=== PATIENT | female | born 1940 | race Caucasian/White ===

== ENCOUNTER 2016-06-23 09:17 | Day surgery (SDC) | payer MEDICARE, BC ==
[2016-06-23 10:54] LABS: HEMATOCRIT 35.2 % (36.0-47.0); HEMOGLOBIN 11.7 g/dL (12.0-15.5); HGB HCT DIFFERENCE -0.1; MEAN CORPUSCULAR HEMOGLOBIN 33.8 pg (27.0-33.4); MEAN CORPUSCULAR HGB CONC 33.1 g/dL (32.0-36.0); MEAN CORPUSCULAR VOLUME 102 fl (80-97); RED BLOOD COUNT 3.44 10^6/uL (3.72-5.28); RED CELL DISTRIBUTION WIDTH 14.6 % (11.5-14.0); WHITE BLOOD COUNT 4.5 10^3/uL (4.0-10.5)
[2016-06-23] MEDS ORDERED: FENTANYL CITRATE INJ/PF 100 MCG/2 ML AMPUL ONE (11:02)
[2016-06-23] MEDS ORDERED: MIDAZOLAM 2 MG/2 ML INJ ONE (11:02)
[2016-06-23] MEDS ORDERED: HEPARIN SOD (PORCINE) 5,000 UNIT/ML 1 ML SYRINGE ONE (11:02)
[2016-06-23 11:14] LABS: ANION GAP 13 (5-19); BLOOD UREA NITROGEN 41 mg/dL (7-20); CALCIUM 10.4 mg/dL (8.4-10.2); CARBON DIOXIDE 29 mmol/L (22-30); CHLORIDE 96 mmol/L (98-107); CREATININE RESULT 5.13 mg/dL (0.52-1.25); GLUCOSE 105 mg/dL (75-110); POTASSIUM 4.5 mmol/L (3.6-5.0)
[2016-06-23 11:16] LABS: PROTHROMBIN TIME 12.8 SEC (11.4-15.4)
[2016-06-23] MEDS ORDERED: LIDOCAINE 0.5% INJ-PF (5 MG/ML) 50 ML SDV ONE (11:18)
[2016-06-23 11:22] LABS: BASOPHILS % (MANUAL) 2 % (0-2); EOSINOPHILS % (MANUAL) 4 % (0-6); LYMPHOCYTES % (MANUAL) 24 % (13-45); TOTAL CELLS COUNTED 100
[2016-06-23 11:24] LABS: ANISOCYTOSIS 1+; HYPOCHROMASIA SLIGHT; OVALOCYTES SLIGHT
--- NOTE | 2016-06-23 12:55 | PDOC DISCHARGE SUMMARY ---
Discharge Summary (SDC) - Discharge Final Diagnosis: #1 malfunctioning arteriovenous fistula, left brachiocephalic. #2 end-stage renal disease on hemodialysis. #3 multiple comorbidities. Date of Surgery: 06/23/16 Discharge Date: 06/23/16 Condition: Good Treatment or Instructions: #1 activities within moderation encouraged. #2 follow up in my office by appointment in about 1 week. Call for appointment. #3 the wounds covered clean and dry until dialysis. #4 hold off on school/work until evaluation in office. #5 may shower in 48 hours, keep operated area as dry as possible. #6 discharge from ambulatory when ASU criteria met. #7 medications per medication reconciliation sheet. #8 Also may have one Percocet up to every 4 hours when necessary for pain greater than 4 out of 10 while in the ASU Respiratory Treatments at Home: Deep Breathing/Coughing Discharge Activity: Activity As Tolerated Report the Following to Your Physician Immediately: Unusual Bleeding
--- NOTE | 2016-06-23 13:01 | Operative Report ---
Operative Report DATE OF SURGERY: 06/23/16 PREOPERATIVE DIAGNOSIS: #1 malfunctioning arteriovenous fistula, left brachiocephalic. #2 end-stage renal disease on hemodialysis. #3 multiple comorbidities. POSTOPERATIVE DIAGNOSIS: #1 malfunctioning arteriovenous fistula, left brachiocephalic. #2 end-stage renal disease on hemodialysis. #3 multiple comorbidities. OPERATION: #1 needle introduction of the fistula. #2 angioplasty. #3 angiogram and interpretation. SURGEON: NELIA DAUGHERTY COMPENSATION ADJUSTER: none ANESTHESIA: Moderate Sedation TISSUE REMOVED OR ALTERED: Not applicable. COMPLICATIONS: None ESTIMATED BLOOD LOSS: 2 mL. INTRAOPERATIVE FINDINGS: Of a well-founded arteriovenous fistula, left brachiocephalic. Initially. After angioplasty bit firmer suggesting improved inflow. Angiogram was pertinent for an almost absence of radial and ulnar arteries. In spite of this the patient has excellent vascularity at her hand which are nice and supple and pink and warm. No sign of steal nor does she have any pain. The fistula circuit otherwise is really quite normal, dilated in the 10 cm a frequent access and cephalad quite acceptable throughout to the heart. The jugular a little bit prominent but no obvious central stenosis. The [place] artery looks quite large that is the brachial and, as mentioned, the ulnar and radial were not seen even after obstruction of the fistula during angiography. PROCEDURE: PROCEDURE: After verifying the procedure and having obtained informed consent, the patient's left arm was prepared with Chlorhexidine and draped out with sterile linen. Local anesthesia infiltrated. Percutaneous access into the fistula ,[retrograde], obtained about [20 cm] from the arteriovenous anastomosis using a micro puncture needle followed by micro puncture wire and then a micro puncture catheter. Angiogram demonstrated the aforementioned findings. Angioplasty was elected. A 0.035 [place] wire was inserted, and over this, a 6 Setswana short introducer was placed, this was followed by a Kumpe catheter. The system was manipulated past the anastomosis and into the brachial artery. [5] angioplasty balloon . Angioplasty was Done around the bend of the connection of artery to fistula. It was difficult to ascertain an actual stenosis due to the perfusion of vascularity in this area. Nevertheless there was a distinct waist which was eliminated at 12 willis. Hardcopy documentation preserved.. Inflating for a minute at a time.]. The fistula had markedly improved flow and was somewhat firmer than initially. Completion angiogram demonstrated [satisfactory result]. The instrumentation was now withdrawn over moderate pressure for 10 minutes. Dressings applied, procedure concluded. Exposure time: 0.8 minutes Radiation: 15 sandra per centimeter squared Contrast: 25 mL of Isovue-M 300 low osmolality. DICTATING PHYSICIAN: NELIA DUNLAP M.D. cc: NELIA DUNLAP M.D. ([id number]) >>
--- NOTE | 2016-06-23 13:13 | EKG REPORT ---
SEVERITY:- ABNORMAL ECG - SINUS RHYTHM VENTRICULAR PREMATURE COMPLEX FIRST DEGREE AV BLOCK PROBABLE INFERIOR INFARCT, OLD OLD ANTEROSEPTAL MA : Confirmed by: Oskar Herzog MD 23-Jun-2016 13:12:53
[2016-06-23 13:41] VITALS: BP 138/56
== END 2016-06-23 13:50 | disposition home or self-care (01) ==
LOC: CCL 09:17
PROVIDERS: ATTEND Surgery
PROC: 057F3DZ Dilation of Left Cephalic Vein with Intraluminal Device, Percutaneous Approach (ICD-10-PCS; principal; 2016-06-23)
DX: T82.858A Stenosis of other vascular prosthetic devices, implants and grafts, initial encounter (principal); Y83.2 Surgical operation with anastomosis, bypass or graft as the cause of abnormal reaction of the patient, or of later complication, without mention of misadventure at the time of the procedure; N18.6 End stage renal disease; Z79.01 Long term (current) use of anticoagulants; Z99.2 Dependence on renal dialysis; Z88.8 Allergy status to other drugs, medicaments and biological substances
CPT/HCPCS: 36415; 85025; 85610; 85730; 80048; 36902; 71010; 93005; 93010; C1725; C1887; C1769; J2250; J1644 ×2; J3010; J3490

== ENCOUNTER 2018-04-12 06:44 | Emergency (ER) | payer MEDICARE, BC ==
--- NOTE | 2018-04-12 07:35 | ER Document Report ---
ED General - General Chief Complaint: Fall Stated Complaint: FALL Time Seen by Provider: 04/12/18 07:34 Notes: Patient is a 77 female that presents to the emergency department for chief complaint of hip pain after fall. Patient states that this morning, she made some oatmeal, and turned to throw paper towel away, and lost her balance and fell, she states that she believes she landed on her right side, she did hit her head, but denies loss of consciousness. She is currently complaining of bilateral hip pain, however and pain on her left arm where she has a skin tear. She denies having any headache or neck pain at this time. But she complains of pain in her hips as noted, which she currently rates as a 8 out of 10, describes as a constant aching sensation, she did not take any medication prior to ED arrival. Patient arrived by EMS. She denies any other complaints at this time such as chest pain, shortness of breath, nausea, vomiting. Past Medical History: End-stage renal disease on dialysis, hypothyroidism, CHF, CAD Past Surgical History: Left upper extremity AV fistula Social History: Denies current tobacco, alcohol or drug use. Family History: Reviewed and noncontributory for presenting illness Allergies: Reviewed, see documented allergy list. REVIEW OF SYSTEMS: Other than noted above, the 12 point review of systems was reviewed with the patient and were negative, all pertinent findings are included in the HPI. PHYSICAL EXAMINATION: Vital signs reviewed, nursing noted reviewed. GENERAL: Elderly female, appears uncomfortable and in pain HEAD: Atraumatic, normocephalic. EYES: Eyes appear normal, extraocular movements intact, sclera anicteric, conjunctiva are normal. ENT: nares patent, oropharynx clear without exudates. Moist mucous membranes. No midline tenderness. NECK: Normal range of motion, supple without lymphadenopathy LUNGS: Breath sounds clear to auscultation bilaterally and equal. No wheezes rales or rhonchi. HEART: Regular rate and rhythm without murmurs ABDOMEN: Soft, nontender, normoactive bowel sounds. No rebound, guarding, or rigidity. No masses appreciated. EXTREMITIES: Pelvic tenderness to palpation but stable, pain with logrolling bilaterally, worse on the right, there is tenderness to palpation over the left forearm, with the patient is noted to have a skin tear, no deep laceration. Left upper extremity AV fistula. Positive bruit, positive thrill NEUROLOGICAL: No focal neurological deficits. Moves all extremities spontaneously Motor and sensory grossly intact on exam. PSYCH: Normal mood, normal affect. SKIN: Warm, Dry, normal turgor, no rashes or lesions noted on exposed skin TRAVEL OUTSIDE OF THE [place] IN LAST 30 DAYS: No - Related Data Allergies/Adverse Reactions: metoclopramide HCl [From Reglan] Adverse Reaction (Unknown, Verified 06/23/16 09:40) leg twitching Past Medical History - Social History Smoking Status: Never Smoker Chew tobacco use (# tins/day): No Frequency of alcohol use: None Drug Abuse: None Family History: CAD, DM, Hypertension, Malignancy Patient has suicidal ideation: No Patient has homicidal ideation: No - Past Medical History Cardiac Medical History: Reports: Hx Congestive Heart Failure, Hx Coronary Artery Disease, Hx Heart Attack - 2004, QUAD BYPASS AND VALVE REPLACEMENT, Hx Hypercholesterolemia, Hx Hypertension, Hx Peripheral Vascular Disease, Hx Pulmonary Embolism, Hx Heart Murmur Denies: Hx Atrial Fibrillation Pulmonary Medical History: Reports: Hx Pneumonia - 01/2016, Hx Sleep Apnea Denies: Hx Asthma, Hx Bronchitis, Hx COPD, Hx Respiratory Failure, Hx Tuberculosis Neurological Medical History: Reports: Hx Cerebrovascular Accident - 2005. Denies: Hx Seizures Endocrine Medical History: Reports: Hx Diabetes Mellitus Type 1, Hx Diabetes Mellitus Type 2, Hx Hypothyroidism. Denies: Hx Graves' Disease, Hx Hyperthyroidism Renal/ Medical History: Reports: Hx End Stage Renal Disease - Oliguric, Hx Hemodialysis - MWF at [facility]. Denies: Hx Peritoneal Dialysis Malignancy Medical History: Denies: Hx Leukemia, Hx Lung Cancer GI Medical History: Reports: Hx Gastroesophageal Reflux Disease. Denies: Hx Crohn's Disease, Hx Hepatitis, Hx Hiatal Hernia, Hx Irritable Bowel, Hx Liver Failure, Hx Pancreatitis, Hx Ulcer Musculoskeletal Medical History: Reports Hx Arthritis - Back, Denies Hx Multiple Sclerosis Psychiatric Medical History: Reports: Hx Depression Denies: Hx Dementia Infectious Medical History: Denies: Hx Hepatitis, Hx HIV Past Surgical History: Reports: Hx Abdominal Surgery - hernia repair, Hx Cardiac Surgery, Hx Cholecystectomy, Hx Coronary Artery Bypass Graft - quadriple with mitral valve replacement, Hx Open Heart Surgery, Hx Pacemaker, Hx Tonsillectomy, Hx Tubal Ligation, Hx Valve Replacement - Patient claims to have had a valve replacement surgery by a bioprosthetic v. Denies: Hx Appendectomy, Hx Bowel Surgery, Hx Section, Hx Colostomy, Hx Gastric Bypass Surgery, Hx Herniorrhaphy, Hx Hysterectomy, Hx Mastectomy - Immunizations Hx Diphtheria, Pertussis, Tetanus Vaccination: Yes Hx Pneumococcal Vaccination: 01/04/16 Physical Exam - Vital signs Vitals: Temp Pulse Resp BP Pulse Ox 96.9 F L 69 18 118/45 L 91 L 04/12/18 06:44 04/12/18 06:44 04/12/18 06:44 04/12/18 06:44 04/12/18 06:44 Course - Re-evaluation Re-evalutation: Patient seen and examined vital signs reviewed. Laboratory data and imaging were ordered as appropriate for the patient's presenting symptoms and complaint, with consideration of any critical or life threatening conditions that may be associated with their obtained history and exam as noted above. Patient was treated with IV fentanyl for her pain Results were reviewed when available and demonstrated negative x-rays of the pelvis and hip on the right, however patient was still having pain with reexamination, therefore CT imaging of the pelvis was ordered, this was negative for occult fracture as well, her CT of her head and neck were negative. The patient was re-evaluated and was stable and improved, she did miss dialysis on Wednesday, yesterday, encouraged her to go tomorrow, she needs this, but she did not appear fluid overloaded, was not short of breath, is not particularly hypertensive. Evaluation was most consistent with fall, hip pain, skin tear Results were discussed with the patient at this point, after careful consideration I feel that that patient can be discharged from the emergency department, the patient was educated treatments and reasons to return to the emergency department based on their presumed diagnosis as noted above, they were advised to followup with a primary care physician in 2-3 days. Patient was agreeable to plan of care. *Note is created using voice recognition software and may contain spelling, syntax or grammatical errors. Hip/Pelvis X-Ray 04/12/18 07:44 IMPRESSION: NEGATIVE STUDY OF THE RIGHT HIP. NO RADIOGRAPHIC EVIDENCE OF ACUTE INJURY. Cervical Spine CT 04/12/18 07:45 IMPRESSION: CHRONIC DEGENERATIVE CHANGES. NO ACUTE FINDINGS. Head CT 04/12/18 07:45 IMPRESSION: MILD CHRONIC CHANGES OF ATROPHY AND MICROVASCULAR ISCHEMIA. NO ACUTE PROCESS. EVIDENCE OF ACUTE STROKE: NO. Pelvis CT 04/12/18 09:22 IMPRESSION: NO ACUTE OR SIGNIFICANT FINDINGS. - Vital Signs Vital signs: Temp Pulse Resp BP Pulse Ox 96.9 F L 69 16 141/58 H 96 04/12/18 06:44 04/12/18 06:44 04/12/18 11:01 04/12/18 11:00 04/12/18 11:01 Discharge - Discharge Clinical Impression: Skin tear Hip pain Qualifiers: Laterality: bilateral Qualified Code(s): M25.551 - Pain in right hip Fall Qualifiers: Encounter type: initial encounter Qualified Code(s): W19.XXXA - Unspecified fall, initial encounter Condition: Stable Disposition: HOME, SELF-CARE Instructions: Contusion ([facility]) Additional Instructions: Please follow-up with your primary care physician, and please go to dialysis tomorrow, as you would need this. You can use warm or cool compresses to help with your pain at home, and otherwise take Tylenol for pain, up to 1000 mg 3 times daily, to help alleviate some pain. Referrals: VAISHALI SMITH MD [ACTIVE STAFF] - Follow up tomorrow JOSE LUIS ROCHE PA-C [Primary Care Provider] - Follow up in 3-5 days
[2018-04-12] MEDS ORDERED: ONDANSETRON HCL INJ/PF 4 MG/2 ML SDV IV ONE (07:44)
[2018-04-12] MEDS ORDERED: FENTANYL CITRATE INJ/PF 100 MCG/2 ML AMPUL IV ONE (07:44)
[2018-04-12] MEDS ORDERED: NORMAL SALINE 500 ML IV ONE (07:45)
--- NOTE | 2018-04-12 08:48 | RADIOLOGY REPORT (SQ) ---
EXAM DESCRIPTION: CT HEAD WITHOUT COMPLETED DATE/TIME: 04/12/2018 8:37 am REASON FOR STUDY: fall, head injury COMPARISON: 05/02/2012. TECHNIQUE: Axial images acquired through the brain without intravenous contrast. Images reviewed wi th bone, brain and subdural windows. Additional sagittal and coronal reconstructions were generated. Images stored on PACS. All CT scanners at this facility use dose modulation, iterative reconstruction, and/or weight based d osing when appropriate to reduce radiation dose to as low as reasonably achievable (ALARA). [facility]: Dose Right [facility]: CareDose [facility]: Dose Right [facility]: Teradose 4D [facility]: [employer] RADIATION DOSE: CT Rad equipment meets quality standard of care and radiation dose reduction techniq ues were employed. CTDIvol: 53.2 mGy. DLP: 1044 mGy-cm. mGy. LIMITATIONS: None. FINDINGS: VENTRICLES: Prominent. CEREBRUM: No masses. No hemorrhage. No midline shift. Areas of low density in the white matter mos t likely due to chronic micro-vascular ischemic change. No evidence for acute infarction. CEREBELLUM: No masses. No hemorrhage. No alteration of density. No evidence for acute infarction. EXTRAAXIAL SPACES: Mild age-related involutional change. No fluid collections. No masses. ORBITS AND GLOBE: No intra- or extraconal masses. Normal contour of globe without masses. CALVARIUM: No fracture. PARANASAL SINUSES: No fluid or mucosal thickening. SOFT TISSUES: No mass or hematoma. OTHER: No other significant finding. IMPRESSION: MILD CHRONIC CHANGES OF ATROPHY AND MICROVASCULAR ISCHEMIA. NO ACUTE PROCESS. EVIDENCE OF ACUTE STROKE: NO. TECHNICAL DOCUMENTATION: JOB ID: [id number] Quality ID # 436: Final reports with documentation of one or more dose reduction techniques (e.g., Au tomated exposure control, adjustment of the mA and/or kV according to patient size, use of iterative reconstruction technique) 2010 [employer]- All Rights Reserved Reading location - IP/workstation name: [email or web address]
--- NOTE | 2018-04-12 08:52 | RADIOLOGY REPORT (SQ) ---
EXAM DESCRIPTION: CT CERVICAL SPINE WITHOUT COMPLETED DATE/TIME: 04/12/2018 8:37 am REASON FOR STUDY: fall, head injury COMPARISON: None. TECHNIQUE: Axial images acquired through the cervical spine without intravenous contrast. Images re viewed with lung, soft tissue and bone windows. Reconstructed coronal and sagittal MPR images review ed. Images stored on PACS. All CT scanners at this facility use dose modulation, iterative reconstruction, and/or weight based d osing when appropriate to reduce radiation dose to as low as reasonably achievable (ALARA). [facility]: Dose Right [facility]: CareDose [facility]: Dose Right [facility]: Teradose 4D [facility]: [employer] RADIATION DOSE: CT Rad equipment meets quality standard of care and radiation dose reduction techniq ues were employed. CTDIvol: 22.6 mGy. DLP: 391 mGy-cm. mGy. LIMITATIONS: None. FINDINGS: ALIGNMENT: Anatomic. MINERALIZATION: Normal. VERTEBRAL BODIES: No fractures or dislocation. DISCS: Multilevel disc space narrowing with osteophytes. FACETS, LATERAL MASSES, POSTERIOR ELEMENTS: Facet arthropathy. No fractures. No dislocation. No ac robin findings. HARDWARE: None in the spine. VISUALIZED RIBS: No fractures. LUNG APICES AND SOFT TISSUES: No significant or acute findings. OTHER: No other significant finding. IMPRESSION: CHRONIC DEGENERATIVE CHANGES. NO ACUTE FINDINGS. TECHNICAL DOCUMENTATION: JOB ID: [id number] Quality ID # 436: Final reports with documentation of one or more dose reduction techniques (e.g., Au tomated exposure control, adjustment of the mA and/or kV according to patient size, use of iterative reconstruction technique) 2010 [employer] All Rights Reserved Reading location - IP/workstation name: [email or web address]
--- NOTE | 2018-04-12 08:54 | RADIOLOGY REPORT (SQ) ---
EXAM DESCRIPTION: HIP RIGHT AP/LATERAL COMPLETED DATE/TIME: 04/12/2018 8:44 am REASON FOR STUDY: fall, right hip pain COMPARISON: 05/12/2011. NUMBER OF VIEWS: Two views. TECHNIQUE: AP pelvis and additional frog-leg view of the right hip. LIMITATIONS: None. FINDINGS: MINERALIZATION: Normal. RIGHT HIP: No fracture or dislocation. No worrisome bone lesions. LEFT HIP: No fracture or dislocation. No worrisome bone lesions. PUBIS AND ISCHIUM: No fracture. PELVIS: No fracture. SACRUM: No fracture or dislocation. No worrisome bone lesions. LOWER LUMBAR SPINE: No fracture or dislocation. No worrisome bone lesions. No significant disc disea se. SOFT TISSUES: No findings. OTHER: No other significant finding. IMPRESSION: NEGATIVE STUDY OF THE RIGHT HIP. NO RADIOGRAPHIC EVIDENCE OF ACUTE INJURY. TECHNICAL DOCUMENTATION: JOB ID: [id number] 1011 [employer]- All Rights Reserved Reading location - IP/workstation name: [email or web address]
--- NOTE | 2018-04-12 10:05 | RADIOLOGY REPORT (SQ) ---
EXAM DESCRIPTION: CT PELVIS WITHOUT COMPLETED DATE/TIME: 04/12/2018 9:52 am REASON FOR STUDY: bilateral hip pain, fall COMPARISON: None. TECHNIQUE: CT scan of the pelvis performed without intravenous or oral contrast. Images reviewed wi th soft tissue and bone windows. Reconstructed coronal and sagittal MPR images reviewed. All images stored on PACS. All CT scanners at this facility use dose modulation, iterative reconstruction, and/or weight based d osing when appropriate to reduce radiation dose to as low as reasonably achievable (ALARA). [facility]: Dose Right [facility]: CareDose [facility]: Dose Right [facility]: Teradose 4D [facility]: [employer] RADIATION DOSE: CT Rad equipment meets quality standard of care and radiation dose reduction techniq ues were employed. CTDIvol: 13.7 mGy. DLP: 450 mGy-cm. mGy. LIMITATIONS: None. FINDINGS: PELVIC BONES: No acute fracture. No worrisome bone lesions. VISUALIZED SPINE: No acute findings. HIP(S): No acute fracture or dislocation. No worrisome bone lesions. PELVIC SOFT TISSUES: No significant findings. EXTRAPELVIC SOFT TISSUES: No significant findings. OTHER: No other significant finding. IMPRESSION: NO ACUTE OR SIGNIFICANT FINDINGS. TECHNICAL DOCUMENTATION: JOB ID: [id number] Quality ID # 436: Final reports with documentation of one or more dose reduction techniques (e.g., Au tomated exposure control, adjustment of the mA and/or kV according to patient size, use of iterative reconstruction technique) 2010 [employer]- All Rights Reserved Reading location - IP/workstation name: [email or web address]
[2018-04-12] MEDS ORDERED: ZIPRASIDONE MESYLATE INJ/PF 20 MG SDV IM ONE (11:32)
[2018-04-12 11:33] VITALS: BP 141/58
== END 2018-04-12 11:33 | disposition home or self-care (01) ==
LOC: ER 06:44
DX: S41.112A Laceration without foreign body of left upper arm, initial encounter (principal); M25.551 Pain in right hip; M25.552 Pain in left hip; W19.XXXA Unspecified fall, initial encounter; I13.2 Hypertensive heart and chronic kidney disease with heart failure and with stage 5 chronic kidney disease, or end stage renal disease; E11.22 Type 2 diabetes mellitus with diabetic chronic kidney disease; N18.6 End stage renal disease; I50.9 Heart failure, unspecified; Z99.2 Dependence on renal dialysis; I25.10 Atherosclerotic heart disease of native coronary artery without angina pectoris
CPT/HCPCS: 99284; 96361; 96374; 96375; 73502; 70450; 72125; 72192; J3010; J2405; J7040

== ENCOUNTER 2018-05-14 19:38 | Inpatient (IN) | payer MEDICARE, BC ==
[2018-05-14] MEDS ORDERED: PANTOPRAZOLE SODIUM 40 MG VIAL IV ONE (20:06)
[2018-05-14 20:18] LABS: ABSOLUTE LYMPHOCYTES (AUTO) 0.9 10^3/uL (0.5-4.7); ABSOLUTE MONOCYTES (AUTO) 0.6 10^3/uL (0.1-1.4); ABSOLUTE NEUT (AUTO) 6.2 10^3/uL (1.7-8.2); BASOPHILS % (AUTO) 0.3 % (0-2); EOSINOPHILS % (AUTO) 0.1 % (0-6); INTERNATIONAL RATION (INR) 1.25; LYMPHOCYTES % (AUTO) 11.7 % (13-45); MEAN CORPUSCULAR HEMOGLOBIN 32.7 pg (27.0-33.4); MEAN CORPUSCULAR HGB CONC 32.6 g/dL (32.0-36.0); MEAN CORPUSCULAR VOLUME 100 fl (80-97); MONOCYTES % (AUTO) 8.2 % (3-13); PLATELET COUNT 193 10^3/uL (150-450); PROTHROMBIN TIME 16.3 SEC (11.4-15.4); RED CELL DISTRIBUTION WIDTH 18.2 % (11.5-14.0); SEGMENTED NEUTROPHILS % (AUTO) 79.7 % (42-78); TOTAL CELLS COUNTED % (AUTO) 100 %; WHITE BLOOD COUNT 7.8 10^3/uL (4.0-10.5)
[2018-05-14 20:19] LABS: PARTIAL THROMBOPLASTIN TIME 30.2 SEC (23.5-35.8)
[2018-05-14 20:23] LABS: BLOOD UREA NITROGEN 101 mg/dL (7-20); CALCIUM 8.2 mg/dL (8.4-10.2); GLUCOSE 122 mg/dL (75-110)
[2018-05-14 20:24] LABS: ALANINE AMINOTRANSFERASE 21 U/L (9-52); ALBUMIN 2.7 g/dL (3.5-5.0); ALKALINE PHOSPHATASE 139 U/L (38-126); ANION GAP 12 (5-19); ASPARTATE AMINO TRANSFERASE 28 U/L (14-36); BILIRUBIN,DIRECT 0.5 mg/dL (0.0-0.4); BILIRUBIN,TOTAL 0.5 mg/dL (0.2-1.3); CARBON DIOXIDE 29 mmol/L (22-30); CHLORIDE 95 mmol/L (98-107); POTASSIUM 4.7 mmol/L (3.6-5.0); SODIUM 135.9 mmol/L (137-145); TOTAL PROTEIN 4.5 g/dL (6.3-8.2)
[2018-05-14] MEDS ORDERED: NORMAL SALINE 250 ML IV PRN (20:32)
[2018-05-14 20:33] LABS: HEMOGLOBIN 5.5 g/dL (12.0-15.5)
[2018-05-14] MEDS: PANTOPRAZOLE SODIUM 40 MG VIAL IV PRN (21:31)
--- NOTE | 2018-05-14 22:03 | RADIOLOGY REPORT (SQ) ---
EXAM DESCRIPTION: CT ABDOMEN PELVIS WITHOUT IV CONTRAST COMPLETED DATE/TME: 05/14/2018 20:06 CLINICAL HISTORY: 77 years, Female, GI bleed and low abd pain COMPARISON: 10/30/2014 CT. TECHNIQUE: 270 Images stored on PACS. All CT scanners at this facility use dose modulation, iterative reconstruction, and/or weight based dosing when appropriate to reduce radiation dose to as low as reasonably achievable (ALARA). [facility]: Dose Right [facility]: CareDose [facility]: Dose Right [facility]: Teradose 4D [facility]: [employer] LIMITATIONS: None. FINDINGS: Limited evaluation of the lung bases is unremarkable. Cardiomegaly is noted. Diffuse anasarca. Osseous structures of the abdomen/pelvis demonstrate endplate degenerative changes throughout the thoracic and lumbar spines. Mild compression deformities of the lower thoracic spine. Severe atheromatous change. Small hiatal hernia. Status post cholecystectomy. The liver, spleen, adrenal glands, pancreas are grossly unremarkable. Calcifications associated with each kidney are likely vascular in nature. Severe calcifications of the proximal abdominal aorta with near complete occlusion. Similar findings were present previously. No free air or free fluid. Moderate stool throughout colon. No gross evidence for bowel obstruction. Subcutaneous inflammatory change and soft tissue induration superficial to the sacrum. A linear tract which appears to extend to the cutaneous surface of the right gluteal fold and extends to the perianal region could reflect fistula formation. Correlate with physical exam.. IMPRESSION: Possible fistula associated with the medial right gluteal fold cutaneous surface extending to the perianal region. Correlate with physical exam. Severe atheromatous changes, as before. Moderate stool throughout colon. Diffuse anasarca TECHNICAL DOCUMENTATION: Quality ID # 436: Final reports with documentation of one or more dose reduction techniques (e.g., Automated exposure control, adjustment of the mA and/or kV according to patient size, use of iterative reconstruction technique) copyright 2010 [employer]- All Rights Reserved
--- NOTE | 2018-05-14 22:54 | ER Document Report ---
Entered by PITO TYLER SCRIBE 05/14/182032 Acting as scribe for:LULU RUSS DO ED GI Bleed / Rectal Pain - General Stated Complaint: BLOOD IN STOOL Time Seen by Provider: 05/14/18 19:46 Mode of Arrival: Ambulatory Information source: Patient Notes: Patient is a 77-year-old blind female with CHF, CAD, hypercholesterolemia, hypertension, ESRD(on dialysis) presents the emergency department via EMS due to rectal bleeding. Family reports the patient had a stool softener with stimulant around 1800 yesterday due to constipation. Family states when changing the patient today, they noticed dark red stool. Patient also complains of some abdominal pain. Patient does not have a history of prior GI bleed. Patient takes a daily aspirin, otherwise is not anticoagulated. Patient's PCP is Dr. Bray. Her automatic operator is Dr. Raygoza. Patient is on oxygen at home PRN. TRAVEL OUTSIDE OF THE [place] IN LAST 30 DAYS: No - HPI Patient complains to provider of: Dark red bld from rectum - Related Data Allergies/Adverse Reactions: metoclopramide HCl [From Reglan] Adverse Reaction (Unknown, Verified 06/23/16 09:40) leg twitching Past Medical History - General Information source: Patient, Emergency Med Personnel - Social History Smoking Status: Never Smoker Cigarette use (# per day): No Chew tobacco use (# tins/day): No Smoking Education Provided: No Frequency of alcohol use: None Family History: CAD, DM, Hypertension, Malignancy - Past Medical History Cardiac Medical History: Reports: Hx Congestive Heart Failure, Hx Coronary Artery Disease, Hx Heart Attack - 2004, QUAD BYPASS AND VALVE REPLACEMENT, Hx Hypercholesterolemia, Hx Hypertension, Hx Peripheral Vascular Disease, Hx Pulmonary Embolism, Hx Heart Murmur Pulmonary Medical History: Reports: Hx Pneumonia - 01/2016, Hx Sleep Apnea Neurological Medical History: Reports: Hx Cerebrovascular Accident - 2005 Endocrine Medical History: Reports: Hx Diabetes Mellitus Type 1, Hx Diabetes Mellitus Type 2, Hx Hypothyroidism Renal/ Medical History: Reports: Hx End Stage Renal Disease - Oliguric, Hx Hemodialysis - MWF at [facility] GI Medical History: Reports: Hx Gastroesophageal Reflux Disease Musculoskeletal Medical History: Reports Hx Arthritis - Back Psychiatric Medical History: Reports: Hx Depression Past Surgical History: Reports: Hx Abdominal Surgery - hernia repair, Hx Cardiac Surgery, Hx Cholecystectomy, Hx Coronary Artery Bypass Graft - quadriple with mitral valve replacement, Hx Open Heart Surgery, Hx Pacemaker, Hx Tonsillectomy, Hx Tubal Ligation, Hx Valve Replacement - Patient claims to have had a valve replacement surgery by a bioprosthetic v - Immunizations Hx Diphtheria, Pertussis, Tetanus Vaccination: Yes Hx Pneumococcal Vaccination: 01/04/16 Review of Systems - Review of Systems Constitutional: No symptoms reported EENT: No symptoms reported - Blind at baseline Cardiovascular: No symptoms reported Respiratory: No symptoms reported Gastrointestinal: See HPI, Abdominal pain, Black stools Genitourinary: No symptoms reported Female Genitourinary: No symptoms reported Musculoskeletal: No symptoms reported Skin: No symptoms reported Hematologic/Lymphatic: No symptoms reported Neurological/Psychological: No symptoms reported -: Yes All other systems reviewed and negative Physical Exam - Vital signs Vitals: Resp BP 20 80/41 L 05/14/18 19:45 05/14/18 19:45 Interpretation: Hypotensive - Notes Notes: GENERAL: Alert, hard of hearing. Keeps eyes closed during examination, blind at baseline. Confused, able to answer very few questions. Anxious. Hypotensive. HEAD: Normocephalic, atraumatic. EYES:Does not open eyes during examination. ENT: Oral mucosa moist, tongue midline. NECK: Full range of motion. Supple. Trachea midline. LUNGS: Clear to auscultation bilaterally, no wheezes, rales, or rhonchi. No respiratory distress. HEART: Regular rate and rhythm. 2/6 systolic murmur. No gallops or rubs. Hypotensive. ABDOMEN: Soft, RLQ and suprapubic tenderness to palpation. Non-distended. Bowel sounds present in all 4 quadrants. EXTREMITIES: Moves all 4 extremities spontaneously. Dialysis fistula in LUE, palpable thrill. NEUROLOGICAL: Alert. Confused, answers few questions. PSYCH: Anxious. SKIN: Warm, dry, pale. RECTAL: 2 external non thrombosed hemorrhoids. Melanotic stool, with positive heme occult at bedside. There is a superficial abrasion left of the sacrum above the gluteal cleft on the left side. No fistula palpated. No discharge from the abrasion, dense of infection. No fistula palpated from inside the rectal vault either. Course - Re-evaluation Re-evalutation: 05/14/18 22:51 Patient started on Protonix bolus and drip, limited amount of IV fluids were given, hemoglobin due to active bleeding and dialysis, CBC shows anemia with hemoglobin of 5.5, no leukocytosis, platelets normal, INR is prolonged at 1.25, patient only takes aspirin for anticoagulation, chemistries show slightly low sodium 135.9, acute renal failure end-stage renal disease with a BUN elevated at 101 consistent with GI bleeding and a creatinine of 3.86, patient is Ar on dialysis, calcium low at 8.2, Hemoccult is positive, CT scan of the abdomen pelvis shows positive post possible fistula associated with the right medial gluteal fold cutaneous surface extending in the perianal region but recommends correlation with physical examination. Repeat physical examination reveals slight abrasion to the left side of the sacrum, no surrounding erythema, no crepitus, no drainage, rectal examination does not show any evidence of fistula simply more dark black stool. Patient's blood pressures are corresponding quite well to a unit of blood but it continues to infuse, pressure is currently 121/46, she is not tachycardic. She has had several more melanotic bowel movements. I did discuss the case with Dr. Rutherford who states that should she not respond well to blood transfusions and to develop more rapid bleeding that he would either do an EGD himself to look for a bleeding ulcer or have Dr. Nicole perform an EGD. He is available for consultation. I also discussed the case with Dr. Ramirez who agreed to admit the patient to his service in admission status to the [facility]. - Vital Signs Vital signs: Temp Pulse Resp BP Pulse Ox 97.4 F 81 18 115/47 L 99 05/14/18 23:48 05/14/18 21:40 05/14/18 22:40 05/14/18 22:30 05/14/18 22:40 - Laboratory Result Diagrams: 05/14/18 19:40 05/14/18 19:40 Laboratory results interpreted by me: 05/14/18 05/14/18 05/14/18 19:40 19:40 19:40 RBC 1.70 L Hgb 5.5 L Hct 17.0 L MCV 100 H RDW 18.2 H Seg Neutrophils % 79.7 H Lymphocytes % 11.7 L PT 16.3 H Sodium 135.9 L Chloride 95 L BUN 101 H Creatinine 3.86 H Est GFR ( Amer) 14 L Est GFR (Non-Af Amer) 11 L Glucose 122 H Calcium 8.2 L Direct Bilirubin 0.5 H Alkaline Phosphatase 139 H Total Protein 4.5 L Albumin 2.7 L Crossmatch 05/14/18 19:40 RBC Hgb Hct MCV RDW Seg Neutrophils % Lymphocytes % PT Sodium Chloride BUN Creatinine Est GFR ( Amer) Est GFR (Non-Af Amer) Glucose Calcium Direct Bilirubin Alkaline Phosphatase Total Protein Albumin Crossmatch See Detail - EKG Interpretation by Me Additional EKG results interpreted by me: 05/14/18 22:54 EKG shows sinus rhythm rate of 86, first-degree AV block, slight ST segment depressions in 1 and aVL, no ST segment elevations, borderline prolonged QT interval, QT corrected is 493, per my interpretation. Critical Care Note - Critical Care Note Total time excluding time spent on procedures (mins): 55 Discharge - Discharge Clinical Impression: ESRD (end stage renal disease) on dialysis, Upper GI bleed Anemia Qualifiers: Anemia type: other cause Other causes of anemia: acute posthemorrhagic Qualified Code(s): D62 - Acute posthemorrhagic anemia Condition: Serious Disposition: ADMITTED INPATIENT [facility] Admitted: [facility] Scribe Attestation: 05/14/18 23:56 I personally performed the services described in the documentation, reviewed and edited the documentation which was dictated to the scribe in my presence, and it accurately records my words and actions. I personally performed the services described in the documentation, reviewed and edited the documentation which was dictated to the scribe in my presence, and it accurately records my words and actions.
[2018-05-14] MEDS ORDERED: MAGNESIUM HYDROXIDE SUSP 30 ML UDCUP PO PRN (23:07)
[2018-05-14] MEDS ORDERED: ONDANSETRON HCL INJ/PF 4 MG/2 ML SDV IV PRN (23:13)
[2018-05-14] MEDS ORDERED: ONDANSETRON 4 MG TAB.RAPDIS PO PRN (23:13)
[2018-05-14] MEDS ORDERED: MAG HYDROX/AL HYDROX/SIMETH SUSP 30 ML UDCUP PO PRN (23:13)
[2018-05-14] MEDS ORDERED: IPRATROPIUM/ALBUTEROL 0.5-2.5 MG/3 ML AMPUL NEB PRN (23:15)
[2018-05-15 00:27] LABS: HEMATOCRIT 20.2 % (36.0-47.0); MEAN CORPUSCULAR HEMOGLOBIN 31.4 pg (27.0-33.4); MEAN CORPUSCULAR HGB CONC 34.1 g/dL (32.0-36.0); PLATELET COUNT 168 10^3/uL (150-450); RED BLOOD COUNT 2.19 10^6/uL (3.72-5.28); RED CELL DISTRIBUTION WIDTH 20.6 % (11.5-14.0); WHITE BLOOD COUNT 8.5 10^3/uL (4.0-10.5)
[2018-05-15 00:28] LABS: HEMOGLOBIN 6.9 g/dL (12.0-15.5)
[2018-05-15 00:29] LABS: MEAN CORPUSCULAR VOLUME 92 fl (80-97)
[2018-05-15 00:31] LABS: INTERNATIONAL RATION (INR) 1.26; PROTHROMBIN TIME 16.4 SEC (11.4-15.4)
--- NOTE | 2018-05-15 02:15 | PDOC H&P ---
History of Present Illness Admission Date/PCP: JOSE LUIS ROCHE PA-C Patient complains of: Melena History of Present Illness: SINAN EASLEY is a 77 year old female who presented to the emergency room via EMS with acute rectal bleeding. Her family provides her care and support and noted that she passed melanotic stool today just prior to calling the EMS to bring the patient to hospital. Her family notes that they provide all of her care due to her blindness and that she had been constipated last night and had been given a stool softener and a stimulant laxative. Patient states that she had some mild abdominal cramping before her bowel movement but has had no pain since then. Family indicates she has had no vomiting and the patient states that she has not been nauseated. The patient denies prior similar episodes and has not identified any aggravating or ameliorating factors for her upper GI bleeding. In the emergency room she was found to have nick melena with additional melenic stools being passed during her course in the emergency room. Her hemoglobin was stable at 5.5 but she was mildly hypotensive and responded well to a 1 unit transfusion of packed red blood cells. She is noted to be a stage V renal failure on dialysis patient who sees Dr. Raygoza for dialysis on Wednesday and Wednesday. She was subsequently admitted to the hospital for further evaluation and treatment after Dr. Rutherford agreed to provide surgical assistance as needed for evaluation and/or treatment of her upper GI bleeding. 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 Denies: Nose - Epistaxis Neurological Medical History: Denies: Hemorrhagic CVA, Ischemic CVA, Seizures Endocrine Medical History: Reports: Diabetes Mellitus Type 2, Hypothyroidism Denies: Diabetes Mellitus Type 1, Hyperthyroidism Renal/ Medical History: Reports: End Stage Renal Disease - Oliguric Denies: Nephrolithiasis Malignancy Medical History: Reports: None GI Medical History: Reports: Gastroesophageal Reflux Disease Denies: Cirrhosis, Crohn's Disease, Diverticulitis, Hepatitis, Peptic Ulcer Disease, Ulcerative Colitis Musculoskeltal Medical History: Reports: Arthritis - Back Denies: Gout Skin Medical History: Denies: Eczema, Psoriasis Psychiatric Medical History: Reports: Depression Denies: Alcohol Dependency, Dementia, Substance Abuse, Tobacco Dependency Traumatic Medical History: Reports: None Hematology: Reports: Anemia Denies: Bleeding Tendencies Infectious Medical History: Reports: None Past Surgical History Past Surgical History: Reports: Cardiac Catheterization, Cholecystectomy, Coronary Artery Bypass Graft, Herniorrhaphy, Pacemaker, Tonsillectomy, Tubal Ligation, Valve Replacement - Bioprosthetic valve replacement surgery, Vascular Surgery - Left antecubital tunnel/graft for dialysis Social History Information Source: Patient Lives with: Family Smoking Status: Never Smoker Frequency of Alcohol Use: None Hx Recreational Drug Use: No Drugs: None Hx Prescription Drug Abuse: No - Advance Directive Resuscitation Status: Full Code Surrogate healthcare decision maker:: Her daughter Nette Family History Family History: CAD, DM, Hypertension, Malignancy Parental Family History Reviewed: Yes Children Family History Reviewed: No Sibling(s) Family History Reviewed.: Yes Medication/Allergy Home Medications: Alprazolam [Xanax 0.5 mg Tablet] 0.5 mg PO TID 06/20/12 Amlodipine Besylate 1 tab PO QHS 06/20/12 Carvedilol [Coreg] 12.5 mg PO Q12 06/20/12 Hydralazine HCl [Apresoline 25 mg Tablet] 25 mg PO BID 06/20/12 Isosorbide Mononitrate [Isosorbide Mononitrate ER] 30 mg PO DAILY 06/20/12 Lisinopril 10 mg PO DAILY 07/14/12 Aspirin [Aspirin EC] 81 mg PO QAM 08/24/13 Calcium Acetate 667 mg PO TID 08/24/13 Levothyroxine Sodium 25 mcg PO DAILY 08/24/13 Tramadol HCl [Ultram 50 mg Tablet] 25 mg PO DAILY PRN 08/24/13 Diphenoxylate HCl/Atropine [Diphenoxylate-Atrop 2.5-0.025] 1 each PO Q6H PRN 10/30/14 Ipratropium/Albuterol Sulfate [Duoneb 3 ml Ampul] 3 ml NEB RTQ6 PRN 10/30/14 Lidocaine/Prilocaine [Lidocaine-Prilocaine Cream] 1 applic TP PRN PRN 10/30/14 Fluticasone Propionate [Flonase Allergy Relief] 1 spray NASL DAILY 06/23/16 Furosemide [Lasix] 20 mg PO 06/23/16 Gabapentin 100 tab PO DAILY 06/23/16 Promethazine HCl 25 mg PO PRN PRN 06/23/16 Allergies/Adverse Reactions: metoclopramide HCl [From Reglan] Adverse Reaction (Unknown, Verified 06/23/16 09:40) leg twitching Review of Systems Constitutional: ABSENT: chills, fever(s) Eyes: PRESENT: visual disturbances - Chronic blindness. ABSENT: other - Eye pain Ears: ABSENT: hearing changes, other - Ear pain Nose, Mouth, and Throat: ABSENT: mouth pain, sore throat Cardiovascular: ABSENT: chest pain, palpitations Respiratory: ABSENT: cough, dyspnea Gastrointestinal: PRESENT: as per HPI, abdominal pain, constipation, melena. ABSENT: diarrhea, nausea, vomiting Genitourinary: ABSENT: dysuria, hematuria Musculoskeletal: PRESENT: back pain - Chronic, other - Hip pain secondary to a fall 2 weeks ago with a pelvic fracture?? Integumentary: ABSENT: pruritus, rash Neurological: ABSENT: confusion, convulsions, memory loss Psychiatric: ABSENT: anxiety, depression Endocrine: ABSENT: cold intolerance, heat intolerance Hematologic/Lymphatic: ABSENT: easy bleeding, easy bruising Physical Exam Vital Signs: Temp Pulse Resp BP Pulse Ox 97.5 F 18 115/47 L 99 05/14/18 22:43 05/14/18 22:40 05/14/18 22:30 05/14/18 22:40 Intake & Output 05/12/18 05/13/18 05/14/18 23:59 23:59 23:59 Intake Total 0 Balance 0 General appearance: PRESENT: no acute distress, cooperative, other - Tearful due to worry about this bleeding Head exam: PRESENT: atraumatic, normocephalic Eye exam: PRESENT: conjunctiva pink, other - Gross bilateral blindness Ear exam: PRESENT: normal external ear exam. ABSENT: bleeding, drainage Mouth exam: PRESENT: dry mucosa, neck supple Neck exam: ABSENT: thyromegaly, tracheal deviation Respiratory exam: PRESENT: clear to auscultation drake, symmetrical, unlabored Cardiovascular exam: PRESENT: RRR. ABSENT: clicks, gallop, rubs Pulses: PRESENT: normal radial pulses, normal dorsalis pedis pul Vascular exam: PRESENT: normal capillary refill, pallor - Mild generalized pallor noted GI/Abdominal exam: PRESENT: normal bowel sounds, soft. ABSENT: tenderness Rectal exam: PRESENT: deferred Extremities exam: ABSENT: joint swelling, pedal edema Musculoskeletal exam: ABSENT: deformity, dislocation Neurological exam: PRESENT: alert, oriented to person, oriented to place, oriented to time, oriented to situation, other - Bilateral blindness Psychiatric exam: PRESENT: appropriate affect, normal mood Skin exam: PRESENT: dry, intact, warm. ABSENT: jaundice, rash, urticaria Results Laboratory Results: 05/14/18 19:40 05/14/18 19:40 05/14/18 05/14/18 05/14/18 19:40 19:40 19:40 WBC 7.8 RBC 1.70 L Hgb 5.5 L Hct 17.0 L MCV 100 H MCH 32.7 MCHC 32.6 RDW 18.2 H Plt Count 193 Seg Neutrophils % 79.7 H Lymphocytes % 11.7 L Monocytes % 8.2 Eosinophils % 0.1 Basophils % 0.3 Absolute Neutrophils 6.2 Absolute Lymphocytes 0.9 Absolute Monocytes 0.6 Absolute Eosinophils 0.0 Absolute Basophils 0.0 Sodium 135.9 L Potassium 4.7 Chloride 95 L Carbon Dioxide 29 Anion Gap 12 BUN 101 H Creatinine 3.86 H Est GFR ( Amer) 14 L Est GFR (Non-Af Amer) 11 L Glucose 122 H Calcium 8.2 L Total Bilirubin 0.5 AST 28 ALT 21 Alkaline Phosphatase 139 H Total Protein 4.5 L Albumin 2.7 L Blood Type O POSITIVE Antibody Screen NEGATIVE Impressions: Abdomen/Pelvis CT 05/14/18 20:06 IMPRESSION: Possible fistula associated with the medial right gluteal fold cutaneous surface extending to the perianal region. Correlate with physical exam. Severe atheromatous changes, as before. Moderate stool throughout colon. Diffuse anasarca TECHNICAL DOCUMENTATION: Quality ID # [id number]: Final reports with documentation of one or more dose reduction techniques (e.g., Automated exposure control, adjustment of the mA and/or kV according to patient size, use of iterative reconstruction technique) copyright 2011 [employer]- All Rights Reserved Assessment & Plan - Diagnosis (1) Acute on chronic anemia Is this a current diagnosis for this admission?: Yes Plan: Patient has acute blood loss anemia on chronic anemia secondary to renal disease. Her blood loss anemia will be corrected with transfusion as required to maintain adequate blood pressure and adequate perfusion without tachycardia. No attempts at increasing her hemoglobin past the necessary level to sustain her will be undertaken as this would probably lead to intravascular volume overload and cause worsening of her chronic symptoms such as congestive heart failure. (2) ESRD (end stage renal disease) on dialysis Is this a current diagnosis for this admission?: Yes Plan: The patient will be treated with supportive care and efforts to avoid volume overload will be undertaken. She will be seen by Dr. Raygoza if necessary on Wednesday to arrange for evaluation and inpatient dialysis. (3) DNR (do not resuscitate) Is this a current diagnosis for this admission?: Yes Plan: The patient and her family have confirmed with a wish to have DNR status. (4) Upper GI bleed Is this a current diagnosis for this admission?: Yes Plan: The source of the patient's upper GI bleeding will be evaluated via surgical con sultation with Dr. Rutherford and the surgicalist team. If bleeding increases or persists the surgical team is willing to step in over the weekend. Serial hemoglobins will be obtained to evaluate the extent of the patient's bleeding and to determine if the bleeding is worsening or resolving. (5) Diabetes mellitus type 2 in nonobese Is this a current diagnosis for this admission?: Yes Plan: Patient's diabetic care will be managed by utilizing a sliding scale insulin until such time as she is able to begin an oral diet and then her usual medical regimen can be resumed. - Time Time Spent: 30 to 50 Minutes Critical Time spent with patient: Less than 15 minutes Medications reviewed and adjusted accordingly: Yes Anticipated discharge: Home - Inpatient Certification Based on my medical assessment, after consideration of the patient's comorbidities, presenting symptoms, or acuity I expect that the services needed warrant INPATIENT care.: Yes I certify that my determination is in accordance with my understanding of Medicare's requirements for reasonable and necessary INPATIENT services [42 CFR 412.3e].: Yes Medical Necessity: Significant Comorbidiites Make Outpatient Treatment Too Risky, Need Close Monitoring Due to Risk of Patient Decompensation, Need For IV Fluids, Need for Surgery
[2018-05-15] MEDS: PANTOPRAZOLE SODIUM 40 MG VIAL IV PRN (07:59)
[2018-05-15 08:07] LABS: HEMATOCRIT 19.8 % (36.0-47.0); MEAN CORPUSCULAR VOLUME 91 fl (80-97); PLATELET COUNT 165 10^3/uL (150-450); RED BLOOD COUNT 2.18 10^6/uL (3.72-5.28); RED CELL DISTRIBUTION WIDTH 20.8 % (11.5-14.0); WHITE BLOOD COUNT 7.5 10^3/uL (4.0-10.5)
[2018-05-15 08:09] LABS: HEMOGLOBIN 6.7 g/dL (12.0-15.5)
[2018-05-15 08:18] LABS: ANION GAP 9 (5-19); BLOOD UREA NITROGEN 106 mg/dL (7-20); CALCIUM 8.2 mg/dL (8.4-10.2); CARBON DIOXIDE 30 mmol/L (22-30); CHLORIDE 98 mmol/L (98-107); GLUCOSE 93 mg/dL (75-110); POTASSIUM 4.5 mmol/L (3.6-5.0); SODIUM 137.3 mmol/L (137-145)
[2018-05-15] MEDS: DOCUSATE SODIUM 100 MG CAPSULE PO SCH ×2 (09:51→18:24)
[2018-05-15] MEDS: PANTOPRAZOLE SODIUM 40 MG VIAL IV SCH ×2 (09:51→21:48)
[2018-05-15 12:27] LABS: HEMATOCRIT 16.7 % (36.0-47.0); MEAN CORPUSCULAR HEMOGLOBIN 31.4 pg (27.0-33.4); MEAN CORPUSCULAR HGB CONC 34.3 g/dL (32.0-36.0); MEAN CORPUSCULAR VOLUME 91 fl (80-97); PLATELET COUNT 154 10^3/uL (150-450); RED BLOOD COUNT 1.83 10^6/uL (3.72-5.28); RED CELL DISTRIBUTION WIDTH 20.8 % (11.5-14.0); WHITE BLOOD COUNT 9.6 10^3/uL (4.0-10.5)
[2018-05-15 12:31] LABS: HEMOGLOBIN 5.7 g/dL (12.0-15.5)
[2018-05-15] MEDS: ALPRAZOLAM 0.5 MG TABLET PO PRN ×2 (13:42→21:49)
--- NOTE | 2018-05-15 17:27 | PDOC PROGRESS REPORT ---
Subjective Progress Note for:: 05/15/18 Subjective:: Admitted overnight. Patient was boarded in ER for most of the day. Recheck of Hg showed downtrend and was given an additional 1u pRBC. Upon questioning patient this evening, states that she continues to have abdominal pain. Unsure if she is having any more blooding BMs. Has mild right shoulder pain from recent fall. No other complaints. Reason For Visit: ACUTE UPPER GI BLEED Physical Exam Vital Signs: Temp Pulse Resp BP Pulse Ox 97.7 F 90 16 108/29 L 95 05/15/18 17:07 05/15/18 17:07 05/15/18 17:07 05/15/18 17:07 05/15/18 17:07 Intake & Output 05/14/18 05/15/18 05/16/18 06:59 06:59 06:59 Intake Total 800 300 Balance 800 300 Weight 49.2 kg General appearance: PRESENT: no acute distress, cooperative, other - Blind in left eye and difficult to see with right eye Mouth exam: PRESENT: dry mucosa Teeth exam: PRESENT: edentulous Respiratory exam: PRESENT: unlabored. ABSENT: tachypnea Cardiovascular exam: PRESENT: +S1, +S2. ABSENT: tachycardia GI/Abdominal exam: PRESENT: soft, tenderness - EPigastric tender to pain Extremities exam: ABSENT: +1 edema Neurological exam: PRESENT: alert, awake, CN II-XII grossly intact. ABSENT: aphasic Psychiatric exam: PRESENT: appropriate affect, normal mood Skin exam: PRESENT: dry, jaundice Results Laboratory Results: 05/15/18 12:00 05/15/18 07:57 05/14/18 05/14/18 05/14/18 19:40 19:40 19:40 WBC 7.8 RBC 1.70 L Hgb 5.5 L Hct 17.0 L MCV 100 H MCH 32.7 MCHC 32.6 RDW 18.2 H Plt Count 193 Seg Neutrophils % 79.7 H Lymphocytes % 11.7 L Monocytes % 8.2 Eosinophils % 0.1 Basophils % 0.3 Absolute Neutrophils 6.2 Absolute Lymphocytes 0.9 Absolute Monocytes 0.6 Absolute Eosinophils 0.0 Absolute Basophils 0.0 Sodium 135.9 L Potassium 4.7 Chloride 95 L Carbon Dioxide 29 Anion Gap 12 BUN 101 H Creatinine 3.86 H Est GFR ( Amer) 14 L Est GFR (Non-Af Amer) 11 L Glucose 122 H Calcium 8.2 L Magnesium Total Bilirubin 0.5 AST 28 ALT 21 Alkaline Phosphatase 139 H Total Protein 4.5 L Albumin 2.7 L Blood Type O POSITIVE Antibody Screen NEGATIVE 05/15/18 05/15/18 05/15/18 00:15 07:57 07:57 WBC 8.5 7.5 RBC 2.19 L 2.18 L Hgb 6.9 L 6.7 L Hct 20.2 L 19.8 L MCV 92 D 91 MCH 31.4 31.0 MCHC 34.1 34.0 RDW 20.6 H 20.8 H Plt Count 168 165 Seg Neutrophils % Lymphocytes % Monocytes % Eosinophils % Basophils % Absolute Neutrophils Absolute Lymphocytes Absolute Monocytes Absolute Eosinophils Absolute Basophils Sodium 137.3 Potassium 4.5 Chloride 98 Carbon Dioxide 30 Anion Gap 9 BUN 106 H Creatinine 4.44 H Est GFR ( Amer) 12 L Est GFR (Non-Af Amer) 10 L Glucose 93 Calcium 8.2 L Magnesium 1.8 Total Bilirubin AST ALT Alkaline Phosphatase Total Protein Albumin Blood Type Antibody Screen 05/15/18 12:00 WBC 9.6 RBC 1.83 L Hgb 5.7 L Hct 16.7 L MCV 91 MCH 31.4 MCHC 34.3 RDW 20.8 H Plt Count 154 Seg Neutrophils % Lymphocytes % Monocytes % Eosinophils % Basophils % Absolute Neutrophils Absolute Lymphocytes Absolute Monocytes Absolute Eosinophils Absolute Basophils Sodium Potassium Chloride Carbon Dioxide Anion Gap BUN Creatinine Est GFR ( Amer) Est GFR (Non-Af Amer) Glucose Calcium Magnesium Total Bilirubin AST ALT Alkaline Phosphatase Total Protein Albumin Blood Type Antibody Screen Impressions: Abdomen/Pelvis CT 05/14/18 20:06 IMPRESSION: Possible fistula associated with the medial right gluteal fold cutaneous surface extending to the perianal region. Correlate with physical exam. Severe atheromatous changes, as before. Moderate stool throughout colon. Diffuse anasarca TECHNICAL DOCUMENTATION: Quality ID # 436: Final reports with documentation of one or more dose reduction techniques (e.g., Automated exposure control, adjustment of the mA and/or kV according to patient size, use of iterative reconstruction technique) copyright 2011 [employer]- All Rights Reserved Assessment & Plan - Diagnosis (1) Upper GI bleed Is this a current diagnosis for this admission?: Yes Plan: upper GI bleeding will be evaluated via surgical consultation with Dr. Rutherford and the surgicalist team. - Continue Serial hemoglobins - Protonix IV 40mg BID ordered - Transfusion as indicated - EGD likely on 05/16 (2) Acute on chronic anemia Is this a current diagnosis for this admission?: Yes Plan: Chronic anemia due to renal disease. Her blood loss anemia will be corrected with transfusion - Surgery consulted to potential EGD on 05/16 - REceived 2nd unit pRBC this afternoon - Repeat H&H tonight and again in AM - Patient is HDS at this point and urgent intervention is not warranted at this time (3) DNR (do not resuscitate) Is this a current diagnosis for this admission?: Yes Plan: patient and her family have confirmed with a wish to have DNR status. (4) Diabetes mellitus type II, controlled Qualifiers: Diabetes mellitus complication detail: with chronic kidney disease Chronic kidney disease stage: on chronic dialysis Is this a current diagnosis for this admission?: Yes Plan: Continue SSI for now (5) ESRD (end stage renal disease) on dialysis Is this a current diagnosis for this admission?: Yes Plan: Receives iHD on /Wed - Spoke with Dr. Fuentes today and will plan to dialyze her on Wednesday, 05/16 - Time Time Spent with patient: Less than 15 minutes
[2018-05-15 19:24] LABS: HEMATOCRIT 18.6 % (36.0-47.0); MEAN CORPUSCULAR HEMOGLOBIN 31.4 pg (27.0-33.4); MEAN CORPUSCULAR HGB CONC 34.9 g/dL (32.0-36.0); MEAN CORPUSCULAR VOLUME 90 fl (80-97); PLATELET COUNT 145 10^3/uL (150-450); RED BLOOD COUNT 2.07 10^6/uL (3.72-5.28); RED CELL DISTRIBUTION WIDTH 17.8 % (11.5-14.0); WHITE BLOOD COUNT 9.1 10^3/uL (4.0-10.5)
[2018-05-15 19:27] LABS: HEMOGLOBIN 6.5 g/dL (12.0-15.5)
--- NOTE | 2018-05-15 20:26 | PDOC CONSULTATION ---
Consultation Consult Date: 05/15/18 Consult reason:: GI bleed History of Present Illness Admission Date/PCP: 05/14/18 23:43 JOSE LUIS ROCHE PA-C History of Present Illness: SINAN EASLEY is a 77 year old female dialysis patient suddenly noted melena a few days ago. [facility] ED by EMS and noted HgB of 5.5. Given a unit of PRBCs withimprovement in HB. Today apparently had another episode of melena with Hb again noted 5.5 andgiven a unit of PRBC s with HB afterwards at 6.4. Just talked to one of her daughters and obtained consent for EGD. They want her Full Code status. 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 Denies: Nose - Epistaxis Neurological Medical History: Denies: Hemorrhagic CVA, Ischemic CVA, Seizures Endocrine Medical History: Reports: Diabetes Mellitus Type 2, Hypothyroidism Denies: Diabetes Mellitus Type 1, Hyperthyroidism Renal/ Medical History: Reports: End Stage Renal Disease - Oliguric Denies: Nephrolithiasis Malignancy Medical History: Reports: None Denies: Leukemia, Lung Cancer GI Medical History: Reports: Gastroesophageal Reflux Disease Denies: Cirrhosis, Crohn's Disease, Diverticulitis, Hepatitis, Hiatal Hernia, Peptic Ulcer Disease, Ulcerative Colitis Musculoskeltal Medical History: Reports: Arthritis - Back Denies: Gout Skin Medical History: Denies: Eczema, Psoriasis Psychiatric Medical History: Reports: Depression Denies: Alcohol Dependency, Dementia, Substance Abuse, Tobacco Dependency Traumatic Medical History: Reports: None Hematology: Reports: Anemia Denies: Hemophilia, Sickle Cell Disease, Bleeding Tendencies Infectious Medical History: Reports: None Denies: HIV Past Surgical History Past Surgical History: Reports: Cardiac Catheterization, Cholecystectomy, Coronary Artery Bypass Graft, Herniorrhaphy, Pacemaker, Tonsillectomy, Tubal Ligation, Valve Replacement - Bioprosthetic valve replacement surgery, Vascular Surgery - Left antecubital tunnel/graft for dialysis Denies: Amputation, Appendectomy, Section, Colostomy, Gastric Bypass Surgery, Hysterectomy, Mastectomy Social History Lives with: Family Smoking Status: Never Smoker Frequency of Alcohol Use: None Hx Recreational Drug Use: No Drugs: None Hx Prescription Drug Abuse: No - Advance Directive Resuscitation Status: Full Code Family History Family History: CAD, DM, Hypertension, Malignancy Parental Family History Reviewed: Yes Children Family History Reviewed: No Sibling(s) Family History Reviewed.: No Medication/Allergy Home Medications: Alprazolam [Xanax 0.5 mg Tablet] 0.5 mg PO TID PRN 06/20/12 Amlodipine Besylate 5 mg PO QHS 06/20/12 Carvedilol [Coreg] 12.5 mg PO Q12 06/20/12 Hydralazine HCl [Apresoline 25 mg Tablet] 25 mg PO BID 06/20/12 Isosorbide Mononitrate [Isosorbide Mononitrate ER] 30 mg PO DAILY 06/20/12 Lisinopril 10 mg PO DAILY 07/14/12 Aspirin [Aspirin EC] 81 mg PO QAM 08/24/13 Calcium Acetate 2 cap PO TID 08/24/13 Levothyroxine Sodium 25 mcg PO DAILY 08/24/13 Diphenoxylate HCl/Atropine [Diphenoxylate-Atrop 2.5-0.025] 1 each PO Q6H PRN 10/30/14 Ipratropium/Albuterol Sulfate [Duoneb 3 ml Ampul] 3 ml NEB RTQ6 PRN 10/30/14 Lidocaine/Prilocaine [Lidocaine-Prilocaine Cream] 1 applic TP PRN PRN 10/30/14 Fluticasone Propionate [Flonase Allergy Relief] 1 spray NASL DAILY 06/23/16 Gabapentin 100 tab PO DAILY 06/23/16 Promethazine HCl 12.5 mg PO Q4HP PRN 06/23/16 Ascorbic Acid [Vitamin C] 1,000 mg PO DAILY 05/15/18 L.acidoph,Paracasei, B.lactis [Probiotic] 1 each PO DAILY 05/15/18 Loratadine [Claritin 10 mg Tablet] 10 mg PO DAILY 05/15/18 Ondansetron HCl [Zofran 4 mg Tablet] 1 tab PO PRN PRN 05/15/18 Ranitidine HCl 75 mg PO DAILYP PRN 05/15/18 Allergies/Adverse Reactions: metoclopramide HCl [From Reglan] Adverse Reaction (Unknown, Verified 06/23/16 09:40) leg twitching Review of Systems Eyes: PRESENT: other - blind due to Diabetes Ears: PRESENT: other - decreased hearing Cardiovascular: PRESENT: other - no chest pains/cough Gastrointestinal: PRESENT: melena Physical Exam Vital Signs: Temp Pulse Resp BP Pulse Ox 97.5 F 84 16 87/58 L 95 05/15/18 19:27 05/15/18 19:27 05/15/18 19:27 05/15/18 19:27 05/15/18 17:07 Intake & Output 05/14/18 05/15/18 05/16/18 06:59 06:59 06:59 Intake Total 800 300 Balance 800 300 Weight 49.2 kg General appearance: PRESENT: no acute distress Head exam: PRESENT: atraumatic Eye exam: PRESENT: conjunctiva pale Mouth exam: PRESENT: dry mucosa Neck exam: PRESENT: full ROM Respiratory exam: PRESENT: clear to auscultation drake Cardiovascular exam: PRESENT: RRR Pulses: PRESENT: normal radial pulses Vascular exam: PRESENT: normal capillary refill GI/Abdominal exam: PRESENT: soft - non tender Rectal exam: PRESENT: deferred Neurological exam: PRESENT: alert, oriented to person, oriented to place, oriented to time, oriented to situation Psychiatric exam: PRESENT: appropriate affect Skin exam: PRESENT: warm Results Laboratory Results: 05/15/18 19:06 05/15/18 07:57 05/14/18 05/14/18 05/14/18 19:40 19:40 19:40 WBC 7.8 RBC 1.70 L Hgb 5.5 L Hct 17.0 L MCV 100 H MCH 32.7 MCHC 32.6 RDW 18.2 H Plt Count 193 Seg Neutrophils % 79.7 H Lymphocytes % 11.7 L Monocytes % 8.2 Eosinophils % 0.1 Basophils % 0.3 Absolute Neutrophils 6.2 Absolute Lymphocytes 0.9 Absolute Monocytes 0.6 Absolute Eosinophils 0.0 Absolute Basophils 0.0 Sodium 135.9 L Potassium 4.7 Chloride 95 L Carbon Dioxide 29 Anion Gap 12 BUN 101 H Creatinine 3.86 H Est GFR ( Amer) 14 L Est GFR (Non-Af Amer) 11 L Glucose 122 H Calcium 8.2 L Magnesium Total Bilirubin 0.5 AST 28 ALT 21 Alkaline Phosphatase 139 H Total Protein 4.5 L Albumin 2.7 L Blood Type O POSITIVE Antibody Screen NEGATIVE 05/15/18 05/15/18 05/15/18 00:15 07:57 07:57 WBC 8.5 7.5 RBC 2.19 L 2.18 L Hgb 6.9 L 6.7 L Hct 20.2 L 19.8 L MCV 92 D 91 MCH 31.4 31.0 MCHC 34.1 34.0 RDW 20.6 H 20.8 H Plt Count 168 165 Seg Neutrophils % Lymphocytes % Monocytes % Eosinophils % Basophils % Absolute Neutrophils Absolute Lymphocytes Absolute Monocytes Absolute Eosinophils Absolute Basophils Sodium 137.3 Potassium 4.5 Chloride 98 Carbon Dioxide 30 Anion Gap 9 BUN 106 H Creatinine 4.44 H Est GFR ( Amer) 12 L Est GFR (Non-Af Amer) 10 L Glucose 93 Calcium 8.2 L Magnesium 1.8 Total Bilirubin AST ALT Alkaline Phosphatase Total Protein Albumin Blood Type Antibody Screen 05/15/18 05/15/18 05/15/18 12:00 17:30 19:06 WBC 9.6 Cancelled 9.1 RBC 1.83 L Cancelled 2.07 L Hgb 5.7 L Cancelled 6.5 L Hct 16.7 L Cancelled 18.6 L MCV 91 Cancelled 90 MCH 31.4 Cancelled 31.4 MCHC 34.3 Cancelled 34.9 RDW 20.8 H Cancelled 17.8 H Plt Count 154 Cancelled 145 L Seg Neutrophils % Lymphocytes % Monocytes % Eosinophils % Basophils % Absolute Neutrophils Absolute Lymphocytes Absolute Monocytes Absolute Eosinophils Absolute Basophils Sodium Potassium Chloride Carbon Dioxide Anion Gap BUN Creatinine Est GFR ( Amer) Est GFR (Non-Af Amer) Glucose Calcium Magnesium Total Bilirubin AST ALT Alkaline Phosphatase Total Protein Albumin Blood Type Antibody Screen Impressions: Abdomen/Pelvis CT 05/14/18 20:06 IMPRESSION: Possible fistula associated with the medial right gluteal fold cutaneous surface extending to the perianal region. Correlate with physical exam. Severe atheromatous changes, as before. Moderate stool throughout colon. Diffuse anasarca TECHNICAL DOCUMENTATION: Quality ID # 436: Final reports with documentation of one or more dose reduction techniques (e.g., Automated exposure control, adjustment of the mA and/or kV according to patient size, use of iterative reconstruction technique) copyright 2011 [employer]- All Rights Reserved Assessment & Plan - Diagnosis (1) Upper GI bleed Is this a current diagnosis for this admission?: Yes - Time Time Spent: 30 to 50 Minutes - Plan Summary Plan Summary: For EGD tomorrow
--- NOTE | 2018-05-16 00:09 | EKG REPORT ---
SEVERITY:- ABNORMAL ECG - SINUS RHYTHM FIRST DEGREE AV BLOCK BORDERLINE PROLONGED QT INTERVAL NON SPECIFIC IVCD : Confirmed by: David Jordan 16-May-2018 00:09:12
[2018-05-16 00:55] LABS: HEMATOCRIT 16.8 % (36.0-47.0); MEAN CORPUSCULAR HEMOGLOBIN 30.9 pg (27.0-33.4); MEAN CORPUSCULAR HGB CONC 34.3 g/dL (32.0-36.0); MEAN CORPUSCULAR VOLUME 90 fl (80-97); PLATELET COUNT 141 10^3/uL (150-450); RED BLOOD COUNT 1.87 10^6/uL (3.72-5.28); RED CELL DISTRIBUTION WIDTH 17.5 % (11.5-14.0); WHITE BLOOD COUNT 7.7 10^3/uL (4.0-10.5)
[2018-05-16 01:00] LABS: HEMOGLOBIN 5.8 g/dL (12.0-15.5)
[2018-05-16 06:47] LABS: HEMATOCRIT 15.6 % (36.0-47.0); MEAN CORPUSCULAR HEMOGLOBIN 32.2 pg (27.0-33.4); MEAN CORPUSCULAR HGB CONC 35.7 g/dL (32.0-36.0); MEAN CORPUSCULAR VOLUME 90 fl (80-97); PLATELET COUNT 140 10^3/uL (150-450); RED BLOOD COUNT 1.72 10^6/uL (3.72-5.28); RED CELL DISTRIBUTION WIDTH 17.7 % (11.5-14.0); WHITE BLOOD COUNT 7.7 10^3/uL (4.0-10.5)
[2018-05-16 06:58] LABS: HEMOGLOBIN 5.6 g/dL (12.0-15.5)
[2018-05-16 07:10] LABS: ANION GAP 10 (5-19); CALCIUM 7.8 mg/dL (8.4-10.2); CARBON DIOXIDE 27 mmol/L (22-30); CHLORIDE 98 mmol/L (98-107); GLUCOSE 113 mg/dL (75-110); POTASSIUM 5.4 mmol/L (3.6-5.0); SODIUM 135.3 mmol/L (137-145)
[2018-05-16 07:42] LABS: BLOOD UREA NITROGEN 150 mg/dL (7-20)
[2018-05-16] MEDS: DOCUSATE SODIUM 100 MG CAPSULE PO SCH ×2 (09:08→19:10)
[2018-05-16] MEDS ORDERED: NORMAL SALINE 250 ML IV PRN ×2 (10:00)
[2018-05-16] MEDS: PANTOPRAZOLE SODIUM 40 MG VIAL IV SCH ×2 (10:42→21:25)
[2018-05-16] MEDS ORDERED: EPOETIN ALFA INJ 40000 UNIT/1 ML (RENAL) IV PRN (13:08)
[2018-05-16] MEDS ORDERED: DEXTROSE 50%-WATER 25 GM/50 ML DISP.SYRIN IV ONE ×2 (13:51→14:30)
[2018-05-16 15:15] LABS: ARTERIAL BLOOD BASE EXCESS 7.5 mmol/L; ARTERIAL BLOOD H2CO3 0.97 mmol/L (1.05-1.35); ARTERIAL BLOOD HCO3 29.8 mmol/L (20-24); ARTERIAL BLOOD O2 SATURATION 99.3 % (94-98); ARTERIAL BLOOD PCO2 32.3 mmHg (35-45); ARTERIAL BLOOD PH 7.58 (7.35-7.45); ARTERIAL BLOOD PO2 153.9 mmHg (80-100); ARTERIAL BLOOD TOTAL CO2 30.8 mmol/L (21-25)
[2018-05-16 15:16] LABS: ARTERIAL BLOOD FIO2 2L
--- NOTE | 2018-05-16 15:31 | RADIOLOGY REPORT (SQ) ---
EXAM DESCRIPTION: CT HEAD WITHOUT COMPLETED DATE/TIME: 05/16/2018 3:23 pm REASON FOR STUDY: AMS COMPARISON: None. TECHNIQUE: Axial images acquired through the brain without intravenous contrast. Images reviewed wi th bone, brain and subdural windows. Additional sagittal and coronal reconstructions were generated. Images stored on PACS. All CT scanners at this facility use dose modulation, iterative reconstruction, and/or weight based d osing when appropriate to reduce radiation dose to as low as reasonably achievable (ALARA). [facility]: Dose Right [facility]: CareDose [facility]: Dose Right [facility]: Teradose 4D [facility]: Materialise RADIATION DOSE: CT Rad equipment meets quality standard of care and radiation dose reduction techniq ues were employed. CTDIvol: 48.6 mGy. DLP: 856 mGy-cm. mGy. LIMITATIONS: None. FINDINGS: VENTRICLES: Prominent. CEREBRUM: No masses. No hemorrhage. No midline shift. Areas of low density in the white matter mos t likely due to chronic micro-vascular ischemic change. No evidence for acute infarction. CEREBELLUM: No masses. No hemorrhage. No alteration of density. No evidence for acute infarction. EXTRAAXIAL SPACES: Mild age-related involutional change. No fluid collections. No masses. ORBITS AND GLOBE: No intra- or extraconal masses. Normal contour of globe without masses. CALVARIUM: No fracture. PARANASAL SINUSES: No fluid or mucosal thickening. SOFT TISSUES: No mass or hematoma. OTHER: No other significant finding. IMPRESSION: MILD CHRONIC CHANGES OF ATROPHY AND MICROVASCULAR ISCHEMIA. NO ACUTE PROCESS. EVIDENCE OF ACUTE STROKE: NO. TECHNICAL DOCUMENTATION: JOB ID: [id number] Quality ID # 436: Final reports with documentation of one or more dose reduction techniques (e.g., Au tomated exposure control, adjustment of the mA and/or kV according to patient size, use of iterative reconstruction technique) 2010 [employer]- All Rights Reserved Reading location - IP/workstation name: [email or web address]
[2018-05-16 16:11] LABS: HEMATOCRIT 20.1 % (36.0-47.0); MEAN CORPUSCULAR HGB CONC 35.2 g/dL (32.0-36.0); MEAN CORPUSCULAR VOLUME 88 fl (80-97); PLATELET COUNT 130 10^3/uL (150-450); RED BLOOD COUNT 2.28 10^6/uL (3.72-5.28); RED CELL DISTRIBUTION WIDTH 15.5 % (11.5-14.0); WHITE BLOOD COUNT 8.1 10^3/uL (4.0-10.5)
[2018-05-16 16:13] LABS: HEMOGLOBIN 7.1 g/dL (12.0-15.5)
--- NOTE | 2018-05-16 16:34 | RADIOLOGY REPORT (SQ) ---
EXAM DESCRIPTION: CHEST SINGLE VIEW COMPLETED DATE/TIME: 05/16/2018 4:19 pm REASON FOR STUDY: UNRESPONSIVE COMPARISON: 11/04/2014 EXAM PARAMETERS: NUMBER OF VIEWS: One view. TECHNIQUE: Single frontal radiographic view of the chest acquired. RADIATION DOSE: NA LIMITATIONS: None. FINDINGS: LUNGS AND PLEURA: Low lung volumes. Left pleuroparenchymal changes with effusion suggest ed. Vague focal opacity suggested in the right upper lung zone. MEDIASTINUM AND HILAR STRUCTURES: No masses. Contour normal. HEART AND VASCULAR STRUCTURES: Heart normal in size. Normal vasculature. BONES: No acute findings. HARDWARE: Prior anterior median sternotomy. OTHER: No other significant finding. IMPRESSION: 1. A vague focal opacity is suggested in the right upper lung zone. 2. Left lower lung pleuroparenchymal changes-effusion suggested. TECHNICAL DOCUMENTATION: JOB ID: [id number] [employer]- All Rights Reserved Reading location - IP/workstation name: [email or web address]
[2018-05-16] MEDS: DEXTROSE 5%-1/2 NORMAL SALINE 1,000 ML IV PRN (16:43)
[2018-05-16 18:37] LABS: HEMATOCRIT 21.2 % (36.0-47.0); MEAN CORPUSCULAR HEMOGLOBIN 30.9 pg (27.0-33.4); MEAN CORPUSCULAR HGB CONC 35.1 g/dL (32.0-36.0); MEAN CORPUSCULAR VOLUME 88 fl (80-97); PLATELET COUNT 137 10^3/uL (150-450); RED BLOOD COUNT 2.41 10^6/uL (3.72-5.28); RED CELL DISTRIBUTION WIDTH 15.7 % (11.5-14.0); WHITE BLOOD COUNT 9.3 10^3/uL (4.0-10.5)
[2018-05-16 18:42] LABS: HEMOGLOBIN 7.4 g/dL (12.0-15.5)
[2018-05-16] MEDS ORDERED: ALPRAZOLAM 0.5 MG TABLET PO PRN (18:54)
--- NOTE | 2018-05-16 18:54 | PDOC PROGRESS REPORT ---
Subjective Progress Note for:: 05/16/18 Subjective:: Patient presented with GI bleed and unfortunately received 2 PRBC on admissionhas been n.p.o. since admission still waiting for an EGD. On my encounter in the morning patient was alert oriented x3 very pleasant and cooperative with physical examination is complaining of being hungry and thirsty. I started her on D5 NS at 40 and also noted that patient had an hemog lobin of 5.6. 1 PRBC stat was given to her before being taken to hemodialysis for her scheduled HD. Unfortunately during hemodialysis patient became more somnolent and lethargic. A CT head was done which was negative for any acute stroke, repeat H&H showed hemoglobin of 7.1, ABG showed normal pH with metabolic acidosis with respiratory compensation with normal PO2. Surgery was called and EGD was canceled due to her mental status. Was started on clear liquid diet and thankfully her mental status recover. Patient will be placed n.p.o. tonight on D5W at 56 and EGD by surgery tomorrow. Due to patient being end-stage renal disease on volume status should be monitored. Reason For Visit: ACUTE UPPER GI BLEED Physical Exam Vital Signs: Temp Pulse Resp BP Pulse Ox 98.4 F 91 16 141/41 H 99 05/16/18 17:14 05/16/18 17:14 05/16/18 17:14 05/16/18 17:14 05/16/18 17:14 Intake & Output 05/15/18 05/16/18 05/17/18 06:59 06:59 06:59 Intake Total 800 300 300 Balance 800 300 300 Weight 49.2 kg 49.2 kg General appearance: PRESENT: no acute distress, well-developed, well-nourished Head exam: PRESENT: atraumatic, normocephalic Respiratory exam: PRESENT: clear to auscultation drake. ABSENT: rales, rhonchi, wheezes Cardiovascular exam: PRESENT: RRR. ABSENT: diastolic murmur, rubs, systolic murmur GI/Abdominal exam: PRESENT: normal bowel sounds, soft. ABSENT: distended, guarding, mass, organolmegaly, rebound, tenderness Neurological exam: PRESENT: alert, awake, oriented to person, oriented to place, oriented to time, oriented to situation, CN II-XII grossly intact. ABSENT: motor sensory deficit Results Laboratory Results: 05/16/18 06:27 05/14/18 05/15/18 05/16/18 19:40 19:06 00:46 WBC 9.1 7.7 RBC 2.07 L 1.87 L Hgb 6.5 L 5.8 L Hct 18.6 L 16.8 L MCV 90 90 MCH 31.4 30.9 MCHC 34.9 34.3 RDW 17.8 H 17.5 H Plt Count 145 L 141 L Carbonic Acid HCO3/H2CO3 Ratio ABG pH ABG pCO2 ABG pO2 ABG HCO3 ABG O2 Saturation ABG Base Excess FiO2 Sodium Potassium Chloride Carbon Dioxide Anion Gap BUN Creatinine Est GFR ( Amer) Est GFR (Non-Af Amer) Glucose Lactic Acid Calcium Magnesium Ammonia Blood Type O POSITIVE Antibody Screen NEGATIVE 05/16/18 05/16/18 05/16/18 06:27 06:27 14:55 WBC 7.7 RBC 1.72 L Hgb 5.6 L Hct 15.6 L MCV 90 MCH 32.2 MCHC 35.7 RDW 17.7 H Plt Count 140 L Carbonic Acid 0.97 L HCO3/H2CO3 Ratio 30:1 ABG pH 7.58 H ABG pCO2 32.3 L ABG pO2 153.9 H ABG HCO3 29.8 H ABG O2 Saturation 99.3 H ABG Base Excess 7.5 FiO2 2L Sodium 135.3 L Potassium 5.4 H Chloride 98 Carbon Dioxide 27 Anion Gap 10 BUN 150 H D Creatinine 5.06 H Est GFR ( Amer) 10 L Est GFR (Non-Af Amer) 8 L Glucose 113 H Lactic Acid Calcium 7.8 L Magnesium 1.7 Ammonia Blood Type Antibody Screen 05/16/18 05/16/18 05/16/18 15:47 15:47 15:47 WBC 8.1 RBC 2.28 L Hgb 7.1 L Hct 20.1 L MCV 88 MCH 31.0 MCHC 35.2 RDW 15.5 H Plt Count 130 L Carbonic Acid HCO3/H2CO3 Ratio ABG pH ABG pCO2 ABG pO2 ABG HCO3 ABG O2 Saturation ABG Base Excess FiO2 Sodium Potassium Chloride Carbon Dioxide Anion Gap BUN Creatinine Est GFR ( Amer) Est GFR (Non-Af Amer) Glucose Lactic Acid 1.0 Calcium Magnesium Ammonia < 8.7 L Blood Type Antibody Screen Impressions: Abdomen/Pelvis CT 05/14/18 20:06 IMPRESSION: Possible fistula associated with the medial right gluteal fold cutaneous surface extending to the perianal region. Correlate with physical exam. Severe atheromatous changes, as before. Moderate stool throughout colon. Diffuse anasarca TECHNICAL DOCUMENTATION: Quality ID # 436: Final reports with documentation of one or more dose reduction techniques (e.g., Automated exposure control, adjustment of the mA and/or kV according to patient size, use of iterative reconstruction technique) copyright 2011 [employer]- All Rights Reserved Head CT 05/16/18 00:00 IMPRESSION: MILD CHRONIC CHANGES OF ATROPHY AND MICROVASCULAR ISCHEMIA. NO ACUTE PROCESS. EVIDENCE OF ACUTE STROKE: NO. Chest X-Ray 05/16/18 14:00 IMPRESSION: 1. A vague focal opacity is suggested in the right upper lung zone. 2. Left lower lung pleuroparenchymal changes-effusion suggested. Assessment & Plan - Diagnosis (1) Upper GI bleed Is this a current diagnosis for this admission?: Yes Plan: Likely upper GI bleed. EGD tomorrow. N.p.o. after midnight. Patient is to be on D5W at 52 guided by her volume status. H&H tomorrow if under 7 will transfuse. Avoid aggressive PRBC transfusion due to her end-stage renal disease and volume status. (2) ESRD (end stage renal disease) on dialysis Is this a current diagnosis for this admission?: Yes Plan: On hemodialysis Wednesday. Neurology on board. Monitor volume status. Monitor electrolytes. (3) Diabetes mellitus type II, controlled Qualifiers: Diabetes mellitus complication detail: with chronic kidney disease Chronic kidney disease stage: on chronic dialysis Is this a current diagnosis for this admission?: Yes Plan: Patient has history of diabetes but normoglycemic is going into end-stage renal disease. She has not been on insulin or any antidiabetic for the last 5 years. Continue Accu-Chek (4) Hypertension Qualifiers: Hypertension type: essential hypertension Qualified Code(s): I10 - Essential (primary) hypertension Is this a current diagnosis for this admission?: No Plan: Currently normotensive. BP meds on hold. Restart meds as appropriate. (5) Hypothyroidism Qualifiers: Hypothyroidism type: unspecified Qualified Code(s): E03.9 - Hypothyroidism, unspecified Is this a current diagnosis for this admission?: No Plan: Restart home meds. (6) Anxiety Is this a current diagnosis for this admission?: No Plan: Restart home meds. Hold benzos if patient is altered.
[2018-05-16] MEDS: ALPRAZOLAM 0.5 MG TABLET PO PRN (21:25)
[2018-05-16] MEDS: ACETAMINOPHEN 325 MG TABLET PO PRN (21:25)
--- NOTE | 2018-05-16 21:37 | PDOC CONSULTATION ---
Consultation Consult Date: 05/16/18 Attending physician:: GERALD STEARNS Consult reason:: I was asked to see the patient to supervise hemodialysis while here in the hospital. History of Present Illness Admission Date/PCP: 05/14/18 23:43 JOSE LUIS ROCHE PA-C History of Present Illness: SINAN EASLEY is a 77 year old female with history of end-stage renal disease secondary to diabetic nephropathy on hemodialysis on Mondays, Wednesdays and Fridays, history of coronary artery disease, diabetes mellitus, hypertension who was admitted over the weekend on May 14 due to acute onset of melena. Patient was found to have a very low hemoglobin of 5.5. Patient did have a few more episodes of passing melanotic stools for the last couple of days. Patient was transfused a total of 2 units of packed RBC. Surgery was consulted and patient was supposed to have EGD done today. I saw the patient during dialysis treatment today. Patient was somewhat lethargic and was not really answering much questions. Initially she was able to tell me what her name is but other than that she just quietly groan and moan during dialysis treatment. Her blood pressure was pretty decent except for one episode of a blood pressure of 94/46. Towards the end of hemodialysis patient's mental status seems to have gotten worse and has become almost unresponsive although she is awake. Her blood sugar was 90s. I gave her half an amp of D50/50. ABG was also obtained post hemodialysis. CT scan of the head was also ordered which came out to be negative. Apparently after a while while the patient was back in the floor her mental status started to get slightly but slowly better. Her EGD scheduled today was then canceled. 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 Endocrine Medical History: Reports: Diabetes Mellitus Type 2, Hypothyroidism Complications of Diabetes: Reports: Nephropathy, Retinopathy Renal/ Medical History: Reports: End Stage Renal Disease - Oliguric, Secondary Hyperparathyroidism GI Medical History: Reports: Gastroesophageal Reflux Disease Musculoskeltal Medical History: Reports: Arthritis - Back Psychiatric Medical History: Reports: Depression Hematology Medical History: Reports Anemia of Chronic Kidney Disease Past Surgical History Past Surgical History: Reports: Cardiac Catheterization, Cholecystectomy, Coronary Artery Bypass Graft - X4, Dialysis Access Surgery AVF, Herniorrhaphy, Pacemaker, Tonsillectomy, Tubal Ligation, Valve Replacement - Bioprosthetic valve replacement surgery, Vascular Surgery - Left antecubital tunnel/graft for dialysis Social History Information Source: [facility] Records Lives with: Alone Smoking Status: Never Smoker Frequency of Alcohol Use: None Hx Recreational Drug Use: No Drugs: None Hx Prescription Drug Abuse: No - Advance Directive Resuscitation Status: Full Code Family History Family History: CAD - Mother, father and maternal grandfather, Chronic Kidney Disease - Maternal grandmother and grandfather, DM - Mother and sister, Malignancy - Colon cancer in her father Parental Family History Reviewed: Yes Children Family History Reviewed: Yes Sibling(s) Family History Reviewed.: Yes Medication/Allergy Home Medications: Alprazolam [Xanax 0.5 mg Tablet] 0.5 mg PO TID PRN 06/20/12 Amlodipine Besylate 5 mg PO QHS 06/20/12 Carvedilol [Coreg] 12.5 mg PO Q12 06/20/12 Hydralazine HCl [Apresoline 25 mg Tablet] 25 mg PO BID 06/20/12 Isosorbide Mononitrate [Isosorbide Mononitrate ER] 30 mg PO DAILY 06/20/12 Lisinopril 10 mg PO DAILY 07/14/12 Aspirin [Aspirin EC] 81 mg PO QAM 08/24/13 Calcium Acetate 2 cap PO TID 08/24/13 Levothyroxine Sodium 25 mcg PO DAILY 08/24/13 Diphenoxylate HCl/Atropine [Diphenoxylate-Atrop 2.5-0.025] 1 each PO Q6H PRN 10/30/14 Ipratropium/Albuterol Sulfate [Duoneb 3 ml Ampul] 3 ml NEB RTQ6 PRN 10/30/14 Lidocaine/Prilocaine [Lidocaine-Prilocaine Cream] 1 applic TP PRN PRN 10/30/14 Fluticasone Propionate [Flonase Allergy Relief] 1 spray NASL DAILY 06/23/16 Gabapentin 100 tab PO DAILY 06/23/16 Promethazine HCl 12.5 mg PO Q4HP PRN 06/23/16 Ascorbic Acid [Vitamin C] 1,000 mg PO DAILY 05/15/18 L.acidoph,Paracasei, B.lactis [Probiotic] 1 each PO DAILY 05/15/18 Loratadine [Claritin 10 mg Tablet] 10 mg PO DAILY 05/15/18 Ondansetron HCl [Zofran 4 mg Tablet] 1 tab PO PRN PRN 05/15/18 Ranitidine HCl 75 mg PO DAILYP PRN 05/15/18 Allergies/Adverse Reactions: metoclopramide HCl [From Reglan] Adverse Reaction (Unknown, Verified 06/23/16 09:40) leg twitching Review of Systems ROS unobtainable: Due to mental status Physical Exam Vital Signs: Temp Pulse Resp BP Pulse Ox 97.7 F 91 14 148/49 H 100 05/16/18 18:07 05/16/18 18:07 05/16/18 18:07 05/16/18 18:07 05/16/18 18:07 Intake & Output 05/15/18 05/16/18 05/17/18 06:59 06:59 06:59 Intake Total 800 300 800 Balance 800 300 800 Weight 49.2 kg 49.2 kg Vitals during dialysis: Blood pressure 94/246 and at the end of treatment 137/35, heart rate of 83, blood flow rate 350 mL/min, dialysate flow rate of 601/min. Exam: General appearance: No acute distress, obtunded almost Head exam: PRESENT: atraumatic, normocephalic Eye exam: PRESENT: Conjunctiva pale, EOMI, PERRLA. ABSENT: conjunctival injection, scleral icterus Mouth exam: PRESENT: moist, neck supple, tongue midline Neck exam: PRESENT: full ROM. ABSENT: carotid bruit, JVD, lymphadenopathy, thyromegaly Respiratory exam: PRESENT: Diminished to auscultation bilaterally. ABSENT: rales, rhonchi, stridor, wheezes Cardiovascular exam: PRESENT: RRR, +S1, +S2. Grade 3/6 systolic murmur Pulses: PRESENT: normal radial pulses, normal dorsalis pedis pulses GI/Abdominal exam: PRESENT: normal bowel sounds, soft. ABSENT: guarding, mass, tenderness Rectal exam: Deferred Extremities exam: PRESENT: full ROM. ABSENT: calf tenderness, pedal edema Musculoskeletal: PRESENT: full ROM. ABSENT: deformity Neurological exam: PRESENT: alert, Awake, Oriented to person, Oriented to place, Oriented to time, reflexes normal, CN II-XII grossly intact. ABSENT: motor sensory deficit Psychiatric exam: PRESENT: appropriate affect, normal mood. ABSENT: homicidal ideation, suicidal ideation Skin exam: PRESENT: intact, dry, warm. ABSENT: rash Results Laboratory Results: 05/16/18 18:15 05/16/18 06:27 05/14/18 05/16/18 05/16/18 19:40 00:46 06:27 WBC 7.7 7.7 RBC 1.87 L 1.72 L Hgb 5.8 L 5.6 L Hct 16.8 L 15.6 L MCV 90 90 MCH 30.9 32.2 MCHC 34.3 35.7 RDW 17.5 H 17.7 H Plt Count 141 L 140 L Carbonic Acid HCO3/H2CO3 Ratio ABG pH ABG pCO2 ABG pO2 ABG HCO3 ABG O2 Saturation ABG Base Excess FiO2 Sodium Potassium Chloride Carbon Dioxide Anion Gap BUN Creatinine Est GFR ( Amer) Est GFR (Non-Af Amer) Glucose Lactic Acid Calcium Magnesium Ammonia Blood Type O POSITIVE Antibody Screen NEGATIVE 05/16/18 05/16/18 05/16/18 06:27 14:55 15:47 WBC 8.1 RBC 2.28 L Hgb 7.1 L Hct 20.1 L MCV 88 MCH 31.0 MCHC 35.2 RDW 15.5 H Plt Count 130 L Carbonic Acid 0.97 L HCO3/H2CO3 Ratio 30:1 ABG pH 7.58 H ABG pCO2 32.3 L ABG pO2 153.9 H ABG HCO3 29.8 H ABG O2 Saturation 99.3 H ABG Base Excess 7.5 FiO2 2L Sodium 135.3 L Potassium 5.4 H Chloride 98 Carbon Dioxide 27 Anion Gap 10 BUN 150 H D Creatinine 5.06 H Est GFR ( Amer) 10 L Est GFR (Non-Af Amer) 8 L Glucose 113 H Lactic Acid Calcium 7.8 L Magnesium 1.7 Ammonia Blood Type Antibody Screen 05/16/18 05/16/18 05/16/18 15:47 15:47 18:15 WBC 9.3 RBC 2.41 L Hgb 7.4 L Hct 21.2 L MCV 88 MCH 30.9 MCHC 35.1 RDW 15.7 H Plt Count 137 L Carbonic Acid HCO3/H2CO3 Ratio ABG pH ABG pCO2 ABG pO2 ABG HCO3 ABG O2 Saturation ABG Base Excess FiO2 Sodium Potassium Chloride Carbon Dioxide Anion Gap BUN Creatinine Est GFR ( Amer) Est GFR (Non-Af Amer) Glucose Lactic Acid 1.0 Calcium Magnesium Ammonia < 8.7 L Blood Type Antibody Screen Impressions: Abdomen/Pelvis CT 05/14/18 20:06 IMPRESSION: Possible fistula associated with the medial right gluteal fold cutaneous surface extending to the perianal region. Correlate with physical exam. Severe atheromatous changes, as before. Moderate stool throughout colon. Diffuse anasarca TECHNICAL DOCUMENTATION: Quality ID # 436: Final reports with documentation of one or more dose reduction techniques (e.g., Automated exposure control, adjustment of the mA and/or kV according to patient size, use of iterative reconstruction technique) copyright 2011 [employer]- All Rights Reserved Head CT 05/16/18 00:00 IMPRESSION: MILD CHRONIC CHANGES OF ATROPHY AND MICROVASCULAR ISCHEMIA. NO ACUTE PROCESS. EVIDENCE OF ACUTE STROKE: NO. Chest X-Ray 05/16/18 14:00 IMPRESSION: 1. A vague focal opacity is suggested in the right upper lung zone . 2. Left lower lung pleuroparenchymal changes-effusion suggested. Assessment & Plan - Diagnosis (1) Upper GI bleed Is this a current diagnosis for this admission?: Yes Plan: Patient had episodes of melena. Status post blood transfusions. Patient was evaluated by surgery and is scheduled for EGD which was canceled today and rescheduled for tomorrow. (2) ESRD (end stage renal disease) on dialysis Is this a current diagnosis for this admission?: Yes Plan: We did dialysis today for 3 hours, using the patient's AV fistula, with 2 potassium bath, blood flow rate of 350 mL per minute, dialysate flow rate of 600 mL per minute, ultrafiltration none, no heparin and Procrit with 40,000 units during dialysis intravenously. As mentioned above the patient had some mental status changes and acute encephalopathy at the end of dialysis treatment. Patient has recovered though after a while post dialysis. (3) Acute blood loss anemia Is this a current diagnosis for this admission?: Yes Plan: Patient got transfused 2 units of packed RBC over the weekend. Patient was transfused another unit during dialysis treatment today. (4) Anemia of chronic disease Is this a current diagnosis for this admission?: Yes Plan: Procrit given today and will be given as needed on dialysis (5) Hyperkalemia Is this a current diagnosis for this admission?: Yes (6) Acute encephalopathy Is this a current diagnosis for this admission?: Yes Plan: Could be due to relative hypotension at one point during dialysis treatment. Patient has subsequently recovered. (7) Hypertension Qualifiers: Hypertension type: essential hypertension Qualified Code(s): I10 - Essential (primary) hypertension Is this a current diagnosis for this admission?: Yes (8) Diabetes mellitus type 2 in nonobese Is this a current diagnosis for this admission?: Yes - Notes Notes: Thank you very much for this consultation. - Time Time Spent: 50 to 70 Minutes
[2018-05-17 06:55] LABS: ANION GAP 5 (5-19); CALCIUM 7.5 mg/dL (8.4-10.2); CARBON DIOXIDE 30 mmol/L (22-30); CHLORIDE 102 mmol/L (98-107); GLUCOSE 126 mg/dL (75-110); SODIUM 136.6 mmol/L (137-145)
[2018-05-17 07:11] LABS: BLOOD UREA NITROGEN 58 mg/dL (7-20); POTASSIUM 3.7 mmol/L (3.6-5.0)
[2018-05-17] MEDS: PANTOPRAZOLE SODIUM 40 MG VIAL IV SCH ×2 (09:55→21:05)
[2018-05-17] MEDS: DOCUSATE SODIUM 100 MG CAPSULE PO SCH ×2 (09:56→17:53)
[2018-05-17] MEDS ORDERED: LEVOTHYROXINE SODIUM 0.025 MG TABLET PO SCH (10:00)
[2018-05-17] MEDS ORDERED: PROPOFOL INJ 200 MG/20 ML VIAL IV ONE (12:01)
[2018-05-17 12:52] LABS: HEMATOCRIT 19.5 % (36.0-47.0); MEAN CORPUSCULAR HEMOGLOBIN 31.2 pg (27.0-33.4); MEAN CORPUSCULAR HGB CONC 34.4 g/dL (32.0-36.0); MEAN CORPUSCULAR VOLUME 91 fl (80-97); PLATELET COUNT 137 10^3/uL (150-450); RED BLOOD COUNT 2.15 10^6/uL (3.72-5.28); RED CELL DISTRIBUTION WIDTH 16.6 % (11.5-14.0); WHITE BLOOD COUNT 7.2 10^3/uL (4.0-10.5)
[2018-05-17 12:57] LABS: HEMOGLOBIN 6.7 g/dL (12.0-15.5)
--- NOTE | 2018-05-17 12:59 | PDOC PROGRESS REPORT ---
Subjective Progress Note for:: 05/17/18 Subjective:: This is a pleasant 77-year-old female with acute on chronic anemia. She has melanotic stools. She reports epigastric abdominal pain. Her mentation is much better today. She appears alert and conversive. She denies chest pain, shortness of breath, fevers, chills, dizziness, headache. She does report that she has difficulty seeing and hearing. Reason For Visit: ACUTE UPPER GI BLEED Physical Exam Vital Signs: Temp Pulse Resp BP Pulse Ox 98.1 F 90 16 129/46 H 100 05/17/18 11:35 05/17/18 11:35 05/17/18 11:35 05/17/18 11:35 05/17/18 11:35 Intake & Output 05/16/18 05/17/18 05/18/18 06:59 06:59 06:59 Intake Total 300 800 Balance 300 800 Weight 49.2 kg 51.5 kg General appearance: PRESENT: no acute distress Head exam: PRESENT: atraumatic, normocephalic Eye exam: PRESENT: EOMI, PERRLA. ABSENT: scleral icterus Mouth exam: PRESENT: neck supple Neck exam: ABSENT: meningismus, tenderness, thyromegaly, tracheal deviation Respiratory exam: PRESENT: clear to auscultation drake. ABSENT: chest wall tenderness Cardiovascular exam: PRESENT: RRR Vascular exam: PRESENT: pallor GI/Abdominal exam: PRESENT: soft. ABSENT: distended, firm, guarding, tenderness Rectal exam: PRESENT: deferred Extremities exam: ABSENT: clubbing Musculoskeletal exam: ABSENT: deformity Neurological exam: PRESENT: alert, awake, oriented to person, oriented to place, oriented to time, oriented to situation, CN II-XII grossly intact Psychiatric exam: ABSENT: agitated, anxious Focused psych exam: ABSENT: delusional Skin exam: ABSENT: cyanosis, erythema, jaundice Results Laboratory Results: 05/17/18 06:15 05/16/18 05/16/18 05/16/18 14:55 15:47 15:47 WBC 8.1 RBC 2.28 L Hgb 7.1 L Hct 20.1 L MCV 88 MCH 31.0 MCHC 35.2 RDW 15.5 H Plt Count 130 L Carbonic Acid 0.97 L HCO3/H2CO3 Ratio 30:1 ABG pH 7.58 H ABG pCO2 32.3 L ABG pO2 153.9 H ABG HCO3 29.8 H ABG O2 Saturation 99.3 H ABG Base Excess 7.5 FiO2 2L Sodium Potassium Chloride Carbon Dioxide Anion Gap BUN Creatinine Est GFR ( Amer) Est GFR (Non-Af Amer) Glucose Lactic Acid Calcium Magnesium Ammonia < 8.7 L 05/16/18 05/16/18 05/17/18 15:47 18:15 06:15 WBC 9.3 RBC 2.41 L Hgb 7.4 L Hct 21.2 L MCV 88 MCH 30.9 MCHC 35.1 RDW 15.7 H Plt Count 137 L Carbonic Acid HCO3/H2CO3 Ratio ABG pH ABG pCO2 ABG pO2 ABG HCO3 ABG O2 Saturation ABG Base Excess FiO2 Sodium 136.6 L Potassium 3.7 D Chloride 102 Carbon Dioxide 30 Anion Gap 5 BUN 58 H D Creatinine 2.86 H Est GFR ( Amer) 19 L Est GFR (Non-Af Amer) 16 L Glucose 126 H Lactic Acid 1.0 Calcium 7.5 L Magnesium 1.8 Ammonia Impressions: Abdomen/Pelvis CT 05/14/18 20:06 IMPRESSION: Possible fistula associated with the medial right gluteal fold cutaneous surface extending to the perianal region. Correlate with physical exam. Severe atheromatous changes, as before. Moderate stool throughout colon. Diffuse anasarca TECHNICAL DOCUMENTATION: Quality ID # 436: Final reports with documentation of one or more dose reduction techniques (e.g., Automated exposure control, adjustment of the mA and/or kV according to patient size, use of iterative reconstruction technique) copyright 2011 [employer]- All Rights Reserved Head CT 05/16/18 00:00 IMPRESSION: MILD CHRONIC CHANGES OF ATROPHY AND MICROVASCULAR ISCHEMIA. NO ACUTE PROCESS. EVIDENCE OF ACUTE STROKE: NO. Chest X-Ray 05/16/18 14:00 IMPRESSION: 1. A vague focal opacity is suggested in the right upper lung zone. 2. Left lower lung pleuroparenchymal changes-effusion suggested. Assessment & Plan - Diagnosis (1) Acute on chronic anemia Is this a current diagnosis for this admission?: Yes - Plan Summary Plan Summary: This is a 77-year-old female with acute on chronic anemia. Her hemoglobin was as low as 5 on this hospitalization. The medical team has requested an EGD to rule out upper GI bleeding and gastric ulcers. I have discussed this with the family, and they are in agreement. The patient's medical status has improved significantly since yesterday. Plan for EGD today. Risks/benefits discussed, informed consent obtained, and all questions answered.
[2018-05-17 13:12] LABS: INTERNATIONAL RATION (INR) 1.11; PARTIAL THROMBOPLASTIN TIME 28.5 SEC (23.5-35.8); PROTHROMBIN TIME 14.9 SEC (11.4-15.4)
[2018-05-17] MEDS ORDERED: DIPHENHYDRAMINE HCL 50 MG/ML VIAL IV PRN (13:30)
[2018-05-17] MEDS ORDERED: ONDANSETRON HCL INJ/PF 4 MG/2 ML SDV IV PRN (13:30)
--- NOTE | 2018-05-17 14:03 | Operative Report ---
Nonrecallable Operative Report DATE OF SURGERY: 05/17/18 PREOPERATIVE DIAGNOSIS: Melena, GI bleeding POSTOPERATIVE DIAGNOSIS: 1. Severe gastritis with shallow gastric ulcers. 2. Duodenal ulcers with multiple large duodenal ulcers. 3. No active bleeding. 4. Sliding hiatal hernia. 5. Reflux esophagitis OPERATION: EGD with biopsy SURGEON: KARI STUBBS ANESTHESIA: LMAC TISSUE REMOVED OR ALTERED: 1. Antral biopsy. 2. Duodenal ulcer biopsy, margin of ulcer. COMPLICATIONS: None apparent ESTIMATED BLOOD LOSS: Minimal PROCEDURE: Drains/implants: None. Procedure in detail: After informed consent was obtained, the patient was brought into the operating room and laid in the left lateral decubitus position. The endoscope was passed down the oropharynx, down the esophagus, and into the stomach. The stomach was insufflated with air. Immediately there is noted to be diffuse gastritis throughout the stomach. There were shallow gastric ulcerations throughout the body and antrum of the stomach. A biopsy was taken in the antrum of the stomach to rule out H. pylori. The scope was pushed through the pylorus. The first portion of the duodenum was acutely inflamed with circumferential duodenitis. It was severe. There were several moderate size duodenal ulcers. There was no active bleeding noted. Biopsy was taken at the margin of 1 of the ulcers. The second portion of the duodenum appeared normal. The scope was withdrawn back into the stomach, where a retroflexion maneuver was performed. A sliding hiatal hernia was identified. The scope was straightened, and pulled up into the distal esophagus. There was circumferential reflux esophagitis noted. Scope was then withdrawn up the gary ngoc of the esophagus. The remainder of the esophagus was smooth in contour without masses, lesions, or other abnormalities. The scope was removed from the patient's oropharynx, and the procedure was concluded. All sponge, instrument, and needle counts were correct. Condition: Fair.
--- NOTE | 2018-05-17 14:04 | Progress Note ---
Provider Note Provider Note: Patient was found to have gastritis and severe duodenitis. There is no active bleeding noted. I have started the patient on Zantac and Carafate. This is in addition to her PPI. These medications should be continued. Biopsy for H. pylori was performed. If H. pylori is present, she will need a Prevpac. She may follow-up with [facility] in 1-2 weeks. Please renotify with any questions or concerns. Surgery will sign off at this time.
--- NOTE | 2018-05-17 14:30 | PDOC PROGRESS REPORT ---
Subjective Progress Note for:: 05/17/18 Subjective:: This is a 77 yr old female with a PMH of HTN, DM 2 and ESRD on dialysis who was admitted for upper GI bleed. She has received 3 u of pRBCs. No acute event overnight. Per RN, she had a small, slightly tarry stool last night. She appears comfortable this morning. She is oriented x 3 on encounter. No vomiting or hematemesis. She is scheduled for an EGD this afternoon. Reason For Visit: ACUTE UPPER GI BLEED Physical Exam Vital Signs: Temp Pulse Resp BP Pulse Ox 98.6 F 80 20 101/27 L 100 05/17/18 13:34 05/17/18 14:04 05/17/18 14:04 05/17/18 14:04 05/17/18 14:04 Intake & Output 05/16/18 05/17/18 05/18/18 06:59 06:59 06:59 Intake Total 300 800 0 Balance 300 800 0 Weight 108 lb 7.479 oz 113 lb 8.609 oz General appearance: PRESENT: no acute distress, well-developed, well-nourished Head exam: PRESENT: atraumatic, normocephalic Eye exam: PRESENT: conjunctiva pink, EOMI, PERRLA. ABSENT: scleral icterus Ear exam: PRESENT: normal external ear exam Mouth exam: PRESENT: moist, tongue midline Neck exam: ABSENT: carotid bruit, JVD, lymphadenopathy, thyromegaly Respiratory exam: PRESENT: clear to auscultation drake. ABSENT: rales, rhonchi, wheezes Cardiovascular exam: PRESENT: RRR. ABSENT: diastolic murmur, rubs, systolic murmur Pulses: PRESENT: normal dorsalis pedis pul GI/Abdominal exam: PRESENT: normal bowel sounds, soft. ABSENT: distended, guarding, mass, organolmegaly, rebound, tenderness Rectal exam: PRESENT: deferred Neurological exam: PRESENT: alert, awake, oriented to person, oriented to place, oriented to time, CN II-XII grossly intact. ABSENT: motor sensory deficit Results Laboratory Results: 05/17/18 12:32 05/17/18 06:15 05/16/18 05/16/18 05/16/18 14:55 15:47 15:47 WBC 8.1 RBC 2.28 L Hgb 7.1 L Hct 20.1 L MCV 88 MCH 31.0 MCHC 35.2 RDW 15.5 H Plt Count 130 L Carbonic Acid 0.97 L HCO3/H2CO3 Ratio 30:1 ABG pH 7.58 H ABG pCO2 32.3 L ABG pO2 153.9 H ABG HCO3 29.8 H ABG O2 Saturation 99.3 H ABG Base Excess 7.5 FiO2 2L Sodium Potassium Chloride Carbon Dioxide Anion Gap BUN Creatinine Est GFR ( Amer) Est GFR (Non-Af Amer) Glucose Lactic Acid Calcium Magnesium Ammonia < 8.7 L 05/16/18 05/16/18 05/17/18 15:47 18:15 06:15 WBC 9.3 RBC 2.41 L Hgb 7.4 L Hct 21.2 L MCV 88 MCH 30.9 MCHC 35.1 RDW 15.7 H Plt Count 137 L Carbonic Acid HCO3/H2CO3 Ratio ABG pH ABG pCO2 ABG pO2 ABG HCO3 ABG O2 Saturation ABG Base Excess FiO2 Sodium 136.6 L Potassium 3.7 D Chloride 102 Carbon Dioxide 30 Anion Gap 5 BUN 58 H D Creatinine 2.86 H Est GFR ( Amer) 19 L Est GFR (Non-Af Amer) 16 L Glucose 126 H Lactic Acid 1.0 Calcium 7.5 L Magnesium 1.8 Ammonia 05/17/18 12:32 WBC 7.2 RBC 2.15 L Hgb 6.7 L Hct 19.5 L MCV 91 MCH 31.2 MCHC 34.4 RDW 16.6 H Plt Count 137 L Carbonic Acid HCO3/H2CO3 Ratio ABG pH ABG pCO2 ABG pO2 ABG HCO3 ABG O2 Saturation ABG Base Excess FiO2 Sodium Potassium Chloride Carbon Dioxide Anion Gap BUN Creatinine Est GFR ( Amer) Est GFR (Non-Af Amer) Glucose Lactic Acid Calcium Magnesium Ammonia Impressions: Abdomen/Pelvis CT 05/14/18 20:06 IMPRESSION: Possible fistula associated with the medial right gluteal fold cutaneous surface extending to the perianal region. Correlate with physical exam. Severe atheromatous changes, as before. Moderate stool throughout colon. Diffuse anasarca TECHNICAL DOCUMENTATION: Quality ID # 436: Final reports with documentation of one or more dose reduction techniques (e.g., Automated exposure control, adjustment of the mA and/or kV according to patient size, use of iterative reconstruction technique) copyright 2011 [employer]- All Rights Reserved Head CT 05/16/18 00:00 IMPRESSION: MILD CHRONIC CHANGES OF ATROPHY AND MICROVASCULAR ISCHEMIA. NO ACUTE PROCESS. EVIDENCE OF ACUTE STROKE: NO. Chest X-Ray 05/16/18 14:00 IMPRESSION: 1. A vague focal opacity is suggested in the right upper lung zone. 2. Left lower lung pleuroparenchymal changes-effusion suggested. Assessment & Plan - Diagnosis (1) Acute blood loss anemia Is this a current diagnosis for this admission?: Yes Plan: Secondary to GI bleed. S/P 3 u of pRBCs. Repeat Hb is 6.7. Will order for another (4th unit) of pRBC. (2) Acute GI bleeding Is this a current diagnosis for this admission?: Yes Plan: Patient is going for EGD this afternoon by surgery. (3) ESRD (end stage renal disease) on dialysis Is this a current diagnosis for this admission?: Yes Plan: Nephrology following. She is getting dialyzed here. - Time Time Spent with patient: 25-34 minutes
[2018-05-17] MEDS: SUCRALFATE SUSP 1 GM/10 ML UDCUP PO SCH ×2 (17:53→21:04)
[2018-05-17] MEDS: DEXTROSE 5%-1/2 NORMAL SALINE 1,000 ML IV PRN (17:53)
[2018-05-17] MEDS: ALPRAZOLAM 0.5 MG TABLET PO PRN (17:53)
[2018-05-17] MEDS: FAMOTIDINE 20 MG TABLET PO SCH (21:05)
[2018-05-17] MEDS: ACETAMINOPHEN 325 MG TABLET PO PRN (21:06)
[2018-05-18] MEDS ORDERED: NORMAL SALINE 1000 ML 1,000 ML IV PRN (05:00)
[2018-05-18] MEDS ORDERED: EPOETIN ALFA INJ 40000 UNIT/1 ML (RENAL) IV PRN (05:00)
[2018-05-18] MEDS: LEVOTHYROXINE SODIUM 0.025 MG TABLET PO SCH (05:19)
[2018-05-18 06:11] LABS: HEMATOCRIT 22.9 % (36.0-47.0); MEAN CORPUSCULAR HGB CONC 34.1 g/dL (32.0-36.0); MEAN CORPUSCULAR VOLUME 91 fl (80-97); PLATELET COUNT 136 10^3/uL (150-450); RED BLOOD COUNT 2.52 10^6/uL (3.72-5.28); RED CELL DISTRIBUTION WIDTH 16.2 % (11.5-14.0); WHITE BLOOD COUNT 6.8 10^3/uL (4.0-10.5)
[2018-05-18 06:26] LABS: ANION GAP 9 (5-19); BLOOD UREA NITROGEN 66 mg/dL (7-20); CALCIUM 7.7 mg/dL (8.4-10.2); CARBON DIOXIDE 29 mmol/L (22-30); CHLORIDE 98 mmol/L (98-107); GLUCOSE 150 mg/dL (75-110); POTASSIUM 3.7 mmol/L (3.6-5.0); SODIUM 136.1 mmol/L (137-145)
[2018-05-18 06:34] LABS: ABSOLUTE MONOCYTES # (MANUAL) 0.7 10^3/uL (0.1-1.4); ABSOLUTE NEUTROPHILS# (MANUAL) 4.5 10^3/uL (1.7-8.2); BAND NEUTROPHILS % (MANUAL) 3 % (3-5); BASOPHILS % (MANUAL) 0 % (0-2); EOSINOPHILS % (MANUAL) 8 % (0-6); LYMPHOCYTES % (MANUAL) 15 % (13-45); MONOCYTES % (MANUAL) 11 % (3-13); SEGMENTED NEUTROPHILS % (MAN) 63 % (42-78); TOTAL CELLS COUNTED 100
[2018-05-18 06:35] LABS: ANISOCYTOSIS 1+; PLATELET COMMENT DECREASED; POLYCHROMASIA SLIGHT
[2018-05-18 06:36] LABS: HEMOGLOBIN 7.8 g/dL (12.0-15.5)
[2018-05-18] MEDS: FAMOTIDINE 20 MG TABLET PO SCH ×2 (13:35→21:23)
[2018-05-18] MEDS: DOCUSATE SODIUM 100 MG CAPSULE PO SCH ×2 (13:35→17:15)
[2018-05-18] MEDS: SUCRALFATE SUSP 1 GM/10 ML UDCUP PO SCH ×4 (13:36→21:23)
[2018-05-18] MEDS: ALPRAZOLAM 0.5 MG TABLET PO PRN (16:05)
--- NOTE | 2018-05-18 18:36 | PDOC PROGRESS REPORT ---
Subjective Progress Note for:: 05/18/18 Subjective:: This is a 77 yr old female with a PMH of HTN, DM 2 and ESRD on dialysis who was admitted for upper GI bleed. She has received 3 u of pRBCs. 05/17: She had an EGD 05/17/18 which showed severe gastritis, gastric ulcers and multiple duodenal ulcers. She appears comfortable this morning. She is oriented x 3 on encounter. No vomiting or hematemesis. 05/18: She got a 4th unit of pRBC yesterday afternoon after her Hb trended down to 6.7 from 7.4. No acute event overnight. No recurrence of bleeding so far. No melena or hematemesis. She is comfortable in bed. She is going for dialysis today. Reason For Visit: ACUTE UPPER GI BLEED Physical Exam Vital Signs: Temp Pulse Resp BP Pulse Ox 97.9 F 78 16 163/47 H 98 05/18/18 07:54 05/18/18 07:54 05/18/18 07:54 05/18/18 07:54 05/18/18 07:54 Intake & Output 05/17/18 05/18/18 05/19/18 06:59 06:59 06:59 Intake Total 800 1788 Output Total 0 Balance 800 1788 Weight 113 lb 8.609 oz 114 lb 13.773 oz General appearance: PRESENT: no acute distress, well-developed, well-nourished Head exam: PRESENT: atraumatic, normocephalic Eye exam: PRESENT: conjunctiva pink, EOMI, PERRLA. ABSENT: scleral icterus Ear exam: PRESENT: normal external ear exam Neck exam: ABSENT: carotid bruit, JVD, lymphadenopathy, thyromegaly Respiratory exam: PRESENT: clear to auscultation drake. ABSENT: rales, rhonchi, wheezes Cardiovascular exam: PRESENT: RRR. ABSENT: diastolic murmur, rubs, systolic murmur Pulses: PRESENT: normal dorsalis pedis pul GI/Abdominal exam: PRESENT: normal bowel sounds, soft. ABSENT: distended, guarding, mass, organolmegaly, rebound, tenderness Rectal exam: PRESENT: deferred Neurological exam: PRESENT: alert, awake, oriented to person, oriented to place, CN II-XII grossly intact. ABSENT: motor sensory deficit Results Laboratory Results: 05/18/18 05:56 05/18/18 05:56 05/17/18 05/18/18 05/18/18 15:03 05:56 05:56 WBC 6.8 RBC 2.52 L Hgb 7.8 L Hct 22.9 L MCV 91 MCH 31.0 MCHC 34.1 RDW 16.2 H Plt Count 136 L Seg Neutrophils % Not Reportable Lymphocytes % Not Reportable Monocytes % Not Reportable Eosinophils % Not Reportable Basophils % Not Reportable Absolute Neutrophils Not Reportable Absolute Lymphocytes Not Reportable Absolute Monocytes Not Reportable Absolute Eosinophils Not Reportable Absolute Basophils Not Reportable Sodium 136.1 L Potassium 3.7 Chloride 98 Carbon Dioxide 29 Anion Gap 9 BUN 66 H Creatinine 4.00 H Est GFR ( Amer) 13 L Est GFR (Non-Af Amer) 11 L Glucose 150 H Calcium 7.7 L Blood Type O POSITIVE Antibody Screen NEGATIVE Impressions: Abdomen/Pelvis CT 05/14/18 20:06 IMPRESSION: Possible fistula associated with the medial right gluteal fold cutaneous surface extending to the perianal region. Correlate with physical exam. Severe atheromatous changes, as before. Moderate stool throughout colon. Diffuse anasarca TECHNICAL DOCUMENTATION: Quality ID # 436: Final reports with documentation of one or more dose reduction techniques (e.g., Automated exposure control, adjustment of the mA and/or kV according to patient size, use of iterative reconstruction technique) copyright 2011 [employer]- All Rights Reserved Head CT 05/16/18 00:00 IMPRESSION: MILD CHRONIC CHANGES OF ATROPHY AND MICROVASCULAR ISCHEMIA. NO ACUTE PROCESS. EVIDENCE OF ACUTE STROKE: NO. Chest X-Ray 05/16/18 14:00 IMPRESSION: 1. A vague focal opacity is suggested in the right upper lung zone. 2. Left lower lung pleuroparenchymal changes-effusion suggested. Assessment & Plan - Diagnosis (1) Acute blood loss anemia Is this a current diagnosis for this admission?: Yes Plan: Secondary to GI bleed. S/P 4 u of pRBCs. Repeat Hb this morning is 7.8. (2) Acute GI bleeding Is this a current diagnosis for this admission?: Yes Plan: S/P EGD on 05/17 which showed severe gastritis, gastric ulcers and multiple duodenal ulcers. Continue PPI. On carafate as well. (3) ESRD (end stage renal disease) on dialysis Is this a current diagnosis for this admission?: Yes Plan: Nephrology following. She is getting dialyzed here.
[2018-05-18] MEDS: CALCIUM ACETATE 667 MG CAPSULE PO SCH (18:55)
[2018-05-18] MEDS: PANTOPRAZOLE SODIUM 40 MG VIAL IV SCH (19:13)
--- NOTE | 2018-05-18 20:07 | PDOC PROGRESS REPORT ---
Subjective Progress Note for:: 05/18/18 Subjective:: I saw the patient on dialysis this morning. She is doing well and looks much better. She was awake and communicating. She is legally blind and hard of hearing though. She admits that she feels much better. She tolerates dialysis very well. She did not have any issues during dialysis treatment. Her EGD yesterday showed gastritis with shallow gastric ulcers and multiple duodenal ulcers with reflux esophagitis. She is currently now on pantoprazole and sucralfate. Reason For Visit: ACUTE UPPER GI BLEED Physical Exam Vital Signs: Temp Pulse Resp BP Pulse Ox 97.9 F 91 16 156/42 H 100 05/18/18 15:35 05/18/18 15:35 05/18/18 15:35 05/18/18 15:35 05/18/18 15:35 Intake & Output 05/17/18 05/18/18 05/19/18 06:59 06:59 06:59 Intake Total 800 1788 470 Output Total 0 Balance 800 1788 470 Weight 51.5 kg 52.1 kg Vitals during dialysis: Blood pressure 149/65, heart rate of 79, blood flow rate of 350 mL/min and dialysate flow rate of 600 mL/min. Exam: General appearance: PRESENT: no acute distress, cooperative, well-developed, well-nourished Head exam: PRESENT: atraumatic, normocephalic Eye exam: PRESENT: conjunctiva slightly pale but better, PERRLA. ABSENT: scleral icterus Neck exam: ABSENT: JVD Respiratory exam: PRESENT: Normal breath sounds. ABSENT: crackles, rales, rhonchi, unlabored, wheezes Cardiovascular exam: PRESENT: Regular rate rhythm -+S1, +S2. Grade 3/6 systolic murmur GI/Abdominal exam: PRESENT: normal bowel sounds, soft. ABSENT: guarding, mass, tenderness Extremities exam: ABSENT: No edema Neurological exam: PRESENT: alert, awake, oriented to person, place and time. Skin exam: PRESENT: dry, warm, Results Laboratory Results: 05/18/18 05:56 05/18/18 05:56 05/18/18 05/18/18 05:56 05:56 WBC 6.8 RBC 2.52 L Hgb 7.8 L Hct 22.9 L MCV 91 MCH 31.0 MCHC 34.1 RDW 16.2 H Plt Count 136 L Seg Neutrophils % Not Reportable Lymphocytes % Not Reportable Monocytes % Not Reportable Eosinophils % Not Reportable Basophils % Not Reportable Absolute Neutrophils Not Reportable Absolute Lymphocytes Not Reportable Absolute Monocytes Not Reportable Absolute Eosinophils Not Reportable Absolute Basophils Not Reportable Sodium 136.1 L Potassium 3.7 Chloride 98 Carbon Dioxide 29 Anion Gap 9 BUN 66 H Creatinine 4.00 H Est GFR ( Amer) 13 L Est GFR (Non-Af Amer) 11 L Glucose 150 H Calcium 7.7 L Impressions: Abdomen/Pelvis CT 05/14/18 20:06 IMPRESSION: Possible fistula associated with the medial right gluteal fold cutaneous surface extending to the perianal region. Correlate with physical exam. Severe atheromatous changes, as before. Moderate stool throughout colon. Diffuse anasarca TECHNICAL DOCUMENTATION: Quality ID # 436: Final reports with documentation of one or more dose reduction techniques (e.g., Automated exposure control, adjustment of the mA and/or kV according to patient size, use of iterative reconstruction technique) copyright 2011 [employer]- All Rights Reserved Head CT 05/16/18 00:00 IMPRESSION: MILD CHRONIC CHANGES OF ATROPHY AND MICROVASCULAR ISCHEMIA. NO ACUTE PROCESS. EVIDENCE OF ACUTE STROKE: NO. Chest X-Ray 05/16/18 14:00 IMPRESSION: 1. A vague focal opacity is suggested in the right upper lung zone. 2. Left lower lung pleuroparenchymal changes-effusion suggested. Assessment & Plan - Diagnosis (1) Upper GI bleed Is this a current diagnosis for this admission?: Yes Plan: Status post EGD, 05/17/2018. This is secondary to gastritis with shallow gastric ulcers and multiple duodenal ulcers. Continue pantoprazole and sucralfate. (2) ESRD (end stage renal disease) on dialysis Is this a current diagnosis for this admission?: Yes Plan: We did dialysis today for 3 hours, using the patient's left AV fistula, with 3 potassium bath, blood flow rate of 350 mL per minute, dialysate flow rate of 600 mL per minute, ultrafiltration 1-1.5 L as tolerated, no heparin and Procrit with 40,000 units during dialysis intravenously. Patient tolerated dialysis well without any problems. (3) Acute blood loss anemia Is this a current diagnosis for this admission?: Yes Plan: Status post blood transfusions. (4) Anemia of chronic disease Is this a current diagnosis for this admission?: Yes Plan: Procrit given today. (5) Hyperkalemia Is this a current diagnosis for this admission?: Yes Plan: Resolved with dialysis. (6) Acute encephalopathy Is this a current diagnosis for this admission?: Yes Plan: Likely secondary to an episode of hypoglycemia. Resolved. (7) Hypertension Qualifiers: Hypertension type: essential hypertension Qualified Code(s): I10 - Essential (primary) hypertension Is this a current diagnosis for this admission?: Yes (8) Diabetes mellitus type 2 in nonobese Is this a current diagnosis for this admission?: Yes - Notes Notes: From nephrology standpoint patient can be discharged home anytime as long as she is hemodynamically stable. - Time Time with patient: 15-25 minutes
[2018-05-19] MEDS: ALPRAZOLAM 0.5 MG TABLET PO PRN ×3 (00:12→21:11)
[2018-05-19] MEDS: LEVOTHYROXINE SODIUM 0.025 MG TABLET PO SCH (05:07)
[2018-05-19] MEDS: CALCIUM ACETATE 667 MG CAPSULE PO SCH ×3 (08:03→16:38)
[2018-05-19] MEDS: SUCRALFATE SUSP 1 GM/10 ML UDCUP PO SCH ×4 (08:03→21:11)
[2018-05-19 08:34] LABS: ABSOLUTE EOSINOPHILS # (AUTO) 0.2 10^3/uL (0.0-0.6); ABSOLUTE MONOCYTES (AUTO) 0.6 10^3/uL (0.1-1.4); ABSOLUTE NEUT (AUTO) 5.6 10^3/uL (1.7-8.2); BASOPHILS % (AUTO) 0.6 % (0-2); EOSINOPHILS % (AUTO) 2.1 % (0-6); HEMATOCRIT 24.8 % (36.0-47.0); HEMOGLOBIN 8.5 g/dL (12.0-15.5); LYMPHOCYTES % (AUTO) 13.3 % (13-45); MEAN CORPUSCULAR HEMOGLOBIN 31.7 pg (27.0-33.4); MEAN CORPUSCULAR HGB CONC 34.2 g/dL (32.0-36.0); MEAN CORPUSCULAR VOLUME 93 fl (80-97); MONOCYTES % (AUTO) 8.5 % (3-13); PLATELET COUNT 152 10^3/uL (150-450); RED BLOOD COUNT 2.68 10^6/uL (3.72-5.28); RED CELL DISTRIBUTION WIDTH 16.8 % (11.5-14.0); SEGMENTED NEUTROPHILS % (AUTO) 75.5 % (42-78); TOTAL CELLS COUNTED % (AUTO) 100 %; WHITE BLOOD COUNT 7.4 10^3/uL (4.0-10.5)
[2018-05-19] MEDS ORDERED: BISACODYL 10 MG SUPP.RECT PR PRN (09:05)
[2018-05-19] MEDS ORDERED: SENNOSIDES/DOCUSATE 8.6-50 MG 1 EACH TABLET PO ONE (09:30)
[2018-05-19] MEDS: DOCUSATE SODIUM 100 MG CAPSULE PO SCH ×2 (11:08→17:01)
[2018-05-19] MEDS: FAMOTIDINE 20 MG TABLET PO SCH ×2 (11:08→21:11)
[2018-05-19] MEDS: PANTOPRAZOLE SODIUM 40 MG VIAL IV SCH (11:08)
--- NOTE | 2018-05-19 14:48 | PDOC DISCHARGE SUMMARY ---
General - Admit/Disc Date/PCP Admission Date/Primary Care Provider: 05/14/18 23:43 JOSE LUIS ROCHE PA-C Discharge Date: 05/19/18 - Discharge Diagnosis (1) Acute blood loss anemia Is this a current diagnosis for this admission?: Yes (2) Acute GI bleeding Is this a current diagnosis for this admission?: Yes (3) ESRD (end stage renal disease) on dialysis Is this a current diagnosis for this admission?: Yes (4) Duodenal ulcer disease Is this a current diagnosis for this admission?: Yes (5) Gastric ulcer Is this a current diagnosis for this admission?: Yes - Additional Information Resuscitation Status: Full Code Prescriptions: Carvedilol [Coreg 12.5 mg Tablet] 12.5 mg PO Q12 #60 tablet Pantoprazole Sodium [Protonix] 40 mg PO QAM #30 tablet. Ranitidine HCl 75 mg PO DAILY #30 tablet Sucralfate [Carafate Susp 1 gm/10 ml Udcup] 1 gm PO ACHS #140 udc Home Medications: Alprazolam [Xanax 0.5 mg Tablet] 0.5 mg PO TID PRN 06/20/12 Amlodipine Besylate 5 mg PO QHS 06/20/12 Hydralazine HCl [Apresoline 25 mg Tablet] 25 mg PO BID 06/20/12 Isosorbide Mononitrate [Isosorbide Mononitrate ER] 30 mg PO DAILY 06/20/12 Lisinopril 10 mg PO DAILY 07/14/12 Aspirin [Aspirin EC] 81 mg PO QAM 08/24/13 Calcium Acetate 2 cap PO TID 08/24/13 Levothyroxine Sodium 25 mcg PO DAILY 08/24/13 Diphenoxylate HCl/Atropine [Diphenoxylate-Atrop 2.5-0.025] 1 each PO Q6H PRN 10/30/14 Ipratropium/Albuterol Sulfate [Duoneb 3 ml Ampul] 3 ml NEB RTQ6 PRN 10/30/14 Lidocaine/Prilocaine [Lidocaine-Prilocaine Cream] 1 applic TP PRN PRN 10/30/14 Fluticasone Propionate [Flonase Allergy Relief] 1 spray NASL DAILY 06/23/16 Gabapentin 100 tab PO DAILY 06/23/16 Promethazine HCl 12.5 mg PO Q4HP PRN 06/23/16 L.acidoph,Paracasei, B.lactis [Probiotic] 1 each PO DAILY 05/15/18 Loratadine [Claritin 10 mg Tablet] 10 mg PO DAILY 05/15/18 Ondansetron HCl [Zofran 4 mg Tablet] 1 tab PO PRN PRN 05/15/18 Pantoprazole Sodium [Protonix] 40 mg PO QAM #30 tablet. 05/19/18 Ranitidine HCl 75 mg PO DAILY #30 tablet 05/19/18 Sucralfate [Carafate Susp 1 gm/10 ml Udcup] 1 gm PO ACHS #140 udc 05/19/18 Carvedilol [Coreg 12.5 mg Tablet] 12.5 mg PO Q12 #60 tablet 05/21/18 History of Present Illness History of Present Illness: Admitting hospitalist's H&P: SINAN EASLEY is a 77 year old female who presented to the emergency room via EMS with acute rectal bleeding. Her family provides her care and support and noted that she passed melanotic stool today just prior to calling the EMS to bring the patient to hospital. Patient states that she had some mild abdominal cramping before her bowel movement but has had no pain since then. Family indicates she has had no vomiting and the patient states that she has not been nauseated. The patient denies prior similar episodes and has not identified any aggravating or ameliorating factors for her upper GI bleeding. In the emergency room she was found to have nick melena with additional melenic stools being passed during her course in the emergency room. Her hemoglobin was stable at 5.5 but she was mildly hypotensive and responded well to a 1 unit transfusion of packed red blood cells. She is noted to be a stage V renal failure on dialysis patient who sees Dr. Raygoza for dialysis on Wednesday and Wednesday. She was subsequently admitted to the hospital for further evaluation and treatment after Dr. Rutherford agreed to provide surgical assistance as needed for evaluation and/or treatment of her upper GI bleeding. Hospital Course Hospital Course: This is a 77 yr old female with a PMH of HTN, DM 2 and ESRD on dialysis who was admitted for upper GI bleed. She has received 3 u of pRBCs. 05/17: She got a 4th unit of pRBC after her Hb trended down to 6.7 from 7.4. She had an EGD on 05/17/18 which showed severe gastritis, gastric ulcers and multiple duodenal ulcers with no active bleeding. She appears comfortable this morning. She is oriented x 3 on encounter. No vomiting or hematemesis. 05/18: No recurrence of bleeding so far. No melena or hematemesis. She is comfortable in bed. She is going for dialysis today. Hemoglobin has been stable. She did not have recurrence of bleeding. She is on Protonix. Surgery also added Zantac and sucralfate. She is on dialysis. Dosing of medications were discussed and approved by nephrology. 05/20: She was discharged but just prior to discharge, she had a tarry BM hence DC was deferred. 05/21: No recurrence of melena. Patient's hemoglobin has been stable, trending up slightly in fact. Her tarry stool was likely more from old blood rather than from another acute or recurrence of GI bleed. Discussed with daughter on bedside who prefers to restart the aspirin after a repeat CBC with her PCP next week. Will proceed with discharge today. Physical Exam Vital Signs: Temp Pulse Resp BP Pulse Ox 98.4 F 91 16 144/50 H 95 05/19/18 11:51 05/19/18 14:00 05/19/18 11:51 05/19/18 11:51 05/19/18 11:51 Intake & Output 05/18/18 05/19/18 05/20/18 06:59 06:59 06:59 Intake Total 1788 470 Output Total 0 1300 Balance 1788 -830 Weight 114 lb 13.773 oz 109 lb 2.061 oz General appearance: PRESENT: no acute distress, well-developed, well-nourished Head exam: PRESENT: atraumatic, normocephalic Eye exam: PRESENT: conjunctiva pink, EOMI, PERRLA. ABSENT: scleral icterus Ear exam: PRESENT: normal external ear exam Neck exam: ABSENT: carotid bruit, JVD, lymphadenopathy, thyromegaly Respiratory exam: PRESENT: clear to auscultation drake. ABSENT: rales, rhonchi, wheezes Cardiovascular exam: PRESENT: RRR. ABSENT: diastolic murmur, rubs, systolic murmur Pulses: PRESENT: normal dorsalis pedis pul GI/Abdominal exam: PRESENT: normal bowel sounds, soft. ABSENT: distended, guarding, mass, organolmegaly, rebound, tenderness Rectal exam: PRESENT: deferred Neurological exam: PRESENT: alert, awake, oriented to person, oriented to place, CN II-XII grossly intact. ABSENT: motor sensory deficit Results Laboratory Results: 05/19/18 08:12 05/18/18 05:56 05/19/18 08:12 WBC 7.4 RBC 2.68 L Hgb 8.5 L Hct 24.8 L MCV 93 MCH 31.7 MCHC 34.2 RDW 16.8 H Plt Count 152 Seg Neutrophils % 75.5 Lymphocytes % 13.3 Monocytes % 8.5 Eosinophils % 2.1 Basophils % 0.6 Absolute Neutrophils 5.6 Absolute Lymphocytes 1.0 Absolute Monocytes 0.6 Absolute Eosinophils 0.2 Absolute Basophils 0.0 Impressions: Abdomen/Pelvis CT 05/14/18 20:06 IMPRESSION: Possible fistula associated with the medial right gluteal fold cutaneous surface extending to the perianal region. Correlate with physical exam. Severe atheromatous changes, as before. Moderate stool throughout colon. Diffuse anasarca TECHNICAL DOCUMENTATION: Quality ID # 436: Final reports with documentation of one or more dose reduction techniques (e.g., Automated exposure control, adjustment of the mA and/or kV according to patient size, use of iterative reconstruction technique) copyright 2011 [employer]- All Rights Reserved Head CT 05/16/18 00:00 IMPRESSION: MILD CHRONIC CHANGES OF ATROPHY AND MICROVASCULAR ISCHEMIA. NO ACUTE PROCESS. EVIDENCE OF ACUTE STROKE: NO. Chest X-Ray 05/16/18 14:00 IMPRESSION: 1. A vague focal opacity is suggested in the right upper lung zone. 2. Left lower lung pleuroparenchymal changes-effusion suggested. Qualifiers - * PATIENT BEING DISCHARGED WITH ANY OF THE FOLLOWING DIAGNOSIS: No
[2018-05-19 16:19] LABS: HEMATOCRIT 25.8 % (36.0-47.0); HEMOGLOBIN 8.6 g/dL (12.0-15.5); MEAN CORPUSCULAR HEMOGLOBIN 31.4 pg (27.0-33.4); MEAN CORPUSCULAR HGB CONC 33.6 g/dL (32.0-36.0); MEAN CORPUSCULAR VOLUME 94 fl (80-97); PLATELET COUNT 166 10^3/uL (150-450); RED BLOOD COUNT 2.75 10^6/uL (3.72-5.28); RED CELL DISTRIBUTION WIDTH 17.3 % (11.5-14.0); WHITE BLOOD COUNT 7.6 10^3/uL (4.0-10.5)
[2018-05-19 17:12] LABS: ABSOLUTE LYMPHOCYTES# (MANUAL) 1.4 10^3/uL (0.5-4.7); ABSOLUTE MONOCYTES # (MANUAL) 0.2 10^3/uL (0.1-1.4); ABSOLUTE NEUTROPHILS# (MANUAL) 5.9 10^3/uL (1.7-8.2); BASOPHILS % (MANUAL) 0 % (0-2); EOSINOPHILS % (MANUAL) 2 % (0-6); LYMPHOCYTES % (MANUAL) 18 % (13-45); METAMYELOCYTES % (MANUAL) 1 % (0); MONOCYTES % (MANUAL) 2 % (3-13); MYELOCYTES % (MANUAL) 1 % (0); NUCLEATED RED BLOOD CELLS 3 /100 WBC (0); SEGMENTED NEUTROPHILS % (MAN) 76 % (42-78); TOTAL CELLS COUNTED 100
[2018-05-19 17:19] LABS: ANISOCYTOSIS 2+; HYPOCHROMASIA 2+; OVALOCYTES 2+; POIKILOCYTOSIS 2+; POLYCHROMASIA 2+; SCHISTOCYTES SLIGHT; TOXIC GRANULATION 2+; TOXIC VACUOLATION PRESENT
[2018-05-19 17:20] LABS: PLATELET CLUMPS PRESENT; PLATELET COMMENT ADEQUATE; PLATELET LARGE PRESENT
[2018-05-20 04:56] LABS: HEMATOCRIT 23.7 % (36.0-47.0); HEMOGLOBIN 8.1 g/dL (12.0-15.5); MEAN CORPUSCULAR VOLUME 94 fl (80-97); PLATELET COUNT 156 10^3/uL (150-450); RED BLOOD COUNT 2.52 10^6/uL (3.72-5.28); RED CELL DISTRIBUTION WIDTH 16.6 % (11.5-14.0); WHITE BLOOD COUNT 7.2 10^3/uL (4.0-10.5)
[2018-05-20] MEDS: LEVOTHYROXINE SODIUM 0.025 MG TABLET PO SCH (05:02)
[2018-05-20] MEDS: CALCIUM ACETATE 667 MG CAPSULE PO SCH ×3 (08:19→16:49)
[2018-05-20] MEDS: SUCRALFATE SUSP 1 GM/10 ML UDCUP PO SCH ×4 (08:19→21:16)
[2018-05-20 10:40] LABS: PATH REVIEW PATHOLOGIST REVIEWED
[2018-05-20] MEDS: PANTOPRAZOLE SODIUM 40 MG VIAL IV SCH (12:05)
[2018-05-20] MEDS: ALPRAZOLAM 0.5 MG TABLET PO PRN ×2 (12:05→23:44)
[2018-05-20] MEDS: FAMOTIDINE 20 MG TABLET PO SCH ×2 (12:05→21:16)
[2018-05-20] MEDS: DOCUSATE SODIUM 100 MG CAPSULE PO SCH ×2 (12:05→17:01)
--- NOTE | 2018-05-20 15:20 | Progress Note ---
Provider Note Provider Note: Patient was discharged yesterday. However, prior to discharge, she had a large bowel movement that was black and tarry hence discharge was held. Hemoglobin this morning was 8.1 from 8.6. No recurrence of melena so far. Will continue to monitor H&H and monitor for recurrence of melena. Surgery will also be updated.
[2018-05-20 16:13] LABS: HEMOGLOBIN 8.8 g/dL (12.0-15.5); MEAN CORPUSCULAR HEMOGLOBIN 31.8 pg (27.0-33.4); MEAN CORPUSCULAR HGB CONC 33.6 g/dL (32.0-36.0); MEAN CORPUSCULAR VOLUME 95 fl (80-97); PLATELET COUNT 173 10^3/uL (150-450); RED BLOOD COUNT 2.76 10^6/uL (3.72-5.28); RED CELL DISTRIBUTION WIDTH 16.7 % (11.5-14.0); WHITE BLOOD COUNT 7.2 10^3/uL (4.0-10.5)
[2018-05-20] MEDS ORDERED: SENNOSIDES/DOCUSATE 8.6-50 MG 1 EACH TABLET PO ONE (17:00)
--- NOTE | 2018-05-20 18:04 | PDOC PROGRESS REPORT ---
Subjective Progress Note for:: 05/20/18 Subjective:: I saw the patient this morning in preparation for her hemodialysis. Her discharge yesterday was held because she had a large black and tarry stool. However there is not any active bleeding otherwise. She was brought onto dialysis and had her usual dialysis manage which she tolerated well without any problems. Reason For Visit: ACUTE UPPER GI BLEED Physical Exam Vital Signs: Temp Pulse Resp BP Pulse Ox 97.8 F 87 16 161/47 H 96 05/20/18 03:10 05/20/18 14:00 05/20/18 03:10 05/20/18 03:10 05/20/18 03:10 Intake & Output 05/19/18 05/20/18 05/21/18 06:59 06:59 06:59 Intake Total 470 651 Output Total 1300 1000 Balance -830 651 -1000 Weight 49.5 kg 52.5 kg Vitals during dialysis treatment: Blood pressure 156/65, heart rate of 84, temperature 97.3, blood flow rate of 400 mL/min, dialysate flow rate of 800 mL/min. Exam: General appearance: PRESENT: no acute distress, cooperative, well-developed, w ell-nourished Head exam: PRESENT: atraumatic, normocephalic; patient is very hard of hearing Eye exam: PRESENT: conjunctiva pale, PERRLA. She is legally blind ABSENT: scleral icterus Neck exam: ABSENT: JVD Respiratory exam: PRESENT: Diminished breath sounds. ABSENT: crackles, rales, rhonchi, unlabored, wheezes Cardiovascular exam: PRESENT: Regular rate rhythm -+S1, +S2. Grade 2/6 systolic murmur GI/Abdominal exam: PRESENT: normal bowel sounds, soft. ABSENT: guarding, mass, tenderness Extremities exam: ABSENT: No edema Neurological exam: PRESENT: alert, awake, oriented to person, place and time. Skin exam: PRESENT: dry, warm, Results Laboratory Results: 05/20/18 16:00 05/18/18 05:56 05/20/18 05/20/18 04:15 16:00 WBC 7.2 7.2 RBC 2.52 L 2.76 L Hgb 8.1 L 8.8 L Hct 23.7 L 26.0 L MCV 94 95 MCH 32.0 31.8 MCHC 34.0 33.6 RDW 16.6 H 16.7 H Plt Count 156 173 Impressions: Abdomen/Pelvis CT 05/14/18 20:06 IMPRESSION: Possible fistula associated with the medial right gluteal fold cutaneous surface extending to the perianal region. Correlate with physical exam. Severe atheromatous changes, as before. Moderate stool throughout colon. Diffuse anasarca TECHNICAL DOCUMENTATION: Quality ID # 436: Final reports with documentation of one or more dose reduction techniques (e.g., Automated exposure control, adjustment of the mA and/or kV according to patient size, use of iterative reconstruction technique) copyright 2010 [employer]- All Rights Reserved Head CT 05/16/18 00:00 IMPRESSION: MILD CHRONIC CHANGES OF ATROPHY AND MICROVASCULAR ISCHEMIA. NO ACUTE PROCESS. EVIDENCE OF ACUTE STROKE: NO. Chest X-Ray 05/16/18 14:00 IMPRESSION: 1. A vague focal opacity is suggested in the right upper lung zone. 2. Left lower lung pleuroparenchymal changes-effusion suggested. Assessment & Plan - Diagnosis (1) ESRD (end stage renal disease) on dialysis Is this a current diagnosis for this admission?: Yes Plan: We did dialysis today for 3 hours, using the patient's left AV fistula, with 3 potassium bath, blood flow rate of 400 mL per minute, dialysate flow rate of 800 mL per minute, ultrafiltration 1 L as tolerated, no heparin and Procrit with 40,000 units during dialysis intravenously. Patient tolerated dialysis well without any problems. We will continue to support dialysis was last the patient is here in the hospital. Actual ultrafiltration obtained was 700 mL at the end of dialysis (2) Upper GI bleed Is this a current diagnosis for this admission?: Yes Plan: Status post EGD, 05/17/2018. This is secondary to gastritis with shallow gastric ulcers and multiple duodenal ulcers. Continue pantoprazole and sucralfate. (3) Acute blood loss anemia Is this a current diagnosis for this admission?: Yes Plan: Status post blood transfusions. Hemoglobin stable and improved. (4) Anemia of chronic disease Is this a current diagnosis for this admission?: Yes Plan: Procrit given today. (5) Hypertension Qualifiers: Hypertension type: essential hypertension Qualified Code(s): I10 - Essential (primary) hypertension Is this a current diagnosis for this admission?: Yes (6) Diabetes mellitus type 2 in nonobese Is this a current diagnosis for this admission?: Yes - Time Time with patient: 15-25 minutes
[2018-05-21] MEDS: HYDRALAZINE HCL INJ/PF 20 MG/1 ML SDV IV PRN ×2 (01:34→07:44)
[2018-05-21] MEDS: LEVOTHYROXINE SODIUM 0.025 MG TABLET PO SCH (05:30)
[2018-05-21] MEDS: CALCIUM ACETATE 667 MG CAPSULE PO SCH (07:43)
[2018-05-21] MEDS: SUCRALFATE SUSP 1 GM/10 ML UDCUP PO SCH (07:44)
[2018-05-21 09:07] VITALS: BP 115/47
[2018-05-21] MEDS: DOCUSATE SODIUM 100 MG CAPSULE PO SCH (09:31)
[2018-05-21] MEDS: FAMOTIDINE 20 MG TABLET PO SCH (09:31)
[2018-05-21] MEDS: ALPRAZOLAM 0.5 MG TABLET PO PRN (09:31)
[2018-05-21] MEDS: PANTOPRAZOLE SODIUM 40 MG VIAL IV SCH (09:31)
--- NOTE | 2018-05-21 13:40 | Progress Note ---
Provider Note Provider Note: No recurrence of melena. Patient's hemoglobin has been stable, trending up slightly in fact. Discussed with daughter on bedside who prefers to restart the aspirin after a repeat CBC with her PCP next week. Will proceed with discharge today.
== END 2018-05-21 10:36 | disposition home health service (06) | DRG 377 ==
LOC: ER 19:38 → EH 23:43 → 4S 05-15 16:11 → 3N 05-16 17:49
PROVIDERS: ADMIT Emergency Medicine; ATTEND Emergency Medicine
PROC: 30233N1 Transfusion of Nonautologous Red Blood Cells into Peripheral Vein, Percutaneous Approach (ICD-10-PCS; principal; 2018-05-14)
PROC: 30233N1 Transfusion of Nonautologous Red Blood Cells into Peripheral Vein, Percutaneous Approach (ICD-10-PCS; 2018-05-16)
PROC: 5A1D70Z Performance of Urinary Filtration, Intermittent, Less than 6 Hours Per Day (ICD-10-PCS; 2018-05-16)
PROC: 30233N1 Transfusion of Nonautologous Red Blood Cells into Peripheral Vein, Percutaneous Approach (ICD-10-PCS; 2018-05-17)
PROC: 0DD98ZX Extraction of Duodenum, Via Natural or Artificial Opening Endoscopic, Diagnostic (ICD-10-PCS; 2018-05-17)
PROC: 0DD78ZX Extraction of Stomach, Pylorus, Via Natural or Artificial Opening Endoscopic, Diagnostic (ICD-10-PCS; 2018-05-17)
DX: K92.2 Gastrointestinal hemorrhage, unspecified (principal); N18.6 End stage renal disease; D62 Acute posthemorrhagic anemia; I13.2 Hypertensive heart and chronic kidney disease with heart failure and with stage 5 chronic kidney disease, or end stage renal disease; G93.40 Encephalopathy, unspecified; K62.5 Hemorrhage of anus and rectum; Z66 Do not resuscitate; K26.9 Duodenal ulcer, unspecified as acute or chronic, without hemorrhage or perforation; K29.70 Gastritis, unspecified, without bleeding; K29.80 Duodenitis without bleeding; E11.22 Type 2 diabetes mellitus with diabetic chronic kidney disease; D63.1 Anemia in chronic kidney disease; I50.9 Heart failure, unspecified; E78.00 Pure hypercholesterolemia, unspecified; E87.5 Hyperkalemia; K21.9 Gastro-esophageal reflux disease without esophagitis; H54.7 Unspecified visual loss; Z99.2 Dependence on renal dialysis; Z95.5 Presence of coronary angioplasty implant and graft; Z95.2 Presence of prosthetic heart valve; Z79.82 Long term (current) use of aspirin; Z79.899 Other long term (current) drug therapy
CPT/HCPCS: 00731; 36415; 36430; 36600; 43239; 70450; 71045; 74176; 80048; 80053; 82140; 82803; 82962; 83605; 83735; 85025; 85027; 85610; 85730; 86850; 86900; 86901; 86920; 88305; 88342; 93005; 93010; 99291; J0360; J2405; J2704; J3490; P9016; Q4081; S0119; S0164

== ENCOUNTER 2018-10-01 15:33 | Inpatient (IN) | payer MEDICARE, BC ==
--- NOTE | 2018-10-01 15:46 | ER Document Report ---
ED General - General Stated Complaint: ABDOMINAL PAIN Time Seen by Provider: 10/01/18 15:45 TRAVEL OUTSIDE OF THE [place] IN LAST 30 DAYS: No - HPI Notes: 77-year-old female with history of end-stage renal disease, upper GI bleed, high blood pressure, congestive heart failure to the emergency room with daughter with complaints of diarrhea, abdominal pain, and possible GI bleeding. Daughter states that patient called her this morning and asked for some help as she was not feeling well. When daughter got to her house patient had had diarrhea all over the house and stated that she felt weak. Patient's daughter then gave her 1 dose of Immodium but when that did not work saw a couple episodes of blood in the diarrhea, she decided to the patient to the emergency department. Daughter also reports couple episodes of patient vomiting while she was at the patient's house. Denies any blood in the emesis. Patient is a ESRD patient on hemodialysis every Wednesday. She has had her regularly scheduled dialysis this past week. She is followed by Dr. Raygoza for nephrology. Daughter does report that when she got to her mom's house this morning there was a container of room temperature coleslaw from [employer] out on the counter and she is unsure if the patient was eating that. Patient has not had any recent antibiotics, recent travel, change in diet. - Related Data Allergies/Adverse Reactions: metoclopramide HCl [From Reglan] Adverse Reaction (Unknown, Verified 06/23/16 09:40) leg twitching Past Medical History - General Information source: Patient, Relative - Social History Smoking Status: Former Smoker Frequency of alcohol use: None Drug Abuse: None Family History: CAD, DM, Hypertension, Malignancy - Past Medical History Cardiac Medical History: Reports: Hx Congestive Heart Failure, Hx Coronary Artery Disease, Hx Heart Attack - 2004, QUAD BYPASS AND VALVE REPLACEMENT, Hx Hypercholesterolemia, Hx Hypertension, Hx Peripheral Vascular Disease, Hx Pulmonary Embolism, Hx Heart Murmur Denies: Hx Atrial Fibrillation Pulmonary Medical History: Reports: Hx COPD, Hx Pneumonia - 01/2016, Hx Sleep Apnea Denies: Hx Asthma, Hx Bronchitis, Hx Respiratory Failure, Hx Tuberculosis Neurological Medical History: Reports: Hx Cerebrovascular Accident - 2005. Denies: Hx Seizures Endocrine Medical History: Reports: Hx Diabetes Mellitus Type 2, Hx Hypothyroidism. Denies: Hx Diabetes Mellitus Type 1, Hx Graves' Disease, Hx Hyperthyroidism Renal/ Medical History: Reports: Hx End Stage Renal Disease - Oliguric, Hx Hemodialysis - MWF at [facility]. Denies: Hx Peritoneal Dialysis Malignancy Medical History: Denies: Hx Leukemia, Hx Lung Cancer GI Medical History: Reports: Hx Gastroesophageal Reflux Disease. Denies: Hx Cirrhosis, Hx Crohn's Disease, Hx Diverticulitis, Hx Hepatitis, Hx Hiatal Hernia, Hx Irritable Bowel, Hx Liver Failure, Hx Pancreatitis, Hx Ulcer, Hx Ulcerative Colitis Musculoskeletal Medical History: Reports Hx Arthritis - Back, Denies Hx Gout, Denies Hx Multiple Sclerosis, Denies Hx Systemic Lupus Erythematosus Skin Medical History: Denies Hx Eczema, Denies Hx Psoriasis Psychiatric Medical History: Reports: Hx Depression Denies: Hx Dementia Infectious Medical History: Denies: Hx Hepatitis, Hx HIV Past Surgical History: Reports: Hx Abdominal Surgery - hernia repair, Hx Cardiac Catheterization, Hx Cardiac Surgery, Hx Cholecystectomy, Hx Coronary Artery Bypass Graft - X4, Hx Herniorrhaphy, Hx Open Heart Surgery, Hx Pacemaker, Hx Ton sillectomy, Hx Tubal Ligation, Hx Valve Replacement - Bioprosthetic valve replacement surgery, Hx Vascular Surgery - Left antecubital tunnel/graft for dialysis. Denies: Hx Appendectomy, Hx Bowel Surgery, Hx Section, Hx Colostomy, Hx Gastric Bypass Surgery, Hx Hysterectomy, Hx Mastectomy - Immunizations Hx Diphtheria, Pertussis, Tetanus Vaccination: Yes Hx Pneumococcal Vaccination: 01/04/16 Review of Systems - Review of Systems Constitutional: Malaise, Weakness. denies: Chills, Fever EENT: No symptoms reported Cardiovascular: denies: Chest pain, Palpitations, Dyspnea, Syncope, Dizziness Respiratory: denies: Cough, Short of breath Gastrointestinal: Abdominal pain, Diarrhea, Blood streaked bowels, Rectal bleeding. denies: Vomiting, Constipation, Black stools Genitourinary: No symptoms reported Musculoskeletal: No symptoms reported Skin: No symptoms reported Hematologic/Lymphatic: No symptoms reported Neurological/Psychological: No symptoms reported -: Yes All other systems reviewed and negative Physical Exam - Vital signs Vitals: Pulse Ox 90 L 10/01/18 15:42 Selected Entries 10/01/18 10/01/18 15:44 18:01 Temperature 98 F Heart Rate ( 62 Monitors) Respiratory 13 Rate Blood Pressure 128/37 H O2 Sat by Pulse 99 Oximetry Interpretation: Normal - General General appearance: Appears well, Alert - HEENT Head: Normocephalic, Atraumatic Eyes: Normal Pupils: PERRL - Respiratory Respiratory status: No respiratory distress Chest status: Nontender Breath sounds: Normal Chest palpation: Normal - Cardiovascular Rhythm: Regular Heart sounds: Normal auscultation Murmur: No - Abdominal Inspection: Normal Distension: No distension Bowel sounds: Normal Tenderness: Tender - diffusely TTP. No: McBurney's point, Travis's sign, Guarding, Rebound Organomegaly: No organomegaly - Rectal Stool: Heme positive, Other - bright red blood in diarrhea - Back Back: Normal, Nontender - Extremities General upper extremity: Normal inspection, Nontender, Normal color, Normal ROM, Normal temperature General lower extremity: Normal inspection, Nontender, Normal color, Normal ROM, Normal temperature, Normal weight bearing. No: Adrienne's sign - Neurological Neuro grossly intact: Yes Cognition: Normal Orientation: AAOx4 Mely Coma Scale Eye Opening: Spontaneous Mely Coma Scale Verbal: Oriented [place] Coma Scale Motor: Obeys Commands [place] Coma Scale Total: 15 Speech: Normal Motor strength normal: LUE, RUE, LLE, RLE Sensory: Normal - Psychological Associated symptoms: Normal affect, Normal mood - Skin Skin Temperature: Warm Skin Moisture: Dry Skin Color: Normal Course - Vital Signs Vital signs: Temp Pulse Resp BP Pulse Ox 98 F 17 130/40 H 99 10/01/18 15:44 10/01/18 18:03 10/01/18 18:03 10/01/18 18:03 - Laboratory Result Diagrams: 10/01/18 15:51 10/01/18 15:51 Laboratory results interpreted by me: 10/01/18 10/01/18 10/01/18 15:51 15:51 15:51 Hgb 11.4 L Hct 35.5 L RDW 17.8 H Plt Count 117 L Seg Neutrophils % 86.9 H Lymphocytes % 6.1 L APTT 38.3 H BUN 43 H Creatinine 4.02 H Est GFR ( Amer) 13 L Est GFR (Non-Af Amer) 11 L Glucose 128 H Direct Bilirubin 0.6 H Alkaline Phosphatase 425 H Total Protein 5.6 L Albumin 3.2 L - Transfer of Care Notes: 10/01/[address] Sullivan. H and h are stable and better from prior but still anemic. Will obtain CT to eval for any sort of diverticular disease. Stool cultures, ova/parasite, as well as c diff obtained. Family agrees with the plan. Noted CT with no acute diverticular disease or colitis. Discussed further with Dr. Sullivan. Will discuss possible admission with family. Rounded with patient and family. They would like for admission for this patient as she lives by herself and they are concerned she will not do well. I agree with this sentiment, especially given the story the daughter gave initially. Will call hospitalist for admission for lower GI bleed, diarrhea so patient can be monitored for further bleeding, have trending H and H. Spoke with Dr. Ramirez, hospitalist. He agrees with the plan for admission. He is aware of imaging, labs, stool cultures obtained. He would like for me to consult Dr. Rutherford in case patient may need scope if she continues to bleed. He accepts admission. Spoke with Dr. Rutherford, surgeon oriental medicine practitioner. He will come see the patient. Dr. Rutherford rounded on patient. He will hold right now on scope per patient and family's request. He would like for her to be NPO after midnight. Impression: Lower Gi bleeding, diarrhea, ESRD on HD. Will admit to hospitalist team and Dr. Rutherford will consult. Patient and family agree with the plan. Discharge - Discharge Clinical Impression: Lower GI bleed, Diarrhea, ESRD (end stage renal disease) on dialysis Condition: Stable Disposition: ADMITTED INPATIENT Admitting Provider: Ashley (Hospitalist) Unit Admitted: [facility]
[2018-10-01 16:10] LABS: ABSOLUTE LYMPHOCYTES (AUTO) 0.5 10^3/uL (0.5-4.7); ABSOLUTE MONOCYTES (AUTO) 0.5 10^3/uL (0.1-1.4); ABSOLUTE NEUT (AUTO) 7.7 10^3/uL (1.7-8.2); BASOPHILS % (AUTO) 0.3 % (0-2); EOSINOPHILS % (AUTO) 0.5 % (0-6); HEMATOCRIT 35.5 % (36.0-47.0); HEMOGLOBIN 11.4 g/dL (12.0-15.5); LYMPHOCYTES % (AUTO) 6.1 % (13-45); MEAN CORPUSCULAR HGB CONC 32.1 g/dL (32.0-36.0); MEAN CORPUSCULAR VOLUME 93 fl (80-97); MONOCYTES % (AUTO) 6.2 % (3-13); PLATELET COUNT 117 10^3/uL (150-450); RED CELL DISTRIBUTION WIDTH 17.8 % (11.5-14.0); SEGMENTED NEUTROPHILS % (AUTO) 86.9 % (42-78); TOTAL CELLS COUNTED % (AUTO) 100 %; WHITE BLOOD COUNT 8.8 10^3/uL (4.0-10.5)
[2018-10-01 16:25] LABS: ALANINE AMINOTRANSFERASE 27 U/L (9-52); ALBUMIN 3.2 g/dL (3.5-5.0); ALKALINE PHOSPHATASE 425 U/L (38-126); ANION GAP 9 (5-19); ASPARTATE AMINO TRANSFERASE 21 U/L (14-36); BILIRUBIN,DIRECT 0.6 mg/dL (0.0-0.4); BILIRUBIN,TOTAL 0.7 mg/dL (0.2-1.3); BLOOD UREA NITROGEN 43 mg/dL (7-20); CALCIUM 9.5 mg/dL (8.4-10.2); CARBON DIOXIDE 29 mmol/L (22-30); CHLORIDE 99 mmol/L (98-107); GLUCOSE 128 mg/dL (75-110); POTASSIUM 4.5 mmol/L (3.6-5.0); SODIUM 137.2 mmol/L (137-145); TOTAL PROTEIN 5.6 g/dL (6.3-8.2)
[2018-10-01] MEDS ORDERED: PANTOPRAZOLE SODIUM 40 MG VIAL IV ONE (16:49)
[2018-10-01 17:05] LABS: PROTHROMBIN TIME 14.2 SEC (11.4-15.4)
[2018-10-01 17:06] LABS: PARTIAL THROMBOPLASTIN TIME 38.3 SEC (23.5-35.8)
--- NOTE | 2018-10-01 18:00 | RADIOLOGY REPORT (SQ) ---
EXAM DESCRIPTION: CT ABD/PELVIS NO ORAL OR IV COMPLETED DATE/TIME: 10/01/2018 5:30 pm REASON FOR STUDY: abd pain, diarrhea COMPARISON: 05/14/2018 TECHNIQUE: CT scan of the abdomen and pelvis performed without intravenous or oral contrast. Images reviewed with lung, soft tissue, and bone windows. Reconstructed coronal and sagittal MPR images revi ewed. All images stored on PACS. All CT scanners at this facility use dose modulation, iterative reconstruction, and/or weight based d osing when appropriate to reduce radiation dose to as low as reasonably achievable (ALARA). [facility]: Dose Right [facility]: CareDose [facility]: Dose Right [facility]: Teradose 4D [facility]: Smart [employer] RADIATION DOSE: CT Rad equipment meets quality standard of care and radiation dose reduction techniq ues were employed. CTDIvol: 4.8 mGy. DLP: 227 mGy-cm.mGy. LIMITATIONS: None. FINDINGS: LOWER CHEST: Cardiomegaly and coronary artery calcifications. Bibasilar scarring or atele ctasis. Trace pleural effusions. NON-CONTRASTED LIVER, SPLEEN, ADRENALS: Evaluation limited by lack of IV contrast. No identified sign ificant masses. PANCREAS: No masses. No peripancreatic inflammatory changes. GALLBLADDER: Surgically absent. RIGHT KIDNEY AND URETER: No suspicious masses. Assessment limited by lack of IV contrast. Nonobstru ctive calculi. No hydronephrosis or hydroureter. LEFT KIDNEY AND URETER: No suspicious masses. Assessment limited by lack of IV contrast. Nonobstruc tive calculi. No hydronephrosis or hydroureter. AORTA AND RETROPERITONEUM: No aneurysm. No retroperitoneal masses or adenopathy. Unusually severe, p ipe like aortic atherosclerosis and extensive abdominal of vascular calcinosis. BOWEL AND PERITONEAL CAVITY: No obvious masses or inflammatory changes. The colon is fluid-filled to the rectum. No free fluid. APPENDIX: Not clearly visualized. PELVIS, BLADDER, AND ABDOMINAL WALL:No abnormal masses. No free fluid. Bladder normal. BONES: Renal osteodystrophy. OTHER: Anasarca. IMPRESSION: 1. There are no definite noncontrast CT findings to explain acute abdominal pain. The colon is fluid-filled to the rectum, in keeping with diarrheal illness. 2. Small pleural effusions and anasarca. 3. Atherosclerosis, of vascular calcinosis, and renal osteodystrophy. 4. Nonobstructive bilateral nephrolithiasis. COMMENT: Quality ID # [id number]: Final reports with documentation of one or more dose reduction techniques (e.g., Automated exposure control, adjustment of the mA and/or kV according to patient size, use of iterative reconstruction technique) TECHNICAL DOCUMENTATION: JOB ID: [id number] [employer]- All Rights Reserved Reading location - IP/workstation name: [email or web address]
[2018-10-01] MEDS ORDERED: ONDANSETRON HCL INJ/PF 4 MG/2 ML SDV IV PRN (21:09)
[2018-10-01] MEDS ORDERED: METOPROLOL TARTRATE PF/INJ 5 MG/5 ML SDV IV PRN (21:11)
[2018-10-01] MEDS ORDERED: HYDRALAZINE HCL INJ/PF 20 MG/1 ML SDV IV PRN (21:11)
[2018-10-01] MEDS ORDERED: DEXTROSE 50%-WATER 25 GM/50 ML DISP.SYRIN IV PRN ×2 (21:12)
[2018-10-01] MEDS ORDERED: GLUCAGON,HUMAN RECOMB 1 MG INJ IM PRN (21:12)
[2018-10-01] MEDS ORDERED: DEXTROSE 40% GEL 15 GM TUBE PO PRN ×2 (21:12)
--- NOTE | 2018-10-01 21:48 | PDOC CONSULTATION ---
Consultation Consult Date: 10/01/18 Provider Consulted: OPAL GUZMAN Consult reason:: possible colonoscopy History of Present Illness Admission Date/PCP: 10/01/18 20:45 JOVANA MOELLER MD History of Present Illness: SINAN EASLEY is a 77 year old female diabetic on Hemodialysis noted bloody diarrhea this morning associated with abdominal cramps. Had Upper GI bleeding last May and was scope by Dr Agudelo. She was found to have duodenal ulcers with severe gastritis. She was placed on Ranitidine which she is still taking at this time. Her Hb is 11 and denies any lightheadedness. CT scan showed no acute pathology. Claims she is always warm and then cold but no definite fever. Dialysis is MWF. 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 Denies: Cataracts, Ears - Hearing aids Neurological Medical History: Denies: Hemorrhagic CVA, Ischemic CVA, Multiple Sclerosis, Seizures Endocrine Medical History: Reports: Diabetes Mellitus Type 2, Hypothyroidism Denies: Diabetes Mellitus Type 1, Hyperthyroidism Renal/ Medical History: Reports: End Stage Renal Disease - Oliguric Denies: Nephrolithiasis Malignancy Medical History: Reports: None Denies: Leukemia, Lung Cancer GI Medical History: Reports: Gastroesophageal Reflux Disease, Other - Upper GI bleed Denies: Cirrhosis, Crohn's Disease, Diverticulitis, Hepatitis, Hiatal Hernia, Ulcerative Colitis Musculoskeltal Medical History: Reports: Arthritis - Back Denies: Gout Skin Medical History: Denies: Eczema, Psoriasis Psychiatric Medical History: Reports: Depression Denies: Alcohol Dependency, Dementia, Substance Abuse, Tobacco Dependency Traumatic Medical History: Reports: None Hematology: Reports: Anemia Denies: Hemophilia, Sickle Cell Disease, Bleeding Tendencies Infectious Medical History: Reports: None Denies: HIV Past Surgical History Past Surgical History: Reports: Cardiac Catheterization, Cholecystectomy, Coronary Artery Bypass Graft - X4, Herniorrhaphy, Pacemaker, Tonsillectomy, Tubal Ligation, Valve Replacement - Bioprosthetic valve replacement surgery, Vascular Surgery - Left antecubital tunnel/graft for dialysis Denies: Appendectomy, Section, Colostomy, Gastric Bypass Surgery, Hysterectomy, Mastectomy Social History Lives with: Alone - Daughters check on her at home frequently Smoking Status: Never Smoker Frequency of Alcohol Use: None Hx Recreational Drug Use: No Drugs: None Hx Prescription Drug Abuse: No - Advance Directive Resuscitation Status: Full Code Family History Family History: CAD, DM, Hypertension, Malignancy Parental Family History Reviewed: Yes Children Family History Reviewed: No Sibling(s) Family History Reviewed.: No Medication/Allergy Home Medications: Alprazolam [Xanax 0.5 mg Tablet] 0.5 mg PO TID PRN 06/20/12 Amlodipine Besylate 5 mg PO QHS 06/20/12 Hydralazine HCl [Apresoline 25 mg Tablet] 25 mg PO BID 06/20/12 Isosorbide Mononitrate [Isosorbide Mononitrate ER] 30 mg PO DAILY 06/20/12 Lisinopril 10 mg PO DAILY 07/14/12 Aspirin [Aspirin EC] 81 mg PO QAM 08/24/13 Calcium Acetate 2 cap PO TID 08/24/13 Levothyroxine Sodium 25 mcg PO DAILY 08/24/13 Diphenoxylate HCl/Atropine [Diphenoxylate-Atrop 2.5-0.025] 1 each PO Q6H PRN 10/30/14 Ipratropium/Albuterol Sulfate [Duoneb 3 ml Ampul] 3 ml NEB RTQ6 PRN 10/30/14 Lidocaine/Prilocaine [Lidocaine-Prilocaine Cream] 1 applic TP PRN PRN 10/30/14 Fluticasone Propionate [Flonase Allergy Relief] 1 spray NASL DAILY 06/23/16 Gabapentin 100 tab PO DAILY 06/23/16 Promethazine HCl 12.5 mg PO Q4HP PRN 06/23/16 L.acidoph,Paracasei, B.lactis [Probiotic] 1 each PO DAILY 05/15/18 Loratadine [Claritin 10 mg Tablet] 10 mg PO DAILY 05/15/18 Ondansetron HCl [Zofran 4 mg Tablet] 1 tab PO PRN PRN 05/15/18 Pantoprazole Sodium [Protonix] 40 mg PO QAM #30 tablet. 05/19/18 Ranitidine HCl 75 mg PO DAILY #30 tablet 05/19/18 Sucralfate [Carafate Susp 1 gm/10 ml Udcup] 1 gm PO ACHS #140 udc 05/19/18 Carvedilol [Coreg 12.5 mg Tablet] 12.5 mg PO Q12 #60 tablet 05/21/18 Allergies/Adverse Reactions: metoclopramide HCl [From Reglan] Adverse Reaction (Unknown, Verified 06/23/16 09:40) leg twitching Review of Systems Constitutional: PRESENT: as per HPI Eyes: PRESENT: other - decreased vision and hearing Cardiovascular: PRESENT: other - no chest pains/cough Gastrointestinal: PRESENT: abdominal pain - cramping in lower abdomen Neurological: PRESENT: restless legs, weakness, other - not have good balance Physical Exam Vital Signs: Temp Pulse Resp BP Pulse Ox 98 F 17 130/40 H 99 10/01/18 15:44 10/01/18 18:03 10/01/18 18:03 10/01/18 18:03 General appearance: PRESENT: mild distress Head exam: PRESENT: atraumatic Eye exam: PRESENT: conjunctiva pink Mouth exam: PRESENT: dry mucosa Neck exam: PRESENT: full ROM Respiratory exam: PRESENT: clear to auscultation drake Cardiovascular exam: PRESENT: RRR Pulses: PRESENT: normal radial pulses Vascular exam: PRESENT: normal capillary refill GI/Abdominal exam: PRESENT: soft, tenderness - mild at lower abdomen Rectal exam: PRESENT: deferred Extremities exam: PRESENT: full ROM Musculoskeletal exam: PRESENT: ambulatory - with walker Neurological exam: PRESENT: alert, oriented to person, oriented to place, oriented to time, oriented to situation Psychiatric exam: PRESENT: appropriate affect Skin exam: PRESENT: normal color, warm Results Laboratory Results: 10/01/18 15:51 10/01/18 15:51 10/01/18 10/01/18 10/01/18 15:51 15:51 15:51 WBC 8.8 RBC 3.80 Hgb 11.4 L Hct 35.5 L MCV 93 MCH 30.0 MCHC 32.1 RDW 17.8 H Plt Count 117 L Seg Neutrophils % 86.9 H Lymphocytes % 6.1 L Monocytes % 6.2 Eosinophils % 0.5 Basophils % 0.3 Absolute Neutrophils 7.7 Absolute Lymphocytes 0.5 Absolute Monocytes 0.5 Absolute Eosinophils 0.0 Absolute Basophils 0.0 Sodium 137.2 Potassium 4.5 Chloride 99 Carbon Dioxide 29 Anion Gap 9 BUN 43 H Creatinine 4.02 H Est GFR ( Amer) 13 L Est GFR (Non-Af Amer) 11 L Glucose 128 H Lactic Acid Calcium 9.5 Total Bilirubin 0.7 AST 21 ALT 27 Alkaline Phosphatase 425 H Total Protein 5.6 L Albumin 3.2 L Blood Type O POSITIVE Antibody Screen NEGATIVE 10/01/18 16:54 WBC RBC Hgb Hct MCV MCH MCHC RDW Plt Count Seg Neutrophils % Lymphocytes % Monocytes % Eosinophils % Basophils % Absolute Neutrophils Absolute Lymphocytes Absolute Monocytes Absolute Eosinophils Absolute Basophils Sodium Potassium Chloride Carbon Dioxide Anion Gap BUN Creatinine Est GFR ( Amer) Est GFR (Non-Af Amer) Glucose Lactic Acid 0.8 Calcium Total Bilirubin AST ALT Alkaline Phosphatase Total Protein Albumin Blood Type Antibody Screen Impressions: Abdomen/Pelvis CT 10/01/18 17:01 IMPRESSION: 1. There are no definite noncontrast CT findings to explain acute abdominal pain. The colon is fluid-filled to the rectum, in keeping with diarrheal illness. 2. Small pleural effusions and anasarca. 3. Atherosclerosis, of vascular calcinosis, and renal osteodystrophy. 4. Nonobstructive bilateral nephrolithiasis. Assessment & Plan - Diagnosis (1) Diarrhea Is this a current diagnosis for this admission?: Yes (2) Lower GI bleed Is this a current diagnosis for this admission?: Yes (3) ESRD (end stage renal disease) on dialysis Is this a current diagnosis for this admission?: Yes (4) Diabetes mellitus type 2 in nonobese Is this a current diagnosis for this admission?: Yes - Time Time Spent: 30 to 50 Minutes - Inpatient Certification Medical Necessity: Need Close Monitoring Due to Risk of Patient Decompensation, Need For IV Fluids, Risk of Complication if Not Cared For in Hospital - Plan Summary Plan Summary: Will be available to do endoscopy if needed NPO from midnight Monitor CBC in am
[2018-10-01] MEDS ORDERED: INSULIN LISPRO 100 UNIT/ML 3 ML VIAL SUBCUT SCH (22:00)
[2018-10-01] MEDS: PANTOPRAZOLE SODIUM 40 MG VIAL IV SCH (22:53)
--- NOTE | 2018-10-01 23:37 | ADVANCED CARE ---
- Diagnosis (1) Lower GI bleed Diagnosis Current: Yes (2) Diarrhea Diagnosis Current: Yes (3) ESRD (end stage renal disease) on dialysis Diagnosis Current: Yes (4) Anemia in chronic kidney disease, on chronic dialysis Diagnosis Current: Yes (5) Coronary artery disease Diagnosis Current: Yes (6) Hypertension Diagnosis Current: Yes (7) Hyperlipidemia Diagnosis Current: Yes (8) Diabetes mellitus type 2 in nonobese Diagnosis Current: Yes (9) Hypothyroidism Diagnosis Current: Yes (10) GERD (gastroesophageal reflux disease) Diagnosis Current: Yes (11) Peripheral vascular disease Diagnosis Current: Yes Attendance: The patient, her daughter Nette Gaspar and myself Resuscitation Status: Full Code Discussion: After discussion the patient wishes to be a full code for resuscitation status during this hospital stay in the event of a cardiac or respiratory arrest. Additionally she has named Nette Gaspar as her designated surrogate medical decision maker. Patient was not up to discussing a living will at this time. Care Planning Goals: 1. Patient will be a full CODE STATUS for this hospitalization. 2. Nette Gaspar will be the patient's designated surrogate medical decision- maker. Document(s) Completed: The following entries will be made into the patient's permanent medical record and medical orders for this admission via EMR entry: 1. Patient will be a full CODE STATUS for this hospitalization. 2. Nette Gaspar will be the patient's designated surrogate medical decision- maker. Time Spent: 11 minutes
--- NOTE | 2018-10-01 23:38 | PDOC H&P ---
History of Present Illness Admission Date/PCP: 10/01/2018 20:38 JOVANA MOELLER MD Patient complains of: Rectal bleeding History of Present Illness: SINAN EASLEY is a 77 year old female 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 Denies: Cataracts, Ears - Hearing aids Neurological Medical History: Denies: Hemorrhagic CVA, Ischemic CVA, Multiple Sclerosis, Seizures Endocrine Medical History: Reports: Diabetes Mellitus Type 2 - Off medications for 6+ years, Hypothyroidism Denies: Diabetes Mellitus Type 1, Hyperthyroidism Renal/ Medical History: Reports: End Stage Renal Disease - Oliguric, on dialysis Wednesday, Wednesday and Wednesday with Dr. Raygoza Denies: Nephrolithiasis Malignancy Medical History: Reports: None GI Medical History: Reports: Gastroesophageal Reflux Disease, Other - Upper GI bleed Denies: Cirrhosis, Crohn's Disease, Diverticulitis, Hepatitis, Hiatal Hernia, Ulcerative Colitis Musculoskeltal Medical History: Reports: Arthritis - Primarily affecting her back Denies: Gout Skin Medical History: Denies: Eczema, Psoriasis Psychiatric Medical History: Reports: Depression Denies: Alcohol Dependency, Substance Abuse, Tobacco Dependency Traumatic Medical History: Reports: None Hematology: Reports: Anemia Denies: Hemophilia, Sickle Cell Disease, Bleeding Tendencies Infectious Medical History: Reports: None Past Surgical History Past Surgical History: Reports: Cardiac Catheterization, Cholecystectomy, Coronary Artery Bypass Graft - X4, Herniorrhaphy, Pacemaker, Tonsillectomy, Tubal Ligation, Valve Replacement - Bioprosthetic valve replacement surgery, Vascular Surgery - Left antecubital tunnel/graft for dialysis Social History Information Source: Patient, Relative - Daughters Lives with: Alone - Daughters check on her at home frequently Smoking Status: Never Smoker Frequency of Alcohol Use: None Hx Recreational Drug Use: No Drugs: None Hx Prescription Drug Abuse: No - Advance Directive Resuscitation Status: Full Code Surrogate healthcare decision maker:: Nette Gaspar her daughter Family History Family History: CAD, DM, Hypertension, Malignancy Parental Family History Reviewed: Yes Children Family History Reviewed: No Sibling(s) Family History Reviewed.: Yes Medication/Allergy Home Medications: Alprazolam [Xanax 0.5 mg Tablet] 0.5 mg PO TID PRN 06/20/12 Amlodipine Besylate 5 mg PO QHS 06/20/12 Hydralazine HCl [Apresoline 25 mg Tablet] 25 mg PO BID 06/20/12 Isosorbide Mononitrate [Isosorbide Mononitrate ER] 30 mg PO DAILY 06/20/12 Lisinopril 10 mg PO DAILY 07/14/12 Aspirin [Aspirin EC] 81 mg PO QAM 08/24/13 Calcium Acetate 2 cap PO TID 08/24/13 Levothyroxine Sodium 25 mcg PO DAILY 08/24/13 Diphenoxylate HCl/Atropine [Diphenoxylate-Atrop 2.5-0.025] 1 each PO Q6H PRN 10/30/14 Ipratropium/Albuterol Sulfate [Duoneb 3 ml Ampul] 3 ml NEB RTQ6 PRN 10/30/14 Lidocaine/Prilocaine [Lidocaine-Prilocaine Cream] 1 applic TP PRN PRN 10/30/14 Fluticasone Propionate [Flonase Allergy Relief] 1 spray NASL DAILY 06/23/16 Gabapentin 100 tab PO DAILY 06/23/16 Promethazine HCl 12.5 mg PO Q4HP PRN 06/23/16 L.acidoph,Paracasei, B.lactis [Probiotic] 1 each PO DAILY 05/15/18 Loratadine [Claritin 10 mg Tablet] 10 mg PO DAILY 05/15/18 Ondansetron HCl [Zofran 4 mg Tablet] 1 tab PO PRN PRN 05/15/18 Pantoprazole Sodium [Protonix] 40 mg PO QAM #30 tablet. 05/19/18 Ranitidine HCl 75 mg PO DAILY #30 tablet 05/19/18 Sucralfate [Carafate Susp 1 gm/10 ml Udcup] 1 gm PO ACHS #140 udc 05/19/18 Carvedilol [Coreg 12.5 mg Tablet] 12.5 mg PO Q12 #60 tablet 05/21/18 Allergies/Adverse Reactions: metoclopramide HCl [From Reglan] Adverse Reaction (Unknown, Verified 06/23/16 09:40) leg twitching Review of Systems Constitutional: ABSENT: chills, fever(s) Eyes: PRESENT: visual disturbances - Chronic blindness, bilateral. ABSENT: other - Eye pain Ears: ABSENT: hearing changes, other - Ear pain Nose, Mouth, and Throat: ABSENT: mouth pain, sore throat Cardiovascular: ABSENT: chest pain, palpitations Respiratory: ABSENT: cough, dyspnea Gastrointestinal: PRESENT: as per HPI, diarrhea, hematochezia. ABSENT: abdominal pain, constipation, dysphagia, nausea, vomiting Genitourinary: ABSENT: dysuria, hematuria Musculoskeletal: ABSENT: back pain, joint swelling, muscle weakness Integumentary: ABSENT: pruritus, rash Neurological: ABSENT: confusion, convulsions, focal weakness, memory loss, syncope Psychiatric: ABSENT: anxiety, depression Endocrine: ABSENT: cold intolerance, heat intolerance Hematologic/Lymphatic: ABSENT: easy bleeding, easy bruising Physical Exam Vital Signs: Temp Pulse Resp BP Pulse Ox 98 F 17 130/40 H 99 10/01/18 15:44 10/01/18 18:03 10/01/18 18:03 10/01/18 18:03 General appearance: PRESENT: no acute distress, cooperative Head exam: PRESENT: atraumatic, normocephalic Eye exam: PRESENT: conjunctiva pink, other - Bilateral blindness. ABSENT: conjunctival injection, scleral icterus Ear exam: PRESENT: normal external ear exam. ABSENT: bleeding, drainage Mouth exam: PRESENT: dry mucosa, neck supple Neck exam: ABSENT: JVD, thyromegaly, tracheal deviation Respiratory exam: PRESENT: clear to auscultation drake, symmetrical, unlabored Cardiovascular exam: PRESENT: RRR, systolic murmur - 4-6 systolic murmur heard across the entire precordium. ABSENT: clicks, gallop, rubs Pulses: PRESENT: normal radial pulses, normal dorsalis pedis pul Vascular exam: PRESENT: normal capillary refill. ABSENT: pallor GI/Abdominal exam: PRESENT: normal bowel sounds, soft. ABSENT: tenderness Rectal exam: PRESENT: deferred Extremities exam: ABSENT: joint swelling, pedal edema Musculoskeletal exam: PRESENT: full ROM, normal inspection Neurological exam: PRESENT: alert, oriented to person, oriented to place, oriented to time, oriented to situation. ABSENT: CN II-XII grossly intact - Bilateral blindness Psychiatric exam: PRESENT: appropriate affect, normal mood Skin exam: PRESENT: dry, intact, warm. ABSENT: jaundice, rash, urticaria Results Laboratory Results: 10/01/18 15:51 10/01/18 15:51 10/01/18 10/01/18 10/01/18 15:51 15:51 15:51 WBC 8.8 RBC 3.80 Hgb 11.4 L Hct 35.5 L MCV 93 MCH 30.0 MCHC 32.1 RDW 17.8 H Plt Count 117 L Seg Neutrophils % 86.9 H Lymphocytes % 6.1 L Monocytes % 6.2 Eosinophils % 0.5 Basophils % 0.3 Absolute Neutrophils 7.7 Absolute Lymphocytes 0.5 Absolute Monocytes 0.5 Absolute Eosinophils 0.0 Absolute Basophils 0.0 Sodium 137.2 Potassium 4.5 Chloride 99 Carbon Dioxide 29 Anion Gap 9 BUN 43 H Creatinine 4.02 H Est GFR ( Amer) 13 L Est GFR (Non-Af Amer) 11 L Glucose 128 H Lactic Acid Calcium 9.5 Total Bilirubin 0.7 AST 21 ALT 27 Alkaline Phosphatase 425 H Total Protein 5.6 L Albumin 3.2 L Blood Type O POSITIVE Antibody Screen NEGATIVE 10/01/18 16:54 WBC RBC Hgb Hct MCV MCH MCHC RDW Plt Count Seg Neutrophils % Lymphocytes % Monocytes % Eosinophils % Basophils % Absolute Neutrophils Absolute Lymphocytes Absolute Monocytes Absolute Eosinophils Absolute Basophils Sodium Potassium Chloride Carbon Dioxide Anion Gap BUN Creatinine Est GFR ( Amer) Est GFR (Non-Af Amer) Glucose Lactic Acid 0.8 Calcium Total Bilirubin AST ALT Alkaline Phosphatase Total Protein Albumin Blood Type Antibody Screen Impressions: Abdomen/Pelvis CT 10/01/18 17:01 IMPRESSION: 1. There are no definite noncontrast CT findings to explain acute abdominal pain. The colon is fluid-filled to the rectum, in keeping with diarrheal illness. 2. Small pleural effusions and anasarca. 3. Atherosclerosis, of vascular calcinosis, and renal osteodystrophy. 4. Nonobstructive bilateral nephrolithiasis. Assessment and Plan - Diagnosis (3) ESRD (end stage renal disease) on dialysis Is this a current diagnosis for this admission?: Yes (4) Anemia in chronic kidney disease, on chronic dialysis Is this a current diagnosis for this admission?: Yes (5) Coronary artery disease Qualifiers: Coronary Disease-Associated Artery/Lesion type: unspecified vessel or lesion type [place] vs. transplanted heart: resighini heart Associated angina: angina presence unspecified Qualified Code(s): I25.10 - Atherosclerotic heart disease of resighini coronary artery without angina pectoris Is this a current diagnosis for this admission?: Yes (6) Hypertension Qualifiers: Hypertension type: essential hypertension Qualified Code(s): I10 - Essential (primary) hypertension Is this a current diagnosis for this admission?: Yes (7) Hyperlipidemia Qualifiers: Hyperlipidemia type: unspecified Qualified Code(s): E78.5 - Hyperlipidemia, unspecified Is this a current diagnosis for this admission?: Yes (8) Hypothyroidism Qualifiers: Hypothyroidism type: unspecified Qualified Code(s): E03.9 - Hypothyroidism, unspecified Is this a current diagnosis for this admission?: Yes (9) GERD (gastroesophageal reflux disease) Qualifiers: Esophagitis presence: without esophagitis Qualified Code(s): K21.9 - Gastro-esophageal reflux disease without esophagitis Is this a current diagnosis for this admission?: Yes (10) Peripheral vascular disease Is this a current diagnosis for this admission?: Yes - Time Time Spent with patient: 25-34 minutes Medications reviewed and adjusted accordingly: Yes Anticipated discharge: Home - Inpatient Certification Based on my medical assessment, after consideration of the patient's comorbidities, presenting symptoms, or acuity I expect that the services needed warrant INPATIENT care.: Yes I certify that my determination is in accordance with my understanding of Medicare's requirements for reasonable and necessary INPATIENT services [42 CFR 412.3e].: Yes Medical Necessity: Significant Comorbidiites Make Outpatient Treatment Too Risky, Need Close Monitoring Due to Risk of Patient Decompensation, Need For Continuous Telemetry Monitoring, Need for Surgery, Risk of Complication if Not Cared For in Hospital, Risk of Diagnosis Which Will Require Inpatient Ev al/Care/Monitoring
[2018-10-02 00:49] LABS: HEMATOCRIT 32.5 % (36.0-47.0); HEMOGLOBIN 10.5 g/dL (12.0-15.5); MEAN CORPUSCULAR HEMOGLOBIN 30.1 pg (27.0-33.4); MEAN CORPUSCULAR HGB CONC 32.4 g/dL (32.0-36.0); MEAN CORPUSCULAR VOLUME 93 fl (80-97); PLATELET COUNT 112 10^3/uL (150-450); RED CELL DISTRIBUTION WIDTH 17.6 % (11.5-14.0); WHITE BLOOD COUNT 7.7 10^3/uL (4.0-10.5)
[2018-10-02] MEDS: ACETAMINOPHEN 325 MG TABLET PO PRN ×2 (03:36→15:14)
[2018-10-02 06:59] LABS: HEMATOCRIT 29.8 % (36.0-47.0); HEMOGLOBIN 9.9 g/dL (12.0-15.5); MEAN CORPUSCULAR HEMOGLOBIN 30.6 pg (27.0-33.4); MEAN CORPUSCULAR HGB CONC 33.2 g/dL (32.0-36.0); MEAN CORPUSCULAR VOLUME 92 fl (80-97); PLATELET COUNT 113 10^3/uL (150-450); RED BLOOD COUNT 3.23 10^6/uL (3.72-5.28); RED CELL DISTRIBUTION WIDTH 17.8 % (11.5-14.0); WHITE BLOOD COUNT 7.4 10^3/uL (4.0-10.5)
[2018-10-02 07:17] LABS: ANION GAP 8 (5-19); BLOOD UREA NITROGEN 55 mg/dL (7-20); CALCIUM 8.6 mg/dL (8.4-10.2); CARBON DIOXIDE 26 mmol/L (22-30); CHLORIDE 100 mmol/L (98-107); GLUCOSE 74 mg/dL (75-110); POTASSIUM 4.5 mmol/L (3.6-5.0); SODIUM 133.5 mmol/L (137-145)
[2018-10-02] MEDS ORDERED: DEXTROSE 5%-WATER 1000 ML 1,000 ML IV PRN (08:24)
--- NOTE | 2018-10-02 08:42 | PDOC PROGRESS REPORT ---
Subjective Progress Note for:: 10/02/18 Subjective:: 77-year-old female with history of end-stage renal disease, upper GI bleed, high blood pressure, congestive heart failure to the emergency room with daughter with complaints of diarrhea, abdominal pain, and possible GI bleeding. Daughter states that patient called her this morning and asked for some help as she was not feeling well. When daughter got to her house patient had had diarrhea all over the house and stated that she felt weak. Patient's daughter then gave her 1 dose of Immodium but when that did not work saw a couple episodes of blood in the diarrhea, she decided to the patient to the emergency department. Daughter also reports couple episodes of patient vomiting while she was at the patient's house. Denies any blood in the emesis. Patient is a ESRD patient on hemodialysis every Wednesday. She has had her regularly scheduled dialysis this past week. She is followed by Dr. Raygoza for nephrology. Daughter does report that when she got to her mom's house this morning there was a container of room temperature coleslaw from [employer] out on the counter and she is unsure if the patient was eating that. Patient has not had any recent antibiotics, recent travel, change in diet. 10/[id number]-jeyd-old female with multiple medical problems including ESRD on hemodialysis last hemodialysis on Wednesday hypertension diabetes controlled by diet congestive heart failure came to the emergency room with complaints of diarrhea and abdominal pain and a rectal bleed. The rectal bleed was noticed by family members. Patient was evaluated by Dr. Joshi for possible colonoscopy. Should hemoglobin this morning is 9.9. Still complaining of soreness or discomfort in the abdomen. No acute events since the admission. Patient is n.p.o. Blood sugar is 74 to prevent further drop in blood sugars are started on D5 at 30 cc/h. to Watch for fluid overload because of the history of congestive heart failure. Reason For Visit: LOWER GI BLEEDING,DIARRHEA,ESRD ON DIALYSIS Physical Exam Vital Signs: Temp Pulse Resp BP Pulse Ox 98.5 F 76 20 121/35 L 94 10/02/18 06:24 10/02/18 03:29 10/02/18 03:29 10/02/18 06:24 10/02/18 03:29 Intake & Output 10/01/18 10/02/18 10/03/18 06:59 06:59 06:59 Weight 46.1 kg General appearance: PRESENT: no acute distress, disheveled, thin Head exam: PRESENT: atraumatic Eye exam: PRESENT: PERRLA Mouth exam: PRESENT: moist, tongue midline Teeth exam: PRESENT: poor dentation Neck exam: ABSENT: carotid bruit, JVD, lymphadenopathy, thyromegaly Respiratory exam: PRESENT: decreased breath sounds Cardiovascular exam: PRESENT: systolic murmur, tachycardia GI/Abdominal exam: PRESENT: normal bowel sounds, other - Complaining of discomf ort and tenderness on gentle palpation of the abdomen. Rectal exam: PRESENT: deferred Extremities exam: PRESENT: other - Patient has a dialysis access AV fistula on the left upper arm functioning well. Neurological exam: PRESENT: alert, awake, oriented to person, oriented to place, oriented to time, oriented to situation, CN II-XII grossly intact, other - pt is legally blind. She has difficulty in hearing.. ABSENT: motor sensory deficit Results Laboratory Results: 10/02/18 06:19 10/02/18 06:19 10/01/18 10/01/18 10/01/18 15:51 15:51 15:51 WBC 8.8 RBC 3.80 Hgb 11.4 L Hct 35.5 L MCV 93 MCH 30.0 MCHC 32.1 RDW 17.8 H Plt Count 117 L Seg Neutrophils % 86.9 H Lymphocytes % 6.1 L Monocytes % 6.2 Eosinophils % 0.5 Basophils % 0.3 Absolute Neutrophils 7.7 Absolute Lymphocytes 0.5 Absolute Monocytes 0.5 Absolute Eosinophils 0.0 Absolute Basophils 0.0 Sodium 137.2 Potassium 4.5 Chloride 99 Carbon Dioxide 29 Anion Gap 9 BUN 43 H Creatinine 4.02 H Est GFR ( Amer) 13 L Est GFR (Non-Af Amer) 11 L Glucose 128 H Lactic Acid Calcium 9.5 Magnesium Total Bilirubin 0.7 AST 21 ALT 27 Alkaline Phosphatase 425 H Total Protein 5.6 L Albumin 3.2 L Blood Type O POSITIVE Antibody Screen NEGATIVE 10/01/18 10/02/18 10/02/18 16:54 00:32 06:19 WBC 7.7 7.4 RBC 3.50 L 3.23 L Hgb 10.5 L 9.9 L Hct 32.5 L 29.8 L MCV 93 92 MCH 30.1 30.6 MCHC 32.4 33.2 RDW 17.6 H 17.8 H Plt Count 112 L 113 L Seg Neutrophils % Lymphocytes % Monocytes % Eosinophils % Basophils % Absolute Neutrophils Absolute Lymphocytes Absolute Monocytes Absolute Eosinophils Absolute Basophils Sodium Potassium Chloride Carbon Dioxide Anion Gap BUN Creatinine Est GFR ( Amer) Est GFR (Non-Af Amer) Glucose Lactic Acid 0.8 Calcium Magnesium Total Bilirubin AST ALT Alkaline Phosphatase Total Protein Albumin Blood Type Antibody Screen 10/02/18 06:19 WBC RBC Hgb Hct MCV MCH MCHC RDW Plt Count Seg Neutrophils % Lymphocytes % Monocytes % Eosinophils % Basophils % Absolute Neutrophils Absolute Lymphocytes Absolute Monocytes Absolute Eosinophils Absolute Basophils Sodium 133.5 L Potassium 4.5 Chloride 100 Carbon Dioxide 26 Anion Gap 8 BUN 55 H Creatinine 4.72 H Est GFR ( Amer) 11 L Est GFR (Non-Af Amer) 9 L Glucose 74 L Lactic Acid Calcium 8.6 Magnesium 1.7 Total Bilirubin AST ALT Alkaline Phosphatase Total Protein Albumin Blood Type Antibody Screen Impressions: Abdomen/Pelvis CT 10/01/18 17:01 IMPRESSION: 1. There are no definite noncontrast CT findings to explain acute abdominal pain. The colon is fluid-filled to the rectum, in keeping with diarrheal illness. 2. Small pleural effusions and anasarca. 3. Atherosclerosis, of vascular calcinosis, and renal osteodystrophy. 4. Nonobstructive bilateral nephrolithiasis. Assessment and Plan - Diagnosis (1) Lower GI bleed Is this a current diagnosis for this admission?: Yes Plan: 10/02/[id number]-vfxv-old female ESRD on hemodialysis came in with complaints of lower GI bleed. Hemoglobin is 9.9. Plan is to closely monitor the CBC. Surgic al consult was requested for possible colonoscopy. presently patient is n.p.o. CT scan of the abdomen was done no acute pathology was noticed. (2) ESRD (end stage renal disease) on dialysis Is this a current diagnosis for this admission?: Yes Plan: 10/02/2018-patient has history of end-stage renal disease on hemodialysis Wednesday. Last dialysis Wednesday. Next dialysis Wednesday. Consultation with Dr. Fuentes is going to be requested. (3) Anemia in chronic kidney disease, on chronic dialysis Is this a current diagnosis for this admission?: Yes Plan: 10/02/2018-patient has history of anemia of chronic disease most likely secondary to end-stage renal disease. (4) Anasarca Is this a current diagnosis for this admission?: No Plan: 10/02/2018-patient BMI is 22 very thin cachectic female. Anasarca may be secondary to end-stage renal disease congestive heart failure. (5) Diabetes mellitus type 2 in nonobese Is this a current diagnosis for this admission?: No Plan: 10/02/2018-patient has history of type 2 diabetes mellitus diet controlled blood sugars now blood sugar is a 75 to prevent hypoglycemia started on D5 30 cc/h patient is presently n.p.o. for rectal bleed. (6) Hypertension Qualifiers: Hypertension type: essential hypertension Qualified Code(s): I10 - Essential (primary) hypertension Is this a current diagnosis for this admission?: No Plan: 10/02/2018-patient has a history of hypertension latest blood pressure is 121/40. Plan is to continue her home medications. (7) Fever Is this a current diagnosis for this admission?: Yes Plan: 10/02/2018-she came in with fever of 102.3 last night. Blood cultures are pending. Source of infection is unknown at this time. To start on IV cefepime and vancomycin. (8) CHF (congestive heart failure) Is this a current diagnosis for this admission?: No Plan: 10/02/2018-patient has history of chronic systolic congestive heart failure. Patient is euvolemic at this time. - Time Time Spent with patient: 25-34 minutes Medications reviewed and adjusted accordingly: Yes Anticipated discharge: Home
[2018-10-02] MEDS ORDERED: VANCOMYCIN HCL INJ 1000 MG VIAL IV SCH (10:00)
[2018-10-02] MEDS: PANTOPRAZOLE SODIUM 40 MG VIAL IV SCH ×2 (11:10→22:21)
--- NOTE | 2018-10-02 11:38 | Progress Note ---
Provider Note Provider Note: long discussion with pts daughter about colonoscopy pt does not want to be npo for prolonged period of time for the bowel prep currently pt had episode of bright blood per rectum and currently is not bleeding hct has remained stable overnight currently on heparin due for dialysis in am after discussion with daughter it is felt better to observe the hct today if she conts to drop, will need colo in hospital (Dr Agudelo did a upper endo back in . showing duodenal ulcers) however currently she has noted bright blood with clots suggesting lower bleed recommend- if hct remains stable, and no further bleed could have elective colo. however if she continues to drop hct needs a bowel prep for colonoscopy.
[2018-10-02] MEDS ORDERED: PIPERACILLIN/TAZOBACTAM 3.375 GM VIAL IV SCH (12:00)
[2018-10-02] MEDS ORDERED: PIPERACILLIN SODIUM/TAZOBACTAM 3.375 GM in NORMAL SALINE 100 ML IV SCH (15:00)
[2018-10-02] MEDS: PIPERACILLIN SODIUM/TAZOBACTAM 2.25 GM in NORMAL SALINE 50 ML IV SCH (15:48)
[2018-10-02] MEDS ORDERED: VANCOMYCIN HCL 1,000 MG in DEXTROSE 5%-WATER 250 ML IV ONE (18:00)
[2018-10-02] MEDS ORDERED: DIPHENOXYLATE HCL/ATROP SULF 2.5-0.025 MG TABLET PO PRN (18:47)
[2018-10-02] MEDS ORDERED: GABAPENTIN 100 MG CAPSULE PO PRN (18:47)
[2018-10-02] MEDS ORDERED: IPRATROPIUM/ALBUTEROL 0.5-2.5 MG/3 ML AMPUL NEB PRN (18:47)
[2018-10-02] MEDS ORDERED: CALCIUM ACETATE 667 MG CAPSULE PO ONE (19:15)
[2018-10-02] MEDS ORDERED: FAMOTIDINE 20 MG TABLET PO PRN (19:15)
[2018-10-02] MEDS ORDERED: FLUOXETINE HCL 20 MG/5 ML UDCUP PO ONE (19:15)
[2018-10-02] MEDS ORDERED: ONDANSETRON 4 MG TAB.RAPDIS PO PRN (19:15)
[2018-10-02] MEDS ORDERED: AMLODIPINE BESYLATE 5 MG TABLET PO ONE (19:15)
[2018-10-02] MEDS ORDERED: LIDOCAINE 4% TRANSPARENT DRESSING 5 GM KIT TP SCH (20:00)
[2018-10-02] MEDS: ALPRAZOLAM 0.5 MG TABLET PO PRN (20:15)
[2018-10-02 22:18] LABS: HEMATOCRIT 28.5 % (36.0-47.0); HEMOGLOBIN 9.4 g/dL (12.0-15.5); MEAN CORPUSCULAR HEMOGLOBIN 30.5 pg (27.0-33.4); MEAN CORPUSCULAR HGB CONC 32.9 g/dL (32.0-36.0); MEAN CORPUSCULAR VOLUME 93 fl (80-97); PLATELET COUNT 104 10^3/uL (150-450); RED BLOOD COUNT 3.08 10^6/uL (3.72-5.28); RED CELL DISTRIBUTION WIDTH 17.9 % (11.5-14.0)
[2018-10-03 04:24] LABS: HEMATOCRIT 28.3 % (36.0-47.0); HEMOGLOBIN 9.3 g/dL (12.0-15.5); MEAN CORPUSCULAR HEMOGLOBIN 30.5 pg (27.0-33.4); MEAN CORPUSCULAR HGB CONC 32.9 g/dL (32.0-36.0); MEAN CORPUSCULAR VOLUME 93 fl (80-97); PLATELET COUNT 106 10^3/uL (150-450); RED BLOOD COUNT 3.05 10^6/uL (3.72-5.28); RED CELL DISTRIBUTION WIDTH 17.4 % (11.5-14.0); WHITE BLOOD COUNT 9.8 10^3/uL (4.0-10.5)
[2018-10-03 04:46] LABS: ALANINE AMINOTRANSFERASE 15 U/L (9-52); ALBUMIN 2.5 g/dL (3.5-5.0); ALKALINE PHOSPHATASE 254 U/L (38-126); ANION GAP 10 (5-19); ASPARTATE AMINO TRANSFERASE 12 U/L (14-36); BILIRUBIN,DIRECT 0.7 mg/dL (0.0-0.4); BILIRUBIN,TOTAL 0.7 mg/dL (0.2-1.3); BLOOD UREA NITROGEN 69 mg/dL (7-20); CALCIUM 8.7 mg/dL (8.4-10.2); CARBON DIOXIDE 23 mmol/L (22-30); CHLORIDE 96 mmol/L (98-107); GLUCOSE 102 mg/dL (75-110); POTASSIUM 5.1 mmol/L (3.6-5.0); SODIUM 128.6 mmol/L (137-145); TOTAL PROTEIN 4.7 g/dL (6.3-8.2)
[2018-10-03] MEDS ORDERED: EPOETIN ALFA INJ 20000 UNIT/1 ML VIAL (RENAL) IV PRN (05:00)
[2018-10-03] MEDS: PIPERACILLIN SODIUM/TAZOBACTAM 2.25 GM in NORMAL SALINE 50 ML IV SCH ×2 (05:39→17:04)
[2018-10-03] MEDS: LEVOTHYROXINE SODIUM 0.025 MG TABLET PO SCH (05:40)
[2018-10-03] MEDS ORDERED: EPOETIN ALFA-EPBX 10,000 UNIT/ML VIAL (RENAL) IV PRN (07:37)
[2018-10-03] MEDS: CALCIUM ACETATE 667 MG CAPSULE PO SCH ×3 (07:55→17:04)
[2018-10-03] MEDS: LACTOBACILLUS ACIDOPHILUS 250 MG TAB PO SCH (07:55)
--- NOTE | 2018-10-03 08:15 | PDOC PROGRESS REPORT ---
Subjective Progress Note for:: 10/03/18 Subjective:: 77-year-old female with history of end-stage renal disease, upper GI bleed, high blood pressure, congestive heart failure to the emergency room with daughter with complaints of diarrhea, abdominal pain, and possible GI bleeding. Daughter states that patient called her this morning and asked for some help as she was not feeling well. When daughter got to her house patient had had diarrhea all over the house and stated that she felt weak. Patient's daughter then gave her 1 dose of Immodium but when that did not work saw a couple episodes of blood in the diarrhea, she decided to the patient to the emergency department. Daughter also reports couple episodes of patient vomiting while she was at the patient's house. Denies any blood in the emesis. Patient is a ESRD patient on hemodialysis every Wednesday. She has had her regularly scheduled dialysis this past week. She is followed by Dr. Raygoza for nephrology. Daughter does report that when she got to her mom's house this morning there was a container of room temperature coleslaw from [employer] out on the counter and she is unsure if the patient was eating that. Patient has not had any recent antibiotics, recent travel, change in diet. 10/[id number]-[id number]-old female with multiple medical problems including ESRD on hemodialysis last hemodialysis on Wednesday hypertension diabetes controlled by diet congestive heart failure came to the emergency room with complaints of diarrhea and abdominal pain and a rectal bleed. The rectal bleed was noticed by family members. Patient was evaluated by Dr. Joshi for possible colonoscopy. Should hemoglobin this morning is 9.9. Still complaining of soreness or discomfort in the abdomen. No acute events since the admission. Patient is n.p.o. Blood sugar is 74 to prevent further drop in blood sugars are started on D5 at 30 cc/h. to Watch for fluid overload because of the history of congestive heart failure. 10/[id number]-hbep-old female with end-stage renal disease on dialysis admitted with rectal bleed. She refused bowel prep yesterday. pt wants to eat. pt was started on clear liquid diet Dr. Brown came on to evaluate the patient yesterday's and he spoke to the daughter they agreed with the plan of clear liquid diet , to monitor the hemoglobin ...if there is a further drop in the hemoglobin plan is to reconsider colonoscopy otherwise pt can follow-up with GI as an outpatient for colonoscopy. No acute events in the last 24 hours. Afebrile. Patient is taking clear liquid diets this morning. Due for dialysis today. 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 ABSENT: diastolic murmur, rubs, systolic murmur GI/Abdominal exam: PRESENT: normal bowel sounds, soft. ABSENT: distended, guarding, mass, organolmegaly, rebound, tenderness Rectal exam: PRESENT: deferred Extremities exam: PRESENT: full ROM. ABSENT: calf tenderness, clubbing, pedal edema Neurological exam: PRESENT: alert, awake, oriented to person, oriented to place, oriented to time, oriented to situation, CN II-XII grossly intact. ABSENT: motor sensory deficit Psychiatric exam: PRESENT: appropriate affect, normal mood. ABSENT: homicidal ideation, suicidal ideation Results Laboratory Results: 10/03/18 03:59 10/03/18 03:59 10/02/18 10/03/18 10/03/18 22:00 03:59 03:59 WBC 9.0 9.8 RBC 3.08 L 3.05 L Hgb 9.4 L 9.3 L Hct 28.5 L 28.3 L MCV 93 93 MCH 30.5 30.5 MCHC 32.9 32.9 RDW 17.9 H 17.4 H Plt Count 104 L 106 L Sodium Cancelled Potassium Cancelled Chloride Cancelled Carbon Dioxide Cancelled Anion Gap Cancelled BUN Cancelled Creatinine Cancelled Est GFR ( Amer) Cancelled Est GFR (Non-Af Amer) Cancelled Glucose Cancelled Calcium Cancelled Magnesium 1.6 Total Bilirubin AST ALT Alkaline Phosphatase Total Protein Albumin 10/03/18 03:59 WBC RBC Hgb Hct MCV MCH MCHC RDW Plt Count Sodium 128.6 L Potassium 5.1 H Chloride 96 L Carbon Dioxide 23 Anion Gap 10 BUN 69 H Creatinine 5.76 H Est GFR ( Amer) 9 L Est GFR (Non-Af Amer) 7 L Glucose 102 Calcium 8.7 Magnesium Total Bilirubin 0.7 AST 12 L ALT 15 Alkaline Phosphatase 254 H Total Protein 4.7 L Albumin 2.5 L Impressions: Abdomen/Pelvis CT 10/01/18 17:01 IMPRESSION: 1. There are no definite noncontrast CT findings to explain acute abdominal pain. The colon is fluid-filled to the rectum, in keeping with diarrheal illness. 2. Small pleural effusions and anasarca. 3. Atherosclerosis, of vascular calcinosis, and renal osteodystrophy. 4. Nonobstructive bilateral nephrolithiasis. Assessment and Plan - Diagnosis (1) Lower GI bleed Is this a current diagnosis for this admission?: Yes Plan: 10/02/[id number]-kqqh-old female ESRD on hemodialysis came in with complaints of low er GI bleed. Hemoglobin is 9.9. Plan is to closely monitor the CBC. Surgical consult was requested for possible colonoscopy. presently patient is n.p.o. CT scan of the abdomen was done no acute pathology was noticed. 10/03/[id number]-svax-old female admitted with rectal bleed she also history of he morrhoids she came in with bright rectal bleed most likely it is hemorrhoidal ..bleed hemoglobin stable around 9.3. Surgical consult was done by Dr. Brown. pt refused to bowel prep yesterday and wants to eat she is presently on clear liquid diet. (2) ESRD (end stage renal disease) on dialysis Is this a current diagnosis for this admission?: Yes Plan: 10/02/2018-patient has history of end-stage renal disease on hemodialysis Wednesday. Last dialysis Wednesday. Next dialysis Wednesday. Consultation with Dr. Fuentes is going to be requested. 2018-patient has end-stage renal disease on hemodialysis Wednesday she is going to have her dialysis today. She has AV fistula on the left arm functioning well. (3) Anemia in chronic kidney disease, on chronic dialysis Is this a current diagnosis for this admission?: Yes Plan: 10/02/2018-patient has history of anemia of chronic disease most likely secondary to end-stage renal disease. 10/03/2018-patient has history of anemia of chronic disease most likely secondary to end-stage renal disease. Came in with rectal bleed most likely hemorrhoidal bleed. Hemoglobin stable at this point. (4) Anasarca Is this a current diagnosis for this admission?: No Plan: 10/02/2018-patient BMI is 22 very thin cachectic female. Anasarca may be secondary to end-stage renal disease congestive heart failure. 10/03/2018-patient is 10 looks to shelved BMI is around 25. I am not sure if it is accurate measurement. I am going to request the nurse to check BMI again dietary consult was requested. (5) Diabetes mellitus type 2 in nonobese Is this a current diagnosis for this admission?: No Plan: 10/02/2018-patient has history of type 2 diabetes mellitus diet controlled blood sugars now blood sugar is a 75 to prevent hypoglycemia started on D5 30 cc/h patient is presently n.p.o. for rectal bleed. 10/03/2018-patient has history of type 2 diabetes mellitus controlled on diet blood sugar this morning is 102 stable. (6) Hypertension Qualifiers: Hypertension type: essential hypertension Qualified Code(s): I10 - Essential (primary) hypertension Is this a current diagnosis for this admission?: No Plan: 10/02/2018-patient has a history of hypertension latest blood pressure is 121/40. Plan is to continue her home medications. 10/03/2018-patient blood pressure today is 123/52 stable. Plan is to continue the present management. (7) Fever Is this a current diagnosis for this admission?: Yes Plan: 10/02/2018-she came in with fever of 102.3 last night. Blood cultures are pending. Source of infection is unknown at this time. To start on IV cefepime and vancomycin. 10/03/2018-patient T-max is 98.1, blood cultures are pending , she was started on IV cefepime and vancomycin yesterday. (8) CHF (congestive heart failure) Is this a current diagnosis for this admission?: No Plan: 10/02/2018-patient has history of chronic systolic congestive heart failure. Patient is euvolemic at this time. 10/03/2018-patient has history of chronic systolic congestive heart failure not in fluid overload at this point. - Time Time Spent with patient: 25-34 minutes Medications reviewed and adjusted accordingly: Yes Anticipated discharge: Home
[2018-10-03] MEDS: ASPIRIN 81 MG TABLET, ENT COATED PO SCH (11:54)
[2018-10-03] MEDS: ISOSORBIDE MONONITRATE 30 MG TAB.ER.24H PO SCH (11:54)
[2018-10-03] MEDS: LORATADINE 10 MG TABLET PO SCH (11:54)
[2018-10-03] MEDS: ASCORBIC ACID 500 MG TABLET PO SCH (11:55)
[2018-10-03] MEDS: PANTOPRAZOLE SODIUM 40 MG VIAL IV SCH ×2 (11:55→21:08)
[2018-10-03] MEDS: FLUTICASONE NASAL SPRAY 50 MCG/SPRY 120 SPRAY/16 GM NASL SCH (11:55)
--- NOTE | 2018-10-03 12:16 | PDOC PROGRESS REPORT ---
Subjective Progress Note for:: 10/03/18 Subjective:: Claims she is still having diarrhea with bloody stools. Her H/H fairly stable since yesterday. Still with some cramps lower abdomen Reason For Visit: LOWER GI BLEEDING,DIARRHEA,ESRD ON DIALYSIS Physical Exam Vital Signs: Temp Pulse Resp BP Pulse Ox 98.1 F 71 22 H 121/31 L 96 10/03/18 07:33 10/03/18 07:33 10/03/18 07:33 10/03/18 07:33 10/03/18 07:33 Intake & Output 10/02/18 10/03/18 10/04/18 06:59 06:59 06:59 Intake Total 1167 1000 Balance 1167 1000 Weight 46.1 kg 52.9 kg Exam: Having Dialysis at this time. Abdomen is soft with minimal Lower abdominal tenderness Results Laboratory Results: 10/03/18 03:59 10/03/18 03:59 10/02/18 10/03/18 10/03/18 22:00 03:59 03:59 WBC 9.0 9.8 RBC 3.08 L 3.05 L Hgb 9.4 L 9.3 L Hct 28.5 L 28.3 L MCV 93 93 MCH 30.5 30.5 MCHC 32.9 32.9 RDW 17.9 H 17.4 H Plt Count 104 L 106 L Sodium Cancelled Potassium Cancelled Chloride Cancelled Carbon Dioxide Cancelled Anion Gap Cancelled BUN Cancelled Creatinine Cancelled Est GFR ( Amer) Cancelled Est GFR (Non-Af Amer) Cancelled Glucose Cancelled Calcium Cancelled Magnesium 1.6 Total Bilirubin AST ALT Alkaline Phosphatase Total Protein Albumin 10/03/18 03:59 WBC RBC Hgb Hct MCV MCH MCHC RDW Plt Count Sodium 128.6 L Potassium 5.1 H Chloride 96 L Carbon Dioxide 23 Anion Gap 10 BUN 69 H Creatinine 5.76 H Est GFR ( Amer) 9 L Est GFR (Non-Af Amer) 7 L Glucose 102 Calcium 8.7 Magnesium Total Bilirubin 0.7 AST 12 L ALT 15 Alkaline Phosphatase 254 H Total Protein 4.7 L Albumin 2.5 L Impressions: Abdomen/Pelvis CT 10/01/18 17:01 IMPRESSION: 1. There are no definite noncontrast CT findings to explain acute abdominal pain. The colon is fluid-filled to the rectum, in keeping with helio rrheal illness. 2. Small pleural effusions and anasarca. 3. Atherosclerosis, of vascular calcinosis, and renal osteodystrophy. 4. Nonobstructive bilateral nephrolithiasis. Assessment & Plan - Diagnosis (1) Diarrhea Is this a current diagnosis for this admission?: Yes (2) Lower GI bleed Is this a current diagnosis for this admission?: Yes (3) ESRD (end stage renal disease) on dialysis Is this a current diagnosis for this admission?: Yes (4) Diabetes mellitus type 2 in nonobese Is this a current diagnosis for this admission?: No - Time Time Spent with patient: 15-24 minutes - Plan Summary Plan Summary: Continue monitor H/H Family apparently hesitant to have procedure than. Also if found to have some surgical condition such as cancer, they don't want to have surgery. Will be available to do colonoscopy if needed and family consenting
--- NOTE | 2018-10-03 12:58 | PDOC CONSULTATION ---
Consultation Consult Date: 10/03/18 Provider Consulted: Ophelia WIGGINS Consult reason:: ESRD for dialysis. History of Present Illness Admission Date/PCP: 10/01/18 20:45 JOVANA MOELLER MD History of Present Illness: SINAN EASLEY is a 77 year old female with a history of end-stage renal disease in the background of hypertension/congestive heart failure with previous history of GI bleeds was brought to the emergency room by daughter with complaints of diarrhea, abdominal pain, and possible GI bleeding. Patient was noticed by her daughter to have nausea vomiting diarrhea and later apparently turned out to have rectal bleed along with orthostasis and was brought to the ER. She also has got a history of hemorrhoids. No apparent history of an abdominal pains, fever or chills. She is been undergoing dialysis on a regular basis at [facility]. Evaluations in the ER revealed that she was normotensive. Hemoglobin at the time of admission was 11.4 and has dropped to 9.3 as of this morning.Yesterday she was found to become febrile and after cultures were drawn she was started on IV antibiotics as well. She was seen by the surgeons and planned to do a colonoscopy given her hematochezia. However patient refused any bowel prep and wanted to eat and was started on clear liquid diet by surgeons after nick discussions was done with her family. She is being managed conservatively/symptomatically. She is being seen by me today while undergoing dialysis. She is quite comfortable and in no distress. She has been on clear liquid diet. She complains of no abdominal pains, chest pain or shortness of breath. Labs and medications were reviewed. Dialysis orders were reviewed with the treating dialysis nurse.She is on a no heparin dialysis. Past Medical History Cardiac Medical History: Reports: CHF-Systolic, Coronary Artery Disease, Heart Murmur, Hyperlipidemia, Hypertension-primary, Myocardial Infarction - 2004, QUAD BYPASS AND VALVE REPLACEMENT, Peripheral Vascular Disease, Pulmonary Embolism, Pulmonary Hypertension Denies: Atrial Fibrillation Pulmonary Medical History: Reports: Chronic Obstructive Pulmonary Disease (COPD), Pneumonia - 01/2016, Sleep Apnea Denies: Asthma, Bronchitis, Respiratory Failure, Tuberculosis EENT Medical History: Reports: Eyes - Blindness Denies: Cataracts, Ears - Hearing aids Neurological Medical History: Denies: Hemorrhagic CVA, Ischemic CVA, Multiple Sclerosis, Seizures Endocrine Medical History: Reports: Diabetes Mellitus Type 2 - Off medications for 6+ years, Hypothyroidism Denies: Diabetes Mellitus Type 1, Hyperthyroidism Complications of Diabetes: Reports: None, Nephropathy, Retinopathy Renal/ Medical History: Reports: End Stage Renal Disease - Oliguric, on dialysis Wednesday, Wednesday and Wednesday with Dr. Raygoza, Secondary Hyperparathy roidism Denies: Nephrolithiasis Malignancy Medical History: Reports: None Denies: Leukemia, Lung Cancer GI Medical History: Reports: Gastroesophageal Reflux Disease, Other - Upper GI bleed Denies: Cirrhosis, Crohn's Disease, Diverticulitis, Hepatitis, Hiatal Hernia, Ulcerative Colitis Musculoskeltal Medical History: Reports: Arthritis - Primarily affecting her back Denies: Gout, Systemic Lupus Erythematosus Skin Medical History: Denies: Eczema, Psoriasis Psychiatric Medical History: Reports: Depression Denies: Alcohol Dependency, Dementia, Substance Abuse, Tobacco Dependency Traumatic Medical History: Reports: None Infectious Medical History: Reports: None Denies: HIV Hematology Medical History: Reports Anemia of Chronic Kidney Disease Past Surgical History Past Surgical History: Reports: Cardiac Catheterization, Cholecystectomy, Coronary Artery Bypass Graft - X4, Dialysis Access Surgery AVF, Herniorrhaphy, Pacemaker, Tonsillectomy, Tubal Ligation, Valve Replacement - Bioprosthetic valve replacement surgery, Vascular Surgery - Left antecubital tunnel/graft for dialysis Denies: Appendectomy, Section, Colostomy, Gastric Bypass Surgery, Hysterectomy, Mastectomy Social History Lives with: Alone - Daughters check on her at home frequently Smoking Status: Former Smoker Last Time Smoked: 40 years ago Frequency of Alcohol Use: None Hx Recreational Drug Use: No Drugs: None Hx Prescription Drug Abuse: No - Advance Directive Resuscitation Status: Full Code Family History Parental Family History Reviewed: Yes - Negative for ESRD. Children Family History Reviewed: No Sibling(s) Family History Reviewed.: No Medication/Allergy Home Medications: Alprazolam [Xanax] 0.5 mg PO TIDP PRN 10/02/18 Amlodipine Besylate [Norvasc 5 mg Tablet] 5 mg PO QPM 10/02/18 Ascorbic Acid [Vitamin C] 1,000 mg PO DAILY 10/02/18 Aspirin [Adult Low Dose Aspirin EC] 81 mg PO QAM 10/02/18 Calcium Acetate [Phoslo 667 mg Capsule] 667 mg PO MEALS 10/02/18 Carvedilol [Coreg 12.5 mg Tablet] 12.5 mg PO Q12 10/02/18 Diphenoxylate HCl/Atropine [Lomotil 2.5-0.025 mg Tablet] 1 tab PO Q6HP PRN 10/02/18 Fluoxetine HCl [Prozac] 10 mg PO QPM 10/02/18 Fluticasone Propionate [Flonase Nasal Duarte 50 Mcg/Duarte 16 gm] 1 spray NASL DAILY 10/02/18 Gabapentin [Neurontin 100 mg Capsule] 100 mg PO DAILYP PRN 10/02/18 Hydralazine HCl [Apresoline 25 mg Tablet] 25 mg PO BID 10/02/18 Ipratropium/Albuterol Sulfate [Duoneb 3 ml Ampul] 3 ml NEB RTQ6HP PRN 10/02/18 Isosorbide Mononitrate [Imdur 30 mg Tablet.er] 30 mg PO QAM 10/02/18 L. Acidophilus/L.bulgaricus [Lactobacillus Tablet] 1 tab PO QAM 10/02/18 Levothyroxine Sodium 25 mcg PO Q6AM 10/02/18 Lidocaine/Prilocaine [Emla Cream] 1 applic TP .PRIORTODIALYSIS 10/02/18 Lisinopril [Zestril] 10 mg PO SUTUTHSA 10/02/18 Loratadine [Claritin 10 mg Tablet] 10 mg PO DAILY 10/02/18 Ondansetron HCl [Zofran 4 mg Tablet] 4 mg PO Q6HP PRN 10/02/18 Ranitidine HCl [Zantac 75 mg Tablet] 75 mg PO DAILYP PRN 10/02/18 Allergies/Adverse Reactions: [facility] Adverse Reaction (Unknown, Verified 06/23/16 09:40) leg twitching Review of Systems Constitutional: PRESENT: anorexia, fatigue, weakness, weight loss. ABSENT: chills, headache(s), night sweats Ears: PRESENT: hearing changes Nose, Mouth, and Throat: ABSENT: mouth pain, sore throat Cardiovascular: PRESENT: dyspnea on exertion. ABSENT: chest pain, edema, orthropnea, palpitations Respiratory: ABSENT: cough, dyspnea, hemoptysis Gastrointestinal: PRESENT: diarrhea, hematochezia, vomiting. ABSENT: abdominal pain, bloating, coffee ground emesis, constipation, heartburn, hematemesis, melena Musculoskeletal: ABSENT: deformity, joint swelling Integumentary: ABSENT: erythema, lesions, pruritus, rash Neurological: PRESENT: memory loss. ABSENT: abnormal movements, abnormal speech, confusion, convulsions, focal weakness, frequent falls, lack of coordination Hematologic/Lymphatic: ABSENT: easy bleeding, easy bruising, lymphadenopathy Physical Exam Vital Signs: Temp Pulse Resp BP Pulse Ox 97.9 F 71 18 152/38 H 99 10/03/18 11:51 10/03/18 11:51 10/03/18 11:51 10/03/18 11:51 10/03/18 11:51 Intake & Output 10/02/18 10/03/18 10/04/18 06:59 06:59 06:59 Intake Total 1167 1000 Balance 1167 1000 Weight 46.1 kg 52.9 kg General appearance: PRESENT: no acute distress Eye exam: PRESENT: EOMI, PERRLA Ear exam: PRESENT: normal external ear exam Mouth exam: PRESENT: neck supple. ABSENT: moist Neck exam: ABSENT: lymphadenopathy, meningismus, tenderness, thyromegaly, tracheal deviation Respiratory exam: PRESENT: clear to auscultation drake, decreased breath sounds Cardiovascular exam: PRESENT: +S1, +S2, systolic murmur GI/Abdominal exam: PRESENT: normal bowel sounds, soft. ABSENT: organomegaly, tenderness Extremities exam: ABSENT: pedal edema Neurological exam: PRESENT: alert, awake, oriented to person, oriented to place Skin exam: ABSENT: cyanosis, erythema, normal color, petechiae, rash Results Laboratory Results: 10/03/18 03:59 10/03/18 03:59 10/02/18 10/03/18 10/03/18 22:00 03:59 03:59 WBC 9.0 9.8 RBC 3.08 L 3.05 L Hgb 9.4 L 9.3 L Hct 28.5 L 28.3 L MCV 93 93 MCH 30.5 30.5 MCHC 32.9 32.9 RDW 17.9 H 17.4 H Plt Count 104 L 106 L Sodium Cancelled Potassium Cancelled Chloride Cancelled Carbon Dioxide Cancelled Anion Gap Cancelled BUN Cancelled Creatinine Cancelled Est GFR ( Amer) Cancelled Est GFR (Non-Af Amer) Cancelled Glucose Cancelled Calcium Cancelled Magnesium 1.6 Total Bilirubin AST ALT Alkaline Phosphatase Total Protein Albumin 10/03/18 03:59 WBC RBC Hgb Hct MCV MCH MCHC RDW Plt Count Sodium 128.6 L Potassium 5.1 H Chloride 96 L Carbon Dioxide 23 Anion Gap 10 BUN 69 H Creatinine 5.76 H Est GFR ( Amer) 9 L Est GFR (Non-Af Amer) 7 L Glucose 102 Calcium 8.7 Magnesium Total Bilirubin 0.7 AST 12 L ALT 15 Alkaline Phosphatase 254 H Total Protein 4.7 L Albumin 2.5 L Impressions: Abdomen/Pelvis CT 10/01/18 17:01 IMPRESSION: 1. There are no definite noncontrast CT findings to explain acute abdominal pain. The colon is fluid-filled to the rectum, in keeping with diarrheal illness. 2. Small pleural effusions and anasarca. 3. Atherosclerosis, of vascular calcinosis, and renal osteodystrophy. 4. Nonobstructive bilateral nephrolithiasis. Assessment & Plan - Diagnosis (1) Lower GI bleed Is this a current diagnosis for this admission?: Yes Plan: She has had a drop in hemoglobin from 11.4-9.3 over the last 3 days. She has been hemodynamically stable. Apparently after the discussions with the surgeon is planned for conservative/symptomatic treatment as patient refused to undergo a colonoscopy. Continue on erythropoietin while she is on dialysis. Monitor. No heparin dialysis. (2) ESRD (end stage renal disease) on dialysis Is this a current diagnosis for this admission?: Yes Plan: Patient currently seen undergoing dialysis. Dialysis is being supervised to ensure safe and smooth procedure. Vital signs are stable. Plan to remove approximately 1 to 2 L as tolerated. She is on no heparin dialysis. Dialysis orders were reviewed with the treating dialysis nurse. (3) Acute blood loss anemia Plan: Has got hematochezia. Most likely from hemorrhoids given her hemodynamic stability. Apparently now planned for conservative/symptomatic management. (4) Hyperkalemia Plan: Should respond to dialysis. Monitor. (5) Hypertension Qualifiers: Hypertension type: essential hypertension Qualified Code(s): I10 - Essential (primary) hypertension Is this a current diagnosis for this admission?: No Plan: Controlled. Monitor. (6) Nausea & vomiting Plan: This could all be a constellation of gastroenteritis apparently from eating bad coleslaw. Monitor. (7) Hyponatremia Plan: Tends to run on the low normal side anyway chronic. Should respond to dialysis. Monitor. (8) Diarrhea Is this a current diagnosis for this admission?: Yes Plan: As per hospitalist. Currently apparently better. (9) Anemia in chronic kidney disease, on chronic dialysis Is this a current diagnosis for this admission?: Yes Plan: Plan for erythropoietin.
[2018-10-03] MEDS: FLUOXETINE HCL 20 MG/5 ML UDCUP PO SCH (17:04)
[2018-10-03] MEDS: AMLODIPINE BESYLATE 5 MG TABLET PO SCH (17:04)
[2018-10-03] MEDS ORDERED: VANCOMYCIN HCL 750 MG in DEXTROSE 5%-WATER 250 ML IV SCH (18:00)
[2018-10-03] MEDS: ALPRAZOLAM 0.5 MG TABLET PO PRN (21:08)
[2018-10-04 04:12] LABS: ABSOLUTE EOSINOPHILS # (AUTO) 0.3 10^3/uL (0.0-0.6); ABSOLUTE LYMPHOCYTES (AUTO) 0.7 10^3/uL (0.5-4.7); ABSOLUTE MONOCYTES (AUTO) 0.6 10^3/uL (0.1-1.4); ABSOLUTE NEUT (AUTO) 6.7 10^3/uL (1.7-8.2); BASOPHILS % (AUTO) 0.3 % (0-2); EOSINOPHILS % (AUTO) 3.1 % (0-6); HEMATOCRIT 26.5 % (36.0-47.0); HEMOGLOBIN 8.7 g/dL (12.0-15.5); MEAN CORPUSCULAR HEMOGLOBIN 30.6 pg (27.0-33.4); MEAN CORPUSCULAR VOLUME 93 fl (80-97); MONOCYTES % (AUTO) 6.8 % (3-13); PLATELET COUNT 106 10^3/uL (150-450); RED BLOOD COUNT 2.86 10^6/uL (3.72-5.28); RED CELL DISTRIBUTION WIDTH 17.6 % (11.5-14.0); SEGMENTED NEUTROPHILS % (AUTO) 81.8 % (42-78); TOTAL CELLS COUNTED % (AUTO) 100 %; WHITE BLOOD COUNT 8.2 10^3/uL (4.0-10.5)
[2018-10-04 04:40] LABS: ALANINE AMINOTRANSFERASE 20 U/L (9-52); ALBUMIN 2.4 g/dL (3.5-5.0); ALKALINE PHOSPHATASE 224 U/L (38-126); ANION GAP 9 (5-19); ASPARTATE AMINO TRANSFERASE 13 U/L (14-36); BILIRUBIN,DIRECT 0.5 mg/dL (0.0-0.4); BILIRUBIN,TOTAL 0.6 mg/dL (0.2-1.3); BLOOD UREA NITROGEN 33 mg/dL (7-20); CALCIUM 8.4 mg/dL (8.4-10.2); CARBON DIOXIDE 28 mmol/L (22-30); CHLORIDE 94 mmol/L (98-107); POTASSIUM 3.8 mmol/L (3.6-5.0); SODIUM 131.1 mmol/L (137-145); TOTAL PROTEIN 4.6 g/dL (6.3-8.2)
[2018-10-04 04:44] LABS: GLUCOSE 64 mg/dL (75-110)
[2018-10-04] MEDS: LEVOTHYROXINE SODIUM 0.025 MG TABLET PO SCH (05:09)
[2018-10-04] MEDS: PIPERACILLIN SODIUM/TAZOBACTAM 2.25 GM in NORMAL SALINE 50 ML IV SCH ×2 (05:09→17:36)
[2018-10-04] MEDS: ASPIRIN 81 MG TABLET, ENT COATED PO SCH (09:08)
[2018-10-04] MEDS: ALPRAZOLAM 0.5 MG TABLET PO PRN (09:08)
[2018-10-04] MEDS: CALCIUM ACETATE 667 MG CAPSULE PO SCH ×3 (09:08→16:44)
[2018-10-04] MEDS: ISOSORBIDE MONONITRATE 30 MG TAB.ER.24H PO SCH (09:08)
[2018-10-04] MEDS: LACTOBACILLUS ACIDOPHILUS 250 MG TAB PO SCH (09:08)
[2018-10-04] MEDS: PANTOPRAZOLE SODIUM 40 MG VIAL IV SCH (09:09)
[2018-10-04] MEDS: FLUTICASONE NASAL SPRAY 50 MCG/SPRY 120 SPRAY/16 GM NASL SCH (09:09)
[2018-10-04] MEDS: ASCORBIC ACID 500 MG TABLET PO SCH (09:09)
[2018-10-04] MEDS: LORATADINE 10 MG TABLET PO SCH (09:09)
--- NOTE | 2018-10-04 12:48 | PDOC PROGRESS REPORT ---
Subjective Progress Note for:: 10/04/18 Subjective:: 10/04: Assumed care today. Chart and course reviewed. This is a 77-year-old female with a PMH of end-stage renal disease, history of GI bleed, HTN, hearing difficulty, and CHF who presented with diarrhea with some bloody stools. Her hemoglobin did gradually drop. She was evaluated by surgery. Appears plan for initial colonoscopy was initially deferred as patient refused a colon prep initially. During rounds this morning, was informed that patient and daughter insisted on getting the colonoscopy here and she has been scheduled by surgery for a colonoscopy tomorrow morning. Her hemoglobin did slightly trend down from 9.3 to 8.7. No recurrence of diarrhea or bloody stools so far. Appears comfortable and denies abdominal pain, nausea or vomiting. Reason For Visit: LOWER GI BLEEDING,DIARRHEA,ESRD ON DIALYSIS Physical Exam Vital Signs: Temp Pulse Resp BP Pulse Ox 97.5 F 66 18 118/38 L 90 L 10/04/18 11:20 10/04/18 11:20 10/04/18 11:20 10/04/18 11:20 10/04/18 11:20 Intake & Output 10/03/18 10/04/18 10/05/18 06:59 06:59 06:59 Intake Total 1167 2970 Output Total 100 Balance 1167 2870 Weight 116 lb 9.992 oz 119 lb 14.903 oz General appearance: PRESENT: no acute distress, well-developed, well-nourished Head exam: PRESENT: atraumatic, normocephalic Eye exam: PRESENT: conjunctiva pink, EOMI, PERRLA. ABSENT: scleral icterus Ear exam: PRESENT: normal external ear exam Mouth exam: PRESENT: moist, tongue midline Neck exam: ABSENT: carotid bruit, JVD, lymphadenopathy, thyromegaly Respiratory exam: PRESENT: clear to auscultation drake. ABSENT: rales, rhonchi, wheezes Cardiovascular exam: PRESENT: RRR. ABSENT: diastolic murmur, rubs, systolic murmur Pulses: PRESENT: normal dorsalis pedis pul GI/Abdominal exam: PRESENT: normal bowel sounds, soft. ABSENT: distended, guarding, mass, organolmegaly, rebound, tenderness Rectal exam: PRESENT: deferred Neurological exam: PRESENT: alert, awake, oriented to person, oriented to place, oriented to time, oriented to situation, CN II-XII grossly intact. ABSENT: motor sensory deficit Results Laboratory Results: 10/04/18 04:00 10/04/18 04:00 10/04/18 10/04/18 10/04/18 04:00 04:00 04:00 WBC 8.2 RBC 2.86 L Hgb 8.7 L Hct 26.5 L MCV 93 MCH 30.6 MCHC 33.0 RDW 17.6 H Plt Count 106 L Seg Neutrophils % 81.8 H Lymphocytes % 8.0 L Monocytes % 6.8 Eosinophils % 3.1 Basophils % 0.3 Absolute Neutrophils 6.7 Absolute Lymphocytes 0.7 Absolute Monocytes 0.6 Absolute Eosinophils 0.3 Absolute Basophils 0.0 Sodium 131.1 L Potassium 3.8 Chloride 94 L Carbon Dioxide 28 Anion Gap 9 BUN 33 H Creatinine 3.41 H Est GFR ( Amer) 16 L Est GFR (Non-Af Amer) 13 L Glucose 64 L Calcium 8.4 Magnesium 1.7 Total Bilirubin 0.6 AST 13 L ALT 20 Alkaline Phosphatase 224 H Total Protein 4.6 L Albumin 2.4 L 10/01/18 20:30 Stool - Stool - Final 10/01/18 20:30 Stool - Stool Stool Culture - Final NO SALMONELLA, SHIGELLA, CAMPYLOBACTER, OR E.COLI 0157 RECOVERED. NEGATIVE FOR SHIGA TOXINS 1&2. Impressions: Abdomen/Pelvis CT 10/01/18 17:01 IMPRESSION: 1. There are no definite noncontrast CT findings to explain acute abdominal pain. The colon is fluid-filled to the rectum, in keeping with diarrheal illness. 2. Small pleural effusions and anasarca. 3. Atherosclerosis, of vascular calcinosis, and renal osteodystrophy. 4. Nonobstructive bilateral nephrolithiasis. Assessment and Plan - Diagnosis (1) Lower GI bleed Is this a current diagnosis for this admission?: Yes Plan: 10/04: Scheduled for colonoscopy tomorrow by surgery. (2) Acute on chronic anemia Is this a current diagnosis for this admission?: Yes Plan: 10/04: Hb slightly trended down from 9.3 to 8.7. She does have chronic anemia on review of previous records. As mentioned, she has been scheduled for colonoscopy tomorrow by surgery. (3) CHF (congestive heart failure) Qualifiers: Heart failure type: systolic Heart failure chronicity: chronic Qualified Code(s): I50.22 - Chronic systolic (congestive) heart failure Is this a current diagnosis for this admission?: Yes Plan: Not in exacerbation at the moment. She has chronic systolic heart failure. Last known EF of 40%. (4) Hypothyroidism Qualifiers: Hypothyroidism type: unspecified Qualified Code(s): E03.9 - Hypothyroidism, unspecified Is this a current diagnosis for this admission?: Yes Plan: Stable. Continue Synthroid. (5) ESRD (end stage renal disease) on dialysis Is this a current diagnosis for this admission?: Yes Plan: Nephrology following. She is on dialysis MW. - Time Time Spent with patient: 25-34 minutes
[2018-10-04] MEDS ORDERED: PEG 3350/NA SULF,BICARB,CL/KCL 4000 ML PO ONE (14:00)
[2018-10-04] MEDS: FLUOXETINE HCL 20 MG/5 ML UDCUP PO SCH (17:36)
[2018-10-04] MEDS: AMLODIPINE BESYLATE 5 MG TABLET PO SCH (17:36)
--- NOTE | 2018-10-04 20:12 | PDOC PROGRESS REPORT ---
Subjective Progress Note for:: 10/04/18 Subjective:: Patient was seen laying in her bed. The patient is drinking the bowel prep for the colonoscopy tomorrow. She has no major complaints at this time. Reason For Visit: LOWER GI BLEEDING,DIARRHEA,ESRD ON DIALYSIS Physical Exam Vital Signs: Temp Pulse Resp BP Pulse Ox 98.1 F 69 18 140/44 H 97 10/04/18 15:30 10/04/18 15:30 10/04/18 15:30 10/04/18 15:30 10/04/18 15:30 Intake & Output 10/03/18 10/04/18 10/05/18 06:59 06:59 06:59 Intake Total 1167 2970 1850 Output Total 100 Balance 1167 2870 1850 Weight 52.9 kg 54.4 kg General appearance: PRESENT: no acute distress, well-developed, well-nourished, other - Hard of hearing Mouth exam: PRESENT: moist, neck supple Neck exam: ABSENT: JVD, tracheal deviation Respiratory exam: PRESENT: clear to auscultation drake. ABSENT: accessory muscle use, crackles, rales, rhonchi, wheezes Cardiovascular exam: PRESENT: +S1, +S2, systolic murmur GI/Abdominal exam: PRESENT: normal bowel sounds, soft. ABSENT: organomegaly, tenderness Extremities exam: ABSENT: pedal edema, tenderness, +1 edema, +2 edema Musculoskeletal exam: PRESENT: normal inspection. ABSENT: tenderness Neurological exam: PRESENT: alert, awake, oriented to person, oriented to place, oriented to time, oriented to situation Skin exam: PRESENT: dry, intact, warm Results Laboratory Results: 10/04/18 04:00 10/04/18 04:00 10/04/18 10/04/18 10/04/18 04:00 04:00 04:00 WBC 8.2 RBC 2.86 L Hgb 8.7 L Hct 26.5 L MCV 93 MCH 30.6 MCHC 33.0 RDW 17.6 H Plt Count 106 L Seg Neutrophils % 81.8 H Lymphocytes % 8.0 L Monocytes % 6.8 Eosinophils % 3.1 Basophils % 0.3 Absolute Neutrophils 6.7 Absolute Lymphocytes 0.7 Absolute Monocytes 0.6 Absolute Eosinophils 0.3 Absolute Basophils 0.0 Sodium 131.1 L Potassium 3.8 Chloride 94 L Carbon Dioxide 28 Anion Gap 9 BUN 33 H Creatinine 3.41 H Est GFR ( Amer) 16 L Est GFR (Non-Af Amer) 13 L Glucose 64 L Calcium 8.4 Magnesium 1.7 Total Bilirubin 0.6 AST 13 L ALT 20 Alkaline Phosphatase 224 H Total Protein 4.6 L Albumin 2.4 L Impressions: Abdomen/Pelvis CT 10/01/18 17:01 IMPRESSION: 1. There are no definite noncontrast CT findings to explain acute abdominal pain. The colon is fluid-filled to the rectum, in keeping with diarrheal illness. 2. Small pleural effusions and anasarca. 3. Atherosclerosis, of vascular calcinosis, and renal osteodystrophy. 4. Nonobstructive bilateral nephrolithiasis. Assessment & Plan - Diagnosis (1) ESRD (end stage renal disease) on dialysis Is this a current diagnosis for this admission?: Yes Plan: will put orders in for dialysis tomorrow afternoon (2) Lower GI bleed Is this a current diagnosis for this admission?: Yes Plan: Scheduled for colonoscopy tomorrow (3) Anemia in chronic kidney disease, on chronic dialysis Is this a current diagnosis for this admission?: Yes Plan: Will look to give Procrit tomorrow with dialysis (4) Hyponatremia Plan: Slightly improved after dialysis. We will see if it improves more after dialysis tomorrow (5) Nausea & vomiting Plan: Improved (6) CHF (congestive heart failure) Qualifiers: Heart failure type: systolic Heart failure chronicity: chronic Qualified Code(s): I50.22 - Chronic systolic (congestive) heart failure Is this a current diagnosis for this admission?: Yes Plan: Stable - Notes Notes: Patient was discussed with Dr. Fuentes
--- NOTE | 2018-10-04 21:41 | PDOC PROGRESS REPORT ---
Subjective Progress Note for:: 10/04/18 Subjective:: Still with bloody diarrhea with Hb 8.7 from 9.3 yesterday Reason For Visit: LOWER GI BLEEDING,DIARRHEA,ESRD ON DIALYSIS Physical Exam Vital Signs: Temp Pulse Resp BP Pulse Ox 97.9 F 73 20 117/38 L 89 L 10/04/18 19:59 10/04/18 19:59 10/04/18 19:59 10/04/18 19:59 10/04/18 19:59 Intake & Output 10/03/18 10/04/18 10/05/18 06:59 06:59 06:59 Intake Total 1167 2970 1850 Output Total 100 Balance 1167 2870 1850 Weight 52.9 kg 54.4 kg Exam: abdomen is soft with mild lower abdominal tenderness Results Laboratory Results: 10/04/18 04:00 10/04/18 04:00 10/04/18 10/04/18 10/04/18 04:00 04:00 04:00 WBC 8.2 RBC 2.86 L Hgb 8.7 L Hct 26.5 L MCV 93 MCH 30.6 MCHC 33.0 RDW 17.6 H Plt Count 106 L Seg Neutrophils % 81.8 H Lymphocytes % 8.0 L Monocytes % 6.8 Eosinophils % 3.1 Basophils % 0.3 Absolute Neutrophils 6.7 Absolute Lymphocytes 0.7 Absolute Monocytes 0.6 Absolute Eosinophils 0.3 Absolute Basophils 0.0 Sodium 131.1 L Potassium 3.8 Chloride 94 L Carbon Dioxide 28 Anion Gap 9 BUN 33 H Creatinine 3.41 H Est GFR ( Amer) 16 L Est GFR (Non-Af Amer) 13 L Glucose 64 L Calcium 8.4 Magnesium 1.7 Total Bilirubin 0.6 AST 13 L ALT 20 Alkaline Phosphatase 224 H Total Protein 4.6 L Albumin 2.4 L Impressions: Abdomen/Pelvis CT 10/01/18 17:01 IMPRESSION: 1. There are no definite noncontrast CT findings to explain acute abdominal pain. The colon is fluid-filled to the rectum, in keeping with diarrheal illness. 2. Small pleural effusions and anasarca. 3. Atherosclerosis, of vascular calcinosis, and renal osteodystrophy. 4. Nonobstructive bilateral nephrolithiasis. Assessment & Plan - Diagnosis (1) Diarrhea Is this a current diagnosis for this admission?: Yes (2) Lower GI bleed Is this a current diagnosis for this admission?: Yes (3) ESRD (end stage renal disease) on dialysis Is this a current diagnosis for this admission?: Yes (4) Diabetes mellitus type 2 in nonobese Is this a current diagnosis for this admission?: No - Time Time Spent with patient: 15-24 minutes - Plan Summary Plan Summary: Family finally request colonoscopy. Colonoscopy Will place on bowel prep To have colonoscopy by Dr Agudelo tomorrow
[2018-10-05] MEDS ORDERED: EPOETIN ALFA EPBX IV PRN (05:00)
[2018-10-05] MEDS ORDERED: EPOETIN ALFA INJ 20000 UNIT/1 ML VIAL (RENAL) IV PRN (05:00)
[2018-10-05] MEDS: LEVOTHYROXINE SODIUM 0.025 MG TABLET PO SCH (06:13)
[2018-10-05] MEDS: PIPERACILLIN SODIUM/TAZOBACTAM 2.25 GM in NORMAL SALINE 50 ML IV SCH (06:13)
[2018-10-05 06:39] LABS: HEMATOCRIT 27.5 % (36.0-47.0); MEAN CORPUSCULAR HEMOGLOBIN 30.1 pg (27.0-33.4); MEAN CORPUSCULAR HGB CONC 32.6 g/dL (32.0-36.0); MEAN CORPUSCULAR VOLUME 92 fl (80-97); PLATELET COUNT 129 10^3/uL (150-450); RED BLOOD COUNT 2.98 10^6/uL (3.72-5.28); RED CELL DISTRIBUTION WIDTH 17.3 % (11.5-14.0)
[2018-10-05 06:51] LABS: ANION GAP 12 (5-19); BLOOD UREA NITROGEN 37 mg/dL (7-20); CALCIUM 8.6 mg/dL (8.4-10.2); CARBON DIOXIDE 27 mmol/L (22-30); CHLORIDE 90 mmol/L (98-107); GLUCOSE 70 mg/dL (75-110); POTASSIUM 3.9 mmol/L (3.6-5.0)
[2018-10-05 06:53] LABS: VANCOMYCIN,TROUGH 19.3 ug/mL (5.0-20.0)
[2018-10-05] MEDS: ISOSORBIDE MONONITRATE 30 MG TAB.ER.24H PO SCH (09:04)
[2018-10-05] MEDS: CALCIUM ACETATE 667 MG CAPSULE PO SCH ×3 (09:04→18:30)
[2018-10-05] MEDS: ASPIRIN 81 MG TABLET, ENT COATED PO SCH (09:04)
[2018-10-05] MEDS: LACTOBACILLUS ACIDOPHILUS 250 MG TAB PO SCH (09:04)
[2018-10-05] MEDS: FLUTICASONE NASAL SPRAY 50 MCG/SPRY 120 SPRAY/16 GM NASL SCH (09:38)
[2018-10-05] MEDS: ASCORBIC ACID 500 MG TABLET PO SCH (09:43)
[2018-10-05] MEDS: LORATADINE 10 MG TABLET PO SCH (09:43)
[2018-10-05] MEDS ORDERED: PROPOFOL INJ 200 MG/20 ML VIAL IV ONE (12:53)
[2018-10-05] MEDS ORDERED: DIPHENHYDRAMINE HCL 50 MG/ML VIAL IV PRN (14:27)
--- NOTE | 2018-10-05 18:02 | PDOC PROGRESS REPORT ---
Subjective Progress Note for:: 10/05/18 Reason For Visit: Patient being seen on HD . She is s/p Colonoscopy earlier today.VS are stable. Hb remaining stable. She denies any abdominal pains. Labs and medications were reviewed. Physical Exam Vital Signs: Temp Pulse Resp BP Pulse Ox 98 F 70 19 145/50 H 92 10/05/18 14:41 10/05/18 14:41 10/05/18 14:41 10/05/18 14:41 10/05/18 14:41 Intake & Output 10/04/18 10/05/18 10/06/18 06:59 06:59 06:59 Intake Total 2970 1900 250 Output Total 100 0 0 Balance 2870 1900 250 Weight 54.4 kg 57.9 kg General appearance: PRESENT: no acute distress Respiratory exam: PRESENT: clear to auscultation drake. ABSENT: crackles Cardiovascular exam: PRESENT: +S1, +S2, systolic murmur GI/Abdominal exam: PRESENT: normal bowel sounds, soft. ABSENT: organomegaly, tenderness Extremities exam: ABSENT: pedal edema Neurological exam: PRESENT: alert, awake, oriented to person, oriented to place Psychiatric exam: PRESENT: appropriate affect Results Laboratory Results: 10/05/18 06:20 10/05/18 06:20 10/05/18 10/05/18 06:20 06:20 WBC 6.0 RBC 2.98 L Hgb 9.0 L Hct 27.5 L MCV 92 MCH 30.1 MCHC 32.6 RDW 17.3 H Plt Count 129 L Sodium 129.0 L Potassium 3.9 Chloride 90 L Carbon Dioxide 27 Anion Gap 12 BUN 37 H Creatinine 4.30 H Est GFR ( Amer) 12 L Est GFR (Non-Af Amer) 10 L Glucose 70 L Calcium 8.6 Impressions: Abdomen/Pelvis CT 10/01/18 17:01 IMPRESSION: 1. There are no definite noncontrast CT findings to explain acute abdominal pain. The colon is fluid-filled to the rectum, in keeping with diarrheal illness. 2. Small pleural effusions and anasarca. 3. Atherosclerosis, of vascular calcinosis, and renal osteodystrophy. 4. Nonobstructive bilateral nephrolithiasis. Assessment & Plan - Diagnosis (1) Lower GI bleed Is this a current diagnosis for this admission?: Yes Plan: As per surgery and hospitalist. (2) ESRD (end stage renal disease) on dialysis Is this a current diagnosis for this admission?: Yes Plan: Undergoing HD without any issues. VS are stable. Dialysis is being supervised to ensure a safe and smooth procedure. Plan to remove 1-2 L as tolerated. Labs and medications were reviewed. Dialysis orders were reviewed with the treating renal dialysis technician. (3) Acute blood loss anemia Plan: stable. (4) Hypertension Qualifiers: Hypertension type: essential hypertension Qualified Code(s): I10 - Essential (primary) hypertension Is this a current diagnosis for this admission?: No (5) Nausea & vomiting Plan: resolved. (6) Hyponatremia Plan: Na is 129. See response to Dialysis.Monitor. (7) Diarrhea Is this a current diagnosis for this admission?: Yes Plan: improving. (8) Anemia in chronic kidney disease, on chronic dialysis Is this a current diagnosis for this admission?: Yes Plan: Acute on chronic.Acute GI loss. EPO being given.Monitor.
[2018-10-05] MEDS: FLUOXETINE HCL 20 MG/5 ML UDCUP PO SCH (18:30)
[2018-10-05] MEDS: AMLODIPINE BESYLATE 5 MG TABLET PO SCH (18:31)
--- NOTE | 2018-10-05 18:59 | PDOC PROGRESS REPORT ---
Subjective Progress Note for:: 10/05/18 Subjective:: There is a 77-year-old female with anemia and GI bleeding. The patient has finally finished her bowel prep. She reports having clear, liquid stools. The patient denies chest pain, shortness of breath, nausea, vomiting, hematemesis, dizziness. She is very hard of hearing. Reason For Visit: LOWER GI BLEEDING,DIARRHEA,ESRD ON DIALYSIS Physical Exam Vital Signs: Temp Pulse Resp BP Pulse Ox 98 F 70 19 145/50 H 92 10/05/18 14:41 10/05/18 14:41 10/05/18 14:41 10/05/18 14:41 10/05/18 14:41 Intake & Output 10/04/18 10/05/18 10/06/18 06:59 06:59 06:59 Intake Total 2970 1900 250 Output Total 100 0 1900 Balance 2870 1900 -1650 Weight 54.4 kg 57.9 kg General appearance: PRESENT: no acute distress, cooperative Head exam: PRESENT: atraumatic, normocephalic Eye exam: PRESENT: EOMI, PERRLA Mouth exam: PRESENT: moist, neck supple Neck exam: ABSENT: meningismus, tenderness, thyromegaly, tracheal deviation Respiratory exam: ABSENT: chest wall tenderness Cardiovascular exam: PRESENT: RRR Pulses: PRESENT: normal radial pulses Vascular exam: PRESENT: pallor GI/Abdominal exam: PRESENT: soft. ABSENT: distended, firm, tenderness Rectal exam: PRESENT: deferred Neurological exam: PRESENT: alert, awake, oriented to person, oriented to place, oriented to time, oriented to situation Psychiatric exam: PRESENT: anxious Focused psych exam: ABSENT: delusional Skin exam: ABSENT: cyanosis, erythema, jaundice Results Laboratory Results: 10/05/18 06:20 10/05/18 06:20 10/05/18 10/05/18 06:20 06:20 WBC 6.0 RBC 2.98 L Hgb 9.0 L Hct 27.5 L MCV 92 MCH 30.1 MCHC 32.6 RDW 17.3 H Plt Count 129 L Sodium 129.0 L Potassium 3.9 Chloride 90 L Carbon Dioxide 27 Anion Gap 12 BUN 37 H Creatinine 4.30 H Est GFR ( Amer) 12 L Est GFR (Non-Af Amer) 10 L Glucose 70 L Calcium 8.6 Impressions: Abdomen/Pelvis CT 10/01/18 17:01 IMPRESSION: 1. There are no definite noncontrast CT findings to explain acute abdominal pain. The colon is fluid-filled to the rectum, in keeping with diarrheal illness. 2. Small pleural effusions and anasarca. 3. Atherosclerosis, of vascular calcinosis, and renal osteodystrophy. 4. Nonobstructive bilateral nephrolithiasis. Assessment & Plan - Diagnosis (1) Lower GI bleed Is this a current diagnosis for this admission?: Yes - Plan Summary Plan Summary: This is a 77-year-old female with lower GI bleeding. She has finally finished her bowel prep. Plan for colonoscopy today. Risks/benefits discussed, informed consent obtained, and all questions answered.
--- NOTE | 2018-10-05 19:03 | Operative Report ---
Nonrecallable Operative Report DATE OF SURGERY: 10/05/18 PREOPERATIVE DIAGNOSIS: Lower GI bleeding POSTOPERATIVE DIAGNOSIS: Colitis of the descending and sigmoid colon, likely ischemic. No evidence of full-thickness necrosis or bowel wall compromise. OPERATION: Colonoscopy to the cecum. SURGEON: KARI STUBBS ANESTHESIA: LMAC TISSUE REMOVED OR ALTERED: Biopsies at the descending colon COMPLICATIONS: None apparent ESTIMATED BLOOD LOSS: Minimal PROCEDURE: Drains/implants: None. Procedure in detail: After informed consent was obtained, the patient was brought into the operating room and laid in the left lateral decubitus position. The colonoscope was inserted into the rectum. It was passed up the rectum, s igmoid colon, descending colon, across the transverse colon, down the ascending colon, and into the cecum. The ileocecal valve and appendiceal orifice were identified. The scope was then withdrawn, circumferentially noting the mucosa. The prep was good. The scope was withdrawn past the ascending and transverse colon. At approximately the splenic flexure there was noted to be inflamed mucosa circumferentially, consistent with colitis. This extended all the way down the descending colon to the sigmoid colon. Multiple biopsies were taken throughout the descending colon. There were areas of mild mucosal sloughing, however there were no areas of full-thickness necrosis. There was no active bleeding. The scope was pulled down into the rectum. There were no obvious internal hemorrhoids identified inside the rectum. After this was confirmed, the scope was removed, and the procedure was concluded. All sponge, instrument, and needle counts were correct. Condition: Stable.
--- NOTE | 2018-10-05 19:04 | Progress Note ---
Provider Note Provider Note: This is a 77-year-old female with colitis of the sigmoid, descending colon, and splenic flexure. I suspect this may be ischemic in nature. I recommend continuation of her antibiotics, and close attention to her hydration. Extensive dehydration may contribute to her symptoms. Supportive measures are appropriate at this time. Surgery will be signing off. Please renotify with any questions or concerns.
[2018-10-05 19:14] VITALS: BP 166/59
--- NOTE | 2018-10-06 16:17 | PDOC DISCHARGE SUMMARY ---
General - Admit/Disc Date/PCP Admission Date/Primary Care Provider: 10/01/18 20:45 JOVANA MOELLER MD Discharge Date: 10/05/18 - Discharge Diagnosis (1) Lower GI bleed Is this a current diagnosis for this admission?: Yes (2) Acute on chronic anemia Is this a current diagnosis for this admission?: Yes (3) CHF (congestive heart failure) Is this a current diagnosis for this admission?: Yes (4) Hypothyroidism Is this a current diagnosis for this admission?: Yes (5) ESRD (end stage renal disease) on dialysis Is this a current diagnosis for this admission?: Yes - Additional Information Resuscitation Status: Full Code Discharge Diet: Cardiac Discharge Activity: Activity As Tolerated Home Medications: Alprazolam [Xanax] 0.5 mg PO TIDP PRN 10/02/18 Amlodipine Besylate [Norvasc 5 mg Tablet] 5 mg PO QPM 10/02/18 Ascorbic Acid [Vitamin C] 1,000 mg PO DAILY 10/02/18 Aspirin [Adult Low Dose Aspirin EC] 81 mg PO QAM 10/02/18 Calcium Acetate [Phoslo 667 mg Capsule] 667 mg PO MEALS 10/02/18 Carvedilol [Coreg 12.5 mg Tablet] 12.5 mg PO Q12 10/02/18 Diphenoxylate HCl/Atropine [Lomotil 2.5-0.025 mg Tablet] 1 tab PO Q6HP PRN Fluoxetine HCl [Prozac] 10 mg PO QPM 10/02/18 Fluticasone Propionate [Flonase Nasal [place] 50 Mcg/[place] 16 gm] 1 spray NASL DAILY 10/02/18 Gabapentin [Neurontin 100 mg Capsule] 100 mg PO DAILYP PRN 10/02/18 Hydralazine HCl [Apresoline 25 mg Tablet] 25 mg PO BID 10/02/18 Ipratropium/Albuterol Sulfate [Duoneb 3 ml Ampul] 3 ml NEB RTQ6HP PRN 10/02/18 Isosorbide Mononitrate [Imdur 30 mg Tablet.er] 30 mg PO QAM 10/02/18 L. Acidophilus/L.bulgaricus [Lactobacillus Tablet] 1 tab PO QAM 10/02/18 Levothyroxine Sodium 25 mcg PO Q6AM 10/02/18 Lidocaine/Prilocaine [Emla Cream] 1 applic TP .PRIORTODIALYSIS 10/02/18 Lisinopril [Zestril] 10 mg PO SUTUTHSA 10/02/18 Loratadine [Claritin 10 mg Tablet] 10 mg PO DAILY 10/02/18 Ondansetron HCl [Zofran 4 mg Tablet] 4 mg PO Q6HP PRN 10/02/18 Ranitidine HCl [Zantac 75 mg Tablet] 75 mg PO DAILYP PRN 10/02/18 History of Present Illness History of Present Illness: SINAN EASLEY is a 78 year old female with a PMH of ESRd on hemodialysis, HTN, chronic anemia, hypothyroidism, hearing difficulty, and CHF who presented with diarrhea and a few blood-streaked stools. She was admitted for acute diarr hea and possible lower GI bleed. Hospital Course Hospital Course: Patient had CT of the abdomen/pelvis which was unremarkable. Her hemoglobin did slightly trend down since admission although downtrends were not significantly far from her previous Hb levels. She was evaluated by surgery and did undergo colonoscopy which showed some colitis. Her diarrhea already completely resolved prior to colonoscopy. She has no abdominal pain and was tolerating a full diet well prior to colonoscopy. She did not require any blood transfusion. She also got dialyzed for her ESRD during this course. Physical Exam Vital Signs: Temp Pulse Resp BP Pulse Ox 98 F 70 19 166/59 H 92 10/05/18 19:12 10/05/18 19:12 10/05/18 19:12 10/05/18 19:12 10/05/18 19:12 Intake & Output 10/05/18 10/06/18 10/07/18 06:59 06:59 06:59 Intake Total 1900 250 Output Total 0 1900 Balance 1900 -1650 Weight 127 lb 10.362 oz General appearance: PRESENT: no acute distress, well-developed, well-nourished Head exam: PRESENT: atraumatic, normocephalic Eye exam: PRESENT: conjunctiva pink, EOMI, PERRLA. ABSENT: scleral icterus Ear exam: PRESENT: normal external ear exam Mouth exam: PRESENT: moist, tongue midline Neck exam: ABSENT: carotid bruit, JVD, lymphadenopathy, thyromegaly Respiratory exam: PRESENT: clear to auscultation drake. ABSENT: rales, rhonchi, wheezes Cardiovascular exam: PRESENT: RRR. ABSENT: diastolic murmur, rubs, systolic murmur Pulses: PRESENT: normal dorsalis pedis pul GI/Abdominal exam: PRESENT: normal bowel sounds, soft. ABSENT: distended, guarding, mass, organolmegaly, rebound, tenderness Rectal exam: PRESENT: deferred Extremities exam: PRESENT: full ROM. ABSENT: calf tenderness, clubbing, pedal edema Neurological exam: PRESENT: alert, awake, oriented to person, oriented to place, oriented to time, oriented to situation, CN II-XII grossly intact. ABSENT: motor sensory deficit Results Laboratory Results: 10/05/18 06:20 10/05/18 06:20 10/01/18 15:51 Blood Blood Culture - Final NO GROWTH IN 5 DAYS Impressions: Abdomen/Pelvis CT 10/01/18 17:01 IMPRESSION: 1. There are no definite noncontrast CT findings to explain acute abdominal pain. The colon is fluid-filled to the rectum, in keeping with diarrheal illness. 2. Small pleural effusions and anasarca. 3. Atherosclerosis, of vascular calcinosis, and renal osteodystrophy. 4. Nonobstructive bilateral nephrolithiasis. Qualifiers - * PATIENT BEING DISCHARGED WITH ANY OF THE FOLLOWING DIAGNOSIS: No Acute Heart Failure - Is this a Heart Failure Patient?: No
== END 2018-10-05 20:20 | disposition home or self-care (01) | DRG 377 ==
LOC: ER 15:33 → EH 20:45 → 3N 23:38
PROVIDERS: ADMIT Emergency Medicine; ATTEND Emergency Medicine
PROC: 5A1D70Z Performance of Urinary Filtration, Intermittent, Less than 6 Hours Per Day (ICD-10-PCS; principal; 2018-10-03)
PROC: 0DDM8ZX Extraction of Descending Colon, Via Natural or Artificial Opening Endoscopic, Diagnostic (ICD-10-PCS; 2018-10-05)
DX: K92.2 Gastrointestinal hemorrhage, unspecified (principal); N18.6 End stage renal disease; K55.9 Vascular disorder of intestine, unspecified; I13.2 Hypertensive heart and chronic kidney disease with heart failure and with stage 5 chronic kidney disease, or end stage renal disease; N04.9 Nephrotic syndrome with unspecified morphologic changes; I50.22 Chronic systolic (congestive) heart failure; D62 Acute posthemorrhagic anemia; E87.1 Hypo-osmolality and hyponatremia; E87.5 Hyperkalemia; D63.1 Anemia in chronic kidney disease; E03.9 Hypothyroidism, unspecified; E11.8 Type 2 diabetes mellitus with unspecified complications; E78.5 Hyperlipidemia, unspecified; J44.9 Chronic obstructive pulmonary disease, unspecified; I73.9 Peripheral vascular disease, unspecified; R19.7 Diarrhea, unspecified; R10.9 Unspecified abdominal pain; Z60.2 Problems related to living alone; I25.2 Old myocardial infarction; Z99.2 Dependence on renal dialysis; Z95.1 Presence of aortocoronary bypass graft; Z95.2 Presence of prosthetic heart valve; Z86.711 Personal history of pulmonary embolism; Z79.82 Long term (current) use of aspirin; Z79.51 Long term (current) use of inhaled steroids; Z79.899 Other long term (current) drug therapy
CPT/HCPCS: 00811; 36415; 45380; 74176; 80048; 80053; 80202; 82962; 83036; 83605; 83735; 85025; 85027; 85610; 85730; 86850; 86900; 86901; 87040; 87045; 87177; 87205; 87493; 88305; 96374; 99285; J2543; J2704; J3370; J3490; J7060; Q5105; S0164

== ENCOUNTER 2018-12-28 12:49 | Inpatient (IN) | payer MEDICARE, BC ==
[2018-12-28 13:39] LABS: HEMATOCRIT 42.4 % (36.0-47.0); HEMOGLOBIN 13.8 g/dL (12.0-15.5); MEAN CORPUSCULAR HEMOGLOBIN 33.1 pg (27.0-33.4); MEAN CORPUSCULAR HGB CONC 32.5 g/dL (32.0-36.0); MEAN CORPUSCULAR VOLUME 102 fl (80-97); PLATELET COUNT 163 10^3/uL (150-450); RED BLOOD COUNT 4.17 10^6/uL (3.72-5.28); RED CELL DISTRIBUTION WIDTH 19.5 % (11.5-14.0); WHITE BLOOD COUNT 3.8 10^3/uL (4.0-10.5)
[2018-12-28 14:05] LABS: ABSOLUTE LYMPHOCYTES# (MANUAL) 0.4 10^3/uL (0.5-4.7); BASOPHILS % (MANUAL) 0 % (0-2); EOSINOPHILS % (MANUAL) 1 % (0-6); LYMPHOCYTES % (MANUAL) 11 % (13-45); MONOCYTES % (MANUAL) 0 % (3-13); SEGMENTED NEUTROPHILS % (MAN) 88 % (42-78); TOTAL CELLS COUNTED 100
--- NOTE | 2018-12-28 14:06 | ER Document Report ---
ED General - General Chief Complaint: Low Blood Sugar Stated Complaint: DIABETES Time Seen by Provider: 12/28/18 13:15 Primary Care Provider: JOVANA MOELLER MD [Primary Care Provider] - Follow up as needed Information source: Patient Notes: HPI: 78-year-old female with past medical history that is extensive as recorded below who missed her last dialysis session and comes here from dialysis seco ndary to some change in mental status with an Accu-Chek x2 in the 20s. She was given an amp of D50 as well as an infusion of D10 according to EMS. Repeat Accu-Chek as recorded. Patient herself denies any and all symptoms. She does not remember the event. She does not have a headache, neck pain, chest pain, abdominal pain, weakness or numbness. I was able to call her daughter who is her social services director who states that the patient missed her dialysis 2 days ago because she had some diarrhea. No diarrhea since Wednesday. Patient denies any abdominal pain at this time. There is been no recent fevers, runny nose, congestion, or vomiting. Daughter states the patient used to be a diabetic. She states she has not eaten in the last 2 days but does not take insulin. The patient does not make urine. ROS: See HPI All other review of systems reviewed and otherwise negative Reviewed vital signs and nursing note as charted by RN. PHYSICAL EXAM: CONSTITUTIONAL: Alert and oriented and responds appropriately to questions. Well-appearing; well-nourished HEAD: Normocephalic; atraumatic EYES: Full extraocular range of motion ENT: Normal nose; no rhinorrhea; moist mucous membranes; pharynx without lesions noted NECK: Supple without meningismus; non-tender; no carotid bruit; no cervical l ymphadenopathy, no masses CARD: Regular rate and rhythm; no murmurs; symmetric distal pulses RESP: Normal chest excursion without splinting or tachypnea; breath sounds clear and equal bilaterally ABD/GI: Normal bowel sounds; non-distended; soft, non-tender; no abdominal bruits or palpable masses BACK: The back appears normal and is non-tender to palpation EXT: Normal ROM in all joints; non-tender to palpation; no edema SKIN: No acute lesions noted NEURO: CN 2-12 intact; 5/5 bilateral upper and lower extremity strength with sensation intact to light touch TRAVEL OUTSIDE OF THE [place] IN LAST 30 DAYS: No - Related Data Allergies/Adverse Reactions: metoclopramide HCl [From Reglan] Adverse Reaction (Unknown, Verified 06/23/16 09:40) leg twitching Past Medical History - Social History Smoking Status: Unknown if Ever Smoked Family History: CAD, DM, Hypertension, Malignancy Patient has suicidal ideation: No Patient has homicidal ideation: No - Past Medical History Cardiac Medical History: Reports: Hx Congestive Heart Failure, Hx Coronary Artery Disease, Hx Heart Attack - 2004, QUAD BYPASS AND VALVE REPLACEMENT, Hx Hypercholesterolemia, Hx Hypertension, Hx Peripheral Vascular Disease, Hx Pulmonary Embolism, Hx Heart Murmur Denies: Hx Atrial Fibrillation Pulmonary Medical History: Reports: Hx COPD, Hx Pneumonia - 01/2016, Hx Sleep Apnea Denies: Hx Asthma, Hx Bronchitis, Hx Respiratory Failure, Hx Tuberculosis Neurological Medical History: Reports: Hx Cerebrovascular Accident - 2005. Denies: Hx Seizures, Hx Parkinson's Disease Endocrine Medical History: Reports: Hx Diabetes Mellitus Type 2 - Off medications for 6+ years, Hx Hypothyroidism. Denies: Hx Diabetes Mellitus Type 1, Hx Graves' Disease, Hx Hyperthyroidism Renal/ Medical History: Reports: Hx End Stage Renal Disease - Oliguric, on dialysis Wednesday, Wednesday and Wednesday with Dr. Raygoza, Hx Hemodialysis - MWF at [facility]. Denies: Hx Peritoneal Dialysis Malignancy Medical History: Denies: Hx Leukemia, Hx Lung Cancer GI Medical History: Reports: Hx Gastroesophageal Reflux Disease. Denies: Hx Cirrhosis, Hx Crohn's Disease, Hx Diverticulitis, Hx Hepatitis, Hx Hiatal Hernia, Hx Irritable Bowel, Hx Liver Failure, Hx Pancreatitis, Hx Ulcer, Hx Ulcerative Colitis Musculoskeletal Medical History: Reports Hx Arthritis - Primarily affecting her back, Denies Hx Gout, Denies Hx Multiple Sclerosis, Denies Hx Systemic Lupus Erythematosus Skin Medical History: Denies Hx Eczema, Denies Hx Psoriasis Psychiatric Medical History: Reports: Hx Depression Denies: Hx Dementia Infectious Medical History: Denies: Hx Hepatitis, Hx HIV Past Surgical History: Reports: Hx Abdominal Surgery - hernia repair, Hx Cardiac Catheterization, Hx Cardiac Surgery, Hx Cholecystectomy, Hx Coronary Artery Bypa ss Graft - X4, Hx Herniorrhaphy, Hx Open Heart Surgery, Hx Pacemaker, Hx Tonsillectomy, Hx Tubal Ligation, Hx Valve Replacement - Bioprosthetic valve replacement surgery, Hx Vascular Surgery - Left antecubital tunnel/graft for dialysis. Denies: Hx Appendectomy, Hx Bowel Surgery, Hx Section, Hx Colostomy, Hx Gastric Bypass Surgery, Hx Hysterectomy, Hx Mastectomy - Immunizations Hx Diphtheria, Pertussis, Tetanus Vaccination: Yes Hx Pneumococcal Vaccination: 01/04/16 Physical Exam - Vital signs Vitals: Resp Pulse Ox 17 97 12/28/18 12:59 12/28/18 12:59 Course - Re-evaluation Re-evalutation: Given the history and physical examination, we will order an EKG, basic labs, c ardiac labs, electrolytes, repeat Accu-Cheks, and reassess. Dr. Fuentes the contact lens curve grinder called me and states that he would like to do in the emergency department in-house dialysis. Patient denies any and all pain. No abdominal tenderness. EKG as recorded. Repeat Accu-Chek as recorded. 12/28/18 14:05 EKG shows a heart of 76, normal sinus rhythm, first-degree AV block, poor R wave progression, no ST elevation or depression. 12/28/18 18:45 Patient has been his dialysis. CT scan of the head is pending. The contact lens curve grinder came and saw the patient directly. He is unsure what is caused the dropping in glucose but believes that the patient requires admission for stabilization after the CT scan of the head shows no obvious bleed or subdural. - Vital Signs Vital signs: Temp Pulse Resp BP Pulse Ox 98.1 F 20 192/65 H 96 12/28/18 15:35 12/28/18 16:17 12/28/18 16:17 12/28/18 16:17 - Laboratory Result Diagrams: 12/28/18 13:00 12/28/18 15:15 Laboratory results interpreted by me: 12/28/18 12/28/18 12/28/18 13:00 13:07 15:15 WBC 3.8 L MCV 102 H RDW 19.5 H Seg Neuts % (Manual) 88 H Lymphocytes % (Manual) 11 L Monocytes % (Manual) 0 L Abs Lymphs (Manual) 0.4 L Abs Monocytes (Manual) 0.0 L Sodium 135.1 L Potassium 6.0 H* Carbon Dioxide 19 L BUN 75 H Creatinine 8.09 H Est GFR ( Amer) 6 L Est GFR (MDRD) Non-Af 5 L POC Glucose 132 H Discharge - Discharge Clinical Impression: Hypoglycemia Altered mental status Qualifiers: Altered mental status type: unspecified Qualified Code(s): R41.82 - Altered mental status, unspecified Disposition: ADMITTED INPATIENT Referrals: JOVANA MOELLER MD [Primary Care Provider] - Follow up as needed
[2018-12-28 14:09] LABS: ANISOCYTOSIS 1+; OVALOCYTES SLIGHT; POIKILOCYTOSIS 1+; TEAR DROP CELLS SLIGHT
[2018-12-28 14:12] LABS: PLATELET COMMENT ADEQUATE
[2018-12-28 15:59] LABS: ANION GAP 16 (5-19); BLOOD UREA NITROGEN 75 mg/dL (7-20); CALCIUM 9.4 mg/dL (8.4-10.2); CARBON DIOXIDE 19 mmol/L (22-30); CHLORIDE 100 mmol/L (98-107); GLUCOSE 95 mg/dL (75-110)
[2018-12-28] MEDS ORDERED: DEXTROSE 50%-WATER 25 GM/50 ML DISP.SYRIN IV ONE ×2 (16:50→17:15)
--- NOTE | 2018-12-28 18:02 | PDOC CONSULTATION ---
Consultation Consult Date: 12/28/18 Provider Consulted: Ophelia WIGGINS Consult reason:: ESRD for dialysis. History of Present Illness Admission Date/PCP: JOVANA MOELLER MD History of Present Illness: SINAN EASLEY is a 78 year old female with the background history of ESRD in the face of long-standing chronic hypertension, congestive heart failure, intermittent chronic diarrhea with history of intermittent GI bleeds was admitted with some change in mental status. I am told that patient went to [facility] outpatient where she was found to be altered and Accu-Chek x2 in the 20s. She was given an amp of D50 as well as an infusion of D10 according to EMS. The daughter and son-in-law patient is at the bedside in the ER where she is currently being seen by me while undergoing dialysis. Patient herself denies any and all symptoms. She does not remember the event. She does not have a h eadache, neck pain, chest pain, abdominal pain, weakness or numbness. Patient denies any abdominal pain at this time. There is been no recent fevers, runny nose, congestion, or vomiting.Though there was mention of diarrhea by the patient earlier to the ER physician according to the daughter she does not believe that has happened. No apparent history of any falls or orthostasis according to both patient and the daughter who keeps a close eye on her mother who lives by herself. Patient currently undergoing dialysis without any issues. Labs and medications were reviewed. According to the daughter there is a question whether she might have taken too many of her medications including the Xanax which is clearly laid out for a week at that time by her daughter. According to the daughter the the patient is rambling and has got some personality changes which is not her usual self. However patient is able to answer appropriately to most of the questions. She is not lethargic. Past Medical History Cardiac Medical History: Reports: CHF-Systolic, Coronary Artery Disease, Heart Murmur, Hyperlipidemia, Hypertension-primary, Myocardial Infarction - 2004, QUAD BYPASS AND VALVE REPLACEMENT, Peripheral Vascular Disease, Pulmonary Embolism, Pulmonary Hypertension Denies: Atrial Fibrillation Pulmonary Medical History: Reports: Chronic Obstructive Pulmonary Disease (COPD), Pneumonia - 01/2016, Sleep Apnea Denies: Asthma, Bronchitis, Respiratory Failure, Tuberculosis Neurological Medical History: Denies: Seizures Endocrine Medical History: Reports: Diabetes Mellitus Type 2 - Off medications for 6+ years, Hypothyroidism Denies: Diabetes Mellitus Type 1, Hyperthyroidism Complications of Diabetes: Reports: Nephropathy, Retinopathy Renal/ Medical History: Reports: End Stage Renal Disease - Oliguric, on dialysis Wednesday, Wednesday and Wednesday with Dr. Raygoza, Secondary Hyperparathyroidism Malignancy Medical History: Denies: Leukemia, Lung Cancer GI Medical History: Reports: Gastroesophageal Reflux Disease Denies: Cirrhosis, Crohn's Disease, Diverticulitis, Hepatitis, Hiatal Hernia, Ulcerative Colitis Musculoskeltal Medical History: Reports: Arthritis - Primarily affecting her back Denies: Gout, Systemic Lupus Erythematosus Skin Medical History: Denies: Eczema, Psoriasis Psychiatric Medical History: Reports: Depression Denies: Dementia Infectious Medical History: Denies: HIV Past Surgical History Past Surgical History: Reports: Cardiac Catheterization, Cholecystectomy, Coronary Artery Bypass Graft - X4, Dialysis Access Surgery AVF, Herniorrhaphy, Pacemaker, Tonsillectomy, Tubal Ligation, Valve Replacement - Bioprosthetic valve replacement surgery, Vascular Surgery - Left antecubital tunnel/graft for dialysis Denies: Appendectomy, Section, Colostomy, Gastric Bypass Surgery, Hysterectomy, Mastectomy Social History Smoking Status: Unknown if Ever Smoked Frequency of Alcohol Use: None Hx Recreational Drug Use: No Drugs: None Hx Prescription Drug Abuse: No Family History Parental Family History Reviewed: Yes - Negative for ESRD. Children Family History Reviewed: No Sibling(s) Family History Reviewed.: No Medication/Allergy Home Medications: Alprazolam [Xanax 0.5 mg Tablet] 0.5 mg PO Q8HP PRN 12/28/18 Amlodipine Besylate [Norvasc 5 mg Tablet] 5 mg PO QPM 12/28/18 Ascorbic Acid [C-1000] 1,000 mg PO DAILY 12/28/18 Aspirin [Ecotrin 81 mg EC Tablet] 81 mg PO QAM 12/28/18 Calcium Acetate [Phoslo 667 mg Capsule] 1,334 mg PO MEALS 12/28/18 Carvedilol [Coreg 12.5 mg Tablet] 12.5 mg PO Q12 12/28/18 Fluoxetine HCl [Prozac] 10 mg PO QPM 12/28/18 Fluticasone Propionate [Flonase Nasal [place] 50 Mcg/[place] 16 gm] 2 spray NASL DAILY 12/28/18 Hydralazine HCl [Apresoline 25 mg Tablet] 25 mg PO Q12 12/28/18 Isosorbide Mononitrate [Imdur 30 mg Tablet.er] 30 mg PO DAILY 12/28/18 Levothyroxine Sodium [Synthroid 0.025 mg Tablet] 0.025 mg PO Q6AM 12/28/18 Lisinopril [Prinivil 10 mg Tablet] 10 mg PO DAILY 12/28/18 Tramadol HCl/Acetaminophen [Tramadol-Acetaminophn 37.5-325] 1 tab PO Q6HP PRN 12/28/18 Allergies/Adverse Reactions: metoclopramide HCl [From Reglan] Adverse Reaction (Unknown, Verified 06/23/16 09:40) leg twitching Review of Systems Constitutional: PRESENT: anorexia, fatigue, weakness. ABSENT: chills, fever(s), headache(s), night sweats Nose, Mouth, and Throat: ABSENT: mouth pain, sore throat Cardiovascular: ABSENT: chest pain, dyspnea on exertion, edema, orthropnea, palpitations Respiratory: ABSENT: dyspnea, hemoptysis Gastrointestinal: ABSENT: abdominal pain, bloating, coffee ground emesis, diarrhea, dysphagia, heartburn, hematemesis, hematochezia, nausea, vomiting Musculoskeletal: ABSENT: deformity, joint swelling Integumentary: ABSENT: erythema, lesions, pruritus, rash Neurological: PRESENT: confusion, memory loss. ABSENT: abnormal movements, abnormal speech, convulsions, focal weakness, frequent falls, lack of coordination, numbness, restless legs Hematologic/Lymphatic: ABSENT: easy bleeding, easy bruising, lymphadenopathy Physical Exam Vital Signs: Temp Pulse Resp BP Pulse Ox 98.1 F 20 192/65 H 96 12/28/18 15:35 12/28/18 16:17 12/28/18 16:17 12/28/18 16:17 Intake & Output 12/27/18 12/28/18 12/29/18 06:59 06:59 06:59 Weight 49.5 kg General appearance: PRESENT: no acute distress, disheveled Eye exam: PRESENT: PERRLA - The pupils are myotic and the right one was slightly smaller than the other. Ear exam: PRESENT: normal external ear exam Mouth exam: PRESENT: neck supple. ABSENT: moist Neck exam: ABSENT: lymphadenopathy, meningismus, tenderness, thyromegaly, tracheal deviation Respiratory exam: PRESENT: clear to auscultation drake, decreased breath sounds. ABSENT: crackles Cardiovascular exam: PRESENT: +S1, +S2, systolic murmur GI/Abdominal exam: PRESENT: normal bowel sounds, soft. ABSENT: organomegaly, tenderness Extremities exam: ABSENT: pedal edema Neurological exam: PRESENT: alert, awake, oriented to person, oriented to place. ABSENT: oriented to time Skin exam: ABSENT: cyanosis, erythema, mottled, rash Results Laboratory Results: 12/28/18 13:00 12/28/18 15:15 12/28/18 12/28/18 12/28/18 13:00 13:00 15:15 WBC 3.8 L RBC 4.17 Hgb 13.8 Hct 42.4 MCV 102 H MCH 33.1 MCHC 32.5 RDW 19.5 H Plt Count 163 Seg Neutrophils % Not Reportable Sodium Cancelled Potassium Cancelled Chloride Cancelled Carbon Dioxide Cancelled Anion Gap Cancelled BUN Cancelled Creatinine Cancelled Est GFR ( Amer) Cancelled Est GFR (Non-Af Amer) Cancelled Glucose Cancelled Calcium Cancelled Ammonia 17.0 12/28/18 15:15 WBC RBC Hgb Hct MCV MCH MCHC RDW Plt Count Seg Neutrophils % Sodium 135.1 L Potassium 6.0 H* Chloride 100 Carbon Dioxide 19 L Anion Gap 16 BUN 75 H Creatinine 8.09 H Est GFR ( Amer) 6 L Est GFR (Non-Af Amer) Glucose 95 Calcium 9.4 Ammonia 12/28/18 15:15 Troponin I 0.053 Assessment & Plan - Diagnosis (1) Altered mental status Qualifiers: Altered mental status type: unspecified Qualified Code(s): R41.82 - Altered mental status, unspecified Plan: History of spontaneous hypoglycemia has been corrected by the EMS en route to the ER. Currently blood sugars further dropped into the upper 90s and I have administered on the amp of D50. Discussed with Dr. Fontenot/ER physician about various differential diagnosis for the hypoglycemia. She has no apparent liver disease. Ammonia levels were normal. Further management as per hospitalist. CT scan was requested and reviewed which was unremarkable for any acute changes. (2) ESRD (end stage renal disease) on dialysis Is this a current diagnosis for this admission?: Yes Plan: Patient currently undergoing dialysis without any issues. Vital signs are stable. Dialysis is being supervised to ensure safe and smooth procedure. Plan to remove between 1 to 1.5 L as tolerated. Dialysis orders were reviewed with the treating dialysis nurse. (3) Hyperkalemia Is this a current diagnosis for this admission?: Yes Plan: Should respond to dialysis. Monitor. (4) Hypoglycemia Is this a current diagnosis for this admission?: Yes Plan: As mentioned earlier. Further episode during dialysis but asymptomatic but and was corrected before she had any issues with that. (5) Anemia in chronic kidney disease, on chronic dialysis Plan: Currently stable. (6) Diabetes mellitus type 2 in nonobese Plan: Monitor closely. Avoid hypoglycemia. (7) Hypertension Qualifiers: Hypertension type: essential hypertension Qualified Code(s): I10 - Essential (primary) hypertension Plan: Uncontrolled. Titrate medications.See response to dialysis.
--- NOTE | 2018-12-28 19:42 | RADIOLOGY REPORT (SQ) ---
EXAM DESCRIPTION: CT HEAD WITHOUT COMPLETED DATE/TIME: 12/28/2018 7:33 pm REASON FOR STUDY: 20; ams COMPARISON: 05/16/2018. TECHNIQUE: Axial images acquired through the brain without intravenous contrast. Images reviewed wi th bone, brain and subdural windows. Additional sagittal and coronal reconstructions were generated. Images stored on PACS. All CT scanners at this facility use dose modulation, iterative reconstruction, and/or weight based d osing when appropriate to reduce radiation dose to as low as reasonably achievable (ALARA). [facility]: Dose Right [facility]: CareDose [facility]: Dose Right [facility]: Teradose 4D [facility]: Smart Wiren Board RADIATION DOSE: CT Rad equipment meets quality standard of care and radiation dose reduction techniq ues were employed. CTDIvol: 53.2 mGy. DLP: 1044 mGy-cm. mGy. LIMITATIONS: None. FINDINGS: VENTRICLES: Prominent. CEREBRUM: No masses. No hemorrhage. No midline shift. Areas of low density in the white matter mos t likely due to chronic micro-vascular ischemic change. No evidence for acute infarction. CEREBELLUM: No masses. No hemorrhage. No alteration of density. No evidence for acute infarction. EXTRAAXIAL SPACES: Mild age-related involutional change. No fluid collections. No masses. ORBITS AND GLOBE: No intra- or extraconal masses. Normal contour of globe without masses. CALVARIUM: No fracture. PARANASAL SINUSES: No fluid or mucosal thickening. SOFT TISSUES: No mass or hematoma. OTHER: No other significant finding. IMPRESSION: MILD CHRONIC CHANGES OF ATROPHY AND MICROVASCULAR ISCHEMIA. NO ACUTE PROCESS. EVIDENCE OF ACUTE STROKE: NO. TECHNICAL DOCUMENTATION: JOB ID: [id number] Quality ID # [id number]: Final reports with documentation of one or more dose reduction techniques (e.g., Au tomated exposure control, adjustment of the mA and/or kV according to patient size, use of iterative reconstruction technique) 2010 [employer]- All Rights Reserved Reading location - IP/workstation name: [email or web address]
[2018-12-28] MEDS ORDERED: DEXTROSE 40% GEL 15 GM TUBE PO PRN ×2 (19:49)
[2018-12-28] MEDS ORDERED: MAG HYDROX/AL HYDROX/SIMETH SUSP 30 ML UDCUP PO PRN (19:49)
[2018-12-28] MEDS ORDERED: DEXTROSE 50%-WATER 25 GM/50 ML DISP.SYRIN IV PRN ×2 (19:49)
[2018-12-28] MEDS ORDERED: IPRATROPIUM/ALBUTEROL 0.5-2.5 MG/3 ML AMPUL NEB PRN (19:49)
[2018-12-28] MEDS ORDERED: GLUCAGON,HUMAN RECOMB 1 MG INJ IM PRN (19:49)
[2018-12-28] MEDS ORDERED: ACETAMINOPHEN 325 MG TABLET PO PRN (19:49)
[2018-12-28] MEDS ORDERED: DEXTROSE 5%-NORMAL SALINE 1,000 ML IV ONE (19:51)
[2018-12-28 20:24] LABS: ABSOLUTE RETICS # 0.034 10^6/uL (0.028-0.122)
[2018-12-28 20:29] LABS: IRON(TIBC) 45.4 ug/dL (37-170)
--- NOTE | 2018-12-28 21:06 | RADIOLOGY REPORT (SQ) ---
EXAM DESCRIPTION: XR ABDOMEN 2 VIEWS SUPINE ERECT COMPLETED DATE/TME: 12/28/2018 00:00 CLINICAL HISTORY: 78 years, Female, impaction? COMPARISON: CT performed on 10/01/2018 NUMBER OF VIEWS: Two TECHNIQUE: Two frontal radiographs of the abdomen were obtained LIMITATIONS: None. FINDINGS: Gas and a large amount of stool are noted throughout the large bowel. Scattered nondilated loops of small bowel are also visible throughout the abdomen. No subdiaphragmatic free air. Surgical clips project over the right upper quadrant as well as along the gastroesophageal junction. There is diffuse arterial calcinosis. Osteopenia is also evident. Limited visualization of the chest reveals cardiomegaly, similar to the previous exams. Strandy opacity is evident about the left mid to lower lung zones, likely atelectasis/scar. There may be a tiny left pleural effusion. IMPRESSION: Nonobstructive bowel gas pattern. However, there is a large colonic stool load. copyright 2010 [employer]- All Rights Reserved
[2018-12-28] MEDS ORDERED: ONDANSETRON HCL INJ/PF 4 MG/2 ML SDV IV ONE (21:28)
[2018-12-28] MEDS ORDERED: LACTULOSE SYRUP 20 GM/30 ML UDCUP PR ONE (21:29)
[2018-12-28] MEDS ORDERED: HYDRALAZINE HCL INJ/PF 20 MG/1 ML SDV ONE (21:31)
[2018-12-28 21:39] LABS: FOLATE > 20.00 ng/mL (>2.76)
[2018-12-28] MEDS: HYDRALAZINE HCL INJ/PF 20 MG/1 ML SDV IV PRN (21:40)
[2018-12-28] MEDS ORDERED: LACTULOSE SYRUP 20 GM/30 ML UDCUP PO ONE (22:00)
[2018-12-28] MEDS: LACTULOSE SYRUP 20 GM/30 ML UDCUP PR SCH (23:05)
[2018-12-28] MEDS: HEPARIN SOD (PORCINE) 5,000 UNIT/ML 1 ML VIAL SUBCUT SCH (23:56)
--- NOTE | 2018-12-29 05:19 | PDOC H&P ---
History of Present Illness Admission Date/PCP: 12/28/18 19:54 JOVANA MOELLER MD Patient complains of: Hypoglycemia History of Present Illness: SINAN EASLEY is a 78 year old female with a past medical history of blindness, end-stage renal failure on hemodialysis, hypertension, congestive heart failure and chronic diarrhea. She presents with altered mental status and is found to have a blood sugar of 20. She receives D50 and a D10 infusion followed by hemodialysis in the emergency room. She admits to poor appetite secondary to nausea, patient has had several episodes of emesis of dark brown material in addition to chronic diarrhea she cannot recall her last normal bowel movement. Abdominal series reveals severe fecal impaction. She denies recent change in medication regiment. Past Medical History Cardiac Medical History: Reports: Congestive Heart Failure, Coronary Artery Disease, Myocardial Infarction - 2004, QUAD BYPASS AND VALVE REPLACEMENT, Hyperlipidema, Hypertension, Peripheral Vascular Disease, Pulmonary Embolism, Heart Murmur Denies: Atrial Fibrillation Pulmonary Medical History: Reports: Chronic Obstructive Pulmonary Disease (COPD), Pneumonia - 01/2016, Sleep Apnea Denies: Asthma, Bronchitis, Respiratory Failure, Tuberculosis Neurological Medical History: Denies: Seizures Endocrine Medical History: Reports: Diabetes Mellitus Type 2 - Off medications for 6+ years, Hypothyroidism Denies: Diabetes Mellitus Type 1, Hyperthyroidism Renal/ Medical History: Reports: End Stage Renal Disease - Oliguric, on dialysis Wednesday, Wednesday and Wednesday with Dr. Raygoza Malignancy Medical History: Denies: Leukemia, Lung Cancer GI Medical History: Reports: Gastroesophageal Reflux Disease Denies: Cirrhosis, Crohn's Disease, Diverticulitis, Hepatitis, Hiatal Hernia, Ulcerative Colitis Musculoskeltal Medical History: Reports: Arthritis - Primarily affecting her back Denies: Gout Skin Medical History: Denies: Eczema, Psoriasis Psychiatric Medical History: Reports: Depression Denies: Dementia Hematology: Reports: Anemia Denies: Hemophilia, Sickle Cell Disease, Bleeding Tendencies Infectious Medical History: Denies: HIV Past Surgical History Past Surgical History: Reports: Cardiac Catheterization, Cholecystectomy, Coronary Artery Bypass Graft - X4, Herniorrhaphy, Pacemaker, Tonsillectomy, Tubal Ligation, Valve Replacement - Bioprosthetic valve replacement surgery, Vascular Surgery - Left antecubital tunnel/graft for dialysis Denies: Appendectomy, Section, Colostomy, Gastric Bypass Surgery, Hysterectomy, Mastectomy Social History Information Source: Patient Smoking Status: Never Smoker Last Time Smoked: 24 years ago Frequency of Alcohol Use: None Hx Recreational Drug Use: No Drugs: None Hx Prescription Drug Abuse: Yes - xanax - Advance Directive Resuscitation Status: Full Code Family History Family History: CAD, DM, Hypertension, Malignancy Parental Family History Reviewed: Yes Children Family History Reviewed: Yes Sibling(s) Family History Reviewed.: Yes Medication/Allergy Home Medications: Alprazolam [Xanax 0.5 mg Tablet] 0.5 mg PO Q8HP PRN 12/28/18 Amlodipine Besylate [Norvasc 5 mg Tablet] 5 mg PO QPM 12/28/18 Ascorbic Acid [C-1000] 1,000 mg PO DAILY 12/28/18 Aspirin [Ecotrin 81 mg EC Tablet] 81 mg PO QAM 12/28/18 Calcium Acetate [Phoslo 667 mg Capsule] 1,334 mg PO MEALS 12/28/18 Carvedilol [Coreg 12.5 mg Tablet] 12.5 mg PO Q12 12/28/18 Fluoxetine HCl [Prozac] 10 mg PO QPM 12/28/18 Fluticasone Propionate [Flonase Nasal [place] 50 Mcg/[place] 16 gm] 2 spray NASL DAILY 12/28/18 Hydralazine HCl [Apresoline 25 mg Tablet] 25 mg PO Q12 12/28/18 Isosorbide Mononitrate [Imdur 30 mg Tablet.er] 30 mg PO DAILY 12/28/18 Levothyroxine Sodium [Synthroid 0.025 mg Tablet] 0.025 mg PO Q6AM 12/28/18 Lisinopril [Prinivil 10 mg Tablet] 10 mg PO DAILY 12/28/18 Tramadol HCl/Acetaminophen [Tramadol-Acetaminophn 37.5-325] 1 tab PO Q6HP PRN 12/28/18 Allergies/Adverse Reactions: metoclopramide HCl [From Reglan] Adverse Reaction (Unknown, Verified 06/23/16 09:40) leg twitching Review of Systems ROS unobtainable: Due to mental status Physical Exam Vital Signs: Temp Pulse Resp BP Pulse Ox 98.4 F 52 L 24 H 166/49 H 96 12/29/18 03:53 12/29/18 03:53 12/29/18 03:53 12/29/18 03:53 12/29/18 04:05 Intake & Output 12/27/18 12/28/18 12/29/18 11:59 11:59 11:59 Output Total 3500 Balance -3500 Weight 49.5 kg General appearance: PRESENT: cooperative, mild distress, well-developed, other - Blind. ABSENT: hard of hearing, severe distress, well-nourished Head exam: PRESENT: atraumatic, normocephalic Eye exam: PRESENT: conjunctiva pink, EOMI, PERRLA. ABSENT: scleral icterus Ear exam: PRESENT: normal external ear exam Mouth exam: PRESENT: dry mucosa, tongue midline Neck exam: ABSENT: carotid bruit, JVD, lymphadenopathy, thyromegaly Respiratory exam: PRESENT: clear to auscultation drake. ABSENT: rales, rhonchi, wheezes Cardiovascular exam: PRESENT: RRR. ABSENT: diastolic murmur, rubs, systolic murmur Pulses: PRESENT: normal dorsalis pedis pul Vascular exam: PRESENT: normal capillary refill GI/Abdominal exam: PRESENT: diminished bowel sounds, distended, hypoactive bowel sounds, soft, tenderness. ABSENT: guarding Rectal exam: PRESENT: deferred Extremities exam: PRESENT: full ROM. ABSENT: calf tenderness, clubbing, pedal edema Neurological exam: PRESENT: alert, awake, oriented to person, oriented to place, oriented to time, oriented to situation, CN II-XII grossly intact. ABSENT: motor sensory deficit Psychiatric exam: PRESENT: appropriate affect, normal mood. ABSENT: homicidal ideation, suicidal ideation Skin exam: PRESENT: dry, intact, warm. ABSENT: cyanosis, rash Results Laboratory Results: 12/28/18 13:00 12/28/18 15:15 12/28/18 12/28/18 12/28/18 13:00 13:00 15:15 WBC 3.8 L RBC 4.17 Hgb 13.8 Hct 42.4 MCV 102 H MCH 33.1 MCHC 32.5 RDW 19.5 H Plt Count 163 Seg Neutrophils % Not Reportable Retic Count (auto) Sodium Cancelled Potassium Cancelled Chloride Cancelled Carbon Dioxide Cancelled Anion Gap Cancelled BUN Cancelled Creatinine Cancelled Est GFR ( Amer) Cancelled Est GFR (Non-Af Amer) Cancelled Glucose Cancelled Calcium Cancelled Iron TIBC % Saturation Ferritin Ammonia 17.0 Vitamin B12 Folate TSH 12/28/18 12/28/18 12/28/18 15:15 15:15 15:15 WBC RBC Hgb Hct MCV MCH MCHC RDW Plt Count Seg Neutrophils % Retic Count (auto) 0.80 Sodium 135.1 L Potassium 6.0 H* Chloride 100 Carbon Dioxide 19 L Anion Gap 16 BUN 75 H Creatinine 8.09 H Est GFR ( Amer) 6 L Est GFR (Non-Af Amer) Glucose 95 Calcium 9.4 Iron TIBC % Saturation Ferritin Ammonia Vitamin B12 Folate TSH 1.39 12/28/18 15:15 WBC RBC Hgb Hct MCV MCH MCHC RDW Plt Count Seg Neutrophils % Retic Count (auto) Sodium Potassium Chloride Carbon Dioxide Anion Gap BUN Creatinine Est GFR ( Amer) Est GFR (Non-Af Amer) Glucose Calcium Iron 45.4 TIBC 179 L % Saturation 25 Ferritin 672.00 H Ammonia Vitamin B12 473.0 Folate > 20.00 TSH 12/28/18 15:15 Troponin I 0.053 Impressions: Abdomen X-Ray 12/28/18 00:00 IMPRESSION: Nonobstructive bowel gas pattern. However, there is a large colonic stool load. copyright 2010 [employer]- All Rights Reserved Head CT 12/28/18 18:44 IMPRESSION: MILD CHRONIC CHANGES OF ATROPHY AND MICROVASCULAR ISCHEMIA. NO ACUTE PROCESS. EVIDENCE OF ACUTE STROKE: NO. Assessment and Plan - Diagnosis (1) Hypoglycemia Is this a current diagnosis for this admission?: Yes Plan: Secondary to poor p.o. intake, Accu-Cheks every hour with D5 NS and hypoglycemic protocol (2) Encephalopathy acute Is this a current diagnosis for this admission?: Yes Plan: Secondary to #1, resolved (3) Fecal impaction Is this a current diagnosis for this admission?: Yes Plan: Patient has been complaining 4 months of diarrhea only, abdominal series reveals fecal impaction, lactulose enemas initiated. (4) Hyperkalemia Is this a current diagnosis for this admission?: Yes Plan: Without peak T waves, follow-up chemistry following bowel movements. (5) ESRD (end stage renal disease) on dialysis Is this a current diagnosis for this admission?: Yes Plan: Hemodialysis schedule per nephrology. No current risk of volume overload. Follow-up chemistry - Time Time Spent with patient: 35 or more minutes - Inpatient Certification Medical Necessity: Need Close Monitoring Due to Risk of Patient Decompensation
[2018-12-29 05:52] LABS: HEMATOCRIT 40.8 % (36.0-47.0); HEMOGLOBIN 13.4 g/dL (12.0-15.5); MEAN CORPUSCULAR HEMOGLOBIN 33.1 pg (27.0-33.4); MEAN CORPUSCULAR HGB CONC 32.8 g/dL (32.0-36.0); MEAN CORPUSCULAR VOLUME 101 fl (80-97); PLATELET COUNT 144 10^3/uL (150-450); RED BLOOD COUNT 4.03 10^6/uL (3.72-5.28); RED CELL DISTRIBUTION WIDTH 17.7 % (11.5-14.0); WHITE BLOOD COUNT 6.8 10^3/uL (4.0-10.5)
[2018-12-29] MEDS: HEPARIN SOD (PORCINE) 5,000 UNIT/ML 1 ML VIAL SUBCUT SCH ×3 (06:05→22:13)
[2018-12-29 06:32] LABS: ABSOLUTE LYMPHOCYTES# (MANUAL) 0.1 10^3/uL (0.5-4.7); ABSOLUTE MONOCYTES # (MANUAL) 0.2 10^3/uL (0.1-1.4); BASOPHILS % (MANUAL) 0 % (0-2); EOSINOPHILS % (MANUAL) 0 % (0-6); LYMPHOCYTES % (MANUAL) 1 % (13-45); MONOCYTES % (MANUAL) 3 % (3-13); SEGMENTED NEUTROPHILS % (MAN) 95 % (42-78); TOTAL CELLS COUNTED 100
[2018-12-29 06:33] LABS: ANISOCYTOSIS 1+; OVALOCYTES SLIGHT; PLATELET COMMENT ADEQUATE; TARGET CELLS SLIGHT
[2018-12-29 08:15] LABS: ANION GAP 12 (5-19); CALCIUM 9.4 mg/dL (8.4-10.2); CARBON DIOXIDE 26 mmol/L (22-30); CHLORIDE 99 mmol/L (98-107); GLUCOSE 118 mg/dL (75-110)
[2018-12-29 08:26] LABS: BLOOD UREA NITROGEN 34 mg/dL (7-20); POTASSIUM 4.8 mmol/L (3.6-5.0)
--- NOTE | 2018-12-29 09:16 | EKG REPORT ---
SEVERITY:- ABNORMAL ECG - SINUS RHYTHM FIRST DEGREE AV BLOCK ANTERIOR INFARCT, OLD : Confirmed by: David Jordan 29-Dec-2018 09:15:33
[2018-12-29] MEDS: LACTULOSE SYRUP 20 GM/30 ML UDCUP PR SCH ×3 (12:18→22:21)
[2018-12-29] MEDS ORDERED: ALPRAZOLAM 0.5 MG TABLET PO PRN (12:37)
[2018-12-29] MEDS: CARVEDILOL 12.5 MG TABLET PO SCH ×3 (12:51→22:13)
[2018-12-29] MEDS ORDERED: NORMAL SALINE 1000 ML 1,000 ML IV PRN (15:17)
--- NOTE | 2018-12-29 15:22 | PDOC PROGRESS REPORT ---
Subjective Progress Note for:: 12/29/18 Subjective:: The patient is a 78-year-old female with a past medical history of blindness, end-stage renal disease on dialysis, hypertension, CHF, and chronic diarrhea who was admitted 12/28/2018 for altered mental status. She was seen on afternoon rounds. She was found resting in bed comfortably on room air. She is awake and oriented to self, place, but not time or situation. She is conversational and socially appropriate. She cannot recall the events leading to her admission through the emergency department last night. She denies all questions or concerns other than requesting to be discharged home today. She denies headache, dizziness, fever, chills, chest pain, palpitations, orthopnea, cough, abdominal pain, nausea vomiting and diarrhea. She has no questions or concerns; of note the patient continues to be disoriented and no family members are present. ROS is limited secondary to mental status. No concerns per nursing. Reason For Visit: HYPOGLYCEMIA ESRD C HD Physical Exam Vital Signs: Temp Pulse Resp BP Pulse Ox 98.1 F 73 16 180/43 H 82 L 12/29/18 07:50 12/29/18 11:20 12/29/18 08:00 12/29/18 11:20 12/29/18 11:20 Intake & Output 12/28/18 12/29/18 12/30/18 06:59 06:59 06:59 Output Total 3500 Balance -3500 Weight 47.1 kg General appearance: PRESENT: no acute distress, cooperative, thin, well- developed, well-nourished Head exam: PRESENT: atraumatic, normocephalic Eye exam: PRESENT: conjunctiva pink, PERRLA, other - blind. ABSENT: scleral icterus Ear exam: PRESENT: normal external ear exam Mouth exam: PRESENT: dry mucosa, moist, tongue midline Teeth exam: PRESENT: poor dentation Neck exam: ABSENT: carotid bruit, JVD, lymphadenopathy, thyromegaly Respiratory exam: PRESENT: clear to auscultation drake, symmetrical. ABSENT: rales, rhonchi, wheezes Cardiovascular exam: PRESENT: RRR, +S1, +S2. ABSENT: diastolic murmur, rubs, systolic murmur Pulses: PRESENT: normal dorsalis pedis pul Vascular exam: PRESENT: normal capillary refill GI/Abdominal exam: PRESENT: diminished bowel sounds, soft. ABSENT: distended, guarding, mass, organolmegaly, rebound, tenderness Rectal exam: PRESENT: deferred Extremities exam: PRESENT: full ROM. ABSENT: calf tenderness, clubbing, pedal edema Neurological exam: PRESENT: alert, awake, oriented to person, oriented to place, CN II-XII grossly intact, other - Intermittently confused, socially appropriate and conversational. Unclear baseline mental status.. ABSENT: oriented to time, oriented to situation, motor sensory deficit Psychiatric exam: PRESENT: appropriate affect, normal mood. ABSENT: homicidal ideation, suicidal ideation Skin exam: PRESENT: dry, intact, warm. ABSENT: cyanosis, rash Results Laboratory Results: 12/29/18 05:03 12/29/18 05:03 12/28/18 12/28/18 12/28/18 15:15 15:15 15:15 WBC RBC Hgb Hct MCV MCH MCHC RDW Plt Count Seg Neutrophils % Retic Count (auto) Sodium 135.1 L Potassium 6.0 H* Chloride 100 Carbon Dioxide 19 L Anion Gap 16 BUN 75 H Creatinine 8.09 H Est GFR ( Amer) 6 L Glucose 95 Calcium 9.4 Iron TIBC % Saturation Ferritin Ammonia 17.0 Vitamin B12 Folate TSH 1.39 12/28/18 12/28/18 12/29/18 15:15 15:15 05:03 WBC 6.8 RBC 4.03 Hgb 13.4 Hct 40.8 MCV 101 H MCH 33.1 MCHC 32.8 RDW 17.7 H Plt Count 144 L Seg Neutrophils % Not Reportable Retic Count (auto) 0.80 Sodium Potassium Chloride Carbon Dioxide Anion Gap BUN Creatinine Est GFR ( Amer) Glucose Calcium Iron 45.4 TIBC 179 L % Saturation 25 Ferritin 672.00 H Ammonia Vitamin B12 473.0 Folate > 20.00 TSH 12/29/18 05:03 WBC RBC Hgb Hct MCV MCH MCHC RDW Plt Count Seg Neutrophils % Retic Count (auto) Sodium 137.0 Potassium 4.8 D Chloride 99 Carbon Dioxide 26 Anion Gap 12 BUN 34 H D Creatinine 4.85 H Est GFR ( Amer) 11 L Glucose 118 H Calcium 9.4 Iron TIBC % Saturation Ferritin Ammonia Vitamin B12 Folate TSH 12/28/18 15:15 Troponin I 0.053 Impressions: Abdomen X-Ray 12/28/18 00:00 IMPRESSION: Nonobstructive bowel gas pattern. However, there is a large colonic stool load. copyright 2011 [employer]- All Rights Reserved Head CT 12/28/18 18:44 IMPRESSION: MILD CHRONIC CHANGES OF ATROPHY AND MICROVASCULAR ISCHEMIA. NO ACUTE PROCESS. EVIDENCE OF ACUTE STROKE: NO. Assessment and Plan - Diagnosis (1) Hypoglycemia Is this a current diagnosis for this admission?: Yes Plan: Secondary to poor p.o. intake Initially treated with D5NS; Now resolved. we will continue to monitor Accu-Cheks with hypoglycemia protocol. (2) Encephalopathy acute Is this a current diagnosis for this admission?: Yes Plan: Improved; likely multifactorial secondary to hypoglycemia, dehydration, and polypharmacy. Unclear baseline mental status. Sedating medications were held; family members insistent that the patient's home dose Xanax to be resumed today she is now awake and oriented to self, place, and showing signs of agitation. Continue to monitor blood sugars closely. Prevent hypoglycemia. Continue gentle IV fluids for hydration. Correction of fecal impaction as outlined below. Supportive care, fall precautions. (3) Fecal impaction Is this a current diagnosis for this admission?: Yes Plan: Patient has been complaining 4 months of diarrhea only, abdominal series reveals fecal impaction Continue lactulose enemas as ordered by previous provider. Twice a day Colace. (4) Hyperkalemia Is this a current diagnosis for this admission?: Yes Plan: Resolved. Without peak T waves We will continue to monitor on cardiac telemetry. Daily chemistries. (5) ESRD (end stage renal disease) on dialysis Is this a current diagnosis for this admission?: Yes Plan: Hemodialysis schedule per nephrology. - Time Time Spent with patient: 15-24 minutes Medications reviewed and adjusted accordingly: Yes Anticipated discharge: Home with Homehealth Within: within 48 hours
[2018-12-29] MEDS: AMLODIPINE BESYLATE 5 MG TABLET PO SCH (17:37)
[2018-12-29] MEDS: CALCIUM ACETATE 667 MG CAPSULE PO SCH (17:38)
[2018-12-29] MEDS: DOCUSATE SODIUM 100 MG/10 ML UDC PO SCH (17:43)
[2018-12-29] MEDS: HYDRALAZINE HCL INJ/PF 20 MG/1 ML SDV IV PRN (20:56)
[2018-12-29 21:26] LABS: ANION GAP 9 (5-19); BLOOD UREA NITROGEN 44 mg/dL (7-20); CALCIUM 9.4 mg/dL (8.4-10.2); CARBON DIOXIDE 27 mmol/L (22-30); CHLORIDE 101 mmol/L (98-107); GLUCOSE 110 mg/dL (75-110); POTASSIUM 4.9 mmol/L (3.6-5.0)
[2018-12-29] MEDS: HYDRALAZINE HCL 25 MG TABLET PO SCH (22:13)
[2018-12-30] MEDS: HEPARIN SOD (PORCINE) 5,000 UNIT/ML 1 ML VIAL SUBCUT SCH ×3 (05:11→22:14)
[2018-12-30] MEDS: LEVOTHYROXINE SODIUM 0.025 MG TABLET PO SCH (05:13)
[2018-12-30 05:37] LABS: ANION GAP 11 (5-19); BLOOD UREA NITROGEN 47 mg/dL (7-20); CARBON DIOXIDE 25 mmol/L (22-30); CHLORIDE 103 mmol/L (98-107); POTASSIUM 4.8 mmol/L (3.6-5.0)
[2018-12-30 05:42] LABS: GLUCOSE 58 mg/dL (75-110)
[2018-12-30] MEDS: ASPIRIN 81 MG TABLET, ENT COATED PO SCH (08:15)
[2018-12-30] MEDS: CALCIUM ACETATE 667 MG CAPSULE PO SCH ×3 (08:15→17:33)
[2018-12-30] MEDS ORDERED: (PENDING PHARMACY ID) (Ascorbic Acid [C-1000] 1,000 MG) PO SCH (10:00)
[2018-12-30] MEDS: CARVEDILOL 12.5 MG TABLET PO SCH ×4 (12:02→22:13)
[2018-12-30] MEDS: ISOSORBIDE MONONITRATE 30 MG TAB.ER.24H PO SCH (12:03)
[2018-12-30] MEDS: ASCORBIC ACID 500 MG TABLET PO SCH (12:03)
[2018-12-30] MEDS: HYDRALAZINE HCL 25 MG TABLET PO SCH ×2 (12:03→22:13)
[2018-12-30] MEDS: LISINOPRIL 10 MG TABLET PO SCH (12:03)
[2018-12-30] MEDS: DOCUSATE SODIUM 100 MG/10 ML UDC PO SCH ×2 (12:06→17:33)
--- NOTE | 2018-12-30 12:20 | PDOC PROGRESS REPORT ---
Subjective Progress Note for:: 12/30/18 Reason For Visit: Patient was seen today while undergoing dialysis. She is looking a whole lot better and feels much better than when I saw her the last time. She is awake alert and oriented. She denies any history of chest pain or shortness of breath. Labs and medications were reviewed with her. Dialysis orders were reviewed with the treating dialysis nurse. Physical Exam Vital Signs: Temp Pulse Resp BP Pulse Ox 98.2 F 65 20 152/39 H 96 12/30/18 04:40 12/30/18 07:00 12/30/18 04:40 12/30/18 04:40 12/30/18 04:40 Intake & Output 12/29/18 12/30/18 12/31/18 06:59 06:59 06:59 Intake Total 1343 Output Total 3500 0 Balance -3500 1343 Weight 47.1 kg 46.1 kg General appearance: PRESENT: no acute distress Respiratory exam: PRESENT: clear to auscultation drake. ABSENT: crackles Cardiovascular exam: PRESENT: +S1, +S2, systolic murmur GI/Abdominal exam: PRESENT: normal bowel sounds, soft. ABSENT: organomegaly, tenderness Extremities exam: ABSENT: pedal edema Neurological exam: PRESENT: alert, awake, oriented to person, oriented to place, oriented to time Psychiatric exam: PRESENT: appropriate affect Results Laboratory Results: 12/29/18 05:03 12/30/18 04:15 12/29/18 12/30/18 20:22 04:15 Sodium 137.4 138.8 Potassium 4.9 4.8 Chloride 101 103 Carbon Dioxide 27 25 Anion Gap 9 11 BUN 44 H 47 H Creatinine 5.83 H 6.25 H Est GFR ( Amer) 9 L 8 L Glucose 110 58 L Calcium 9.4 9.0 12/28/18 15:15 Troponin I 0.053 Impressions: Abdomen X-Ray 12/28/18 00:00 IMPRESSION: Nonobstructive bowel gas pattern. However, there is a large colonic stool load. copyright 2010 [employer]- All Rights Reserved Head CT 12/28/18 18:44 IMPRESSION: MILD CHRONIC CHANGES OF ATROPHY AND MICROVASCULAR ISCHEMIA. NO ACUTE PROCESS. EVIDENCE OF ACUTE STROKE: NO. Assessment & Plan - Diagnosis (1) Altered mental status Qualifiers: Altered mental status type: unspecified Qualified Code(s): R41.82 - Altered mental status, unspecified Plan: Resolved. Probably multifactorial including hypoglycemia and polypharmacy and dehydration. (2) ESRD (end stage renal disease) on dialysis Is this a current diagnosis for this admission?: Yes Plan: Patient currently undergoing dialysis without any issues. Vital signs are stable. Dialysis is being supervised to ensure safe and smooth procedure. Plan to remove between 1 and 2 L as tolerated. Dialysis orders were reviewed with the treating dialysis nurse. (3) Hyperkalemia Is this a current diagnosis for this admission?: Yes Plan: Resolved. (4) Hypoglycemia Is this a current diagnosis for this admission?: Yes Plan: Monitor. As per hospitalist. Discussed with Crystal/hospitalist about differential diagnosis. (5) Diabetes mellitus type 2 in nonobese Plan: Advised about good control without hypoglycemia. (6) Hypertension Qualifiers: Hypertension type: essential hypertension Qualified Code(s): I10 - Essential (primary) hypertension Plan: Controlled.
--- NOTE | 2018-12-30 14:33 | RADIOLOGY REPORT (SQ) ---
EXAM DESCRIPTION: CT ABD/PELVIS NO ORAL OR IV COMPLETED DATE/TIME: 12/30/2018 1:54 pm REASON FOR STUDY: persistent hypoglycemia; ?liver dz, insulinolma COMPARISON: CT abdomen pelvis, 10/01/2018 TECHNIQUE: CT scan of the abdomen and pelvis performed without intravenous or oral contrast. Images reviewed with lung, soft tissue, and bone windows. Reconstructed coronal and sagittal MPR images revi ewed. All images stored on PACS. All CT scanners at this facility use dose modulation, iterative reconstruction, and/or weight based d osing when appropriate to reduce radiation dose to as low as reasonably achievable (ALARA). [facility]: Dose Right [facility]: CareDose [facility]: Dose Right [facility]: Teradose 4D [facility]: [employer] RADIATION DOSE: CT Rad equipment meets quality standard of care and radiation dose reduction techniq ues were employed. CTDIvol: 2.4 mGy. DLP: 111 mGy-cm.mGy. LIMITATIONS: None. FINDINGS: LOWER CHEST: Small, left greater than right pleural effusions. Cardiomegaly and coronary artery calcifications status post median sternotomy. NON-CONTRASTED LIVER, SPLEEN, ADRENALS: Evaluation limited by lack of IV contrast. No identified sign ificant masses. PANCREAS: No evident masses. No peripancreatic inflammatory changes. GALLBLADDER: Surgically absent. RIGHT KIDNEY AND URETER: Atrophic. No suspicious masses. Assessment limited by lack of IV contrast. No significant calcifications. No hydronephrosis or hydroureter. LEFT KIDNEY AND URETER: Atrophic. No suspicious masses. Assessment limited by lack of IV contrast. No significant calcifications. No hydronephrosis or hydroureter. AORTA AND RETROPERITONEUM: Pipe like calcific atherosclerosis and vascular calcinosis. No aneurysm. No retroperitoneal masses or adenopathy. BOWEL AND PERITONEAL CAVITY: No obvious masses or inflammatory changes. No free fluid. Generally lar ge burden of stool in the colon. APPENDIX: Not clearly visualized. PELVIS, BLADDER, AND ABDOMINAL WALL:No abnormal masses. No free fluid. Bladder normal. BONES: Renal osteodystrophy. OTHER: No other significant finding. IMPRESSION: 1. No acute noncontrast CT findings of the abdomen or pelvis. No evidence of insulinom a, however noncontrast CT has virtually no diagnostic value for pancreatic endocrine tumors. Conside r multiphasic contrast-enhanced CT or MRI to further evaluate if insulinoma is suspected. 2. Large burden of stool in the colon. 3. Atherosclerosis, vascular calcinosis, renal osteodystrophy, and renal atrophy. COMMENT: Quality ID # [id number]: Final reports with documentation of one or more dose reduction techniques (e.g., Automated exposure control, adjustment of the mA and/or kV according to patient size, use of iterative reconstruction technique) TECHNICAL DOCUMENTATION: JOB ID: [id number] [employer]- All Rights Reserved Reading location - IP/workstation name: [email or web address]
[2018-12-30] MEDS: FLUTICASONE NASAL SPRAY 50 MCG/SPRY 120 SPRAY/16 GM NASL SCH (14:44)
--- NOTE | 2018-12-30 16:51 | PDOC PROGRESS REPORT ---
Subjective Progress Note for:: 12/30/18 Subjective:: The patient is a 78-year-old female with a past medical history of blindness, end-stage renal disease on dialysis, hypertension, CHF, and chronic diarrhea who was admitted 12/28/2018 for altered mental status. She was seen on morning rounds while in dialysis. She was found resting in bed comfortably on room air. She is A&Ox4 today. She reports that she is feeling much better today. She does confirm that she has a small appetite but tells me that this is improved; only bites documented and I&O's. She tells me that she wants to go home today. She reports that she lives at home independently and has no interest in going to rehab at this time. She denies headache, dizziness, fever, chills, chest pain, palpitations, orthopnea, cough, abdominal pain, nausea vomiting and diarrhea. She has no questions or concerns. No concerns per nursing. Reason For Visit: HYPOGLYCEMIA ESRD C HD Physical Exam Vital Signs: Temp Pulse Resp BP Pulse Ox 98.2 F 69 16 152/39 H 100 12/30/18 04:40 12/30/18 16:03 12/30/18 16:03 12/30/18 04:40 12/30/18 16:03 Intake & Output 12/29/18 12/30/18 12/31/18 06:59 06:59 06:59 Intake Total 1343 Output Total 3500 0 Balance -3500 1343 Weight 47.1 kg 46.1 kg General appearance: PRESENT: no acute distress, cooperative, thin, well- developed, well-nourished Head exam: PRESENT: atraumatic, normocephalic Eye exam: PRESENT: conjunctiva pink, PERRLA, other - blind. ABSENT: scleral icterus Ear exam: PRESENT: normal external ear exam Mouth exam: PRESENT: moist, tongue midline Teeth exam: PRESENT: poor dentation Neck exam: ABSENT: carotid bruit, JVD, lymphadenopathy, thyromegaly Respiratory exam: PRESENT: clear to auscultation drake, symmetrical, unlabored. ABSENT: rales, rhonchi, wheezes Cardiovascular exam: PRESENT: RRR, +S1, +S2. ABSENT: diastolic murmur, rubs, sy stolic murmur Pulses: PRESENT: normal dorsalis pedis pul Vascular exam: PRESENT: normal capillary refill GI/Abdominal exam: PRESENT: normal bowel sounds, soft. ABSENT: distended, guarding, mass, organolmegaly, rebound, tenderness Rectal exam: PRESENT: deferred Extremities exam: PRESENT: full ROM. ABSENT: calf tenderness, clubbing, pedal edema Neurological exam: PRESENT: alert, awake, oriented to person, oriented to place, oriented to time, oriented to situation, CN II-XII grossly intact. ABSENT: motor sensory deficit Psychiatric exam: PRESENT: appropriate affect, normal mood. ABSENT: homicidal ideation, suicidal ideation Skin exam: PRESENT: dry, intact, warm. ABSENT: cyanosis, rash Results Laboratory Results: 12/29/18 05:03 12/30/18 04:15 12/29/18 12/30/18 20:22 04:15 Sodium 137.4 138.8 Potassium 4.9 4.8 Chloride 101 103 Carbon Dioxide 27 25 Anion Gap 9 11 BUN 44 H 47 H Creatinine 5.83 H 6.25 H Est GFR ( Amer) 9 L 8 L Glucose 110 58 L Calcium 9.4 9.0 12/28/18 15:15 Troponin I 0.053 Impressions: Abdomen X-Ray 12/28/18 00:00 IMPRESSION: Nonobstructive bowel gas pattern. However, there is a large colonic stool load. copyright 2011 [employer]- All Rights Reserved Head CT 12/28/18 18:44 IMPRESSION: MILD CHRONIC CHANGES OF ATROPHY AND MICROVASCULAR ISCHEMIA. NO AC [place] PROCESS. EVIDENCE OF ACUTE STROKE: NO. Abdomen/Pelvis CT 12/30/18 00:00 IMPRESSION: 1. No acute noncontrast CT findings of the abdomen or pelvis. No evidence of insulinoma, however noncontrast CT has virtually no diagnostic value for pancreatic endocrine tumors. Consider multiphasic contrast-enhanced CT or MRI to further evaluate if insulinoma is suspected. 2. Large burden of stool in the colon. 3. Atherosclerosis, vascular calcinosis, renal osteodystrophy, and renal atrophy. Assessment and Plan - Diagnosis (1) Hypoglycemia Is this a current diagnosis for this admission?: Yes Plan: Overall improved, however, patient did have Hypoglycemia this morning; blood sugar 55. Secondary to poor p.o. intake Initially treated with D5NS; discontinued early yesterday. We will continue to monitor Accu-Cheks with hypoglycemia protocol. Discussed with Dr. Fuentes; recommended getting CT or ultrasound of the abdomen to evaluate for occult liver disease; CT was benign other than large stool volume. Of note, that was a noncontrasted CT due to renal failure which is not helpful in evaluating for insulinoma's. (2) Encephalopathy acute Is this a current diagnosis for this admission?: Yes Plan: Resolved; likely multifactorial secondary to hypoglycemia, dehydration, and polypharmacy. She is now A&O x4. Continue to monitor blood sugars closely. Prevent hypoglycemia. Correction of fecal impaction as outlined below. Supportive care, fall precautions. (3) Fecal impaction Is this a current diagnosis for this admission?: Yes Plan: Patient has been complaining 4 months of diarrhea only, abdominal series reveals fecal impaction. CT abdomen pelvis today again reveals a large stool volume She has not responded to lactulose enemas. Continue twice daily Colace. Soapsuds enema. (4) Hyperkalemia Is this a current diagnosis for this admission?: Yes Plan: Resolved. Without peak T waves We will continue to monitor on cardiac telemetry. Daily chemistries. (5) ESRD (end stage renal disease) on dialysis Is this a current diagnosis for this admission?: Yes Plan: Hemodialysis schedule per nephrology. - Time Time Spent with patient: 25-34 minutes Medications reviewed and adjusted accordingly: Yes Anticipated discharge: Home with Homehealth Within: within 24 hours - If hypoglycemia has resolved x24 hours
[2018-12-30] MEDS: AMLODIPINE BESYLATE 5 MG TABLET PO SCH (17:33)
[2018-12-30 20:52] LABS: ANION GAP 10 (5-19); CALCIUM 9.1 mg/dL (8.4-10.2); CARBON DIOXIDE 29 mmol/L (22-30); CHLORIDE 96 mmol/L (98-107); GLUCOSE 145 mg/dL (75-110); POTASSIUM 4.1 mmol/L (3.6-5.0)
[2018-12-30 21:12] LABS: BLOOD UREA NITROGEN 25 mg/dL (7-20)
[2018-12-31] MEDS: HYDRALAZINE HCL INJ/PF 20 MG/1 ML SDV IV PRN ×2 (04:34→16:06)
[2018-12-31] MEDS: LEVOTHYROXINE SODIUM 0.025 MG TABLET PO SCH (05:27)
[2018-12-31] MEDS: HEPARIN SOD (PORCINE) 5,000 UNIT/ML 1 ML VIAL SUBCUT SCH ×3 (05:27→23:19)
[2018-12-31] MEDS ORDERED: MAGNESIUM HYDROXIDE SUSP 30 ML UDCUP PO ONE (08:30)
[2018-12-31] MEDS: CALCIUM ACETATE 667 MG CAPSULE PO SCH ×3 (08:46→16:07)
[2018-12-31] MEDS: ASPIRIN 81 MG TABLET, ENT COATED PO SCH (08:47)
[2018-12-31] MEDS: HYDRALAZINE HCL 25 MG TABLET PO SCH ×2 (09:32→23:20)
[2018-12-31] MEDS: DOCUSATE SODIUM 100 MG/10 ML UDC PO SCH (09:32)
[2018-12-31] MEDS: CARVEDILOL 12.5 MG TABLET PO SCH ×2 (09:32→23:20)
[2018-12-31] MEDS: FLUTICASONE NASAL SPRAY 50 MCG/SPRY 120 SPRAY/16 GM NASL SCH (09:32)
[2018-12-31] MEDS: LISINOPRIL 10 MG TABLET PO SCH (09:33)
[2018-12-31] MEDS: ISOSORBIDE MONONITRATE 30 MG TAB.ER.24H PO SCH (09:33)
[2018-12-31] MEDS: ASCORBIC ACID 500 MG TABLET PO SCH (09:33)
[2018-12-31] MEDS ORDERED: MAGNESIUM CITRATE 296 ML BOTTLE PO ONE (15:45)
[2018-12-31] MEDS ORDERED: PROMETHAZINE HCL INJ 25 MG/1 ML VIAL IV PRN (16:34)
[2018-12-31] MEDS ORDERED: ONDANSETRON HCL INJ/PF 4 MG/2 ML SDV IV PRN (16:34)
--- NOTE | 2018-12-31 16:53 | PDOC PROGRESS REPORT ---
Subjective Progress Note for:: 12/31/18 Subjective:: The patient is a 78-year-old female with a past medical history of blindness, end-stage renal disease on dialysis, hypertension, CHF, and chronic diarrhea who was admitted 12/28/2018 for altered mental status. She was seen on morning rounds. She was found resting in bed comfortably on room air. She is A&Ox4 today. Unfortunately she has nausea and vomiting this morning. Soap suds enema was unsuccessful overnight. She has not had a true bowel movement since prior to her admission. She denies headache, dizziness, fever, chills, chest pain, palpitations, orthop doris, cough, abdominal pain. She has no questions or concerns. No concerns per nursing. Reason For Visit: HYPOGLYCEMIA ESRD C HD Physical Exam Vital Signs: Temp Pulse Resp BP Pulse Ox 97.9 F 75 18 209/68 H 91 L 12/31/18 15:27 12/31/18 15:27 12/31/18 15:27 12/31/18 15:27 12/31/18 15:27 Intake & Output 12/30/18 12/31/18 01/01/19 06:59 06:59 06:59 Intake Total 1343 1580 100 Output Total 0 3200 Balance 1343 -1620 100 Weight 46.1 kg 46.2 kg General appearance: PRESENT: no acute distress, cooperative, thin, well- developed, well-nourished Head exam: PRESENT: atraumatic, normocephalic Eye exam: PRESENT: conjunctiva pink, other - Blind. ABSENT: scleral icterus Ear exam: PRESENT: normal external ear exam Mouth exam: PRESENT: moist, tongue midline Teeth exam: PRESENT: poor dentation Neck exam: ABSENT: carotid bruit, JVD, lymphadenopathy, thyromegaly Respiratory exam: PRESENT: clear to auscultation drake, symmetrical, unlabored. ABSENT: rales, rhonchi, wheezes Cardiovascular exam: PRESENT: RRR, +S1, +S2. ABSENT: diastolic murmur, rubs, systolic murmur Pulses: PRESENT: normal dorsalis pedis pul Vascular exam: PRESENT: normal capillary refill GI/Abdominal exam: PRESENT: normal bowel sounds, soft. ABSENT: distended, guarding, mass, organolmegaly, rebound, tenderness Rectal exam: PRESENT: deferred Extremities exam: PRESENT: full ROM. ABSENT: calf tenderness, clubbing, pedal edema Neurological exam: PRESENT: alert, awake, oriented to person, oriented to place, oriented to time, oriented to situation, CN II-XII grossly intact. ABSENT: motor sensory deficit Psychiatric exam: PRESENT: appropriate affect, normal mood. ABSENT: homicidal ideation, suicidal ideation Skin exam: PRESENT: dry, intact, warm. ABSENT: cyanosis, rash Results Laboratory Results: 12/29/18 05:03 12/30/18 20:12 12/30/18 20:12 Sodium 134.5 L Potassium 4.1 Chloride 96 L Carbon Dioxide 29 Anion Gap 10 BUN 25 H D Creatinine 3.97 H Est GFR ( Amer) 13 L Glucose 145 H Calcium 9.1 12/28/18 15:15 Troponin I 0.053 Impressions: Abdomen X-Ray 12/28/18 00:00 IMPRESSION: Nonobstructive bowel gas pattern. However, there is a large colonic stool load. copyright 2010 [employer]- All Rights Reserved Head CT 12/28/18 18:44 IMPRESSION: MILD CHRONIC CHANGES OF ATROPHY AND MICROVASCULAR ISCHEMIA. NO ACUTE PROCESS. EVIDENCE OF ACUTE STROKE: NO. Abdomen/Pelvis CT 12/30/18 00:00 IMPRESSION: 1. No acute noncontrast CT findings of the abdomen or pelvis. No evidence of insulinoma, however noncontrast CT has virtually no diagnostic value for pancreatic endocrine tumors. Consider multiphasic contrast-enhanced CT or MRI to further evaluate if insulinoma is suspected. 2. Large burden of stool in the colon. 3. Atherosclerosis, vascular calcinosis, renal osteodystrophy, and renal atrophy. Assessment and Plan - Diagnosis (1) Hypoglycemia Is this a current diagnosis for this admission?: Yes Plan: Resolved; normal blood glucose x36 hours Secondary to poor p.o. intake Initially treated with D5NS We will continue to monitor Accu-Cheks with hypoglycemia protocol. Discussed with Dr. Fuentes; recommended getting CT or ultrasound of the abdomen to evaluate for occult liver disease; CT was benign other than large stool volume. Of note, that was a noncontrasted CT due to renal failure which is not helpful in evaluating for insulinoma's. (2) Encephalopathy acute Is this a current diagnosis for this admission?: Yes Plan: Resolved; likely multifactorial secondary to hypoglycemia, dehydration, and polypharmacy. She is now A&O x4. Continue to monitor blood sugars closely. Prevent hypoglycemia. Correction of fecal impaction as outlined below. Supportive care, fall precautions. (3) Fecal impaction Is this a current diagnosis for this admission?: Yes Plan: Persistent Patient has been complaining 4 months of diarrhea only, abdominal series reveals fecal impaction. CT abdomen pelvis today again reveals a large stool volume She has not responded to lactulose enemas. Continue twice daily Colace; unfortunately, it appears that she has not received any of these doses. Unresponsive to soapsuds enema overnight; attempted again today without results. Trial of magnesium citrate resulted in nausea/vomiting. Continue Colace twice daily MiraLAX daily P.o. Dulcolax this evening Antiemetics as needed Consider repeat imagining (?CT w/ oral vs 2 view ABD); consider surgical consultation (No GI services available) (4) Hyperkalemia Is this a current diagnosis for this admission?: Yes Plan: Resolved. Without peak T waves We will continue to monitor on cardiac telemetry. Daily chemistries. (5) ESRD (end stage renal disease) on dialysis Is this a current diagnosis for this admission?: Yes Plan: Hemodialysis schedule per nephrology. - Time Time Spent with patient: 15-24 minutes Medications reviewed and adjusted accordingly: Yes Anticipated discharge: Home with Homehealth Within: Other - pending resolution of fecal impaction
[2018-12-31] MEDS ORDERED: BISACODYL 5 MG TABEC PO PRN (18:00)
[2018-12-31] MEDS: FLUOXETINE HCL 20 MG/5 ML UDCUP PO SCH (20:00)
[2018-12-31 20:59] LABS: ANION GAP 10 (5-19); CARBON DIOXIDE 31 mmol/L (22-30); CHLORIDE 95 mmol/L (98-107); GLUCOSE 127 mg/dL (75-110); POTASSIUM 4.4 mmol/L (3.6-5.0)
[2018-12-31] MEDS: AMLODIPINE BESYLATE 5 MG TABLET PO SCH (21:02)
[2018-12-31] MEDS: DOCUSATE SODIUM 100 MG CAPSULE PO SCH (21:02)
[2018-12-31 21:07] LABS: BLOOD UREA NITROGEN 45 mg/dL (7-20)
[2018-12-31] MEDS ORDERED: INSULIN LISPRO 100 UNIT/ML 3 ML VIAL SUBCUT ONE (22:00)
[2019-01-01] MEDS: HEPARIN SOD (PORCINE) 5,000 UNIT/ML 1 ML VIAL SUBCUT SCH ×3 (05:59→21:23)
[2019-01-01] MEDS: LEVOTHYROXINE SODIUM 0.025 MG TABLET PO SCH (05:59)
--- NOTE | 2019-01-01 09:44 | RADIOLOGY REPORT (SQ) ---
EXAM DESCRIPTION: ABDOMEN 2 VIEWS COMPLETED DATE/TIME: 01/01/2019 9:31 am REASON FOR STUDY: N/V, ABD discomfort COMPARISON: None. NUMBER OF VIEWS: Two views. TECHNIQUE: Supine and erect/decubitus radiographic images of the abdomen acquired. LIMITATIONS: None. FINDINGS: FREE AIR: None. No abnormal gas collections. LUNG BASES: Clear. BOWEL GAS PATTERN: Nonobstructive pattern. Marked constipation. CALCIFICATIONS: No suspicious calcifications. SOFT TISSUES: No gross mass or suggestion of organomegaly. HARDWARE: None in the abdomen. BONES: Severe osteopenia. Possible fractures of the superior inferior pubic rami on the left. OTHER: No other significant finding. IMPRESSION: Marked constipation. Possible superior and inferior pubic rami fractures on the left. TECHNICAL DOCUMENTATION: JOB ID: [id number] [employer]- All Rights Reserved Reading location - IP/workstation name: [email or web address]
[2019-01-01] MEDS: POLYETHYLENE GLYCOL 3350 POWDER 17 GM/1 PACKET PO SCH (10:04)
[2019-01-01] MEDS: CALCIUM ACETATE 667 MG CAPSULE PO SCH ×3 (10:05→17:12)
[2019-01-01] MEDS: ASPIRIN 81 MG TABLET, ENT COATED PO SCH (10:05)
[2019-01-01] MEDS: CARVEDILOL 12.5 MG TABLET PO SCH ×2 (10:06→21:22)
[2019-01-01] MEDS: FLUTICASONE NASAL SPRAY 50 MCG/SPRY 120 SPRAY/16 GM NASL SCH (10:06)
[2019-01-01] MEDS: HYDRALAZINE HCL 25 MG TABLET PO SCH ×2 (10:06→21:22)
[2019-01-01] MEDS: ASCORBIC ACID 500 MG TABLET PO SCH (10:06)
[2019-01-01] MEDS: DOCUSATE SODIUM 100 MG CAPSULE PO SCH ×3 (10:06→17:11)
[2019-01-01] MEDS: LISINOPRIL 10 MG TABLET PO SCH (10:06)
[2019-01-01] MEDS: ISOSORBIDE MONONITRATE 30 MG TAB.ER.24H PO SCH (10:06)
--- NOTE | 2019-01-01 13:53 | PDOC PROGRESS REPORT ---
Subjective Progress Note for:: 01/01/19 Subjective:: The patient is a 78-year-old female with a past medical history of blindness, end-stage renal disease on dialysis, hypertension, CHF, and chronic diarrhea who was admitted 12/28/2018 for altered mental status. She was seen on morning rounds. She was found resting in bed comfortably on room air. She is A&Ox4 today. She has not had a true bowel movement since prior to her admission. Unfortunately, despite multiple enemas and oral medications, she has only passed a very minimal amount of "hard round stools" per nursing. Her persistent nausea and vomiting has been a limiting factor regarding oral medications. She denies headache, dizziness, fever, chills, chest pain, palpitations, orthopnea, cough, abdominal pain. Slight nausea without emesis today. She has no questions or concerns. Reviewed plan of care with patient's daughter, Nette, this afternoon. No concerns per nursing. Reason For Visit: HYPOGLYCEMIA ESRD C HD Physical Exam Vital Signs: Temp Pulse Resp BP Pulse Ox 98.0 F 69 16 154/46 H 93 01/01/19 11:12 01/01/19 11:12 01/01/19 11:12 01/01/19 11:12 01/01/19 11:12 Intake & Output 12/31/18 01/01/19 01/02/19 06:59 06:59 06:59 Intake Total 1580 200 Output Total 3200 Balance -1620 200 Weight 46.2 kg 43.5 kg General appearance: PRESENT: no acute distress, cooperative, hard of hearing, thin, well-developed Head exam: PRESENT: atraumatic, normocephalic Eye exam: PRESENT: conjunctiva pink, EOMI, PERRLA, other - blind. ABSENT: scleral icterus Ear exam: PRESENT: normal external ear exam Mouth exam: PRESENT: moist, tongue midline Neck exam: ABSENT: carotid bruit, JVD, lymphadenopathy, thyromegaly Respiratory exam: PRESENT: clear to auscultation drake, symmetrical, unlabored. ABSENT: rales, rhonchi, wheezes Cardiovascular exam: PRESENT: RRR, +S1, +S2. ABSENT: diastolic murmur, rubs, systolic murmur Pulses: PRESENT: normal dorsalis pedis pul Vascular exam: PRESENT: normal capillary refill GI/Abdominal exam: PRESENT: hypoactive bowel sounds, soft. ABSENT: distended, guarding, mass, organolmegaly, rebound, tenderness Rectal exam: PRESENT: deferred Extremities exam: PRESENT: full ROM. ABSENT: calf tenderness, clubbing, pedal edema Neurological exam: PRESENT: alert, awake, oriented to person, oriented to place, oriented to time, oriented to situation, CN II-XII grossly intact. ABSENT: motor sensory deficit Psychiatric exam: PRESENT: appropriate affect, normal mood. ABSENT: homicidal ideation, suicidal ideation Skin exam: PRESENT: dry, intact, warm. ABSENT: cyanosis, rash Results Laboratory Results: 12/29/18 05:03 12/31/18 20:11 12/31/18 20:11 Sodium 136.1 L Potassium 4.4 Chloride 95 L Carbon Dioxide 31 H Anion Gap 10 BUN 45 H D Creatinine 5.46 H Est GFR ( Amer) 9 L Glucose 127 H Calcium 10.0 12/28/18 15:15 Troponin I 0.053 Impressions: Head CT 12/28/18 18:44 IMPRESSION: MILD CHRONIC CHANGES OF ATROPHY AND MICROVASCULAR ISCHEMIA. NO ACUTE PROCESS. EVIDENCE OF ACUTE STROKE: NO. Abdomen/Pelvis CT 12/30/18 00:00 IMPRESSION: 1. No acute noncontrast CT findings of the abdomen or pelvis. No evidence of insulinoma, however noncontrast CT has virtually no diagnostic value for pancreatic endocrine tumors. Consider multiphasic contrast-enhanced CT or MRI to further evaluate if insulinoma is suspected. 2. Large burden of stool in the colon. 3. Atherosclerosis, vascular calcinosis, renal osteodystrophy, and renal atrophy. Abdomen X-Ray 01/01/19 00:00 IMPRESSION: Marked constipation. Possible superior and inferior pubic rami fractures on the left. Assessment and Plan - Diagnosis (1) Hypoglycemia Is this a current diagnosis for this admission?: Yes Plan: Resolved; normal blood glucose >48 hours Secondary to poor p.o. intake Initially treated with D5NS We will continue to monitor Accu-Cheks with hypoglycemia protocol. Discussed with Dr. Fuentes; recommended getting CT or ultrasound of the abdomen to evaluate for occult liver disease; CT was benign other than large stool volume. Of note, that was a noncontrasted CT due to renal failure which is not helpful in evaluating for insulinoma's. (2) Encephalopathy acute Is this a current diagnosis for this admission?: Yes Plan: Resolved; likely multifactorial secondary to hypoglycemia, dehydration, and polypharmacy. She is now A&O x4. Continue to monitor blood sugars closely. Prevent hypoglycemia. Correction of fecal impaction as outlined below. Supportive care, fall precautions. (3) Fecal impaction Is this a current diagnosis for this admission?: Yes Plan: Persistent Patient has been complaining 4 months of diarrhea only, abdominal series reveals fecal impaction. CT abdomen pelvis again reveals a large stool volume 2-view abdomen today redemonstrates large stool volume, though without signs of obstruction She has not responded to lactulose enemas. Unresponsive to soapsuds enema x2. Continue twice daily Colace; unfortunately, it appears that she has not received any of these doses. Trial of magnesium citrate resulted in nausea/vomiting. Continue Colace twice daily MiraLAX daily P.o. Dulcolax this evening Lactulose 10 gm QID (low volume r/t nausea) Antiemetics as needed Consider surgical consultation (No GI services available) (4) Hyperkalemia Is this a current diagnosis for this admission?: Yes Plan: Resolved. Without peak T waves We will continue to monitor on cardiac telemetry. Daily chemistries. (5) ESRD (end stage renal disease) on dialysis Is this a current diagnosis for this admission?: Yes Plan: Hemodialysis schedule per nephrology. - Time Time Spent with patient: 25-34 minutes Medications reviewed and adjusted accordingly: Yes Anticipated discharge: Home with Homehealth Within: within 24 hours
[2019-01-01] MEDS: LACTULOSE SYRUP 20 GM/30 ML UDCUP PO SCH ×3 (15:22→21:22)
[2019-01-01] MEDS: AMLODIPINE BESYLATE 5 MG TABLET PO SCH (17:11)
[2019-01-01] MEDS: FLUOXETINE HCL 20 MG/5 ML UDCUP PO SCH (17:14)
[2019-01-01 19:39] LABS: ANION GAP 11 (5-19); BLOOD UREA NITROGEN 63 mg/dL (7-20); CALCIUM 9.7 mg/dL (8.4-10.2); CARBON DIOXIDE 30 mmol/L (22-30); CHLORIDE 94 mmol/L (98-107); GLUCOSE 103 mg/dL (75-110); POTASSIUM 4.9 mmol/L (3.6-5.0)
[2019-01-02] MEDS: HEPARIN SOD (PORCINE) 5,000 UNIT/ML 1 ML VIAL SUBCUT SCH ×3 (05:26→21:16)
[2019-01-02] MEDS: LEVOTHYROXINE SODIUM 0.025 MG TABLET PO SCH (05:33)
[2019-01-02 06:09] LABS: HEMATOCRIT 42.5 % (36.0-47.0); HEMOGLOBIN 13.7 g/dL (12.0-15.5); MEAN CORPUSCULAR HEMOGLOBIN 32.6 pg (27.0-33.4); MEAN CORPUSCULAR HGB CONC 32.3 g/dL (32.0-36.0); MEAN CORPUSCULAR VOLUME 101 fl (80-97); PLATELET COUNT 141 10^3/uL (150-450); RED BLOOD COUNT 4.21 10^6/uL (3.72-5.28); RED CELL DISTRIBUTION WIDTH 17.1 % (11.5-14.0); WHITE BLOOD COUNT 4.3 10^3/uL (4.0-10.5)
[2019-01-02 06:25] LABS: ANION GAP 14 (5-19); CARBON DIOXIDE 26 mmol/L (22-30); CHLORIDE 95 mmol/L (98-107); POTASSIUM 5.1 mmol/L (3.6-5.0)
[2019-01-02 06:26] LABS: BLOOD UREA NITROGEN 71 mg/dL (7-20); CALCIUM 9.4 mg/dL (8.4-10.2)
[2019-01-02 06:38] LABS: GLUCOSE 51 mg/dL (75-110)
[2019-01-02] MEDS: CALCIUM ACETATE 667 MG CAPSULE PO SCH ×3 (08:14→17:16)
[2019-01-02] MEDS: ASPIRIN 81 MG TABLET, ENT COATED PO SCH (08:14)
[2019-01-02] MEDS: LACTULOSE SYRUP 20 GM/30 ML UDCUP PO SCH ×5 (09:15→21:16)
[2019-01-02] MEDS: FLUTICASONE NASAL SPRAY 50 MCG/SPRY 120 SPRAY/16 GM NASL SCH (09:15)
[2019-01-02] MEDS ORDERED: METOCLOPRAMIDE HCL INJ/PF 10 MG/2 ML SDV IV SCH (12:00)
--- NOTE | 2019-01-02 12:05 | PDOC PROGRESS REPORT ---
Subjective Progress Note for:: 01/02/19 Reason For Visit: Patient seen today on dialysis. She is resting comfortably and in no distress. She denies any history of chest pain or shortness of breath. She has intermittent nausea and vomiting with decreased intake. She has unfortunately got severe constipation which has not been relieved in spite of multiple conservative managements. She is undergoing dialysis without any issues. Dialysis orders were reviewed with the treating dialysis nurse. Labs and medications were reviewed. Physical Exam Vital Signs: Temp Pulse Resp BP Pulse Ox 98.2 F 69 17 156/49 H 93 01/02/19 07:49 01/02/19 07:49 01/02/19 07:49 01/02/19 07:49 01/02/19 07:49 Intake & Output 01/01/19 01/02/19 01/03/19 06:59 06:59 06:59 Intake Total 200 250 Balance 200 250 Weight 43.5 kg 43.1 kg General appearance: PRESENT: no acute distress Respiratory exam: PRESENT: clear to auscultation drake. ABSENT: crackles Cardiovascular exam: PRESENT: +S1, +S2, systolic murmur GI/Abdominal exam: PRESENT: normal bowel sounds, soft. ABSENT: organomegaly, tenderness Extremities exam: ABSENT: pedal edema Neurological exam: PRESENT: alert, awake, oriented to person, oriented to place Psychiatric exam: PRESENT: appropriate affect Results Laboratory Results: 01/02/19 05:03 01/02/19 05:03 01/01/19 01/02/19 01/02/19 19:04 05:03 05:03 WBC 4.3 RBC 4.21 Hgb 13.7 Hct 42.5 MCV 101 H MCH 32.6 MCHC 32.3 RDW 17.1 H Plt Count 141 L Sodium 135.1 L 134.6 L Potassium 4.9 5.1 H Chloride 94 L 95 L Carbon Dioxide 30 26 Anion Gap 11 14 BUN 63 H 71 H Creatinine 6.60 H 6.56 H Est GFR ( Amer) 7 L 7 L Glucose 103 51 L Calcium 9.7 9.4 12/28/18 15:15 Troponin I 0.053 Impressions: Head CT 12/28/18 18:44 IMPRESSION: MILD CHRONIC CHANGES OF ATROPHY AND MICROVASCULAR ISCHEMIA. NO ACUTE PROCESS. EVIDENCE OF ACUTE STROKE: NO. Abdomen/Pelvis CT 12/30/18 00:00 IMPRESSION: 1. No acute noncontrast CT findings of the abdomen or pelvis. No evidence of insulinoma, however noncontrast CT has virtually no diagnostic value for pancreatic endocrine tumors. Consider multiphasic contrast-enhanced CT or MRI to further evaluate if insulinoma is suspected. 2. Large burden of stool in the colon. 3. Atherosclerosis, vascular calcinosis, renal osteodystrophy, and renal atrophy. Abdomen X-Ray 01/01/19 00:00 IMPRESSION: Marked constipation. Possible superior and inferior pubic rami fractures on the left. Assessment & Plan - Diagnosis (1) Altered mental status Qualifiers: Altered mental status type: unspecified Qualified Code(s): R41.82 - Altered mental status, unspecified Plan: Resolved. Probably multifactorial including hypoglycemia and polypharmacy and dehydration. (2) ESRD (end stage renal disease) on dialysis Is this a current diagnosis for this admission?: Yes Plan: Patient currently undergoing dialysis without any issues. Vital signs are stable. Dialysis is being supervised to ensure safe and smooth procedure. Plan to remove between 1 and 2 L as tolerated. Dialysis orders were reviewed with the treating dialysis nurse. (3) Hyperkalemia Is this a current diagnosis for this admission?: Yes Plan: Resolved. (4) Hypoglycemia Is this a current diagnosis for this admission?: Yes Plan: Currently resolved. However she has poor intake and therefore needs to be monitored. (5) Diabetes mellitus type 2 in nonobese Plan: Advised about good control without hypoglycemia. (6) Hypertension Qualifiers: Hypertension type: essential hypertension Qualified Code(s): I10 - Essential (primary) hypertension Plan: Controlled.
[2019-01-02] MEDS: CARVEDILOL 12.5 MG TABLET PO SCH ×2 (12:38→21:16)
[2019-01-02] MEDS: HYDRALAZINE HCL 25 MG TABLET PO SCH ×2 (12:38→21:16)
[2019-01-02] MEDS: ISOSORBIDE MONONITRATE 30 MG TAB.ER.24H PO SCH (12:38)
[2019-01-02] MEDS: LISINOPRIL 10 MG TABLET PO SCH (12:39)
[2019-01-02] MEDS: POLYETHYLENE GLYCOL 3350 POWDER 17 GM/1 PACKET PO SCH (12:43)
[2019-01-02] MEDS: ASCORBIC ACID 500 MG TABLET PO SCH (12:43)
[2019-01-02] MEDS: DOCUSATE SODIUM 100 MG CAPSULE PO SCH ×2 (12:43→17:17)
--- NOTE | 2019-01-02 13:09 | PDOC PROGRESS REPORT ---
Subjective Progress Note for:: 01/02/19 Subjective:: The patient is a 78-year-old female with a past medical history of blindness, end-stage renal disease on dialysis, hypertension, CHF, and chronic diarrhea who was admitted 12/28/2018 for altered mental status. She was seen on morning rounds while in dialysis. She was found resting in bed comfortably on room air. She is A&Ox4 today. She has not had a true bowel mo vement since prior to her admission; "baseball" sized hard stool per nursing overnight. Unfortunately, she continues to have persistent nausea and vomiting w/ poor p.o. intake and resultant hypoglycemia again this morning. She denies headache, dizziness, fever, chills, chest pain, palpitations, ort hopnea, cough, abdominal pain and nausea today. She has no questions or concerns. No concerns per nursing. Reason For Visit: HYPOGLYCEMIA ESRD C HD Physical Exam Vital Signs: Temp Pulse Resp BP Pulse Ox 98.2 F 69 17 156/49 H 93 01/02/19 07:49 01/02/19 07:49 01/02/19 07:49 01/02/19 07:49 01/02/19 07:49 Intake & Output 01/01/19 01/02/19 01/03/19 06:59 06:59 06:59 Intake Total 200 250 Balance 200 250 Weight 43.5 kg 43.1 kg General appearance: PRESENT: no acute distress, cooperative, hard of hearing, thin, well-developed, well-nourished Head exam: PRESENT: atraumatic, normocephalic Eye exam: PRESENT: conjunctiva pink, EOMI, other. ABSENT: PERRLA, scleral icterus Ear exam: PRESENT: normal external ear exam Mouth exam: PRESENT: moist, tongue midline Neck exam: ABSENT: carotid bruit, JVD, lymphadenopathy, thyromegaly Respiratory exam: PRESENT: clear to auscultation drake, symmetrical, unlabored. ABSENT: rales, rhonchi, wheezes Cardiovascular exam: PRESENT: RRR, +S1, +S2. ABSENT: diastolic murmur, rubs, systolic murmur Pulses: PRESENT: normal dorsalis pedis pul Vascular exam: PRESENT: normal capillary refill GI/Abdominal exam: PRESENT: normal bowel sounds, soft. ABSENT: distended, guarding, mass, organolmegaly, rebound, tenderness Rectal exam: PRESENT: deferred Extremities exam: PRESENT: full ROM. ABSENT: calf tenderness, clubbing, pedal edema Neurological exam: PRESENT: alert, awake, oriented to person, oriented to place, oriented to time, oriented to situation, CN II-XII grossly intact. ABSENT: motor sensory deficit Psychiatric exam: PRESENT: appropriate affect, normal mood. ABSENT: homicidal ideation, suicidal ideation Skin exam: PRESENT: dry, intact, warm. ABSENT: cyanosis, rash Results Laboratory Results: 01/02/19 05:03 01/02/19 05:03 01/01/19 01/02/19 01/02/19 19:04 05:03 05:03 WBC 4.3 RBC 4.21 Hgb 13.7 Hct 42.5 MCV 101 H MCH 32.6 MCHC 32.3 RDW 17.1 H Plt Count 141 L Sodium 135.1 L 134.6 L Potassium 4.9 5.1 H Chloride 94 L 95 L Carbon Dioxide 30 26 Anion Gap 11 14 BUN 63 H 71 H Creatinine 6.60 H 6.56 H Est GFR ( Amer) 7 L 7 L Glucose 103 51 L Calcium 9.7 9.4 12/28/18 15:15 Troponin I 0.053 Impressions: Head CT 12/28/18 18:44 IMPRESSION: MILD CHRONIC CHANGES OF ATROPHY AND MICROVASCULAR ISCHEMIA. NO AC ISMAEL PROCESS. EVIDENCE OF ACUTE STROKE: NO. Abdomen/Pelvis CT 12/30/18 00:00 IMPRESSION: 1. No acute noncontrast CT findings of the abdomen or pelvis. No evidence of insulinoma, however noncontrast CT has virtually no diagnostic value for pancreatic endocrine tumors. Consider multiphasic contrast-enhanced CT or MRI to further evaluate if insulinoma is suspected. 2. Large burden of stool in the colon. 3. Atherosclerosis, vascular calcinosis, renal osteodystrophy, and renal atrophy. Abdomen X-Ray 01/01/19 00:00 IMPRESSION: Marked constipation. Possible superior and inferior pubic rami fractures on the left. Assessment and Plan - Diagnosis (1) Hypoglycemia Is this a current diagnosis for this admission?: Yes Plan: Reoccurred this am; secondary to poor p.o. intake Initially treated with D5NS We will continue to monitor Accu-Cheks with hypoglycemia protocol. Discussed with Dr. Fuentes; recommended getting CT or ultrasound of the abdomen to evaluate for occult liver disease; CT was benign other than large stool volume. Of note, that was a noncontrasted CT due to renal failure which is not helpful in evaluating for insulinoma's. (2) Encephalopathy acute Is this a current diagnosis for this admission?: Yes Plan: Resolved; likely multifactorial secondary to hypoglycemia, dehydration, and polypharmacy. She is now A&O x4. Continue to monitor blood sugars closely. Prevent hypoglycemia. Correction of fecal impaction as outlined below. Supportive care, fall precautions. (3) Fecal impaction Is this a current diagnosis for this admission?: Yes Plan: Persistent Patient has been complaining 4 months of diarrhea only, abdominal series reveals fecal impaction. CT abdomen pelvis again reveals a large stool volume 2-view abdomen today redemonstrates large stool volume, though without signs of obstruction She has not responded to lactulose enemas. Unresponsive to soapsuds enema x2. Continue twice daily Colace; unfortunately, it appears that she has not received any of these doses. Trial of magnesium citrate resulted in nausea/vomiting. Continue Colace twice daily MiraLAX daily; difficulty managing volume. Nursing reports she sipped "most" of the 8 oz over the course of day shift yesterday. Lactulose 10 gm QID (low volume r/t nausea); so far tolerating well. Antiemetics as needed Spoke with Dr. Griffin today; recommended trial of IV Reglan. Unfortunately sharla ent has allergy. Discussed with pharmacy. Will trial IV Erythromycin (gastroparesis dose of 3 mg/kg over 45 minutes 3 times daily). Medication has been ordered; will be available for first dose tomorrow at 1400. Consider surgical consultation (No GI services available) (4) Hyperkalemia Is this a current diagnosis for this admission?: Yes Plan: 5.1 today prior to dialysis. Without peak T waves We will continue to monitor on cardiac telemetry. Daily chemistries. (5) ESRD (end stage renal disease) on dialysis Is this a current diagnosis for this admission?: Yes Plan: Hemodialysis schedule per nephrology. - Time Time Spent with patient: 25-34 minutes Medications reviewed and adjusted accordingly: Yes Anticipated discharge: Home with Homehealth Within: within 24 hours - once large bm and tolerating adequate p.o. to maintain blood sugars
[2019-01-02] MEDS: AMLODIPINE BESYLATE 5 MG TABLET PO SCH (17:17)
[2019-01-02] MEDS: FLUOXETINE HCL 20 MG/5 ML UDCUP PO SCH (17:21)
[2019-01-02 21:38] LABS: ANION GAP 9 (5-19); CALCIUM 9.6 mg/dL (8.4-10.2); CARBON DIOXIDE 31 mmol/L (22-30); CHLORIDE 96 mmol/L (98-107); GLUCOSE 113 mg/dL (75-110)
[2019-01-02 21:57] LABS: BLOOD UREA NITROGEN 31 mg/dL (7-20); POTASSIUM 3.9 mmol/L (3.6-5.0)
--- NOTE | 2019-01-03 00:30 | EKG REPORT ---
SEVERITY:- ABNORMAL ECG - SINUS RHYTHM ATRIAL PREMATURE COMPLEX MOBITZ 1 AV BLOCK (WEN[place]BACH) FIRST DEGREE AV BLOCK PROBABLE LVH WITH SECONDARY REPOL ABNRM : Confirmed by: Malena Mac MD 03-Jan-2019 00:30:02
[2019-01-03] MEDS: LEVOTHYROXINE SODIUM 0.025 MG TABLET PO SCH (06:00)
[2019-01-03] MEDS: HEPARIN SOD (PORCINE) 5,000 UNIT/ML 1 ML VIAL SUBCUT SCH (06:05)
[2019-01-03] MEDS: INFLUENZA QUAD (6MOS+) 2019-20 VAC 0.5 ML SYR IM ONE ×2 (08:53→10:09)
[2019-01-03] MEDS: ASPIRIN 81 MG TABLET, ENT COATED PO SCH (08:53)
[2019-01-03] MEDS: CALCIUM ACETATE 667 MG CAPSULE PO SCH (08:54)
[2019-01-03] MEDS: HYDRALAZINE HCL 25 MG TABLET PO SCH (09:01)
[2019-01-03] MEDS: LACTULOSE SYRUP 20 GM/30 ML UDCUP PO SCH (09:01)
[2019-01-03] MEDS: DOCUSATE SODIUM 100 MG CAPSULE PO SCH (09:01)
[2019-01-03] MEDS: CARVEDILOL 12.5 MG TABLET PO SCH (09:02)
[2019-01-03] MEDS: FLUTICASONE NASAL SPRAY 50 MCG/SPRY 120 SPRAY/16 GM NASL SCH (09:03)
[2019-01-03] MEDS: POLYETHYLENE GLYCOL 3350 POWDER 17 GM/1 PACKET PO SCH (09:04)
[2019-01-03] MEDS: ASCORBIC ACID 500 MG TABLET PO SCH (09:04)
[2019-01-03] MEDS: LISINOPRIL 10 MG TABLET PO SCH (09:04)
[2019-01-03] MEDS: ISOSORBIDE MONONITRATE 30 MG TAB.ER.24H PO SCH (09:04)
[2019-01-03 09:58] VITALS: BP 156/49
[2019-01-03] MEDS ORDERED: ERYTHROMYCIN LACTOBIONATE IV SCH (14:00)
[2019-01-03] MEDS ORDERED: NORMAL SALINE IV SCH (14:00)
--- NOTE | 2019-01-05 06:50 | PDOC DISCHARGE SUMMARY ---
Impression - Admit/DC Date/PCP Admission Date/Primary Care Provider: 12/28/18 19:54 JOVANA MOELLER MD Discharge Date: 01/03/19 - Additional Information Resuscitation Status: Full Code Discharge Diet: Other (Comments) - Dialysis; eat frequent, small meals. Discharge Activity: Activity As Tolerated, Balance Activity w/Rest Referrals: JOVANA MOELLER MD [Primary Care Provider] - 01/12/19 2:30 pm (Request for appt put in the followup book.) Prescriptions: Docusate Sodium [Colace 100 mg Capsule] 100 mg PO BID #60 capsule Docusate Sodium [Colace 100 mg Capsule] 100 mg PO BID #60 capsule Home Medications: Alprazolam [Xanax 0.5 mg Tablet] 0.5 mg PO Q8HP PRN 12/28/18 Amlodipine Besylate [Norvasc 5 mg Tablet] 5 mg PO QPM 12/28/18 Ascorbic Acid [C-1000] 1,000 mg PO DAILY 12/28/18 Aspirin [Ecotrin 81 mg EC Tablet] 81 mg PO QAM 12/28/18 Calcium Acetate [Phoslo 667 mg Capsule] 1,334 mg PO MEALS 12/28/18 Carvedilol [Coreg 12.5 mg Tablet] 12.5 mg PO Q12 12/28/18 Fluoxetine HCl [Prozac] 10 mg PO QPM 12/28/18 Fluticasone Propionate [Flonase Nasal [place] 50 Mcg/[place] 16 gm] 2 spray NASL DAILY 12/28/18 Hydralazine HCl [Apresoline 25 mg Tablet] 25 mg PO Q12 12/28/18 Isosorbide Mononitrate [Imdur 30 mg Tablet.er] 30 mg PO DAILY 12/28/18 Levothyroxine Sodium [Synthroid 0.025 mg Tablet] 0.025 mg PO Q6AM 12/28/18 Lisinopril [Prinivil 10 mg Tablet] 10 mg PO DAILY 12/28/18 Tramadol HCl/Acetaminophen [Tramadol-Acetaminophn 37.5-325] 1 tab PO Q6HP PRN 12/28/18 Acetaminophen [Tylenol 325 mg Tablet] 650 mg PO Q4HP PRN tablet 12/31/18 Docusate Sodium [Colace 100 mg Capsule] 100 mg PO BID #60 capsule 12/31/18 Docusate Sodium [Colace 100 mg Capsule] 100 mg PO BID #60 capsule 01/03/19 History of Present Illiness History of Present Illness: SINAN EASLEY is a 78 year old female who presented to the ER with a history of blindness, end-stage renal disease on hemodialysis, hypertension and congestive heart failure. She is also found to have an acute encephalopathy. Hospital Course Hospital Course: Patient is a 78-year-old female with past medical history of blindness, end- stage renal failure on hemodialysis, hypertension, congestive heart failure and chronic diarrhea. She presents with altered mental status and found to have a blood sugar 20. Patient did receive D50 and D10 infusion followed by hemodialysis in the emergency room. She admits to a poor appetite secondary to nausea. Patient also states she had several episodes of emesis of dark brown material in addition to chronic diarrhea and cannot recall the last time he had a normal bowel movement. Abdominal series showed a severe fecal impaction. Patient was treated with IV erythromycin for GI motility secondary to all allergies to Reglan. Patient at this time is having bowel movements that are formed and request to go home at this time. Patient was dialyzed yesterday and should continue back on her normal Wednesday schedule starting tomorrow on outpatient basis. Patient will present to her primary care prac titioner within 1 week. Patient is understanding of plan of care. I have called in a prescription for Colace 100 g p.o. twice daily for patient. Physical Exam Vital Signs: Temp Pulse Resp BP Pulse Ox 98.1 F 69 19 152/50 H 94 01/02/19 19:18 01/03/19 07:00 01/02/19 19:18 01/02/19 19:18 01/02/19 19:18 Intake & Output 01/02/19 01/03/19 01/04/19 06:59 06:59 06:59 Intake Total 250 200 Output Total 1500 Balance 250 -1300 Weight 43.1 kg 44.1 kg General appearance: PRESENT: no acute distress, well-developed, well-nourished Neck exam: ABSENT: carotid bruit, JVD, lymphadenopathy, thyromegaly Respiratory exam: PRESENT: clear to auscultation drake. ABSENT: rales, rhonchi, wheezes Cardiovascular exam: PRESENT: RRR. ABSENT: diastolic murmur, rubs, systolic murmur Pulses: PRESENT: +1 pedal pulses bilateral Vascular exam: PRESENT: normal capillary refill GI/Abdominal exam: PRESENT: normal bowel sounds, soft. ABSENT: distended, guarding, mass, organolmegaly, rebound, tenderness Extremities exam: PRESENT: other - Left upper extremity AV fistula good thrill and bruit Neurological exam: PRESENT: alert, awake, oriented to person, oriented to place, oriented to time, oriented to situation, CN II-XII grossly intact. ABSENT: motor sensory deficit Psychiatric exam: PRESENT: appropriate affect, normal mood. ABSENT: homicidal ideation, suicidal ideation Skin exam: PRESENT: dry, intact, warm. ABSENT: cyanosis, rash Results Laboratory Results: WBC 4.3 10^3/uL (4.0-10.5) 01/02/19 05:03 RBC 4.21 10^6/uL (3.72-5.28) 01/02/19 05:03 Hgb 13.7 g/dL (12.0-15.5) 01/02/19 05:03 Hct 42.5 % (36.0-47.0) 01/02/19 05:03 MCV 101 fl (80-97) H 01/02/19 05:03 MCH 32.6 pg (27.0-33.4) 01/02/19 05:03 MCHC 32.3 g/dL (32.0-36.0) 01/02/19 05:03 RDW 17.1 % (11.5-14.0) H 01/02/19 05:03 Plt Count 141 10^3/uL (150-450) L 01/02/19 05:03 Lymph % (Auto) Not Reportable 12/29/18 05:03 [place] % (Auto) Not Reportable 12/29/18 05:03 Eos % (Auto) Not Reportable 12/29/18 05:03 Baso % (Auto) Not Reportable 12/29/18 05:03 Reticulocyte # 0.034 10^6/uL (0.028-0.122) 12/28/18 15:15 Absolute Neuts (auto) Not Reportable 12/29/18 05:03 Absolute Lymphs (auto) Not Reportable 12/29/18 05:03 Absolute Monos (auto) Not Reportable 12/29/18 05:03 Absolute Eos (auto) Not Reportable 12/29/18 05:03 Absolute Basos (auto) Not Reportable 12/29/18 05:03 Total Counted 100 12/29/18 05:03 Seg Neutrophils % Not Reportable 12/29/18 05:03 Seg Neuts % (Manual) 95 % (42-78) H 12/29/18 05:03 Lymphocytes % (Manual) 1 % (13-45) L 12/29/18 05:03 Atypical Lymphs % 1 % (0) 12/29/18 05:03 Monocytes % (Manual) 3 % (3-13) 12/29/18 05:03 Eosinophils % (Manual) 0 % (0-6) 12/29/18 05:03 Basophils % (Manual) 0 % (0-2) 12/29/18 05:03 Abs Neuts (Manual) 6.5 10^3/uL (1.7-8.2) 12/29/18 05:03 Abs Lymphs (Manual) 0.1 10^3/uL (0.5-4.7) L 12/29/18 05:03 Abs Monocytes (Manual) 0.2 10^3/uL (0.1-1.4) 12/29/18 05:03 Absolute Eos (Manual) 0.0 10^3/uL (0.0-0.6) 12/29/18 05:03 Abs Basophils (Manual) 0.0 10^3/uL (0.0-0.2) 12/29/18 05:03 Platelet Comment ADEQUATE 12/29/18 05:03 Poikilocytosis 1+ 12/28/18 13:00 Anisocytosis 1+ 12/29/18 05:03 Macrocytosis 1+ 12/29/18 05:03 Target Cells SLIGHT 12/29/18 05:03 Tear Drop Cells SLIGHT 12/28/18 13:00 Ovalocytes SLIGHT 12/29/18 05:03 Retic Count (auto) 0.80 % (0.66-2.85) 12/28/18 15:15 Sodium 136.2 mmol/L (137-145) L 01/02/19 21:00 Potassium 3.9 mmol/L (3.6-5.0) D 01/02/19 21:00 Chloride 96 mmol/L (98-107) L 01/02/19 21:00 Carbon Dioxide 31 mmol/L (22-30) H 01/02/19 21:00 Anion Gap 9 (5-19) 01/02/19 21:00 BUN 31 mg/dL (7-20) H D 01/02/19 21:00 Creatinine 3.55 mg/dL (0.52-1.25) H 01/02/19 21:00 Est GFR ( Amer) 15 (>60) L 01/02/19 21:00 Est GFR (Non-Af Amer) Cancelled 12/28/18 13:00 Est GFR (MDRD) Non-Af 12 (>60) L 01/02/19 21:00 Glucose 113 mg/dL (75-110) H 01/02/19 21:00 POC Glucose 103 mg/dL (70-110) 01/02/19 21:09 Calcium 9.6 mg/dL (8.4-10.2) 01/02/19 21:00 Iron 45.4 ug/dL (37-170) 12/28/18 15:15 TIBC 179 ug/dL (250-450) L 12/28/18 15:15 % Saturation 25 % 12/28/18 15:15 Ferritin 672.00 ng/mL (11.1-264.0) H 12/28/18 15:15 Ammonia 17.0 umol/L (9-33) 12/28/18 15:15 Troponin I 0.053 ng/mL 12/28/18 15:15 EGFR Cancelled 12/28/18 13:00 Vitamin B12 473.0 pg/mL (239-931) 12/28/18 15:15 Folate > 20.00 ng/mL (>2.76) 12/28/18 15:15 TSH 1.39 uIU/mL (0.47-4.68) 12/28/18 15:15 Random Cortisol 22.10 ug/dL (None Established) 12/30/18 04:15 12/28/18 15:15 Troponin I 0.053 Impressions: Abdomen X-Ray 12/28/18 00:00 IMPRESSION: Nonobstructive bowel gas pattern. However, there is a large colonic stool load. copyright 2011 [employer]- All Rights Reserved Head CT 12/28/18 18:44 IMPRESSION: MILD CHRONIC CHANGES OF ATROPHY AND MICROVASCULAR ISCHEMIA. NO ACUTE PROCESS. EVIDENCE OF ACUTE STROKE: NO. Abdomen/Pelvis CT 12/30/18 00:00 IMPRESSION: 1. No acute noncontrast CT findings of the abdomen or pelvis. No evidence of insulinoma, however noncontrast CT has virtually no diagnostic value for pancreatic endocrine tumors. Consider multiphasic contrast-enhanced CT or MRI to further evaluate if insulinoma is suspected. 2. Large burden of stool in the colon. 3. Atherosclerosis, vascular calcinosis, renal osteodystrophy, and renal atrophy. Abdomen X-Ray 01/01/19 00:00 IMPRESSION: Marked constipation. Possible superior and inferior pubic rami fractures on the left. Plan Health Concerns: Constipation-Colace 100 mg p.o. twice daily Time Spent: Greater than 30 Minutes Stroke Is this a Stroke Patient?: No Acute Heart Failure - Is this a Heart Failure Patient?: No
== END 2019-01-03 11:45 | disposition home health service (06) | DRG 643 ==
LOC: ER 12:49 → EH 19:54 → 3N 12-29 00:21
PROVIDERS: ADMIT Internal Medicine; ATTEND Internal Medicine
PROC: 5A1D70Z Performance of Urinary Filtration, Intermittent, Less than 6 Hours Per Day (ICD-10-PCS; principal; 2018-12-28)
PROC: 3E0234Z Introduction of Serum, Toxoid and Vaccine into Muscle, Percutaneous Approach (ICD-10-PCS; 2019-01-03)
DX: E16.1 Other hypoglycemia (principal); N18.6 End stage renal disease; I13.2 Hypertensive heart and chronic kidney disease with heart failure and with stage 5 chronic kidney disease, or end stage renal disease; I50.22 Chronic systolic (congestive) heart failure; G93.40 Encephalopathy, unspecified; E86.0 Dehydration; K21.9 Gastro-esophageal reflux disease without esophagitis; I25.10 Atherosclerotic heart disease of native coronary artery without angina pectoris; D63.1 Anemia in chronic kidney disease; E87.5 Hyperkalemia; K56.41 Fecal impaction; H54.7 Unspecified visual loss; R41.82 Altered mental status, unspecified; I25.2 Old myocardial infarction; Z95.2 Presence of prosthetic heart valve; Z23 Encounter for immunization; Z79.82 Long term (current) use of aspirin; Z79.899 Other long term (current) drug therapy; Z99.2 Dependence on renal dialysis
CPT/HCPCS: 36415; 70450; 74019; 74176; 80048; 82140; 82533; 82607; 82728; 82746; 82962; 83540; 83550; 84443; 84484; 85025; 85027; 85045; 90686; 93005; 93010; 96374; 99285; G0257; J0360; J1644; J2405; J2550; J3490; J7030; J7042

== ENCOUNTER 2019-01-07 13:57 | Emergency (ER) | payer MEDICARE, BC ==
[2019-01-07] MEDS ORDERED: ACETAMINOPHEN SUSP 160 MG/5 ML ORAL SYRING PO ONE (14:18)
[2019-01-07] MEDS ORDERED: NORMAL SALINE 1000 ML 1,000 ML IV ONE (14:19)
--- NOTE | 2019-01-07 14:20 | ER Document Report ---
ED Medical Screen (RME) - General Chief Complaint: Altered Mental Status Stated Complaint: ALTERED MENTAL STATUS Time Seen by Provider: 01/07/19 14:11 Primary Care Provider: JOVANA MOELLER MD [Primary Care Provider] - Follow up as needed Mode of Arrival: Medic Information source: Patient Notes: 78-year-old female presented to ED for complaint of diarrhea and altered mental status. Patient states she had diarrhea on yesterday so the nurse was at home health nurse stated that she should not have her scheduled dialysis so she went to dialysis today. She usually on the machine for 2 hours and 45 but when on the dialysis machine today after an hour she became altered mental status. [facility] did send her to the emergency room for altered mental status. She does have a history of renal failure high blood pressure arthritis anemia and diabetes. Blood sugar for EMS was 160. Her rectal temperature is 94.5 at this time. I have greeted and performed a rapid initial assessment of this patient. A comprehensive ED assessment and evaluation of the patient, analysis of test results and completion of medical decision making process will be conducted by an additional ED providers. TRAVEL OUTSIDE OF THE [place] IN LAST 30 DAYS: No - Related Data Allergies/Adverse Reactions: prednisone Allergy (Unknown, Verified 01/07/19 14:06) Unknown reaction metoclopramide HCl [From Reglan] Adverse Reaction (Unknown, Verified 06/23/16 09:40) leg twitching Past Medical History - Past Medical History Cardiac Medical History: Reports: Hx Congestive Heart Failure, Hx Coronary Artery Disease, Hx Heart Attack - 2004, QUAD BYPASS AND VALVE REPLACEMENT, Hx Hypercholesterolemia, Hx Hypertension, Hx Peripheral Vascular Disease, Hx Pulmonary Embolism, Hx Heart Murmur Denies: Hx Atrial Fibrillation Pulmonary Medical History: Reports: Hx COPD, Hx Pneumonia - 01/2016, Hx Sleep Apnea Denies: Hx Asthma, Hx Bronchitis, Hx Respiratory Failure, Hx Tuberculosis Neurological Medical History: Reports: Hx Cerebrovascular Accident - 2005. Denies: Hx Seizures, Hx Parkinson's Disease Endocrine Medical History: Reports: Hx Diabetes Mellitus Type 2 - Off medications for 6+ years, Hx Hypothyroidism. Denies: Hx Diabetes Mellitus Type 1, Hx Graves' Disease, Hx Hyperthyroidism Renal/ Medical History: Reports: Hx End Stage Renal Disease - Oliguric, on dialysis Wednesday, Wednesday and Wednesday with Dr. Raygoza, Hx Hemodialysis - MWF at [facility]. Denies: Hx Peritoneal Dialysis Malignancy Medical History: Denies: Hx Leukemia, Hx Lung Cancer GI Medical History: Reports: Hx Gastroesophageal Reflux Disease. Denies: Hx Cirrhosis, Hx Crohn's Disease, Hx Diverticulitis, Hx Hepatitis, Hx Hiatal Hernia, Hx Irritable Bowel, Hx Liver Failure, Hx Pancreatitis, Hx Ulcer, Hx Ulcerative Colitis Musculoskeltal Medical History: Reports Hx Arthritis - Primarily affecting her back, Denies Hx Gout, Denies Hx Multiple Sclerosis, Denies Hx Systemic Lupus Erythematosus Skin Medical History: Denies Hx Eczema, Denies Hx Psoriasis Psychiatric Medical History: Reports: Hx Depression Denies: Hx Dementia Infectious Medical History: Denies: Hx Hepatitis, Hx HIV Past Surgical History: Reports: Hx Abdominal Surgery - hernia repair, Hx Cardiac Catheterization, Hx Cardiac Surgery, Hx Cholecystectomy, Hx Coronary Artery Bypass Graft - X4, Hx Herniorrhaphy, Hx Open Heart Surgery, Hx Pacemaker, Hx Tonsillectomy, Hx Tubal Ligation, Hx Valve Replacement - Bioprosthetic valve replacement surgery, Hx Vascular Surgery - Left antecubital tunnel/graft for dialysis. Denies: Hx Appendectomy, Hx Bowel Surgery, Hx Section, Hx Colostomy, Hx Gastric Bypass Surgery, Hx Hysterectomy, Hx Mastectomy - Immunizations Hx Diphtheria, Pertussis, Tetanus Vaccination: Yes Doctor's Discharge - Discharge Referrals: JOVANA MOELLER MD [Primary Care Provider] - Follow up as needed
--- NOTE | 2019-01-07 15:28 | ER Document Report ---
ED General - General Chief Complaint: Altered Mental Status Stated Complaint: ALTERED MENTAL STATUS Time Seen by Provider: 01/07/19 14:11 Primary Care Provider: JOVANA MOELLER MD [Primary Care Provider] - Follow up in 3-5 days Mode of Arrival: Medic Notes: Patient is a 78-year-old female, with end-stage renal disease on dialysis that presents to the emergency department for chief complaint of syncopal episode at dialysis. Patient was at dialysis today, she was on a dialyzer for about 1 hour, and apparently she had a brief syncopal episode, and was slightly confused afterwards and is now back to her baseline. She apparently was having significant diarrhea on and Wednesday, and she skipped her dialysis on Wednesday, and had a session today she is usually Wednesday. She states she was not been drinking much over the past few days, think she may have been dehydrated prior to dialysis. At this time she feels back to her baseline, denies any confusion, headache, lightheadedness, chest pain, shortness of breath, nausea or vomiting. She has not had any further diarrhea today. Past Medical History: End-stage renal disease on dialysis, hypertension Past Surgical History: Dialysis fistula in the left upper extremity Social History: Lives at home, denies tobacco, alcohol or drug use. Family History: Reviewed and noncontributory for presenting illness Allergies: Reviewed, see documented allergy list. REVIEW OF SYSTEMS: Other than noted above, the 12 point review of systems was reviewed with the patient and were negative, all pertinent findings are included in the HPI. PHYSICAL EXAMINATION: Vital signs reviewed, nursing noted reviewed. GENERAL: Elderly, frail female, no acute distress HEAD: Atraumatic, normocephalic. EYES: Eyes appear normal, extraocular movements intact, sclera anicteric, conjunctiva are normal. ENT: nares patent, oropharynx clear without exudates. Somewhat dry appearing mucous membranes NECK: Normal range of motion, supple without lymphadenopathy LUNGS: Breath sounds clear to auscultation bilaterally and equal. No wheezes rales or rhonchi. HEART: Regular rate and rhythm without murmurs ABDOMEN: Soft, nontender, normoactive bowel sounds. No rebound, guarding, or rigidity. No masses appreciated. EXTREMITIES: Nontender, good range of motion, no pitting or edema. Left upper extremity AV fistula, positive bruit and thrill. NEUROLOGICAL: No focal neurological deficits. Moves all extremities spontaneously Motor and sensory grossly intact on exam. PSYCH: Normal mood, normal affect. SKIN: Warm, Dry, normal turgor, no rashes or lesions noted on exposed skin TRAVEL OUTSIDE OF THE [place] IN LAST 30 DAYS: No - Related Data Allergies/Adverse Reactions: prednisone Allergy (Unknown, Verified 01/07/19 14:06) Unknown reaction metoclopramide HCl [From Reglan] Adverse Reaction (Unknown, Verified 06/23/16 09:40) leg twitching Past Medical History - General Information source: Patient - Social History Smoking Status: Never Smoker Chew tobacco use (# tins/day): No Frequency of alcohol use: None Drug Abuse: None Family History: CAD, DM, Hypertension, Malignancy Patient has suicidal ideation: No Patient has homicidal ideation: No - Past Medical History Cardiac Medical History: Reports: Hx Congestive Heart Failure, Hx Coronary Artery Disease, Hx Heart Attack - 2004, QUAD BYPASS AND VALVE REPLACEMENT, Hx Hypercholesterolemia, Hx Hypertension, Hx Peripheral Vascular Disease, Hx Pulmonary Embolism, Hx Heart Murmur Denies: Hx Atrial Fibrillation Pulmonary Medical History: Reports: Hx COPD, Hx Pneumonia - 01/2016, Hx Sleep Apnea Denies: Hx Asthma, Hx Bronchitis, Hx Respiratory Failure, Hx Tuberculosis Neurological Medical History: Reports: Hx Cerebrovascular Accident - 2005. Denies: Hx Seizures, Hx Parkinson's Disease Endocrine Medical History: Reports: Hx Diabetes Mellitus Type 2 - Off medications for 6+ years, Hx Hypothyroidism. Denies: Hx Diabetes Mellitus Type 1, Hx Graves' Disease, Hx Hyperthyroidism Renal/ Medical History: Reports: Hx End Stage Renal Disease - Oliguric, on dialysis Wednesday, Wednesday and Wednesday with Dr. Raygoza, Hx Hemodialysis - MWF at [facility]. Denies: Hx Peritoneal Dialysis Malignancy Medical History: Denies: Hx Leukemia, Hx Lung Cancer GI Medical History: Reports: Hx Gastroesophageal Reflux Disease. Denies: Hx Cirrhosis, Hx Crohn's Disease, Hx Diverticulitis, Hx Hepatitis, Hx Hiatal Hernia, Hx Irritable Bowel, Hx Liver Failure, Hx Pancreatitis, Hx Ulcer, Hx Ulcerative Colitis Musculoskeletal Medical History: Reports Hx Arthritis - Primarily affecting her back, Denies Hx Gout, Denies Hx Multiple Sclerosis, Denies Hx Systemic Lupus Erythematosus Skin Medical History: Denies Hx Eczema, Denies Hx Psoriasis Psychiatric Medical History: Reports: Hx Depression Denies: Hx Dementia Infectious Medical History: Denies: Hx Hepatitis, Hx HIV Past Surgical History: Reports: Hx Abdominal Surgery - hernia repair, Hx Cardiac Catheterization, Hx Cardiac Surgery, Hx Cholecystectomy, Hx Coronary Artery Bypass Graft - X4, Hx Herniorrhaphy, Hx Open Heart Surgery, Hx Pacemaker, Hx Tonsillectomy, Hx Tubal Ligation, Hx Valve Replacement - Bioprosthetic valve replacement surgery, Hx Vascular Surgery - Left antecubital tunnel/graft for dialysis. Denies: Hx Appendectomy, Hx Bowel Surgery, Hx Section, Hx Colostomy, Hx Gastric Bypass Surgery, Hx Hysterectomy, Hx Mastectomy - Immunizations Hx Diphtheria, Pertussis, Tetanus Vaccination: Yes Hx Pneumococcal Vaccination: 01/04/16 Physical Exam - Vital signs Vitals: Pulse Ox 98 01/07/19 13:58 Course - Re-evaluation Re-evalutation: Patient seen and examined, vital signs reviewed, patient had stable vital signs, she appeared mildly dehydrated on my exam, lungs are clear. She was given IV fluids, from what it seems that she had a single episode, after ultrafiltration, from dialysis, after being dehydrated from diarrhea prior to days, and did not having significant oral intake. Her bicarb was slightly elevated on her blood work, she had no leukocytosis, and chest x-ray was unremarkable and unchanged from prior. Patient was feeling better after IV fluids, on my reevaluation, I feel at this time the patient be discharged home, she otherwise appears well, is not altered, and is feeling better, she does get home health care and they will be following up on her at home if there is any further concern or her symptoms change, they are advised to return to the emergency department. Laboratory 01/07/19 01/07/19 01/07/19 15:25 15:25 15:25 WBC 4.5 RBC 3.95 Hgb 12.9 Hct 39.8 MCV 101 H MCH 32.5 MCHC 32.3 RDW 16.7 H Plt Count 114 L Lymph % (Auto) 9.3 L Barron % (Auto) 6.4 Eos % (Auto) 2.8 Baso % (Auto) 1.6 Absolute Neuts (auto) 3.6 Absolute Lymphs (auto) 0.4 L Absolute Monos (auto) 0.3 Absolute Eos (auto) 0.1 Absolute Basos (auto) 0.1 Seg Neutrophils % 79.9 H PT Cancelled INR Cancelled INR (Anticoag Therapy) Cancelled VBG pH VBG pCO2 VBG HCO3 VBG Base Excess Sodium 137.6 Potassium 4.3 Chloride 98 Carbon Dioxide 31 H Anion Gap 9 BUN 53 H Creatinine 4.14 H Est GFR ( Amer) 13 L Est GFR (MDRD) Non-Af 10 L Glucose 222 H Lactic Acid Calcium 9.2 Magnesium 2.1 Total Bilirubin 0.5 Direct Bilirubin 0.5 H Neonat Total Bilirubin Not Reportable Neonat Direct Bilirubin Not Reportable Neonat Indirect Bili Not Reportable AST 23 ALT 14 Alkaline Phosphatase 212 H Creatine Kinase 44 CK-MB (CK-2) Troponin I Total Protein 5.9 L Albumin 3.4 L 01/07/19 01/07/19 01/07/19 15:25 15:25 15:25 WBC RBC Hgb Hct MCV MCH MCHC RDW Plt Count Lymph % (Auto) Barron % (Auto) Eos % (Auto) Baso % (Auto) Absolute Neuts (auto) Absolute Lymphs (auto) Absolute Monos (auto) Absolute Eos (auto) Absolute Basos (auto) Seg Neutrophils % PT INR INR (Anticoag Therapy) VBG pH Cancelled VBG pCO2 Cancelled VBG HCO3 Cancelled VBG Base Excess Cancelled Sodium Potassium Chloride Carbon Dioxide Anion Gap BUN Creatinine Est GFR ( Amer) Est GFR (MDRD) Non-Af Glucose Lactic Acid 1.2 Calcium Magnesium Total Bilirubin Direct Bilirubin Neonat Total Bilirubin Neonat Direct Bilirubin Neonat Indirect Bili AST ALT Alkaline Phosphatase Creatine Kinase CK-MB (CK-2) 1.67 Troponin I 0.049 Total Protein Albumin Chest X-Ray 01/07/19 14:15 IMPRESSION: NO ACUTE RADIOGRAPHIC FINDING IN THE CHEST. - Vital Signs Vital signs: Temp Pulse Resp BP Pulse Ox 94.2 F L 71 17 140/48 H 97 01/07/19 14:12 01/07/19 14:12 01/07/19 16:01 01/07/19 16:01 01/07/19 16:01 - Laboratory Result Diagrams: 01/07/19 15:25 01/07/19 15:25 Laboratory results interpreted by me: 01/07/19 01/07/19 15:25 15:25 MCV 101 H RDW 16.7 H Plt Count 114 L Lymph % (Auto) 9.3 L Absolute Lymphs (auto) 0.4 L Seg Neutrophils % 79.9 H Carbon Dioxide 31 H BUN 53 H Creatinine 4.14 H Est GFR ( Amer) 13 L Est GFR (MDRD) Non-Af 10 L Glucose 222 H Direct Bilirubin 0.5 H Alkaline Phosphatase 212 H Total Protein 5.9 L Albumin 3.4 L Discharge - Discharge Clinical Impression: Dehydration Syncope Qualifiers: Syncope type: unspecified Qualified Code(s): R55 - Syncope and collapse Condition: Stable Disposition: HOME, SELF-CARE Instructions: Dehydration ([facility]) Additional Instructions: Increase your fluid intake over the next 24 to 48 hours, to maintain her hydration and follow-up with dialysis as usually scheduled on Wednesday. Referrals: JOVANA MOELLER MD [Primary Care Provider] - Follow up in 3-5 days
[2019-01-07 15:43] LABS: ABSOLUTE BASOPHILS # (AUTO) 0.1 10^3/uL (0.0-0.2); ABSOLUTE EOSINOPHILS # (AUTO) 0.1 10^3/uL (0.0-0.6); ABSOLUTE LYMPHOCYTES (AUTO) 0.4 10^3/uL (0.5-4.7); ABSOLUTE MONOCYTES (AUTO) 0.3 10^3/uL (0.1-1.4); ABSOLUTE NEUT (AUTO) 3.6 10^3/uL (1.7-8.2); BASOPHILS % (AUTO) 1.6 % (0-2); EOSINOPHILS % (AUTO) 2.8 % (0-6); HEMATOCRIT 39.8 % (36.0-47.0); HEMOGLOBIN 12.9 g/dL (12.0-15.5); LYMPHOCYTES % (AUTO) 9.3 % (13-45); MEAN CORPUSCULAR HEMOGLOBIN 32.5 pg (27.0-33.4); MEAN CORPUSCULAR HGB CONC 32.3 g/dL (32.0-36.0); MEAN CORPUSCULAR VOLUME 101 fl (80-97); MONOCYTES % (AUTO) 6.4 % (3-13); PLATELET COUNT 114 10^3/uL (150-450); RED BLOOD COUNT 3.95 10^6/uL (3.72-5.28); RED CELL DISTRIBUTION WIDTH 16.7 % (11.5-14.0); SEGMENTED NEUTROPHILS % (AUTO) 79.9 % (42-78); TOTAL CELLS COUNTED % (AUTO) 100 %; WHITE BLOOD COUNT 4.5 10^3/uL (4.0-10.5)
[2019-01-07 16:06] LABS: ALBUMIN 3.4 g/dL (3.5-5.0); ALKALINE PHOSPHATASE 212 U/L (38-126); ANION GAP 9 (5-19); ASPARTATE AMINO TRANSFERASE 23 U/L (14-36); BILIRUBIN,DIRECT 0.5 mg/dL (0.0-0.4); BILIRUBIN,TOTAL 0.5 mg/dL (0.2-1.3); BLOOD UREA NITROGEN 53 mg/dL (7-20); CALCIUM 9.2 mg/dL (8.4-10.2); CARBON DIOXIDE 31 mmol/L (22-30); CHLORIDE 98 mmol/L (98-107); CREATINE KINASE 44 U/L (30-135); GLUCOSE 222 mg/dL (75-110); POTASSIUM 4.3 mmol/L (3.6-5.0); TOTAL PROTEIN 5.9 g/dL (6.3-8.2)
[2019-01-07 16:14] VITALS: BP 140/48
--- NOTE | 2019-01-07 16:14 | RADIOLOGY REPORT (SQ) ---
EXAM DESCRIPTION: CHEST SINGLE VIEW COMPLETED DATE/TIME: 01/07/2019 4:03 pm REASON FOR STUDY: alterned mental status COMPARISON: 05/16/2018. EXAM PARAMETERS: NUMBER OF VIEWS: One view. TECHNIQUE: Single frontal radiographic view of the chest acquired. RADIATION DOSE: NA LIMITATIONS: None. FINDINGS: LUNGS AND PLEURA: No opacities, masses or pneumothorax. No pleural effusion. MEDIASTINUM AND HILAR STRUCTURES: No masses. Contour normal. HEART AND VASCULAR STRUCTURES: Mild cardiomegaly. Normal vasculature. BONES: No acute findings. HARDWARE: Sternotomy wires. OTHER: No other significant finding. IMPRESSION: NO ACUTE RADIOGRAPHIC FINDING IN THE CHEST. TECHNICAL DOCUMENTATION: JOB ID: [id number] [employer]- All Rights Reserved Reading location - IP/workstation name: [email or web address]
[2019-01-07 17:22] LABS: CREATINE KINASE MB 1.67 ng/mL (<4.55)
[2019-01-07 17:38] LABS: TROPONIN I 0.049 ng/mL
--- NOTE | 2019-01-07 19:24 | EKG REPORT ---
SEVERITY:- ABNORMAL ECG - SINUS RHYTHM FIRST DEGREE AV BLOCK INCOMPLETE LEFT BUNDLE BRANCH BLOCK LOW VOLTAGE IN FRONTAL LEADS CONSIDER ANTERIOR INFARCT : Confirmed by: Malena Mac MD 07-Jan-2019 19:23:43
== END 2019-01-07 17:10 | disposition home or self-care (01) ==
LOC: ER 13:57
DX: E86.0 Dehydration (principal); R55 Syncope and collapse; I12.0 Hypertensive chronic kidney disease with stage 5 chronic kidney disease or end stage renal disease; E11.22 Type 2 diabetes mellitus with diabetic chronic kidney disease; N18.6 End stage renal disease; Z99.2 Dependence on renal dialysis; I25.10 Atherosclerotic heart disease of native coronary artery without angina pectoris; I25.2 Old myocardial infarction; Z95.5 Presence of coronary angioplasty implant and graft; Z88.8 Allergy status to other drugs, medicaments and biological substances
CPT/HCPCS: 93005; 99285; 96360; 96361; 36415; 82553; 82550; 83735; 85025; 80053; 84484; 83605; 71045; 93010; J7030; A9270

== ENCOUNTER 2019-01-09 08:42 | Emergency (ER) | payer MEDICARE, BC ==
[2019-01-09] MEDS ORDERED: NORMAL SALINE 1000 ML 1,000 ML IV ONE (09:04)
[2019-01-09 09:14] LABS: ABSOLUTE BASOPHILS # (AUTO) 0.1 10^3/uL (0.0-0.2); ABSOLUTE EOSINOPHILS # (AUTO) 0.2 10^3/uL (0.0-0.6); ABSOLUTE LYMPHOCYTES (AUTO) 0.4 10^3/uL (0.5-4.7); ABSOLUTE MONOCYTES (AUTO) 0.4 10^3/uL (0.1-1.4); ABSOLUTE NEUT (AUTO) 3.4 10^3/uL (1.7-8.2); BASOPHILS % (AUTO) 1.2 % (0-2); EOSINOPHILS % (AUTO) 4.4 % (0-6); HEMATOCRIT 39.9 % (36.0-47.0); HEMOGLOBIN 12.4 g/dL (12.0-15.5); LYMPHOCYTES % (AUTO) 9.7 % (13-45); MEAN CORPUSCULAR HEMOGLOBIN 32.4 pg (27.0-33.4); MEAN CORPUSCULAR HGB CONC 31.1 g/dL (32.0-36.0); MEAN CORPUSCULAR VOLUME 104 fl (80-97); MONOCYTES % (AUTO) 8.7 % (3-13); PLATELET COUNT 124 10^3/uL (150-450); RED BLOOD COUNT 3.83 10^6/uL (3.72-5.28); TOTAL CELLS COUNTED % (AUTO) 100 %; WHITE BLOOD COUNT 4.4 10^3/uL (4.0-10.5)
[2019-01-09 09:39] LABS: ALBUMIN 3.2 g/dL (3.5-5.0); ALKALINE PHOSPHATASE 219 U/L (38-126); ANION GAP 9 (5-19); ASPARTATE AMINO TRANSFERASE 16 U/L (14-36); BILIRUBIN,DIRECT 0.4 mg/dL (0.0-0.4); BILIRUBIN,TOTAL 0.4 mg/dL (0.2-1.3); BLOOD UREA NITROGEN 75 mg/dL (7-20); CALCIUM 9.6 mg/dL (8.4-10.2); CARBON DIOXIDE 29 mmol/L (22-30); CHLORIDE 100 mmol/L (98-107); CREATINE KINASE 40 U/L (30-135); GLUCOSE 160 mg/dL (75-110); POTASSIUM 3.8 mmol/L (3.6-5.0); SALICYLATE 1.1 mg/dL (2.0-20.0); TOTAL PROTEIN 5.5 g/dL (6.3-8.2)
[2019-01-09 09:40] LABS: ACETAMINOPHEN < 10 ug/mL (10-30); ALCOHOL < 10 mg/dL (NONE DETECTED)
--- NOTE | 2019-01-09 10:28 | RADIOLOGY REPORT (SQ) ---
EXAM DESCRIPTION: CHEST SINGLE VIEW COMPLETED DATE/TIME: 01/09/2019 10:10 am REASON FOR STUDY: overdose COMPARISON: 01/07/2019 EXAM PARAMETERS: NUMBER OF VIEWS: One view. TECHNIQUE: Single frontal radiographic view of the chest acquired. RADIATION DOSE: NA LIMITATIONS: None. FINDINGS: LUNGS AND PLEURA: Low lung volumes limits examination. Bilateral mid-lower lung zone par enchymal opacities may be on the basis of infiltrates or edema. No pneumothorax. Very small bilater al pleural effusions suggested. MEDIASTINUM AND HILAR STRUCTURES: No masses. Contour normal. HEART AND VASCULAR STRUCTURES: For accentuation of the cardiomediastinal structures may be in part r elated to low lung volumes. Normal vasculature. BONES: No acute findings. HARDWARE: None in the chest. OTHER: No other significant finding. IMPRESSION: 1. Low lung volumes limits the examination. Bilateral mid-lower lung zone parenchymal opacities may represent infiltrates or edema. Small bilateral pleural effusions suggested. TECHNICAL DOCUMENTATION: JOB ID: [id number] [employer]- All Rights Reserved Reading location - IP/workstation name: [email or web address]
--- NOTE | 2019-01-09 10:56 | ER Document Report ---
Entered by DANIEL BISWAS SCRIBE 01/09/19902 Acting as scribe for:TAO CHAMORRO MD ED General - General Chief Complaint: Overdose Stated Complaint: POSSIBLE OVERDOSE Time Seen by Provider: 01/09/19 09:01 Primary Care Provider: JOVANA MOELLER MD [Primary Care Provider] - Follow up as needed Mode of Arrival: Medic Information source: Emergency Med Personnel Cannot obtain history due to: Altered mental status Notes: Patient is a 78-year-old female who presents to the emergency department today after a possible overdose prior to arrival. The patient was found on the floor according to EMS. Patient was prescribed 0.5 mg alprazolam #90 on January 05 and there are now 74 pills missing. There are 4 pills left in the bottle that EMS reportedly found scattered on the floor. History is extremely limited secondary to the patient's altered mental status. Poison control was called and they recommended not giving Romazicon due to the likelihood of it putting her into withdrawal. TRAVEL OUTSIDE OF THE [place] IN LAST 30 DAYS: No - Related Data Allergies/Adverse Reactions: prednisone Allergy (Unknown, Verified 01/07/19 14:06) Unknown reaction metoclopramide HCl [From Reglan] Adverse Reaction (Unknown, Verified 06/23/16 09:40) leg twitching Past Medical History - General Information source: Emergency Med Personnel, [facility] Records Cannot obtain history due to: Altered mental status - Social History Smoking Status: Smoker,Current Status Unk Cigarette use (# per day): Yes Chew tobacco use (# tins/day): No Smoking Education Provided: No Frequency of alcohol use: None Drug Abuse: None Lives with: Family Family History: Reviewed & Not Pertinent, CAD, DM, Hypertension, Malignancy - Past Medical History Cardiac Medical History: Reports: Hx Congestive Heart Failure, Hx Coronary Artery Disease, Hx Heart Attack - 2004, QUAD BYPASS AND VALVE REPLACEMENT, Hx Hypercholesterolemia, Hx Hypertension, Hx Peripheral Vascular Disease, Hx Pulmonary Embolism, Hx Heart Murmur Pulmonary Medical History: Reports: Hx COPD, Hx Pneumonia - 01/2016, Hx Sleep Apnea Neurological Medical History: Reports: Hx Cerebrovascular Accident - 2005 Endocrine Medical History: Reports: Hx Diabetes Mellitus Type 2 - Off medications for 6+ years, Hx Hypothyroidism Renal/ Medical History: Reports: Hx End Stage Renal Disease - Oliguric, on dialysis Wednesday, Wednesday and Wednesday with Dr. Raygoza, Hx Hemodialysis - MWF at [facility] GI Medical History: Reports: Hx Gastroesophageal Reflux Disease Musculoskeletal Medical History: Reports Hx Arthritis - Primarily affecting her back Psychiatric Medical History: Reports: Hx Depression Past Surgical History: Reports: Hx Cardiac Catheterization, Hx Cholecystectomy, Hx Coronary Artery Bypass Graft - quadruple, Hx Herniorrhaphy, Hx Pacemaker, Hx Tonsillectomy, Hx Tubal Ligation, Hx Valve Replacement - Bioprosthetic valve replacement surgery, Hx Vascular Surgery - Left antecubital tunnel/graft for dialysis - Immunizations Hx Diphtheria, Pertussis, Tetanus Vaccination: Yes Hx Pneumococcal Vaccination: 01/04/16 Review of Systems - Review of Systems -: Yes ROS unobtainable due to patient's medical condition Physical Exam - Vital signs Vitals: Resp BP Pulse Ox 26 H 153/63 H 97 01/09/19 09:02 01/09/19 09:02 01/09/19 09:02 - Notes Notes: Physical Exam: General: Somnolent. Minimal gag reflex. Withdraws from noxious stimuli, moans with sternal rub. HEENT: Normocephalic. Atraumatic. Pupils are nearly pinpoint and minimally reactive. Oropharynx clear. Oral mucosa is dry, with coated tongue. Neck: Supple. Non-tender. Respiratory: Mild to moderate respiratory distress, tachypneic with a rate of 26-29. Rhonchi bilaterally. Cardiovascular: Regular rate and rhythm. Abdominal: Old healed surgical scar. Non-tender. No distension. Normal Bowel Sounds. Back: No gross abnormalities. Extremities: Moves all four extremities. Upper extremities: Left forearm AV fistula graft Lower extremities: Grossly normal, no edema. Neurological: Somewhat obtunded. Minimal gag reflex. Withdraws from noxious stim ronal, moans with sternal rub. Skin: Warm. Dry. Normal color. Course - Re-evaluation Re-evalutation: 01/09/19 12:53 Patient's respirations had become rapid and shallow and she was hypoventilating. She was still quite obtunded, but did respond to painful stimulus. The decision was made to intubate the patient, as giving Mazicon to reverse the Xanax could precipitate seizures and make it more difficult to manage the patient's airway. 01/09/19 13:59 The patient's potassium was 3.8, she will not require urgent dialysis. [facility], as we do not have any additional dialysis capacity at this facility. The hospitalist is going to get back with me to see if they will be able to take this patient. 01/09/19 14:45 The patient did have an NG tube placed, and when it was put on suction she had a large volume of thin brownish liquid removed. The patient was accepted at [facility] by Dr. Mcgowan. The patient will be going to ICU bed 7. - Vital Signs Vital signs: Temp Pulse Resp BP Pulse Ox 93.9 F L 15 179/65 H 100 01/09/19 15:30 01/09/19 15:16 01/09/19 15:16 01/09/19 15:16 - Laboratory Result Diagrams: 01/09/19 08:56 01/09/19 08:56 Laboratory results interpreted by me: 01/09/19 01/09/19 08:56 08:56 MCV 104 H MCHC 31.1 L RDW 17.0 H Plt Count 124 L Lymph % (Auto) 9.7 L Absolute Lymphs (auto) 0.4 L BUN 75 H Creatinine 5.59 H Est GFR ( Amer) 9 L Est GFR (MDRD) Non-Af 7 L Glucose 160 H Alkaline Phosphatase 219 H Total Protein 5.5 L Albumin 3.2 L Salicylates 1.1 L Acetaminophen < 10 L - Diagnostic Test Radiology reviewed: Image reviewed, Reports reviewed - Post intubation x-ray shows the endotracheal tube tip is 3 cm above the dariusz. NG tube is located in the stomach. There is suspicion for right upper lobe and left lower lobe infiltrates. These were not evident on the first chest x-ray suggesting that this is a developing aspiration pneumonia related to her overdose. Procedures - Intubation Orotracheal Time of Intubation: 12:45 Airway evaluation: Normal anatomy, Copious secretions Medications: Succinylcholine Intubation method: Orotracheal Blade type: Monica Blade size: 4 ETT size: 7.5 ETT secured at: Lips Breath Sounds after Intubation: Equal End tidal CO2 confirmed: Yes Post Intubation Xray: Yes Intubation Complications: No complications, Other - Thick yellowish mucus came up the endotracheal tube after intubation. Critical Care Note - Critical Care Note Total time excluding time spent on procedures (mins): 65 Discharge - Discharge Clinical Impression: ESRD (end stage renal disease) on dialysis, Airway intubation performed without difficulty Overdose of benzodiazepine Qualifiers: Encounter type: initial encounter Injury intent: undetermined intent Qualified Code(s): T42.4X4A - Poisoning by benzodiazepines, undetermined, initial encounter Respiratory failure Qualifiers: Chronicity: acute Respiratory failure complication: hypoxia Qualified Code(s): J96.01 - Acute respiratory failure with hypoxia Aspiration pneumonia Qualifiers: Aspiration pneumonia type: unspecified Laterality: bilateral Lung location: unspecified part of lung Qualified Code(s): J69.0 - Pneumonitis due to inhalation of food and vomit Altered mental status Qualifiers: Altered mental status type: unspecified Qualified Code(s): R41.82 - Altered mental status, unspecified Condition: Serious Disposition: Community Health Referrals: JOVANA MOELLER MD [Primary Care Provider] - Follow up as needed Scribe Attestation: 01/09/19 17:04 I personally performed the services described in the documentation, reviewed and edited the documentation which was dictated to the scribe in my presence, and it accurately records my words and actions. I personally performed the services described in the documentation, reviewed and edited the documentation which was dictated to the scribe in my presence, and it accurately records my words and actions.
[2019-01-09] MEDS ORDERED: FENTANYL CITRATE INJ/PF 100 MCG/2 ML AMPUL IV ONE ×2 (12:51→13:52)
--- NOTE | 2019-01-09 13:16 | EKG REPORT ---
SEVERITY:- DEFECTIVE ECG - SINUS RHYTHM FIRST DEGREE AV BLOCK NONSPECIFIC INTRAVENTRICULAR CONDUCTION DELAY CONSIDER ANTERIOR INFARCT LIMB LEADS REVERSAL. = TECHNICAL ERROR. : Confirmed by: Oskar Herzog MD 09-Jan-2019 13:15:59
--- NOTE | 2019-01-09 13:27 | RADIOLOGY REPORT (SQ) ---
EXAM DESCRIPTION: CHEST SINGLE VIEW COMPLETED DATE/TIME: 01/09/2019 1:16 pm REASON FOR STUDY: Post intubation COMPARISON: 01/09/2019 EXAM PARAMETERS: NUMBER OF VIEWS: One view. TECHNIQUE: Single frontal radiographic view of the chest acquired. RADIATION DOSE: NA LIMITATIONS: None. FINDINGS: LUNGS AND PLEURA: Ill-defined opacification in the right upper lobe. Opacification the le ft lower lobe. Cannot exclude loculated left pleural effusion. MEDIASTINUM AND HILAR STRUCTURES: No masses. Contour normal. HEART AND VASCULAR STRUCTURES: Heart size is borderline. No nick pulmonary edema. BONES: No acute findings. HARDWARE: The endotracheal tube has its tip 3 cm above the dariusz. NG tube extends to the stomach. Sternotomy wires. OTHER: No other significant finding. IMPRESSION: Endotracheal tube placement. Cannot exclude airspace disease in the right upper lobe or left lower lobe. Cannot exclude loculated left pleural effusion. Borderline heart size without fra nk pulmonary edema. TECHNICAL DOCUMENTATION: JOB ID: [id number] [employer]- All Rights Reserved Reading location - IP/workstation name: [email or web address]
[2019-01-09] MEDS ORDERED: PROPOFOL 1,000 MG/100 ML INFUS..BTL IV PRN (13:52)
[2019-01-09] MEDS ORDERED: CEFTRIAXONE 1 GM/D5W RTU 1 GM/50 ML RTUPB IV ONE (13:56)
[2019-01-09] MEDS ORDERED: SUCCINYLCHOLINE CHLORIDE INJ 200 MG/10 ML VIAL IV ONE (14:49)
[2019-01-09 15:26] VITALS: BP 179/65
[2019-01-09] MEDS ORDERED: SUCCINYLCHOLINE CHLORIDE INJ 200 MG/10 ML VIAL ONE (15:30)
== END 2019-01-09 15:45 | disposition short-term general hospital (02) ==
LOC: ER 08:42
DX: T42.4X4A Poisoning by benzodiazepines, undetermined, initial encounter (principal); J96.01 Acute respiratory failure with hypoxia; J69.0 Pneumonitis due to inhalation of food and vomit; R41.82 Altered mental status, unspecified; I13.2 Hypertensive heart and chronic kidney disease with heart failure and with stage 5 chronic kidney disease, or end stage renal disease; E11.22 Type 2 diabetes mellitus with diabetic chronic kidney disease; I50.9 Heart failure, unspecified; N18.6 End stage renal disease; Z99.2 Dependence on renal dialysis; F17.210 Nicotine dependence, cigarettes, uncomplicated; I25.10 Atherosclerotic heart disease of native coronary artery without angina pectoris; I25.2 Old myocardial infarction; J44.9 Chronic obstructive pulmonary disease, unspecified
CPT/HCPCS: 93005; 99291; 96375; 96365; 36415; 80307 ×3; 82550; 83735; 85025; 80053; 84484; 71045; 93010; 94002; J3010; J2704; J0330; J7030; J0696; 94660